=== PATIENT | female | born 1970 | race African-American/Black ===

== ENCOUNTER 2017-06-28 09:15 | Inpatient (IN) | payer OTHER ==
[2017-06-28 09:54] VITALS: BMI 28.3
--- NOTE | 2017-06-28 12:52 | HP ---
Admission ROS [facility] Chief Complaint: I was at [facility] for detox and completed. I am here for rehab. Allergies/Adverse Reactions: Allergies Allergy/AdvReac Type Severity Reaction Status Date / Time haloperidol [From Haldol] Allergy Severe Rash Verified 06/28/17 11:59 haloperidol lactate Allergy Severe Rash Verified 06/28/17 11:59 [From Haldol] metoclopramide Allergy Severe swelling, Verified 06/28/17 11:59 itching metoclopramide HCl Allergy Severe Swelling Verified 06/28/17 11:59 [From Reglan] prochlorperazine Allergy Severe Swelling Verified 06/28/17 11:59 [From Compazine] prochlorperazine edisylate Allergy Severe Swelling Verified 06/28/17 11:59 [From Compazine] prochlorperazine maleate Allergy Severe Swelling Verified 06/28/17 11:59 [From Compazine] Sulfa (Sulfonamide Allergy Severe Itching, Verified 06/28/17 11:59 Antibiotics) swelling History of Present Illness: Pt is a 46yr old female with a history of heroin dependence seeking rehab for treatment. Pt completed detox at [facility] and is here now for further tx. Exam Limitations: No Limitations - Ebola screening Have you traveled outside of the country in the last 21 days: No Have you had contact with anyone from an Ebola affected area: No Have you been sick,other than usual withdrawal symptoms: No Do you have a fever: No - Review of Systems Constitutional: No Symptoms Reported EENT: reports: No Symptoms Reported Respiratory: reports: No Symptoms reported Cardiac: reports: No Symptoms Reported GI: reports: Diarrhea, Poor Fluid Intake, Abdominal cramping : reports: No Symptoms Reported Musculoskeletal: reports: Back Pain, Joint Pain Integumentary: reports: No Symptoms Reported Neuro: reports: Seizure (last seizure 2yrs ago.) Endocrine: reports: No Symptoms Reported Hematology: reports: No Symptoms Reported, Anemia Psychiatric: reports: Judgement Intact, Mood/Affect Appropiate, Orientated x3, Agitated, Anxious Other Systems: Reviewed and Negative Patient History - Patient Medical History Hx Anemia: Yes (on iron supplement) Hx Asthma: Yes Hx Chronic Obstructive Pulmonary Disease (COPD): Yes Hx Cancer: Yes Hx Cardiac Disorders: No Hx Congestive Heart Failure: No Hx Hypertension: Yes Hx Seizures: Yes (r/t head trauma-last episode was in 2016) Hx Diabetes: No Hx Gastrointestinal Disorders: Yes (acid reflux) Hx Liver Disease: No Hx Genitourinary Disorders: No Hx Sexually Transmitted Disorders: Yes Hx Renal Disease (ESRD): No Hx Thyroid Disease: No Hx Human Immunodeficiency Virus (HIV): Yes (hiv since 2001 with [place]) Hx Hepatitis C: No Hx Depression: Yes Hx Suicide Attempt: Yes (cut left wrist in 2001/denies any S/H ideation today) Hx Bipolar Disorder: Yes Hx Schizophrenia: No - Patient Surgical History Past Surgical History: Yes Hx Neurologic Surgery: No Hx Cataract Extraction: No Hx Cardiac Surgery: No Hx Lung Surgery: No Hx Breast Surgery: No Hx Breast Biopsy: No Hx Abdominal Surgery: No Hx Appendectomy: No Hx Cholecystectomy: No Hx Genitourinary Surgery: No Hx Section: Yes (x1) Other Surgical History: tonsilectomy/bunion removal, both feet in 2016 Anesthesia Reaction: No - PPD History Previous Implant?: Yes Documented Results: Negative w/o proof Implanted On Prior [facility] Admission?: No - Reproductive History Patient is a Female of Child Bearing Age (11 -55 yrs old): Yes Last Menstrual Period: 05/21/17 Patient : No - Smoking Cessation Smoking history: Current every day smoker Have you smoked in the past 12 months: Yes Aproximately how many cigarettes per day: 5 Hx Chewing Tobacco Use: No Initiated information on smoking cessation: Yes 'Breaking Loose' booklet given: 06/28/17 - Substance & Tx. History Hx Alcohol Use: No Hx Substance Use: Yes Substance Use Type: Cocaine, Heroin Hx Substance Use Treatment: Yes ([facility] detox 06/2017) - Substances Abused Heroin Route: Inhalation Frequency: Daily Amount used: 20 bags Age of first use: 33 Date of Last Use: 06/22/17 Crack Route: Smoking Frequency: 1-3 times last 30 days Amount used: $100 Age of first use: 33 Date of Last Use: 06/22/17 Family Disease History - Family Disease History Family Disease History: Diabetes: Mother (), CA: Mother, Other: Father ( ) Admission Physical Exam [facility] - Vital Signs Vital Signs: Vital Signs - 24 hr 06/28/17 09:46 Temperature 97.9 F Pulse Rate 120 H Respiratory 180 H Rate Blood Pressure 109/80 - Physical General Appearance: Yes: Appropriately Dressed, Tremorous, Irritable, Sweating, Anxious HEENTM: Yes: Hearing grossly Normal, Normal Voice, Nasal Congestion, Rhinorrhea Respiratory: Yes: Lungs Clear, Normal Breath Sounds, No Respiratory Distress Neck: Yes: No masses,lesions,Nodules Breast: Yes: Within Normal Limits Cardiology: Yes: Regular Rhythm, Regular Rate, S1, S2 Abdominal: Yes: Normal Bowel Sounds, Non Tender, Soft Genitourinary: Yes: Within Normal Limits Back: Yes: Normal Inspection Musculoskeletal: Yes: Back pain Extremities: Yes: Normal Capillary Refill, Normal Inspection, Non-Tender, Tremors Neurological: Yes: Fully Oriented, Alert, Normal Response Integumentary: Yes: Normal Color, Diaphoresis Lymphatic: Yes: Within Normal Limits - Diagnostic (1) Heroin use disorder, moderate, in controlled environment, dependence Current Visit: Yes Status: Chronic (2) HIV disease Current Visit: Yes Status: Chronic (3) Hyperlipidemia Current Visit: Yes Status: Chronic Qualifiers: Hyperlipidemia type: pure hypercholesterolemia Qualified Code(s): E78.00 - Pure hypercholesterolemia, unspecified; E78.0 - Pure hypercholesterolemia (4) GERD (gastroesophageal reflux disease) Current Visit: Yes Status: Chronic Qualifiers: Esophagitis presence: without esophagitis Qualified Code(s): K21.9 - Gastro -esophageal reflux disease without esophagitis (5) Nicotine dependence Current Visit: Yes Status: Chronic Qualifiers: Nicotine product type: cigarettes Substance use status: uncomplicated Qualified Code(s): F17.210 - Nicotine dependence, cigarettes, uncomplicated Cleared for Admission [facility] - Detox or Rehab [facility] Level of Care: Medically Managed Claeared for Rehab Admission: Yes [facility] Breath Alcohol Content Breath Alcohol Content: 0 Urine Pregancy Test - Result Urine Test Results: Negative- NO Line Present Urine Drug Screen - Results Drug Screen Negative: No Urine Drug Screen Results: BZO-Benzodiazepines, MTD-Methadone, TCA-Tricyclic Antidepress Inpatient Rehab Admission - Initial Determination Are CD services needed?: Yes Free of communicable disease: Yes Not in need of hospitalization: Yes - Rehab Admission Criteria Patient is meeting Inpatient Rehab admission criteria:: Yes
[2017-06-28] MEDS ORDERED: MENTHOL/PHENOL 1 EACH UD MM PRN (13:08)
[2017-06-28] MEDS ORDERED: NICOTINE POLACRILEX 2 MG GUM BC PRN (13:08)
[2017-06-28] MEDS ORDERED: IBUPROFEN 400 MG TABLET (FP) PO PRN (13:08)
[2017-06-28] MEDS ORDERED: P-EPHED 60MG/TRIPROLIDI 2.5MG TABLET PO PRN (13:08)
[2017-06-28] MEDS ORDERED: LOPERAMIDE HCL 2 MG CAPSULE PO PRN (13:08)
[2017-06-28] MEDS ORDERED: guaiFENesin/D-METHORPHAN HB 10 ML UNIT-DOSE CUPS PO PRN (13:08)
[2017-06-28] MEDS ORDERED: MAG HYDROX/AL HYDROX/SIMETH 30 ML UNIT-DOSE CUP PO PRN (13:08)
[2017-06-28] MEDS ORDERED: MAGNESIUM CITRATE 300 ML BOTTLE PO PRN (13:08)
[2017-06-28] MEDS ORDERED: MAGNESIUM HYDROX 2400MG/30ML ORAL SUSPENSION 30 ML CUP PO PRN (13:08)
[2017-06-28] MEDS ORDERED: ACETAMINOPHEN 325 MG TABLET (FP) PO PRN (13:08)
[2017-06-28] MEDS ORDERED: DOCUSATE SODIUM 100 MG CAPSULE (FP) PO PRN (13:09)
[2017-06-28] MEDS ORDERED: diphenhydrAMINE HCL 25 MG CAPSULE (FP) PO PRN (13:09)
[2017-06-28] MEDS ORDERED: ALBUTEROL SO4 18 GM HFA INHALER IH SCH (13:15)
[2017-06-28] MEDS ORDERED: COLLOIDAL OATMEAL 1 BAR EACH TP PRN (14:57)
[2017-06-28] MEDS ORDERED: ALBUTEROL SO4 18 GM HFA INHALER IH PRN (15:31)
[2017-06-28] MEDS: RANITIDINE HCL 150 MG TABLET (FP) PO SCH ×2 (15:53→21:44)
[2017-06-28] MEDS: hydrOXYzine PAMOATE 50 MG CAPSULE (FP) PO PRN (15:55)
[2017-06-28 17:07] LABS: MCH 20.9 pg (25.7-33.7); MEAN CELL VOLUME 69.6 fl (80-96); MEAN PLT VOLUME 9.1 fl (7.5-11.1); PLATELET COUNT 207 K/MM3 (134-434); RDW 20.7 % (11.6-15.6)
[2017-06-28 17:34] LABS: URINE APPEARANCE SLCLOUDY; URINE BILIRUBIN NEGATIVE (NEGATIVE); URINE BLOOD NEGATIVE (NEGATIVE); URINE COLOR YELLOW; URINE GLUCOSE (UA) NEGATIVE (NEGATIVE); URINE KETONE NEGATIVE (NEGATIVE); URINE NITRITE NEGATIVE (NEGATIVE); URINE PROTEIN NEGATIVE (NEGATIVE); URINE UROBILINOGEN NEGATIVE mg/dL (0.2-1.0)
[2017-06-28 18:12] LABS: ALK PHOS 102 U/L (45-117); ANION GAP 8 (8-16); BILIRUBIN,TOTAL 0.8 mg/dL (0.2-1.0); CALCIUM 8.5 mg/dL (8.5-10.1); CO2 26 mmol/L (21-32); CREATININE 1.1 mg/dL (0.55-1.02); GLUCOSE,RANDOM 87 mg/dL (74-106); SGOT/AST 22 U/L (15-37); SGPT/ALT 13 U/L (12-78)
[2017-06-28 20:15] LABS: URINE LEUK ESTERASE Negative (NEGATIVE)
[2017-06-28 21:10] LABS: ANISOCYTOSIS 2+; HYPOCHROMIA 2+; MACROCYTOSIS 1+; MICROCYTOSIS 1+; POIKILOCYTOSIS 1+; POLYCHROMASIA 1+
[2017-06-28] MEDS: ATOVAQUONE 750 MG/5 ML (UNIT-DOSE PACKAGING) PO SCH (21:43)
[2017-06-28] MEDS: QUEtiapine FUMARATE 400 MG TABLET PO SCH (21:44)
[2017-06-28] MEDS: traZODone HCL 100 MG TABLET (FP) PO SCH (21:44)
[2017-06-28] MEDS: THIAMINE HCL 100 MG TABLET (FP) PO SCH (21:44)
[2017-06-28] MEDS: ATORVASTATIN CA 20 MG TABLET (FP) PO SCH (21:44)
[2017-06-29] MEDS: hydrOXYzine PAMOATE 50 MG CAPSULE (FP) PO PRN ×3 (06:09→15:46)
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
[2017-06-29] MEDS: DOLUTEGRAVIR SODIUM 50 MG TABLET PO SCH (07:42)
[2017-06-29] MEDS: ATAZANAVIR SO4 300 MG CAPSULE PO SCH (07:42)
[2017-06-29] MEDS: RITONAVIR 100 MG TABLET PO SCH (07:42)
[2017-06-29] MEDS: TENOFOVIR DISOPROXIL FUMARATE 300 MG TABLET PO SCH (07:43)
[2017-06-29] MEDS ORDERED: PATIENT'S OWN MEDICATION (NON-FORMULARY) (Omeprazole 20 MG) PO SCH (10:00)
[2017-06-29] MEDS: NICOTINE 14 MG/24 HOURS TOPICAL PATCH TD SCH (10:38)
[2017-06-29] MEDS: ATOVAQUONE 750 MG/5 ML (UNIT-DOSE PACKAGING) PO SCH ×2 (10:38→21:24)
[2017-06-29] MEDS: RANITIDINE HCL 150 MG TABLET (FP) PO SCH ×2 (10:39→21:21)
[2017-06-29] MEDS: CHOLECALCIFEROL (VITAMIN D3) 1,000 UNIT TABLET (FP) PO SCH (10:39)
[2017-06-29] MEDS: PRENATAL VITAMINS W/ FOLIC ACID TABLET (FP) PO SCH (10:39)
[2017-06-29] MEDS: QUEtiapine FUMARATE 400 MG TABLET PO SCH ×2 (10:39→21:21)
--- NOTE | 2017-06-29 13:28 | PN ---
[facility] Progress Note Note: c/o vaginal discharge monistat started
[2017-06-29] MEDS: traZODone HCL 100 MG TABLET (FP) PO SCH (21:21)
[2017-06-29] MEDS: THIAMINE HCL 100 MG TABLET (FP) PO SCH (21:21)
[2017-06-29] MEDS: ATORVASTATIN CA 20 MG TABLET (FP) PO SCH (21:21)
[2017-06-29] MEDS: MICONAZOLE NITRATE 100 MG SUPP SUPP.VAG PV SCH (21:25)
[2017-06-29] MEDS ORDERED: SUVOREXANT 10 MG TABLET PO PRN (22:00)
[2017-06-30] MEDS: hydrOXYzine PAMOATE 50 MG CAPSULE (FP) PO PRN ×3 (06:02→14:44)
[2017-06-30 07:08] VITALS: BP 131/80; PULSE 103; TEMP 99.8
[2017-06-30] MEDS: ATAZANAVIR SO4 300 MG CAPSULE PO SCH (07:14)
[2017-06-30] MEDS: RITONAVIR 100 MG TABLET PO SCH (07:14)
[2017-06-30] MEDS: DOLUTEGRAVIR SODIUM 50 MG TABLET PO SCH (07:14)
[2017-06-30] MEDS: TENOFOVIR DISOPROXIL FUMARATE 300 MG TABLET PO SCH (07:14)
[2017-06-30] MEDS: CHOLECALCIFEROL (VITAMIN D3) 1,000 UNIT TABLET (FP) PO SCH (09:52)
[2017-06-30] MEDS: PRENATAL VITAMINS W/ FOLIC ACID TABLET (FP) PO SCH (09:52)
[2017-06-30] MEDS: RANITIDINE HCL 150 MG TABLET (FP) PO SCH ×2 (09:52→22:05)
[2017-06-30] MEDS: NICOTINE 14 MG/24 HOURS TOPICAL PATCH TD SCH (09:52)
[2017-06-30] MEDS: ATOVAQUONE 750 MG/5 ML (UNIT-DOSE PACKAGING) PO SCH ×2 (09:52→22:04)
[2017-06-30] MEDS: QUEtiapine FUMARATE 400 MG TABLET PO SCH ×2 (09:53→22:05)
--- NOTE | 2017-06-30 12:14 | EKG ---
Test Reason : Blood Pressure : / mmHG Vent. Rate : 081 BPM Atrial Rate : 081 BPM P-R Int : 138 ms QRS Dur : 092 ms QT Int : 396 ms P-R-T Axes : 073 050 043 degrees QTc Int : 460 ms NORMAL SINUS RHYTHM POSSIBLE LEFT ATRIAL ENLARGEMENT BORDERLINE ECG NO PREVIOUS ECGS AVAILABLE Confirmed by VICTORINO MARIE MD ([id number]) on 06/30/2017 12:14:04 PM Referred By: Confirmed By:VICTORINO MARIE MD
[2017-06-30] MEDS ORDERED: BUPRENORPHINE/NALOXONE 2 MG/0.5 MG FILM PACKET SL SCH (12:45)
--- NOTE | 2017-06-30 12:45 | PN ---
[facility] Progress Note (SOAP) Subjective: c/o opioid withdrawal sx still present after detox from [facility] last dose of methadone 5mg 2 days ago, now with anxiety, depression fatigue, insomnia , sweats and chills, has abdo pain h/o PID responds to methroidazole in past. monistat no helpful started yesterday for vaginal discharge. has new onset r ffacial drstar, thinks she has had it in past but now new, interfering with speech , does not want to go to hospital. Objective: 06/30/17 12:42 Laboratory Tests 06/28/17 06/28/17 06/28/17 13:00 13:00 13:00 WBC 4.0 RBC 4.44 Hgb 9.3 L Hct 30.9 L MCV 69.6 L MCH 20.9 L MCHC 30.0 L RDW 20.7 H Plt Count 207 MPV 9.1 Hypochromia 2+ Polychromasia 1+ Poikilocytosis 1+ Anisocytosis 2+ Microcytosis 1+ Macrocytosis 1+ Morphology Comment Sodium 136 Potassium 4.5 Chloride 102 Carbon Dioxide 26 Anion Gap 8 BUN 18 Creatinine 1.1 H Creat Clearance w eGFR 53.24 Random Glucose 87 Calcium 8.5 Total Bilirubin 0.8 AST 22 ALT 13 Alkaline Phosphatase 102 Total Protein 9.0 H Albumin 3.0 L Urine Color Urine Appearance Urine pH Ur Specific [place] Urine Protein Urine Glucose (UA) Urine Ketones Urine Blood Urine Nitrite Urine Bilirubin Urine Urobilinogen Ur Leukocyte Esterase RPR Titer Nonreactive 06/28/17 15:30 WBC RBC Hgb Hct MCV MCH MCHC RDW Plt Count MPV Hypochromia Polychromasia Poikilocytosis Anisocytosis Microcytosis Macrocytosis Morphology Comment Sodium Potassium Chloride Carbon Dioxide Anion Gap BUN Creatinine Creat Clearance w eGFR Random Glucose Calcium Total Bilirubin AST ALT Alkaline Phosphatase Total Protein Albumin Urine Color Yellow Urine Appearance Slcloudy Urine pH 7.0 Ur Specific [place] 1.016 Urine Protein Negative Urine Glucose (UA) Negative Urine Ketones Negative Urine Blood Negative Urine Nitrite Negative Urine Bilirubin Negative Urine Urobilinogen Negative Ur Leukocyte Esterase Negative RPR Titer 06/30/17 12:42 Vital Signs Period Temp Pulse Resp BP Sys/Sanz Pulse Ox Last 24 Hr 99.8 F 103 18-20 131/80 low grade fever, microcytic anemia, hypoalbuminemia 06/30/17 12:43 slight r facial droop- SVETLANA, a and o x3, no focal deficits Assessment: 06/30/17 12:44 opioid dependence with withdrawal, new right sided facial droop and interference with speech, PID in a patient with HIV on HAART 07/01/17 12:34 Plan: patient has provider to follow up with on discharge requesting suboxone in detox , start 4mg daily now, metronidazole for abdo pain possible PID, cont monistat. will refer patient to [facility] ED for evaluation on facial paralysis
--- NOTE | 2017-06-30 13:16 | PN ---
[facility] Progress Note Note: discussed case with DR. Rader, unusual presentation for Hampton's Palsy will send to ED for evaluation, nursing staff and patient informed.
[2017-06-30] MEDS: metroNIDAZOLE 250 MG TABLET PO SCH ×2 (13:33→22:04)
[2017-06-30] MEDS: FERROUS SO4 325 MG TABLET (FP) PO SCH ×2 (13:34→16:59)
[2017-06-30] MEDS ORDERED: DOCUSATE SODIUM 100 MG CAPSULE (FP) PO SCH (22:00)
[2017-06-30] MEDS: MICONAZOLE NITRATE 100 MG SUPP SUPP.VAG PV SCH (22:04)
[2017-06-30] MEDS: traZODone HCL 100 MG TABLET (FP) PO SCH (22:04)
[2017-06-30] MEDS: ATORVASTATIN CA 20 MG TABLET (FP) PO SCH (22:04)
[2017-06-30] MEDS: THIAMINE HCL 100 MG TABLET (FP) PO SCH (22:05)
== END 2017-06-30 22:43 | disposition short-term general hospital (02) | DRG 772 ==
LOC: YASAS 09:15 → Y3W 13:00
PROVIDERS: ADMIT Psychiatry & Neurology Psychiatry; ATTEND Psychiatry & Neurology Psychiatry
PROC: HZ42ZZZ Group Counseling for Substance Abuse Treatment, Cognitive-Behavioral (ICD-10-PCS; principal; 2017-06-28)
DX: F11.23 Opioid dependence with withdrawal (principal); F17.210 Nicotine dependence, cigarettes, uncomplicated; F31.81 Bipolar II disorder; F19.282 Other psychoactive substance dependence with psychoactive substance-induced sleep disorder; Z21 Asymptomatic human immunodeficiency virus [HIV] infection status; K21.9 Gastro-esophageal reflux disease without esophagitis; N73.1 Chronic parametritis and pelvic cellulitis; E78.5 Hyperlipidemia, unspecified; I10 Essential (primary) hypertension; J45.909 Unspecified asthma, uncomplicated; D50.9 Iron deficiency anemia, unspecified; E88.09 Other disorders of plasma-protein metabolism, not elsewhere classified; G40.89 Other seizures; G51.0 Bell's palsy; R50.9 Fever, unspecified; N89.8 Other specified noninflammatory disorders of vagina; Z88.8 Allergy status to other drugs, medicaments and biological substances; Z88.2 Allergy status to sulfonamides; Z91.5 Personal history of self-harm
CPT/HCPCS: 36415; 80053; 81003; 85027; 86593; 93005; 93010

== ENCOUNTER 2017-07-02 11:09 | Inpatient (IN) | payer OTHER ==
--- NOTE | 2017-07-02 13:01 | HP ---
[facility] Rehab Assess/Revision - Admission History Admitted to Rehab from: Medical/Surgical Date of Admission to Rehab: 07/02/2017 - Vital signs Vital Signs: Vital Signs Period Temp Pulse Resp BP Sys/Sanz Pulse Ox Last 24 Hr 98.2 F 116 18 125/80 - Findings Detox History & Physical reviewed: Yes Concur with findings: Yes Comments/Additional Findings: Pt d/c'ed with dx. of CVA , PID, HIV
[2017-07-02] MEDS ORDERED: MAG HYDROX/AL HYDROX/SIMETH 30 ML UNIT-DOSE CUP PO PRN (13:07)
[2017-07-02] MEDS ORDERED: MENTHOL/PHENOL 1 EACH UD MM PRN (13:07)
[2017-07-02] MEDS ORDERED: P-EPHED 60MG/TRIPROLIDI 2.5MG TABLET PO PRN (13:07)
[2017-07-02] MEDS ORDERED: LOPERAMIDE HCL 2 MG CAPSULE PO PRN (13:07)
[2017-07-02] MEDS ORDERED: guaiFENesin/D-METHORPHAN HB 10 ML UNIT-DOSE CUPS PO PRN (13:07)
[2017-07-02] MEDS ORDERED: IBUPROFEN 400 MG TABLET (FP) PO PRN (13:07)
[2017-07-02] MEDS ORDERED: ALBUTEROL SO4 18 GM HFA INHALER IH PRN (13:15)
--- NOTE | 2017-07-02 14:49 | PN ---
Psychiatric Progress Note Vital Signs: Vital Signs Period Temp Pulse Resp BP Sys/Sanz Pulse Ox Last 24 Hr 98.2 F 116 18 125/80 Date of Session: 07/02/17 Chief Complaint:: Readmission Note HPI: Patient addressing Opoid Dependence comorbid with Nicotine Dependence, Bipolar II Disorder ROS: Anemia, HTN, HLD, GERD, HIV+/AIDS, history of Hampton's palsy, Endometriosis, PID Current Medications: Active Medications Generic Name Dose Route Start Last Admin Trade Name Freq PRN Reason Stop Dose Admin Acetaminophen 650 mg 07/02/17 13:07 Tylenol - PO Q4H PRN PAIN Al Hydroxide/Mg Hydroxide 30 ml 07/02/17 13:07 Mylanta Oral Suspension - PO Q6H PRN DYSPEPSIA Albuterol Sulfate 2 puff 07/02/17 13:15 Ventolin Hfa Inhaler - IH Q4H PRN SHORT OF BREATH/WHEEZING Aspirin 81 mg 07/03/17 10:00 Ecotrin - PO DAILY [facility] Atazanavir 200 mg 07/03/17 08:00 Reyataz - PO DAILY@0800 [facility] Atorvastatin Calcium 20 mg 07/02/17 22:00 Lipitor - PO HS [facility] Atovaquone 750 mg 07/02/17 22:00 Mepron - PO BID [facility] Buprenorphine/Naloxone 1 each 07/03/17 10:00 Suboxone 8mg/2mg Sl Film - SL 07/09/17 09:59 DAILY [facility] Docusate Sodium 100 mg 07/02/17 13:30 Colace - PO TID [facility] Doxycycline Hyclate 100 mg 07/02/17 18:00 Vibratab - PO 07/07/17 23:55 BID@1000,1800 [facility] Eucalyptus/Menthol/Phenol/Sorbitol 1 each 07/02/17 13:07 Cepastat Lozenge - MM Q4H PRN SORE THROAT Guaifenesin 10 ml 07/02/17 13:07 Robitussin Dm - PO Q6H PRN COUGH Ibuprofen 400 mg 07/02/17 13:07 Motrin - PO Q6H PRN SEVERE PAIN Loperamide HCl 4 mg 07/02/17 13:07 Imodium - PO Q6H PRN DIARRHEA Magnesium Citrate 300 ml 07/02/17 13:07 Citroma - PO Q48H PRN CONSTIPATION Magnesium Hydroxide 30 ml 07/02/17 13:07 Milk Of Magnesia - PO DAILY PRN CONSTIPATION Metronidazole 500 mg 07/02/17 22:00 Flagyl - PO 07/07/17 21:59 BID [facility] Nicotine 21 mg 07/03/17 10:00 Nicoderm Patch - TD DAILY [facility] Nicotine Polacrilex 4 mg 07/02/17 13:07 Nicorette Gum - BUC Q2H PRN NICOTINE REPLACEMENT RX Pantoprazole Sodium 20 mg 07/03/17 10:00 Protonix - PO DAILY [facility] Multivit/Folic Acid/Iron 1 tab 07/03/17 10:00 Vitamins (Sjr) - PO DAILY [facility] Pseudoephedrine/Triprolidine 1 combo 07/02/17 13:07 Actifed - PO TID PRN NASAL CONGESTION Ritonavir 100 mg 07/03/17 08:00 Norvir - PO DAILY@0800 [facility] Tenofovir Disoproxil Fumarate 300 mg 07/03/17 08:00 Viread - PO DAILY@0800 [facility] Thiamine HCl 100 mg 07/02/17 22:00 Vitamin B1 - PO HS [facility] Current Side Effect: No Lab tests ordered: Yes Lab tests reviewed: Yes Provider note:: Patient is readmitted to this unit today(07/02/17) to complete inpatient rehabilitation. She was transferred to [facility] on 06/30/17 because of sudden development of left side facial droop. Medical work up consisting of CT scan of head, Echo, Carotoid Doppler, blood work was negative. 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 She was medically stabilized and transferred back Total face to face time:: 35 Mental Status Exam - Mental Status Exam Alert and Oriented to: Time, Place, Person Cognitive Function: Fair Patient Appearance: Well Groomed Mood: Hopeful, Euthymic Affect: Appropriate Patient Behavior: Cooperative Speech Pattern: Clear Voice Loudness: Normal Thought Process: Intact, Goal Oriented Hallucinations: Denies Suicidal Ideation: Denies Homicidal Ideation: Denies Insight/Judgement: Fair Sleep: Fair Appetite: Good Muscle strength/Tone: Normal Gait/Station: Normal Psychiatric Treatment Plan - Problem List (1) Opioid dependence Current Visit: No (2) Nicotine dependence Current Visit: No Qualifiers: Nicotine product type: cigarettes Substance use status: uncomplicated Qualified Code(s): F17.210 - Nicotine dependence, cigarettes, uncomplicated (3) Bipolar II disorder Current Visit: No (4) Substance-induced sleep disorder Current Visit: No (5) Anemia Current Visit: No (6) Hampton's palsy Current Visit: No (7) Chronic PID (chronic pelvic inflammatory disease) Current Visit: No (8) GERD (gastroesophageal reflux disease) Current Visit: No (9) HTN (hypertension) Current Visit: No (10) HIV disease Current Visit: No Initial treatment plan: 1) Continue Seroquel 400 mg po BID and Vistaril 50 mg po Q 4hrs prn for anxiety and insomnia. 2) Monitor progress
[2017-07-02] MEDS: DOCUSATE SODIUM 100 MG CAPSULE (FP) PO SCH ×3 (15:03→21:28)
[2017-07-02] MEDS: NICOTINE POLACRILEX 4 MG GUM BUC PRN (15:06)
[2017-07-02] MEDS: DOXYCYCLINE HYCLATE 100 MG TABLET PO SCH (17:00)
[2017-07-02] MEDS: hydrOXYzine PAMOATE 50 MG CAPSULE (FP) PO PRN ×2 (17:38→21:28)
[2017-07-02] MEDS: THIAMINE HCL 100 MG TABLET (FP) PO SCH (21:28)
[2017-07-02] MEDS: metroNIDAZOLE 250 MG TABLET PO SCH (21:29)
[2017-07-02] MEDS: QUEtiapine FUMARATE 400 MG TABLET PO SCH (21:29)
[2017-07-02] MEDS: ATORVASTATIN CA 20 MG TABLET (FP) PO SCH (21:29)
[2017-07-02] MEDS: ATOVAQUONE 750 MG/5 ML (UNIT-DOSE PACKAGING) PO SCH (21:31)
[2017-07-02] MEDS: MAG HYDROX/ALH/SMC/DPHA/LIDO 240 ML MOUTHWASH MM SCH ×2 (21:32→23:46)
[2017-07-03] MEDS: diphenhydrAMINE HCL 50 MG CAPSULE PO PRN ×2 (01:35→22:51)
[2017-07-03] MEDS: DOCUSATE SODIUM 100 MG CAPSULE (FP) PO SCH ×3 (06:13→21:06)
[2017-07-03] MEDS: MAG HYDROX/ALH/SMC/DPHA/LIDO 240 ML MOUTHWASH MM SCH ×4 (06:14→23:07)
[2017-07-03] MEDS: hydrOXYzine PAMOATE 50 MG CAPSULE (FP) PO PRN ×3 (06:27→21:08)
[2017-07-03] MEDS: TENOFOVIR DISOPROXIL FUMARATE 300 MG TABLET PO SCH (07:12)
[2017-07-03] MEDS: RITONAVIR 100 MG TABLET PO SCH (07:12)
[2017-07-03] MEDS: ATAZANAVIR SO4 200 MG CAPSULE PO SCH (07:12)
[2017-07-03] MEDS: metroNIDAZOLE 250 MG TABLET PO SCH ×2 (09:40→21:06)
[2017-07-03] MEDS: PANTOPRAZOLE 20 MG TABLET (FP) PO SCH (09:41)
[2017-07-03] MEDS: NICOTINE 21 MG/24 HOURS TOPICAL PATCH TD SCH (09:41)
[2017-07-03] MEDS: ASPIRIN COATED 81 MG TABLET.EC PO SCH (09:41)
[2017-07-03] MEDS: QUEtiapine FUMARATE 400 MG TABLET PO SCH ×2 (09:41→21:06)
[2017-07-03] MEDS: ATOVAQUONE 750 MG/5 ML (UNIT-DOSE PACKAGING) PO SCH ×2 (09:41→21:44)
[2017-07-03] MEDS: PRENATAL VITAMINS W/ FOLIC ACID TABLET (FP) PO SCH (09:41)
[2017-07-03] MEDS: DOXYCYCLINE HYCLATE 100 MG TABLET PO SCH ×2 (09:41→17:40)
[2017-07-03] MEDS: BUPRENORPHINE/NALOXONE 8 MG/2 MG FILM PACKET SL SCH (09:41)
[2017-07-03] MEDS ORDERED: PATIENT'S OWN MEDICATION (NON-FORMULARY) (Dolutegravir Sodium 50 MG) PO SCH (10:15)
[2017-07-03] MEDS: DOLUTEGRAVIR SODIUM 50 MG TABLET PO SCH (14:23)
[2017-07-03 14:48] LABS: URINE APPEARANCE SLCLOUDY; URINE BILIRUBIN NEGATIVE (NEGATIVE); URINE BLOOD NEGATIVE (NEGATIVE); URINE COLOR YELLOW; URINE GLUCOSE (UA) NEGATIVE (NEGATIVE); URINE KETONE NEGATIVE (NEGATIVE); URINE NITRITE NEGATIVE (NEGATIVE); URINE PROTEIN NEGATIVE (NEGATIVE); URINE UROBILINOGEN NEGATIVE mg/dL (0.2-1.0)
[2017-07-03 17:43] LABS: URINE LEUK ESTERASE Negative (NEGATIVE)
[2017-07-03] MEDS: traZODone HCL 100 MG TABLET (FP) PO SCH ×2 (19:57→21:06)
[2017-07-03] MEDS: THIAMINE HCL 100 MG TABLET (FP) PO SCH (21:07)
[2017-07-03] MEDS: ATORVASTATIN CA 20 MG TABLET (FP) PO SCH (21:07)
[2017-07-03] MEDS: MICONAZOLE NITRATE 100 MG SUPP SUPP.VAG PV SCH (23:06)
[2017-07-04] MEDS: DOCUSATE SODIUM 100 MG CAPSULE (FP) PO SCH ×3 (06:02→21:08)
[2017-07-04] MEDS: MAG HYDROX/ALH/SMC/DPHA/LIDO 240 ML MOUTHWASH MM SCH ×4 (06:03→23:05)
[2017-07-04] MEDS: hydrOXYzine PAMOATE 50 MG CAPSULE (FP) PO PRN ×4 (06:06→21:09)
[2017-07-04] MEDS: TENOFOVIR DISOPROXIL FUMARATE 300 MG TABLET PO SCH (07:06)
[2017-07-04] MEDS: RITONAVIR 100 MG TABLET PO SCH (07:06)
[2017-07-04] MEDS: ATAZANAVIR SO4 200 MG CAPSULE PO SCH (07:07)
[2017-07-04] MEDS: DOXYCYCLINE HYCLATE 100 MG TABLET PO SCH ×2 (09:45→17:17)
[2017-07-04] MEDS: PANTOPRAZOLE 20 MG TABLET (FP) PO SCH (09:45)
[2017-07-04] MEDS: ATOVAQUONE 750 MG/5 ML (UNIT-DOSE PACKAGING) PO SCH ×2 (09:45→21:10)
[2017-07-04] MEDS: NICOTINE 21 MG/24 HOURS TOPICAL PATCH TD SCH (09:45)
[2017-07-04] MEDS: metroNIDAZOLE 250 MG TABLET PO SCH ×2 (09:45→21:08)
[2017-07-04] MEDS: BUPRENORPHINE/NALOXONE 8 MG/2 MG FILM PACKET SL SCH (09:45)
[2017-07-04] MEDS: QUEtiapine FUMARATE 400 MG TABLET PO SCH ×2 (09:45→21:08)
[2017-07-04] MEDS: DOLUTEGRAVIR SODIUM 50 MG TABLET PO SCH (09:46)
[2017-07-04] MEDS: ASPIRIN COATED 81 MG TABLET.EC PO SCH (09:46)
[2017-07-04] MEDS: PRENATAL VITAMINS W/ FOLIC ACID TABLET (FP) PO SCH (09:46)
[2017-07-04] MEDS: ATORVASTATIN CA 20 MG TABLET (FP) PO SCH (21:08)
[2017-07-04] MEDS: THIAMINE HCL 100 MG TABLET (FP) PO SCH (21:09)
[2017-07-04] MEDS: traZODone HCL 100 MG TABLET (FP) PO SCH (21:09)
[2017-07-04] MEDS: MICONAZOLE NITRATE 100 MG SUPP SUPP.VAG PV SCH (21:11)
[2017-07-04] MEDS: diphenhydrAMINE HCL 50 MG CAPSULE PO PRN (23:05)
[2017-07-05] MEDS: DOCUSATE SODIUM 100 MG CAPSULE (FP) PO SCH ×3 (06:50→21:31)
[2017-07-05] MEDS: hydrOXYzine PAMOATE 50 MG CAPSULE (FP) PO PRN ×4 (06:52→23:36)
[2017-07-05] MEDS: MAG HYDROX/ALH/SMC/DPHA/LIDO 240 ML MOUTHWASH MM SCH ×4 (06:56→23:11)
[2017-07-05] MEDS: TENOFOVIR DISOPROXIL FUMARATE 300 MG TABLET PO SCH (07:18)
[2017-07-05] MEDS: RITONAVIR 100 MG TABLET PO SCH (07:18)
[2017-07-05] MEDS: ATAZANAVIR SO4 200 MG CAPSULE PO SCH (07:18)
--- NOTE | 2017-07-05 09:41 | EKG ---
Test Reason : Blood Pressure : / mmHG Vent. Rate : 093 BPM Atrial Rate : 093 BPM P-R Int : 146 ms QRS Dur : 092 ms QT Int : 404 ms P-R-T Axes : 071 031 028 degrees QTc Int : 502 ms NORMAL SINUS RHYTHM POSSIBLE LEFT ATRIAL ENLARGEMENT SEPTAL INFARCT , AGE UNDETERMINED T WAVE ABNORMALITY, CONSIDER ANTERIOR ISCHEMIA PROLONGED QT ABNORMAL ECG WHEN COMPARED WITH ECG OF 30-JUN-2017 18:13, SEPTAL INFARCT IS NOW PRESENT Confirmed by CYNTHIA MONROY, VICTORINO ([id number]) on 07/05/2017 9:41:13 AM Referred By: Confirmed By:VICTORINO MARIE MD
[2017-07-05] MEDS: ASPIRIN COATED 81 MG TABLET.EC PO SCH (09:46)
[2017-07-05] MEDS: QUEtiapine FUMARATE 400 MG TABLET PO SCH ×2 (09:46→21:29)
[2017-07-05] MEDS: PANTOPRAZOLE 20 MG TABLET (FP) PO SCH (09:46)
[2017-07-05] MEDS: BUPRENORPHINE/NALOXONE 8 MG/2 MG FILM PACKET SL SCH (09:46)
[2017-07-05] MEDS: DOXYCYCLINE HYCLATE 100 MG TABLET PO SCH ×2 (09:46→17:18)
[2017-07-05] MEDS: metroNIDAZOLE 250 MG TABLET PO SCH ×2 (09:46→21:29)
[2017-07-05] MEDS: PRENATAL VITAMINS W/ FOLIC ACID TABLET (FP) PO SCH (09:46)
[2017-07-05] MEDS: DOLUTEGRAVIR SODIUM 50 MG TABLET PO SCH (09:46)
[2017-07-05] MEDS: NICOTINE 21 MG/24 HOURS TOPICAL PATCH TD SCH (09:47)
[2017-07-05] MEDS: ATOVAQUONE 750 MG/5 ML (UNIT-DOSE PACKAGING) PO SCH ×2 (09:47→21:29)
[2017-07-05] MEDS: FERROUS SO4 325 MG TABLET (FP) PO SCH ×3 (10:21→17:19)
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
[2017-07-05] MEDS ORDERED: BUPRENORPHINE/NALOXONE 2 MG/0.5 MG FILM PACKET SL ONE (17:00)
[2017-07-05] MEDS: GABAPENTIN 100 MG CAPSULE (FP) PO SCH ×2 (17:19→21:29)
[2017-07-05] MEDS: CYCLOBENZAPRINE HCL 5 MG TABLET PO SCH ×2 (17:19→22:12)
[2017-07-05] MEDS: ATAZANAVIR SO4 300 MG CAPSULE PO SCH (17:26)
[2017-07-05] MEDS: THIAMINE HCL 100 MG TABLET (FP) PO SCH (21:29)
[2017-07-05] MEDS: RANITIDINE HCL 150 MG TABLET (FP) PO SCH (21:29)
[2017-07-05] MEDS: ATORVASTATIN CA 20 MG TABLET (FP) PO SCH (21:29)
[2017-07-05] MEDS: traZODone HCL 100 MG TABLET (FP) PO SCH (21:29)
[2017-07-05] MEDS: MICONAZOLE NITRATE 100 MG SUPP SUPP.VAG PV SCH (21:30)
[2017-07-05] MEDS: diphenhydrAMINE HCL 50 MG CAPSULE PO PRN (21:33)
[2017-07-06] MEDS: CYCLOBENZAPRINE HCL 5 MG TABLET PO SCH ×3 (05:53→21:10)
[2017-07-06] MEDS: DOCUSATE SODIUM 100 MG CAPSULE (FP) PO SCH ×3 (05:53→21:09)
[2017-07-06] MEDS: GABAPENTIN 100 MG CAPSULE (FP) PO SCH ×3 (05:53→21:10)
[2017-07-06] MEDS: hydrOXYzine PAMOATE 50 MG CAPSULE (FP) PO PRN ×2 (05:57→09:46)
[2017-07-06] MEDS: MAG HYDROX/ALH/SMC/DPHA/LIDO 240 ML MOUTHWASH MM SCH ×4 (06:12→23:00)
[2017-07-06] MEDS: FERROUS SO4 325 MG TABLET (FP) PO SCH ×3 (07:05→17:05)
[2017-07-06] MEDS: TENOFOVIR DISOPROXIL FUMARATE 300 MG TABLET PO SCH (07:06)
[2017-07-06] MEDS: DOLUTEGRAVIR SODIUM 50 MG TABLET PO SCH (07:06)
[2017-07-06] MEDS: RITONAVIR 100 MG TABLET PO SCH (07:07)
[2017-07-06] MEDS: ATAZANAVIR SO4 300 MG CAPSULE PO SCH (07:07)
[2017-07-06] MEDS: metroNIDAZOLE 250 MG TABLET PO SCH ×2 (09:44→21:09)
[2017-07-06] MEDS: DOXYCYCLINE HYCLATE 100 MG TABLET PO SCH ×2 (09:44→17:05)
[2017-07-06] MEDS: ASPIRIN COATED 81 MG TABLET.EC PO SCH (09:44)
[2017-07-06] MEDS: NICOTINE 21 MG/24 HOURS TOPICAL PATCH TD SCH (09:44)
[2017-07-06] MEDS: ATOVAQUONE 750 MG/5 ML (UNIT-DOSE PACKAGING) PO SCH ×2 (09:44→21:08)
[2017-07-06] MEDS: BUPRENORPHINE HCL/NALOXONE 12 MG-3 MG SL FILM PACKET SL SCH (09:44)
[2017-07-06] MEDS: QUEtiapine FUMARATE 400 MG TABLET PO SCH ×2 (09:44→21:09)
[2017-07-06] MEDS: PRENATAL VITAMINS W/ FOLIC ACID TABLET (FP) PO SCH (09:44)
[2017-07-06] MEDS: RANITIDINE HCL 150 MG TABLET (FP) PO SCH ×2 (09:59→21:10)
[2017-07-06] MEDS: THIAMINE HCL 100 MG TABLET (FP) PO SCH (21:08)
[2017-07-06] MEDS: traZODone HCL 100 MG TABLET (FP) PO SCH (21:10)
[2017-07-06] MEDS: ATORVASTATIN CA 20 MG TABLET (FP) PO SCH (21:10)
[2017-07-06] MEDS: diphenhydrAMINE HCL 50 MG CAPSULE PO PRN (21:11)
[2017-07-06] MEDS: MICONAZOLE NITRATE 100 MG SUPP SUPP.VAG PV SCH (21:18)
[2017-07-06] MEDS: AMMONIUM LACTATE 12% LOTION 225 GM BOTTLE TP PRN (21:18)
[2017-07-07] MEDS: MAG HYDROX/ALH/SMC/DPHA/LIDO 240 ML MOUTHWASH MM SCH ×4 (06:07→23:36)
[2017-07-07] MEDS: CYCLOBENZAPRINE HCL 5 MG TABLET PO SCH (06:07)
[2017-07-07] MEDS: GABAPENTIN 100 MG CAPSULE (FP) PO SCH ×3 (06:07→21:42)
[2017-07-07] MEDS: DOCUSATE SODIUM 100 MG CAPSULE (FP) PO SCH ×3 (06:08→21:42)
[2017-07-07] MEDS: RITONAVIR 100 MG TABLET PO SCH (07:20)
[2017-07-07] MEDS: ATAZANAVIR SO4 300 MG CAPSULE PO SCH (07:20)
[2017-07-07] MEDS: TENOFOVIR DISOPROXIL FUMARATE 300 MG TABLET PO SCH (07:20)
[2017-07-07] MEDS: FERROUS SO4 325 MG TABLET (FP) PO SCH ×3 (07:20→17:04)
[2017-07-07] MEDS: DOLUTEGRAVIR SODIUM 50 MG TABLET PO SCH (07:21)
[2017-07-07] MEDS: NICOTINE 21 MG/24 HOURS TOPICAL PATCH TD SCH (09:57)
[2017-07-07] MEDS: QUEtiapine FUMARATE 400 MG TABLET PO SCH ×2 (09:58→21:42)
[2017-07-07] MEDS: metroNIDAZOLE 250 MG TABLET PO SCH (09:58)
[2017-07-07] MEDS: ATOVAQUONE 750 MG/5 ML (UNIT-DOSE PACKAGING) PO SCH ×2 (09:58→21:43)
[2017-07-07] MEDS: PRENATAL VITAMINS W/ FOLIC ACID TABLET (FP) PO SCH (09:58)
[2017-07-07] MEDS: BUPRENORPHINE HCL/NALOXONE 12 MG-3 MG SL FILM PACKET SL SCH (09:58)
[2017-07-07] MEDS: ASPIRIN COATED 81 MG TABLET.EC PO SCH (09:58)
[2017-07-07] MEDS: RANITIDINE HCL 150 MG TABLET (FP) PO SCH ×2 (09:58→21:42)
[2017-07-07] MEDS: DOXYCYCLINE HYCLATE 100 MG TABLET PO SCH (09:58)
--- NOTE | 2017-07-07 10:29 | PN ---
[facility] Progress Note Note: Pateint c/o anxiety, hydroxyzine and antibiotics stopped because of prolonged qtc on ekg, still has cravings and dreams about using, insomnia Vital Signs - 8 hr 07/07/17 07/07/17 03:30 07:10 Temperature 98.2 F Pulse Rate 103 H Respiratory 18 20 Rate Blood Pressure 106/76 Laboratory Tests 07/03/17 09:43 Urine Color Yellow Urine Appearance Slcloudy Urine pH 5.0 D Ur Specific [place] 1.013 Urine Protein Negative Urine Glucose (UA) Negative Urine Ketones Negative Urine Blood Negative Urine Nitrite Negative Urine Bilirubin Negative Urine Urobilinogen Negative Ur Leukocyte Esterase Negative drug craving causing anxiety and insomnia increase suboxone to 16mg daily, 4 mg now in addition to 12mg she just had, benadryl prn at night for insomnia, antibiotics d/c
[2017-07-07] MEDS ORDERED: BUPRENORPHINE/NALOXONE 2 MG/0.5 MG FILM PACKET SL ONE (10:37)
[2017-07-07] MEDS: METHYL SALICYLATE/MENTHOL OINT 30 GM TUBE TP SCH (11:43)
[2017-07-07] MEDS: diphenhydrAMINE HCL 50 MG CAPSULE PO PRN (21:41)
[2017-07-07] MEDS: MAGNESIUM CITRATE 300 ML BOTTLE PO PRN (21:42)
[2017-07-07] MEDS: traZODone HCL 100 MG TABLET (FP) PO SCH (21:42)
[2017-07-07] MEDS: ATORVASTATIN CA 20 MG TABLET (FP) PO SCH (21:42)
[2017-07-07] MEDS: MICONAZOLE NITRATE 100 MG SUPP SUPP.VAG PV SCH (21:43)
[2017-07-07] MEDS: THIAMINE HCL 100 MG TABLET (FP) PO SCH (21:44)
[2017-07-07] MEDS: ACETAMINOPHEN 325 MG TABLET (FP) PO PRN (23:32)
[2017-07-08] MEDS: GABAPENTIN 100 MG CAPSULE (FP) PO SCH ×3 (06:20→21:30)
[2017-07-08] MEDS: DOCUSATE SODIUM 100 MG CAPSULE (FP) PO SCH ×3 (06:20→21:31)
[2017-07-08] MEDS: MAG HYDROX/ALH/SMC/DPHA/LIDO 240 ML MOUTHWASH MM SCH ×4 (06:21→23:50)
[2017-07-08] MEDS: ATAZANAVIR SO4 300 MG CAPSULE PO SCH (07:08)
[2017-07-08] MEDS: FERROUS SO4 325 MG TABLET (FP) PO SCH ×3 (07:08→17:02)
[2017-07-08] MEDS: DOLUTEGRAVIR SODIUM 50 MG TABLET PO SCH (07:09)
[2017-07-08] MEDS: RITONAVIR 100 MG TABLET PO SCH (07:09)
[2017-07-08] MEDS: TENOFOVIR DISOPROXIL FUMARATE 300 MG TABLET PO SCH (07:10)
[2017-07-08] MEDS: BUPRENORPHINE/NALOXONE 8 MG/2 MG FILM PACKET SL SCH (09:42)
[2017-07-08] MEDS: ATOVAQUONE 750 MG/5 ML (UNIT-DOSE PACKAGING) PO SCH ×2 (09:42→21:30)
[2017-07-08] MEDS: METHYL SALICYLATE/MENTHOL OINT 30 GM TUBE TP SCH (09:42)
[2017-07-08] MEDS: NICOTINE 21 MG/24 HOURS TOPICAL PATCH TD SCH (09:42)
[2017-07-08] MEDS: ASPIRIN COATED 81 MG TABLET.EC PO SCH (09:43)
[2017-07-08] MEDS: PRENATAL VITAMINS W/ FOLIC ACID TABLET (FP) PO SCH (09:43)
[2017-07-08] MEDS: RANITIDINE HCL 150 MG TABLET (FP) PO SCH ×2 (09:43→21:30)
[2017-07-08] MEDS: QUEtiapine FUMARATE 400 MG TABLET PO SCH ×2 (09:43→21:30)
[2017-07-08] MEDS: AMMONIUM LACTATE 12% LOTION 225 GM BOTTLE TP PRN (09:44)
[2017-07-08] MEDS: ATORVASTATIN CA 20 MG TABLET (FP) PO SCH (21:30)
[2017-07-08] MEDS: THIAMINE HCL 100 MG TABLET (FP) PO SCH (21:30)
[2017-07-08] MEDS: SENNOSIDES 8.6MG TABLET (FP) PO SCH (21:30)
[2017-07-08] MEDS: MICONAZOLE NITRATE 100 MG SUPP SUPP.VAG PV SCH (21:31)
[2017-07-08] MEDS: traZODone HCL 100 MG TABLET (FP) PO SCH (21:31)
[2017-07-08] MEDS: diphenhydrAMINE HCL 50 MG CAPSULE PO PRN (21:32)
[2017-07-09] MEDS: DOCUSATE SODIUM 100 MG CAPSULE (FP) PO SCH ×3 (06:07→21:53)
[2017-07-09] MEDS: MAG HYDROX/ALH/SMC/DPHA/LIDO 240 ML MOUTHWASH MM SCH ×4 (06:07→23:43)
[2017-07-09] MEDS: GABAPENTIN 100 MG CAPSULE (FP) PO SCH ×3 (06:08→21:19)
[2017-07-09] MEDS: FERROUS SO4 325 MG TABLET (FP) PO SCH ×3 (07:09→16:52)
[2017-07-09] MEDS: ATAZANAVIR SO4 300 MG CAPSULE PO SCH (07:09)
[2017-07-09] MEDS: DOLUTEGRAVIR SODIUM 50 MG TABLET PO SCH (07:10)
[2017-07-09] MEDS: RITONAVIR 100 MG TABLET PO SCH (08:00)
[2017-07-09] MEDS: TENOFOVIR DISOPROXIL FUMARATE 300 MG TABLET PO SCH (08:41)
[2017-07-09] MEDS: PRENATAL VITAMINS W/ FOLIC ACID TABLET (FP) PO SCH (09:55)
[2017-07-09] MEDS: ATOVAQUONE 750 MG/5 ML (UNIT-DOSE PACKAGING) PO SCH ×2 (09:57→21:19)
[2017-07-09] MEDS: BUPRENORPHINE/NALOXONE 8 MG/2 MG FILM PACKET SL SCH (09:57)
[2017-07-09] MEDS: ASPIRIN COATED 81 MG TABLET.EC PO SCH (09:59)
[2017-07-09] MEDS: METHYL SALICYLATE/MENTHOL OINT 30 GM TUBE TP SCH (09:59)
[2017-07-09] MEDS: NICOTINE 21 MG/24 HOURS TOPICAL PATCH TD SCH (10:00)
[2017-07-09] MEDS: QUEtiapine FUMARATE 400 MG TABLET PO SCH ×2 (10:01→21:20)
[2017-07-09] MEDS: RANITIDINE HCL 150 MG TABLET (FP) PO SCH ×2 (10:01→21:19)
[2017-07-09] MEDS: MAGNESIUM HYDROX 2400MG/30ML ORAL SUSPENSION 30 ML CUP PO PRN (13:25)
[2017-07-09] MEDS: hydrOXYzine PAMOATE 50 MG CAPSULE (FP) PO PRN ×2 (15:44→20:27)
[2017-07-09] MEDS: MAGNESIUM CITRATE 300 ML BOTTLE PO PRN (20:27)
[2017-07-09] MEDS ORDERED: PT OWN MED DRAWER 7, Y5N ONE (20:38)
[2017-07-09] MEDS: ATORVASTATIN CA 20 MG TABLET (FP) PO SCH (21:19)
[2017-07-09] MEDS: traZODone HCL 100 MG TABLET (FP) PO SCH (21:19)
[2017-07-09] MEDS: SENNOSIDES 8.6MG TABLET (FP) PO SCH (21:19)
[2017-07-09] MEDS: THIAMINE HCL 100 MG TABLET (FP) PO SCH (21:20)
[2017-07-09] MEDS: MICONAZOLE NITRATE 100 MG SUPP SUPP.VAG PV SCH (21:20)
[2017-07-09] MEDS: diphenhydrAMINE HCL 50 MG CAPSULE PO PRN (22:46)
[2017-07-10] MEDS: GABAPENTIN 100 MG CAPSULE (FP) PO SCH ×3 (06:06→21:29)
[2017-07-10] MEDS: MAG HYDROX/ALH/SMC/DPHA/LIDO 240 ML MOUTHWASH MM SCH ×4 (06:06→23:06)
[2017-07-10] MEDS: DOCUSATE SODIUM 100 MG CAPSULE (FP) PO SCH ×3 (06:06→21:32)
[2017-07-10] MEDS: hydrOXYzine PAMOATE 50 MG CAPSULE (FP) PO PRN (06:07)
[2017-07-10] MEDS: TENOFOVIR DISOPROXIL FUMARATE 300 MG TABLET PO SCH (07:17)
[2017-07-10] MEDS: DOLUTEGRAVIR SODIUM 50 MG TABLET PO SCH (07:17)
[2017-07-10] MEDS: RITONAVIR 100 MG TABLET PO SCH (07:17)
[2017-07-10] MEDS: FERROUS SO4 325 MG TABLET (FP) PO SCH ×3 (07:18→16:53)
[2017-07-10] MEDS: ATAZANAVIR SO4 300 MG CAPSULE PO SCH (07:18)
[2017-07-10] MEDS: RANITIDINE HCL 150 MG TABLET (FP) PO SCH ×2 (09:45→21:30)
[2017-07-10] MEDS: ATOVAQUONE 750 MG/5 ML (UNIT-DOSE PACKAGING) PO SCH ×2 (09:45→21:28)
[2017-07-10] MEDS: QUEtiapine FUMARATE 400 MG TABLET PO SCH ×2 (09:45→21:30)
[2017-07-10] MEDS: ASPIRIN COATED 81 MG TABLET.EC PO SCH (09:45)
[2017-07-10] MEDS: NICOTINE 21 MG/24 HOURS TOPICAL PATCH TD SCH (09:46)
[2017-07-10] MEDS: PRENATAL VITAMINS W/ FOLIC ACID TABLET (FP) PO SCH (09:46)
[2017-07-10] MEDS: BUPRENORPHINE/NALOXONE 8 MG/2 MG FILM PACKET SL SCH (09:46)
[2017-07-10] MEDS: METHYL SALICYLATE/MENTHOL OINT 30 GM TUBE TP SCH (09:47)
[2017-07-10] MEDS: MAGNESIUM HYDROX 2400MG/30ML ORAL SUSPENSION 30 ML CUP PO PRN (14:13)
[2017-07-10] MEDS ORDERED: SODIUM PHOSPHATE/NA BIPHOS 133 ML ENEMA PR ONE (16:59)
[2017-07-10] MEDS: SENNOSIDES 8.6MG TABLET (FP) PO SCH (21:29)
[2017-07-10] MEDS: THIAMINE HCL 100 MG TABLET (FP) PO SCH (21:29)
[2017-07-10] MEDS: ATORVASTATIN CA 20 MG TABLET (FP) PO SCH (21:30)
[2017-07-10] MEDS: traZODone HCL 100 MG TABLET (FP) PO SCH (21:30)
[2017-07-10] MEDS: diphenhydrAMINE HCL 50 MG CAPSULE PO PRN (21:31)
[2017-07-10] MEDS: MICONAZOLE NITRATE 100 MG SUPP SUPP.VAG PV SCH (22:08)
[2017-07-11] MEDS: GABAPENTIN 100 MG CAPSULE (FP) PO SCH ×3 (06:17→21:29)
[2017-07-11] MEDS: DOCUSATE SODIUM 100 MG CAPSULE (FP) PO SCH ×3 (06:17→21:29)
[2017-07-11] MEDS: MAG HYDROX/ALH/SMC/DPHA/LIDO 240 ML MOUTHWASH MM SCH ×4 (06:17→23:05)
[2017-07-11] MEDS: MAGNESIUM HYDROX 2400MG/30ML ORAL SUSPENSION 30 ML CUP PO PRN (06:25)
[2017-07-11] MEDS: ATAZANAVIR SO4 300 MG CAPSULE PO SCH (07:04)
[2017-07-11] MEDS: DOLUTEGRAVIR SODIUM 50 MG TABLET PO SCH (07:04)
[2017-07-11] MEDS: RITONAVIR 100 MG TABLET PO SCH (07:04)
[2017-07-11] MEDS: TENOFOVIR DISOPROXIL FUMARATE 300 MG TABLET PO SCH (07:04)
[2017-07-11] MEDS: FERROUS SO4 325 MG TABLET (FP) PO SCH ×3 (07:04→16:31)
[2017-07-11] MEDS: NICOTINE 21 MG/24 HOURS TOPICAL PATCH TD SCH (09:55)
[2017-07-11] MEDS: ASPIRIN COATED 81 MG TABLET.EC PO SCH (09:55)
[2017-07-11] MEDS: RANITIDINE HCL 150 MG TABLET (FP) PO SCH ×2 (09:55→21:28)
[2017-07-11] MEDS: ATOVAQUONE 750 MG/5 ML (UNIT-DOSE PACKAGING) PO SCH ×2 (09:55→21:28)
[2017-07-11] MEDS: QUEtiapine FUMARATE 400 MG TABLET PO SCH ×2 (09:55→21:29)
[2017-07-11] MEDS: BUPRENORPHINE/NALOXONE 8 MG/2 MG FILM PACKET SL SCH (09:55)
[2017-07-11] MEDS: PRENATAL VITAMINS W/ FOLIC ACID TABLET (FP) PO SCH (09:55)
[2017-07-11] MEDS: METHYL SALICYLATE/MENTHOL OINT 30 GM TUBE TP SCH (09:56)
[2017-07-11] MEDS ORDERED: PT OWN MED DRAWER 7, Y5N ONE (20:28)
[2017-07-11] MEDS: THIAMINE HCL 100 MG TABLET (FP) PO SCH (21:28)
[2017-07-11] MEDS: traZODone HCL 100 MG TABLET (FP) PO SCH (21:29)
[2017-07-11] MEDS: MICONAZOLE NITRATE 100 MG SUPP SUPP.VAG PV SCH (21:29)
[2017-07-11] MEDS: ATORVASTATIN CA 20 MG TABLET (FP) PO SCH (21:29)
[2017-07-11] MEDS: SENNOSIDES 8.6MG TABLET (FP) PO SCH (21:29)
[2017-07-11] MEDS: diphenhydrAMINE HCL 50 MG CAPSULE PO PRN (21:33)
[2017-07-12] MEDS: DOCUSATE SODIUM 100 MG CAPSULE (FP) PO SCH ×3 (06:20→21:23)
[2017-07-12] MEDS: GABAPENTIN 100 MG CAPSULE (FP) PO SCH ×3 (06:20→21:22)
[2017-07-12] MEDS: MAG HYDROX/ALH/SMC/DPHA/LIDO 240 ML MOUTHWASH MM SCH ×4 (06:22→23:01)
[2017-07-12] MEDS: TENOFOVIR DISOPROXIL FUMARATE 300 MG TABLET PO SCH (07:05)
[2017-07-12] MEDS: ATAZANAVIR SO4 300 MG CAPSULE PO SCH (07:05)
[2017-07-12] MEDS: RITONAVIR 100 MG TABLET PO SCH (07:05)
[2017-07-12] MEDS: FERROUS SO4 325 MG TABLET (FP) PO SCH ×3 (07:05→16:50)
[2017-07-12] MEDS: DOLUTEGRAVIR SODIUM 50 MG TABLET PO SCH (07:07)
[2017-07-12] MEDS: ATOVAQUONE 750 MG/5 ML (UNIT-DOSE PACKAGING) PO SCH ×2 (09:48→21:23)
[2017-07-12] MEDS: ASPIRIN COATED 81 MG TABLET.EC PO SCH (09:48)
[2017-07-12] MEDS: QUEtiapine FUMARATE 400 MG TABLET PO SCH ×2 (09:48→21:22)
[2017-07-12] MEDS: PRENATAL VITAMINS W/ FOLIC ACID TABLET (FP) PO SCH (09:48)
[2017-07-12] MEDS: NICOTINE 21 MG/24 HOURS TOPICAL PATCH TD SCH (09:48)
[2017-07-12] MEDS: RANITIDINE HCL 150 MG TABLET (FP) PO SCH ×2 (09:48→21:22)
[2017-07-12] MEDS: BUPRENORPHINE/NALOXONE 8 MG/2 MG FILM PACKET SL SCH (09:48)
[2017-07-12] MEDS ORDERED: BUPRENORPHINE/NALOXONE 2 MG/0.5 MG FILM PACKET SL ONE (10:31)
--- NOTE | 2017-07-12 10:34 | PN ---
S Progress Note (SOAP) Subjective: requesting additional aveeno soap, blurred vision since she lost glasses, drug dreams and cravingson current dose of 16mg daily Objective: 07/12/17 10:32 Vital Signs - 24 hr 07/12/17 07/12/17 03:30 07:02 Temperature 98.7 F Pulse Rate 98 H Respiratory 16 18 Rate Blood Pressure 108/77 Laboratory Tests 07/03/17 09:43 Urine Color Yellow Urine Appearance Slcloudy Urine pH 5.0 D Ur Specific [place] 1.013 Urine Protein Negative Urine Glucose (UA) Negative Urine Ketones Negative Urine Blood Negative Urine Nitrite Negative Urine Bilirubin Negative Urine Urobilinogen Negative Ur Leukocyte Esterase Negative labs reviewed,medicallystable, no prasanth and aox3 Assessment: 07/12/17 10:33 opioid craving - increase dose to 24mg linda, counsled on correct ingestion of mediation and allowing it to dissoe under the tongue with out swallowing saliva , aveeno soap ordred, referred to lab systems analyst for lglasses when discharge
[2017-07-12] MEDS: METHYL SALICYLATE/MENTHOL OINT 30 GM TUBE TP SCH (11:32)
[2017-07-12] MEDS: ATORVASTATIN CA 20 MG TABLET (FP) PO SCH (21:22)
[2017-07-12] MEDS: SENNOSIDES 8.6MG TABLET (FP) PO SCH (21:22)
[2017-07-12] MEDS: traZODone HCL 100 MG TABLET (FP) PO SCH (21:22)
[2017-07-12] MEDS: MICONAZOLE NITRATE 100 MG SUPP SUPP.VAG PV SCH (21:24)
[2017-07-12] MEDS: THIAMINE HCL 100 MG TABLET (FP) PO SCH (21:29)
[2017-07-12] MEDS: diphenhydrAMINE HCL 50 MG CAPSULE PO PRN (21:42)
[2017-07-13] MEDS: MAG HYDROX/ALH/SMC/DPHA/LIDO 240 ML MOUTHWASH MM SCH ×4 (06:11→23:08)
[2017-07-13] MEDS: COLLOIDAL OATMEAL 1 BAR EACH TP PRN (06:11)
[2017-07-13] MEDS: GABAPENTIN 100 MG CAPSULE (FP) PO SCH ×3 (06:12→21:13)
[2017-07-13] MEDS: DOCUSATE SODIUM 100 MG CAPSULE (FP) PO SCH ×3 (06:12→21:13)
[2017-07-13] MEDS: TENOFOVIR DISOPROXIL FUMARATE 300 MG TABLET PO SCH (07:14)
[2017-07-13] MEDS: DOLUTEGRAVIR SODIUM 50 MG TABLET PO SCH (07:14)
[2017-07-13] MEDS: FERROUS SO4 325 MG TABLET (FP) PO SCH ×3 (07:14→17:42)
[2017-07-13] MEDS: RITONAVIR 100 MG TABLET PO SCH (07:14)
[2017-07-13] MEDS: ATAZANAVIR SO4 300 MG CAPSULE PO SCH (07:14)
[2017-07-13] MEDS: METHYL SALICYLATE/MENTHOL OINT 30 GM TUBE TP SCH (10:00)
[2017-07-13] MEDS: PRENATAL VITAMINS W/ FOLIC ACID TABLET (FP) PO SCH (10:01)
[2017-07-13] MEDS: QUEtiapine FUMARATE 400 MG TABLET PO SCH ×2 (10:01→21:12)
[2017-07-13] MEDS: ASPIRIN COATED 81 MG TABLET.EC PO SCH (10:01)
[2017-07-13] MEDS: RANITIDINE HCL 150 MG TABLET (FP) PO SCH ×2 (10:01→21:13)
[2017-07-13] MEDS: BUPRENORPHINE HCL/NALOXONE 12 MG-3 MG SL FILM PACKET SL SCH (10:02)
[2017-07-13] MEDS: ATOVAQUONE 750 MG/5 ML (UNIT-DOSE PACKAGING) PO SCH ×2 (10:02→21:12)
[2017-07-13] MEDS: NICOTINE 21 MG/24 HOURS TOPICAL PATCH TD SCH (10:03)
[2017-07-13] MEDS: hydrOXYzine PAMOATE 50 MG CAPSULE (FP) PO PRN (21:12)
[2017-07-13] MEDS: traZODone HCL 100 MG TABLET (FP) PO SCH (21:13)
[2017-07-13] MEDS: ATORVASTATIN CA 20 MG TABLET (FP) PO SCH (21:13)
[2017-07-13] MEDS: SENNOSIDES 8.6MG TABLET (FP) PO SCH (21:13)
[2017-07-13] MEDS: THIAMINE HCL 100 MG TABLET (FP) PO SCH (21:13)
[2017-07-13] MEDS: MICONAZOLE NITRATE 100 MG SUPP SUPP.VAG PV SCH (21:15)
[2017-07-13] MEDS: diphenhydrAMINE HCL 50 MG CAPSULE PO PRN (23:06)
[2017-07-14] MEDS: GABAPENTIN 100 MG CAPSULE (FP) PO SCH ×3 (06:02→21:29)
[2017-07-14] MEDS: DOCUSATE SODIUM 100 MG CAPSULE (FP) PO SCH ×3 (06:02→21:30)
[2017-07-14] MEDS: MAG HYDROX/ALH/SMC/DPHA/LIDO 240 ML MOUTHWASH MM SCH ×4 (06:02→23:03)
[2017-07-14] MEDS: DOLUTEGRAVIR SODIUM 50 MG TABLET PO SCH (07:04)
[2017-07-14] MEDS: ATAZANAVIR SO4 300 MG CAPSULE PO SCH (07:04)
[2017-07-14] MEDS: TENOFOVIR DISOPROXIL FUMARATE 300 MG TABLET PO SCH (07:04)
[2017-07-14] MEDS: RITONAVIR 100 MG TABLET PO SCH (07:04)
[2017-07-14] MEDS: FERROUS SO4 325 MG TABLET (FP) PO SCH ×3 (07:05→16:59)
[2017-07-14] MEDS: PRENATAL VITAMINS W/ FOLIC ACID TABLET (FP) PO SCH (09:55)
[2017-07-14] MEDS: ATOVAQUONE 750 MG/5 ML (UNIT-DOSE PACKAGING) PO SCH ×2 (09:55→21:29)
[2017-07-14] MEDS: QUEtiapine FUMARATE 400 MG TABLET PO SCH ×2 (09:55→21:30)
[2017-07-14] MEDS: ASPIRIN COATED 81 MG TABLET.EC PO SCH (09:55)
[2017-07-14] MEDS: BUPRENORPHINE HCL/NALOXONE 12 MG-3 MG SL FILM PACKET SL SCH (09:55)
[2017-07-14] MEDS: NICOTINE 21 MG/24 HOURS TOPICAL PATCH TD SCH (09:55)
[2017-07-14] MEDS: RANITIDINE HCL 150 MG TABLET (FP) PO SCH ×2 (09:55→21:29)
[2017-07-14] MEDS: METHYL SALICYLATE/MENTHOL OINT 30 GM TUBE TP SCH (09:56)
[2017-07-14] MEDS: hydrOXYzine PAMOATE 50 MG CAPSULE (FP) PO PRN (17:01)
[2017-07-14] MEDS: traZODone HCL 100 MG TABLET (FP) PO SCH (21:30)
[2017-07-14] MEDS: SENNOSIDES 8.6MG TABLET (FP) PO SCH (21:30)
[2017-07-14] MEDS: ATORVASTATIN CA 20 MG TABLET (FP) PO SCH (21:30)
[2017-07-14] MEDS: THIAMINE HCL 100 MG TABLET (FP) PO SCH (21:33)
[2017-07-14] MEDS: diphenhydrAMINE HCL 50 MG CAPSULE PO PRN (22:00)
[2017-07-14] MEDS: MICONAZOLE NITRATE 100 MG SUPP SUPP.VAG PV SCH (22:01)
[2017-07-15] MEDS: DOCUSATE SODIUM 100 MG CAPSULE (FP) PO SCH ×3 (05:59→21:23)
[2017-07-15] MEDS: MAG HYDROX/ALH/SMC/DPHA/LIDO 240 ML MOUTHWASH MM SCH ×3 (05:59→17:34)
[2017-07-15] MEDS: GABAPENTIN 100 MG CAPSULE (FP) PO SCH ×3 (06:00→21:23)
[2017-07-15] MEDS: TENOFOVIR DISOPROXIL FUMARATE 300 MG TABLET PO SCH (07:08)
[2017-07-15] MEDS: FERROUS SO4 325 MG TABLET (FP) PO SCH ×3 (07:08→17:09)
[2017-07-15] MEDS: RITONAVIR 100 MG TABLET PO SCH (07:08)
[2017-07-15] MEDS: DOLUTEGRAVIR SODIUM 50 MG TABLET PO SCH (07:08)
[2017-07-15] MEDS: ATAZANAVIR SO4 300 MG CAPSULE PO SCH (07:09)
[2017-07-15] MEDS: QUEtiapine FUMARATE 400 MG TABLET PO SCH ×2 (09:48→21:23)
[2017-07-15] MEDS: METHYL SALICYLATE/MENTHOL OINT 30 GM TUBE TP SCH (09:48)
[2017-07-15] MEDS: BUPRENORPHINE HCL/NALOXONE 12 MG-3 MG SL FILM PACKET SL SCH (09:48)
[2017-07-15] MEDS: ATOVAQUONE 750 MG/5 ML (UNIT-DOSE PACKAGING) PO SCH ×2 (09:48→21:24)
[2017-07-15] MEDS: NICOTINE 21 MG/24 HOURS TOPICAL PATCH TD SCH (09:48)
[2017-07-15] MEDS: ASPIRIN COATED 81 MG TABLET.EC PO SCH (09:48)
[2017-07-15] MEDS: RANITIDINE HCL 150 MG TABLET (FP) PO SCH ×2 (09:48→21:23)
[2017-07-15] MEDS: PRENATAL VITAMINS W/ FOLIC ACID TABLET (FP) PO SCH (09:48)
--- NOTE | 2017-07-15 12:22 | PN ---
[facility] Progress Note (SOAP) Subjective: co bl pedal edema no new meds except increase suboxone on 07/12/17 denies sob, increased pain with ambulation o/e: Vital Signs - 24 hr 07/15/17 07/15/17 07/15/17 00:30 03:30 06:38 Temperature 98.3 F Pulse Rate 102 H Respiratory 20 18 20 Rate Blood Pressure 117/77 07/15/17 10:00 Temperature Pulse Rate 93 H Respiratory 18 Rate Blood Pressure 120/77 Laboratory Tests 07/03/17 09:43 Urine Color Yellow Urine Appearance Slcloudy Urine pH 5.0 D Ur Specific [place] 1.013 Urine Protein Negative Urine Glucose (UA) Negative Urine Ketones Negative Urine Blood Negative Urine Nitrite Negative Urine Bilirubin Negative Urine Urobilinogen Negative Ur Leukocyte Esterase Negative nad, slight sedation bl feet non pitting edema non homans sign ap: research professor edema bl ? drug interation vs decreased mobility discussed raising to decrease swellling will check labs advised to forego prn vistaril low threhhold for doppler
[2017-07-15] MEDS: ACETAMINOPHEN 325 MG TABLET (FP) PO PRN ×2 (13:56→20:18)
--- NOTE | 2017-07-15 14:17 | PN ---
Psychiatric Progress Note Vital Signs: Vital Signs Period Temp Pulse Resp BP Sys/Sanz Pulse Ox Last 24 Hr 98.3 F 93-102 18-20 117-120/77-77 Date of Session: 07/15/17 Chief Complaint:: " I am anxious" HPI: Patient addressing Opoid Dependence comorbid with Nicotine Dependence, Bipolar II Disorder. ROS: Anemia, HTN, HLD, GERD, HIV+/AIDS, history of Hampton's palsy, Endometriosis, PID Current Medications: Active Medications Generic Name Dose Route Start Last Admin Trade Name Freq PRN Reason Stop Dose Admin Acetaminophen 650 mg 07/02/17 13:07 07/15/17 13:56 Tylenol - PO 650 mg Q4H PRN Administration PAIN Al Hydroxide/Mg Hydroxide 30 ml 07/02/17 13:07 Mylanta Oral Suspension - PO Q6H PRN DYSPEPSIA Albuterol Sulfate 2 puff 07/02/17 13:15 Ventolin Hfa Inhaler - IH Q4H PRN SHORT OF BREATH/WHEEZING Aspirin 81 mg 07/03/17 10:00 07/15/17 09:48 Ecotrin - PO 81 mg DAILY ESTEVAN Administration Atazanavir 300 mg 07/05/17 17:00 07/15/17 07:09 Reyataz - PO 300 mg DAILY@0800 ESTEVAN Administration Atorvastatin Calcium 20 mg 07/02/17 22:00 07/14/17 21:30 Lipitor - PO 20 mg HS ESTEVAN Administration Atovaquone 750 mg 07/02/17 22:00 07/15/17 09:48 Mepron - PO 750 mg BID ESTEVAN Administration Buprenorphine/Naloxone 2 each 07/13/17 10:00 07/15/17 09:48 Suboxone 12 Mg-3 Mg Sl Film SL 07/19/17 09:59 2 each DAILY ESTEVAN Administration Colloidal Oatmeal 1 applic 07/12/17 10:34 07/13/17 06:11 Aveeno Soap - TP 1 applic DAILY PRN Administration HYGEINE Diphenhydramine HCl 50 mg 07/07/17 10:27 07/14/17 22:00 Benadryl - PO 50 mg HS PRN Administration INSOMNIA Docusate Sodium 100 mg 07/02/17 13:30 07/15/17 13:56 Colace - PO 100 mg TID ESTEVAN Administration Eucalyptus/Menthol/Phenol/Sorbitol 1 each 07/02/17 13:07 Cepastat Lozenge - MM Q4H PRN SORE THROAT Ferrous Sulfate 325 mg 07/05/17 09:00 07/15/17 11:59 Feosol - PO 325 mg TIDCM ESTEVAN Administration Gabapentin 100 mg 07/05/17 17:00 07/15/17 13:55 Neurontin - PO 100 mg TID ESTEVAN Administration Guaifenesin 10 ml 07/02/17 13:07 Robitussin Dm - PO Q6H PRN COUGH Hydroxyzine Pamoate 50 mg 07/13/17 20:25 07/14/17 17:01 Vistaril - PO 50 mg Q6H PRN Administration FOR ITCHING Lactic Acid 1 applic 07/06/17 09:48 07/08/17 09:44 Lac-Hydrin 12 TP 1 applic BID PRN Administration DRY SKIN Lidocaine/Aluminum/Magnesium/Simeth 5 ml 07/02/17 21:00 07/15/17 11:59 Magic Mouthwash *Sjr Formula* - MM Not Given Q6HPO ESTEVAN Loperamide HCl 4 mg 07/02/17 13:07 Imodium - PO Q6H PRN DIARRHEA Magnesium Citrate 300 ml 07/02/17 13:07 07/09/17 20:27 Citroma - PO 300 ml Q48H PRN Administration CONSTIPATION Magnesium Hydroxide 30 ml 07/02/17 13:07 07/11/17 06:25 Milk Of Magnesia - PO 30 ml DAILY PRN Administration CONSTIPATION Methyl Salicylate 1 applic 07/07/17 10:30 07/15/17 09:48 Alejandro-Martin - TP 1 applic DAILY ESTEVAN Administration Miconazole Nitrate 100 mg 07/03/17 23:00 07/14/17 22:01 Monistat-7 Vaginal Suppository - PV 1 supp HS ESTEVAN Administration Nicotine 21 mg 07/03/17 10:00 07/15/17 09:48 Nicoderm Patch - TD 21 mg DAILY ESTEVAN Administration Nicotine Polacrilex 4 mg 07/02/17 13:07 07/02/17 15:06 Nicorette Gum - BUC 4 mg Q2H PRN Administration NICOTINE REPLACEMENT RX Multivit/Folic Acid/Iron 1 tab 07/03/17 10:00 07/15/17 09:48 Vitamins (Sjr) - PO 1 tab DAILY ESTEVAN Administration Quetiapine Fumarate 400 mg 07/02/17 22:00 07/15/17 09:48 Seroquel - PO 400 mg BID ESTEVAN Administration Ranitidine HCl 150 mg 07/05/17 22:00 07/15/17 09:48 Zantac - PO 150 mg BID ESTEVAN Administration Ritonavir 100 mg 07/10/17 08:00 07/15/17 07:08 Norvir - PO 100 mg DAILY@0800 ESTEVAN Administration Senna 2 tab 07/08/17 22:00 07/14/17 21:30 Senna - PO 2 tab HS ESTEVAN Administration Tenofovir Disoproxil Fumarate 300 mg 07/03/17 08:00 07/15/17 07:08 Viread - PO 300 mg DAILY@0800 ESTEVAN Administration Thiamine HCl 100 mg 07/02/17 22:00 07/14/17 21:33 Vitamin B1 - PO 100 mg HS ESTEVAN Administration Trazodone HCl 100 mg 07/03/17 19:15 07/14/17 21:30 Desyrel - PO 100 mg HS ESTEVAN Administration Current Side Effect: No Lab tests ordered: No Lab tests reviewed: Yes Provider note:: PAtient reports feels very anxious and her Vistaril was d/c due to palpitaions, she reports was treated with different medications for anxiety ( Celexa, Ativan). Reports she is very anxious all day, restless. Reviewed medications with the patient, discussed indications and properies of Buspar with the patient medication, Buspar was recommended for anxiety, patient agreed to start. Will add Buspar 5 m gpo bid, continue to monitor progress. Total face to face time:: 15 Mental Status Exam - Mental Status Exam Alert and Oriented to: Time, Place, Person Cognitive Function: Good Patient Appearance: Well Groomed Mood: Anxious Affect: Mood Congruent Patient Behavior: Cooperative Speech Pattern: Clear, Appropriate Voice Loudness: Normal Thought Process: Intact, Goal Oriented Thought Disorder: Not Present Hallucinations: Denies Suicidal Ideation: Denies Homicidal Ideation: Denies Insight/Judgement: Fair Sleep: Fair Appetite: Fair Muscle strength/Tone: Normal Gait/Station: Normal Psychiatric Treatment Plan - Problem List (1) Bipolar II disorder Current Visit: No (2) Opioid dependence Current Visit: No (3) Nicotine dependence Current Visit: No Qualifiers: Nicotine product type: cigarettes Substance use status: uncomplicated Qualified Code(s): F17.210 - Nicotine dependence, cigarettes, uncomplicated
[2017-07-15] MEDS: busPIRone HCL 5 MG TABLET PO SCH ×2 (16:11→21:23)
[2017-07-15] MEDS: diphenhydrAMINE HCL 50 MG CAPSULE PO PRN (20:15)
[2017-07-15] MEDS: ATORVASTATIN CA 20 MG TABLET (FP) PO SCH (21:23)
[2017-07-15] MEDS: traZODone HCL 100 MG TABLET (FP) PO SCH (21:23)
[2017-07-15] MEDS: SENNOSIDES 8.6MG TABLET (FP) PO SCH (21:23)
[2017-07-15] MEDS: THIAMINE HCL 100 MG TABLET (FP) PO SCH (21:23)
[2017-07-15] MEDS: MICONAZOLE NITRATE 100 MG SUPP SUPP.VAG PV SCH (21:24)
[2017-07-16] MEDS: MAG HYDROX/ALH/SMC/DPHA/LIDO 240 ML MOUTHWASH MM SCH ×4 (06:18→17:16)
[2017-07-16] MEDS: DOCUSATE SODIUM 100 MG CAPSULE (FP) PO SCH ×3 (06:18→22:07)
[2017-07-16] MEDS: GABAPENTIN 100 MG CAPSULE (FP) PO SCH ×3 (06:19→22:07)
[2017-07-16] MEDS: ACETAMINOPHEN 325 MG TABLET (FP) PO PRN (06:20)
[2017-07-16] MEDS: TENOFOVIR DISOPROXIL FUMARATE 300 MG TABLET PO SCH (07:16)
[2017-07-16] MEDS: DOLUTEGRAVIR SODIUM 50 MG TABLET PO SCH (07:16)
[2017-07-16] MEDS: ATAZANAVIR SO4 300 MG CAPSULE PO SCH (07:16)
[2017-07-16] MEDS: RITONAVIR 100 MG TABLET PO SCH (07:16)
[2017-07-16] MEDS: FERROUS SO4 325 MG TABLET (FP) PO SCH ×3 (07:16→17:14)
--- NOTE | 2017-07-16 09:41 | PN ---
S Progress Note Note: patient running fever and c/o chest pain ekg ordered, reviewed, no sig change noted, patient informed, tylenol prn. bed rest.
[2017-07-16] MEDS: PRENATAL VITAMINS W/ FOLIC ACID TABLET (FP) PO SCH (10:17)
[2017-07-16] MEDS: QUEtiapine FUMARATE 400 MG TABLET PO SCH ×2 (10:17→22:08)
[2017-07-16] MEDS: busPIRone HCL 5 MG TABLET PO SCH ×2 (10:18→22:08)
[2017-07-16] MEDS: ATOVAQUONE 750 MG/5 ML (UNIT-DOSE PACKAGING) PO SCH ×2 (10:18→22:06)
[2017-07-16] MEDS: RANITIDINE HCL 150 MG TABLET (FP) PO SCH ×2 (10:18→22:07)
[2017-07-16] MEDS: ASPIRIN COATED 81 MG TABLET.EC PO SCH (10:18)
[2017-07-16] MEDS: METHYL SALICYLATE/MENTHOL OINT 30 GM TUBE TP SCH (10:19)
[2017-07-16] MEDS: BUPRENORPHINE HCL/NALOXONE 12 MG-3 MG SL FILM PACKET SL SCH (10:20)
[2017-07-16] MEDS: NICOTINE 21 MG/24 HOURS TOPICAL PATCH TD SCH (10:20)
[2017-07-16 13:36] LABS: BASOPHIL 0.2 % (0-2.0); EOSINOPHIL 0.6 % (0-4.5); MCH 22.3 pg (25.7-33.7); MEAN CELL VOLUME 74.4 fl (80-96); MEAN PLT VOLUME 9.3 fl (7.5-11.1); NEUTROPHILS 78.4 % (42.8-82.8); PLATELET COUNT 113 K/MM3 (134-434); RDW 27.9 % (11.6-15.6); WHITE BLOOD COUNT 9.6 K/mm3 (4.0-10.0)
[2017-07-16 13:39] LABS: ANION GAP 6 (8-16); CALCIUM 8.4 mg/dL (8.5-10.1); CO2 27 mmol/L (21-32); GLUCOSE,RANDOM 101 mg/dL (74-106)
[2017-07-16 13:41] LABS: CREATININE 0.8 mg/dL (0.55-1.02)
[2017-07-16] MEDS: LEVOFLOXACIN 500 MG TABLET (FP) PO SCH (15:43)
[2017-07-16] MEDS: NAPROXEN 375 MG TABLET (FP) PO SCH ×2 (15:44→22:10)
[2017-07-16] MEDS: diphenhydrAMINE HCL 50 MG CAPSULE PO PRN (22:06)
[2017-07-16] MEDS: traZODone HCL 100 MG TABLET (FP) PO SCH (22:07)
[2017-07-16] MEDS: SENNOSIDES 8.6MG TABLET (FP) PO SCH (22:08)
[2017-07-16] MEDS: ATORVASTATIN CA 20 MG TABLET (FP) PO SCH (22:08)
[2017-07-16] MEDS: MICONAZOLE NITRATE 100 MG SUPP SUPP.VAG PV SCH (22:09)
[2017-07-16] MEDS: THIAMINE HCL 100 MG TABLET (FP) PO SCH (22:10)
[2017-07-17] MEDS: MAG HYDROX/ALH/SMC/DPHA/LIDO 240 ML MOUTHWASH MM SCH ×4 (01:09→19:21)
[2017-07-17] MEDS: ACETAMINOPHEN 325 MG TABLET (FP) PO PRN (05:11)
[2017-07-17] MEDS: LEVOFLOXACIN 500 MG TABLET (FP) PO SCH (05:12)
[2017-07-17] MEDS: GABAPENTIN 100 MG CAPSULE (FP) PO SCH ×3 (05:13→21:25)
[2017-07-17] MEDS: DOCUSATE SODIUM 100 MG CAPSULE (FP) PO SCH ×3 (05:13→22:20)
[2017-07-17] MEDS: RITONAVIR 100 MG TABLET PO SCH (07:13)
[2017-07-17] MEDS: DOLUTEGRAVIR SODIUM 50 MG TABLET PO SCH (07:13)
[2017-07-17] MEDS: ATAZANAVIR SO4 300 MG CAPSULE PO SCH (07:13)
[2017-07-17] MEDS: FERROUS SO4 325 MG TABLET (FP) PO SCH ×3 (07:13→19:51)
[2017-07-17] MEDS: TENOFOVIR DISOPROXIL FUMARATE 300 MG TABLET PO SCH (07:14)
[2017-07-17] MEDS: NAPROXEN 375 MG TABLET (FP) PO SCH ×2 (09:39→21:26)
[2017-07-17] MEDS: RANITIDINE HCL 150 MG TABLET (FP) PO SCH ×2 (09:40→21:26)
[2017-07-17] MEDS: NICOTINE 21 MG/24 HOURS TOPICAL PATCH TD SCH (09:40)
[2017-07-17] MEDS: ASPIRIN COATED 81 MG TABLET.EC PO SCH (09:40)
[2017-07-17] MEDS: ATOVAQUONE 750 MG/5 ML (UNIT-DOSE PACKAGING) PO SCH ×2 (09:40→21:27)
[2017-07-17] MEDS: BUPRENORPHINE HCL/NALOXONE 12 MG-3 MG SL FILM PACKET SL SCH (09:40)
[2017-07-17] MEDS: PRENATAL VITAMINS W/ FOLIC ACID TABLET (FP) PO SCH (09:40)
[2017-07-17] MEDS: QUEtiapine FUMARATE 400 MG TABLET PO SCH ×2 (09:41→21:25)
[2017-07-17] MEDS: METHYL SALICYLATE/MENTHOL OINT 30 GM TUBE TP SCH (09:41)
[2017-07-17] MEDS: busPIRone HCL 5 MG TABLET PO SCH ×2 (09:41→21:26)
[2017-07-17] MEDS: COLLOIDAL OATMEAL 1 BAR EACH TP PRN (10:37)
[2017-07-17] MEDS: AMMONIUM LACTATE 12% LOTION 225 GM BOTTLE TP PRN (11:09)
[2017-07-17] MEDS: ATORVASTATIN CA 20 MG TABLET (FP) PO SCH (21:25)
[2017-07-17] MEDS: SENNOSIDES 8.6MG TABLET (FP) PO SCH (21:25)
[2017-07-17] MEDS: traZODone HCL 100 MG TABLET (FP) PO SCH (21:26)
[2017-07-17] MEDS: MICONAZOLE NITRATE 100 MG SUPP SUPP.VAG PV SCH (22:18)
[2017-07-17] MEDS: THIAMINE HCL 100 MG TABLET (FP) PO SCH (22:21)
[2017-07-18] MEDS: MAG HYDROX/ALH/SMC/DPHA/LIDO 240 ML MOUTHWASH MM SCH ×5 (01:04→23:40)
[2017-07-18] MEDS: DOCUSATE SODIUM 100 MG CAPSULE (FP) PO SCH ×3 (06:50→21:56)
[2017-07-18] MEDS: GABAPENTIN 100 MG CAPSULE (FP) PO SCH ×3 (06:50→21:56)
[2017-07-18] MEDS: LEVOFLOXACIN 500 MG TABLET (FP) PO SCH (06:50)
[2017-07-18] MEDS: ATAZANAVIR SO4 300 MG CAPSULE PO SCH (07:03)
[2017-07-18] MEDS: FERROUS SO4 325 MG TABLET (FP) PO SCH ×3 (07:03→17:03)
[2017-07-18] MEDS: TENOFOVIR DISOPROXIL FUMARATE 300 MG TABLET PO SCH (07:04)
[2017-07-18] MEDS: DOLUTEGRAVIR SODIUM 50 MG TABLET PO SCH (07:04)
[2017-07-18] MEDS: RITONAVIR 100 MG TABLET PO SCH (07:04)
--- NOTE | 2017-07-18 08:34 | EKG ---
Test Reason : Blood Pressure : / mmHG Vent. Rate : 085 BPM Atrial Rate : 085 BPM P-R Int : 144 ms QRS Dur : 094 ms QT Int : 404 ms P-R-T Axes : 066 009 026 degrees QTc Int : 480 ms NORMAL SINUS RHYTHM CANNOT RULE OUT ANTERIOR INFARCT (CITED ON OR BEFORE 02-JUL-2017) ABNORMAL ECG WHEN COMPARED WITH ECG OF 02-JUL-2017 22:09, QUESTIONABLE CHANGE IN INITIAL FORCES OF SEPTAL LEADS Confirmed by VICTORINO MARIE MD ([id number]) on 07/18/2017 8:34:03 AM Referred By: Confirmed By:VICTORINO MARIE MD
[2017-07-18] MEDS: NAPROXEN 375 MG TABLET (FP) PO SCH ×2 (10:01→21:54)
[2017-07-18] MEDS: ATOVAQUONE 750 MG/5 ML (UNIT-DOSE PACKAGING) PO SCH ×2 (10:01→21:55)
[2017-07-18] MEDS: NICOTINE 21 MG/24 HOURS TOPICAL PATCH TD SCH (10:01)
[2017-07-18] MEDS: BUPRENORPHINE HCL/NALOXONE 12 MG-3 MG SL FILM PACKET SL SCH (10:01)
[2017-07-18] MEDS: QUEtiapine FUMARATE 400 MG TABLET PO SCH ×2 (10:02→21:56)
[2017-07-18] MEDS: RANITIDINE HCL 150 MG TABLET (FP) PO SCH ×2 (10:02→21:56)
[2017-07-18] MEDS: ASPIRIN COATED 81 MG TABLET.EC PO SCH (10:02)
[2017-07-18] MEDS: busPIRone HCL 5 MG TABLET PO SCH ×2 (10:02→21:56)
[2017-07-18] MEDS: PRENATAL VITAMINS W/ FOLIC ACID TABLET (FP) PO SCH (10:02)
[2017-07-18] MEDS: METHYL SALICYLATE/MENTHOL OINT 30 GM TUBE TP SCH (10:02)
[2017-07-18] MEDS: ATORVASTATIN CA 20 MG TABLET (FP) PO SCH (21:56)
[2017-07-18] MEDS: traZODone HCL 100 MG TABLET (FP) PO SCH (21:56)
[2017-07-18] MEDS: SENNOSIDES 8.6MG TABLET (FP) PO SCH (21:56)
[2017-07-18] MEDS: THIAMINE HCL 100 MG TABLET (FP) PO SCH (21:56)
[2017-07-18] MEDS: MICONAZOLE NITRATE 100 MG SUPP SUPP.VAG PV SCH (21:57)
[2017-07-18] MEDS: diphenhydrAMINE HCL 50 MG CAPSULE PO PRN (21:58)
[2017-07-19] MEDS: LEVOFLOXACIN 500 MG TABLET (FP) PO SCH (06:27)
[2017-07-19] MEDS: MAG HYDROX/ALH/SMC/DPHA/LIDO 240 ML MOUTHWASH MM SCH ×3 (06:27→17:38)
[2017-07-19] MEDS: GABAPENTIN 100 MG CAPSULE (FP) PO SCH ×3 (06:27→21:17)
[2017-07-19] MEDS: DOCUSATE SODIUM 100 MG CAPSULE (FP) PO SCH ×3 (06:27→21:19)
[2017-07-19] MEDS: DOLUTEGRAVIR SODIUM 50 MG TABLET PO SCH (07:13)
[2017-07-19] MEDS: FERROUS SO4 325 MG TABLET (FP) PO SCH ×3 (07:13→17:37)
[2017-07-19] MEDS: RITONAVIR 100 MG TABLET PO SCH (07:13)
[2017-07-19] MEDS: TENOFOVIR DISOPROXIL FUMARATE 300 MG TABLET PO SCH (07:13)
[2017-07-19] MEDS: ATAZANAVIR SO4 300 MG CAPSULE PO SCH (07:13)
[2017-07-19] MEDS: RANITIDINE HCL 150 MG TABLET (FP) PO SCH ×2 (09:53→21:17)
[2017-07-19] MEDS: ASPIRIN COATED 81 MG TABLET.EC PO SCH (09:53)
[2017-07-19] MEDS: QUEtiapine FUMARATE 400 MG TABLET PO SCH ×2 (09:53→21:17)
[2017-07-19] MEDS: busPIRone HCL 5 MG TABLET PO SCH ×3 (09:53→21:17)
[2017-07-19] MEDS: ATOVAQUONE 750 MG/5 ML (UNIT-DOSE PACKAGING) PO SCH ×2 (09:53→21:18)
[2017-07-19] MEDS: METHYL SALICYLATE/MENTHOL OINT 30 GM TUBE TP SCH (09:53)
[2017-07-19] MEDS: PRENATAL VITAMINS W/ FOLIC ACID TABLET (FP) PO SCH (09:53)
[2017-07-19] MEDS: NAPROXEN 375 MG TABLET (FP) PO SCH ×2 (09:54→21:19)
[2017-07-19] MEDS: NICOTINE 21 MG/24 HOURS TOPICAL PATCH TD SCH (09:54)
--- NOTE | 2017-07-19 11:41 | PN ---
[facility] Progress Note (SOAP) Subjective: pelvic pain resolved on course of methronidazole followed by levoquin , dry skin on hands Objective: 07/19/17 11:40 Vital Signs - 24 hr 07/19/17 07/19/17 07/19/17 00:30 03:30 06:50 Temperature 98.6 F Pulse Rate 102 H Respiratory 18 18 20 Rate Blood Pressure 103/64 Laboratory Tests 07/03/17 07/16/17 07/16/17 09:43 10:00 10:00 WBC 9.6 D RBC 3.88 Hgb 8.6 L Hct 28.8 L MCV 74.4 L D MCH 22.3 L MCHC 30.0 L RDW 27.9 H Plt Count 113 L D MPV 9.3 Neutrophils % 78.4 Lymphocytes % 9.7 D Monocytes % 11.1 H Eosinophils % 0.6 Basophils % 0.2 Sodium 139 Potassium 3.9 Chloride 106 Carbon Dioxide 27 Anion Gap 6 L BUN 8 D Creatinine 0.8 Random Glucose 101 D Calcium 8.4 L Urine Color Yellow Urine Appearance Slcloudy Urine pH 5.0 D Ur Specific [place] 1.013 Urine Protein Negative Urine Glucose (UA) Negative Urine Ketones Negative Urine Blood Negative Urine Nitrite Negative Urine Bilirubin Negative Urine Urobilinogen Negative Ur Leukocyte Esterase Negative microcytic anemia, dry scaly skin on hands Assessment: 07/19/17 11:40 PID,pain resolved, dry skin. complete antibiotics, elevate legs on extra pillow f/u w HIV PCP and guncotton packer whe idscharged YAYA. reviewed labwork ad juan diego aware.
[2017-07-19] MEDS: BUPRENORPHINE HCL/NALOXONE 12 MG-3 MG SL FILM PACKET SL SCH (13:01)
--- NOTE | 2017-07-19 13:32 | PN ---
Psychiatric Progress Note Vital Signs: Vital Signs Period Temp Pulse Resp BP Sys/Sanz Pulse Ox Last 24 Hr 98.6 F 102 18-20 103/64 Date of Session: 07/19/17 Chief Complaint:: Anxiety HPI: Patient addressing Opoid Dependence comorbid with Nicotine Dependence, Bipolar II Disorder. ROS: Anemia, HTN, HLD, GERD, HIV+/AIDS, history of Hampton's palsy, Endometriosis, PID Current Medications: Active Medications Generic Name Dose Route Start Last Admin Trade Name Freq PRN Reason Stop Dose Admin Acetaminophen 650 mg 07/02/17 13:07 07/17/17 05:11 Tylenol - PO 650 mg Q4H PRN Administration PAIN Al Hydroxide/Mg Hydroxide 30 ml 07/02/17 13:07 Mylanta Oral Suspension - PO Q6H PRN DYSPEPSIA Albuterol Sulfate 2 puff 07/02/17 13:15 Ventolin Hfa Inhaler - IH Q4H PRN SHORT OF BREATH/WHEEZING Aspirin 81 mg 07/03/17 10:00 07/19/17 09:53 Ecotrin - PO 81 mg DAILY ESTEVAN Administration Atazanavir 300 mg 07/05/17 17:00 07/19/17 07:13 Reyataz - PO 300 mg DAILY@0800 ESTEVAN Administration Atorvastatin Calcium 20 mg 07/02/17 22:00 07/18/17 21:56 Lipitor - PO 20 mg HS ESTEVAN Administration Atovaquone 750 mg 07/02/17 22:00 07/19/17 09:53 Mepron - PO 750 mg BID ESTEVAN Administration Buprenorphine/Naloxone 2 each 07/19/17 12:30 07/19/17 13:01 Suboxone 12 Mg-3 Mg Sl Film SL 07/26/17 12:29 2 each DAILY ESTEVAN Administration Buspirone HCl 5 mg 07/19/17 13:30 Buspar - PO TID ESTEVAN Colloidal Oatmeal 1 applic 07/12/17 10:34 07/17/17 10:37 Aveeno Soap - TP 1 applic DAILY PRN Administration HYGEINE Diphenhydramine HCl 50 mg 07/07/17 10:27 07/18/17 21:58 Benadryl - PO 50 mg HS PRN Administration INSOMNIA Docusate Sodium 100 mg 07/02/17 13:30 07/19/17 06:27 Colace - PO 100 mg TID ESTEVAN Administration Eucalyptus/Menthol/Phenol/Sorbitol 1 each 07/02/17 13:07 Cepastat Lozenge - MM Q4H PRN SORE THROAT Ferrous Sulfate 325 mg 07/05/17 09:00 07/19/17 13:02 Feosol - PO 325 mg TIDCM ESTEVAN Administration Gabapentin 100 mg 07/05/17 17:00 07/19/17 06:27 Neurontin - PO 100 mg TID ESTEVAN Administration Guaifenesin 10 ml 07/02/17 13:07 Robitussin Dm - PO Q6H PRN COUGH Lactic Acid 1 applic 07/06/17 09:48 07/17/17 11:09 Lac-Hydrin 12 TP 1 applic BID PRN Administration DRY SKIN Levofloxacin 500 mg 07/16/17 15:30 07/19/17 06:27 Levaquin - PO 500 mg DAILY@0600 ESTEVAN Administration Lidocaine/Aluminum/Magnesium/Simeth 5 ml 07/02/17 21:00 07/19/17 06:27 Magic Mouthwash *Sjr Formula* - MM Not Given Q6HPO [facility] Loperamide HCl 4 mg 07/02/17 13:07 Imodium - PO Q6H PRN DIARRHEA Magnesium Citrate 300 ml 07/02/17 13:07 07/09/17 20:27 Citroma - PO 300 ml Q48H PRN Administration CONSTIPATION Magnesium Hydroxide 30 ml 07/02/17 13:07 07/11/17 06:25 Milk Of Magnesia - PO 30 ml DAILY PRN Administration CONSTIPATION Methyl Salicylate 1 applic 07/07/17 10:30 07/19/17 09:53 Alejandro-Martin - TP 1 applic DAILY ESTEVAN Administration Miconazole Nitrate 100 mg 07/03/17 23:00 07/18/17 21:57 Monistat-7 Vaginal Suppository - PV 100 supp HS ESTEVAN Administration Naproxen 375 mg 07/16/17 15:30 07/19/17 09:54 Naprosyn - PO 375 mg BID ESTEVAN Administration Nicotine 21 mg 07/03/17 10:00 07/19/17 09:54 Nicoderm Patch - TD 21 mg DAILY ESTEVAN Administration Nicotine Polacrilex 4 mg 07/02/17 13:07 07/02/17 15:06 Nicorette Gum - BUC 4 mg Q2H PRN Administration NICOTINE REPLACEMENT RX Multivit/Folic Acid/Iron 1 tab 07/03/17 10:00 07/19/17 09:53 Vitamins (Sjr) - PO 1 tab DAILY ESTEVAN Administration Quetiapine Fumarate 400 mg 07/02/17 22:00 07/19/17 09:53 Seroquel - PO 400 mg BID ESTEVAN Administration Ranitidine HCl 150 mg 07/05/17 22:00 07/19/17 09:53 Zantac - PO 150 mg BID ESTEVAN Administration Ritonavir 100 mg 07/10/17 08:00 07/19/17 07:13 Norvir - PO 100 mg DAILY@0800 ESTEVAN Administration Senna 2 tab 07/08/17 22:00 07/18/17 21:56 Senna - PO 2 tab HS ESTEVAN Administration Tenofovir Disoproxil Fumarate 300 mg 07/03/17 08:00 07/19/17 07:13 Viread - PO 300 mg DAILY@0800 ESTEVAN Administration Thiamine HCl 100 mg 07/02/17 22:00 07/18/17 21:56 Vitamin B1 - PO 100 mg HS ESTEVAN Administration Trazodone HCl 100 mg 07/03/17 19:15 07/18/17 21:56 Desyrel - PO 100 mg HS ESTEVAN Administration Vitamin A/Vitamin D 1 applic 07/19/17 11:45 Vitamin A & D Top Oint - TP Q6HPO [facility] Medication(s) Change(s): Increase Buspar to 5 mg po TID Current Side Effect: No Lab tests ordered: Yes Lab tests reviewed: Yes Provider note:: Reports experiencing anxiety. 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 Requests that dosage of medication be increased Total face to face time:: 25 Mental Status Exam - Mental Status Exam Alert and Oriented to: Time, Place, Person Cognitive Function: Fair Patient Appearance: Well Groomed Mood: Anxious Affect: Appropriate Patient Behavior: Cooperative Speech Pattern: Clear Voice Loudness: Normal Thought Process: Intact, Goal Oriented Thought Disorder: Not Present Hallucinations: Denies Suicidal Ideation: Denies Homicidal Ideation: Denies Insight/Judgement: Fair Sleep: Fair Appetite: Good Muscle strength/Tone: Normal Gait/Station: Normal Psychiatric Treatment Plan - Problem List (1) Opioid dependence Current Visit: No (2) Nicotine dependence Current Visit: No Qualifiers: Nicotine product type: cigarettes Substance use status: uncomplicated Qualified Code(s): F17.210 - Nicotine dependence, cigarettes, uncomplicated (3) Bipolar II disorder Current Visit: No (4) Substance-induced sleep disorder Current Visit: No (5) Anemia Current Visit: No (6) Hampton's palsy Current Visit: No (7) Chronic PID (chronic pelvic inflammatory disease) Current Visit: No (8) GERD (gastroesophageal reflux disease) Current Visit: No (9) HTN (hypertension) Current Visit: No (10) HIV disease Current Visit: No Initial treatment plan: 1) Discontinue Buspar 5 mg po BID. 2) Start Buspar 5 mg po TID. 3) Monitor progress
[2017-07-19] MEDS: VITAMINS A AND D TOPICAL OINTMENT 60 GM TUBE TP SCH ×3 (13:40→17:38)
[2017-07-19] MEDS: traZODone HCL 100 MG TABLET (FP) PO SCH (21:17)
[2017-07-19] MEDS: SENNOSIDES 8.6MG TABLET (FP) PO SCH (21:17)
[2017-07-19] MEDS: ATORVASTATIN CA 20 MG TABLET (FP) PO SCH (21:17)
[2017-07-19] MEDS: THIAMINE HCL 100 MG TABLET (FP) PO SCH (21:17)
[2017-07-19] MEDS: diphenhydrAMINE HCL 50 MG CAPSULE PO PRN (21:20)
[2017-07-19] MEDS: MICONAZOLE NITRATE 100 MG SUPP SUPP.VAG PV SCH (21:22)
[2017-07-20] MEDS: MAG HYDROX/ALH/SMC/DPHA/LIDO 240 ML MOUTHWASH MM SCH ×4 (00:02→17:03)
[2017-07-20] MEDS: VITAMINS A AND D TOPICAL OINTMENT 60 GM TUBE TP SCH ×4 (00:03→18:00)
[2017-07-20] MEDS: busPIRone HCL 5 MG TABLET PO SCH ×3 (06:38→21:41)
[2017-07-20] MEDS: GABAPENTIN 100 MG CAPSULE (FP) PO SCH ×3 (06:38→21:40)
[2017-07-20] MEDS: DOCUSATE SODIUM 100 MG CAPSULE (FP) PO SCH ×3 (06:38→21:39)
[2017-07-20] MEDS: LEVOFLOXACIN 500 MG TABLET (FP) PO SCH (06:39)
[2017-07-20] MEDS: ATAZANAVIR SO4 300 MG CAPSULE PO SCH (07:03)
[2017-07-20] MEDS: TENOFOVIR DISOPROXIL FUMARATE 300 MG TABLET PO SCH (07:03)
[2017-07-20] MEDS: RITONAVIR 100 MG TABLET PO SCH (07:03)
[2017-07-20] MEDS: DOLUTEGRAVIR SODIUM 50 MG TABLET PO SCH (07:03)
[2017-07-20] MEDS: FERROUS SO4 325 MG TABLET (FP) PO SCH ×3 (07:03→17:03)
[2017-07-20] MEDS: QUEtiapine FUMARATE 400 MG TABLET PO SCH ×2 (10:03→21:39)
[2017-07-20] MEDS: PRENATAL VITAMINS W/ FOLIC ACID TABLET (FP) PO SCH (10:03)
[2017-07-20] MEDS: RANITIDINE HCL 150 MG TABLET (FP) PO SCH ×2 (10:03→21:39)
[2017-07-20] MEDS: BUPRENORPHINE HCL/NALOXONE 12 MG-3 MG SL FILM PACKET SL SCH (10:04)
[2017-07-20] MEDS: NAPROXEN 375 MG TABLET (FP) PO SCH ×2 (10:04→21:40)
[2017-07-20] MEDS: ASPIRIN COATED 81 MG TABLET.EC PO SCH (10:04)
[2017-07-20] MEDS: ATOVAQUONE 750 MG/5 ML (UNIT-DOSE PACKAGING) PO SCH ×2 (10:04→21:38)
[2017-07-20] MEDS: NICOTINE 21 MG/24 HOURS TOPICAL PATCH TD SCH (10:04)
[2017-07-20] MEDS: METHYL SALICYLATE/MENTHOL OINT 30 GM TUBE TP SCH (10:05)
[2017-07-20] MEDS: diphenhydrAMINE HCL 50 MG CAPSULE PO PRN (21:39)
[2017-07-20] MEDS: SENNOSIDES 8.6MG TABLET (FP) PO SCH (21:39)
[2017-07-20] MEDS: ATORVASTATIN CA 20 MG TABLET (FP) PO SCH (21:39)
[2017-07-20] MEDS: THIAMINE HCL 100 MG TABLET (FP) PO SCH (21:39)
[2017-07-20] MEDS: MICONAZOLE NITRATE 100 MG SUPP SUPP.VAG PV SCH (21:41)
[2017-07-20] MEDS: traZODone HCL 100 MG TABLET (FP) PO SCH (21:41)
[2017-07-21] MEDS: DOCUSATE SODIUM 100 MG CAPSULE (FP) PO SCH ×3 (06:17→21:39)
[2017-07-21] MEDS: busPIRone HCL 5 MG TABLET PO SCH ×3 (06:17→21:40)
[2017-07-21] MEDS: LEVOFLOXACIN 500 MG TABLET (FP) PO SCH (06:17)
[2017-07-21] MEDS: MAG HYDROX/ALH/SMC/DPHA/LIDO 240 ML MOUTHWASH MM SCH ×5 (06:17→23:55)
[2017-07-21] MEDS: GABAPENTIN 100 MG CAPSULE (FP) PO SCH ×3 (06:17→21:39)
[2017-07-21] MEDS: VITAMINS A AND D TOPICAL OINTMENT 60 GM TUBE TP SCH ×4 (06:20→17:10)
[2017-07-21] MEDS: TENOFOVIR DISOPROXIL FUMARATE 300 MG TABLET PO SCH (07:10)
[2017-07-21] MEDS: RITONAVIR 100 MG TABLET PO SCH (07:10)
[2017-07-21] MEDS: ATAZANAVIR SO4 300 MG CAPSULE PO SCH (07:10)
[2017-07-21] MEDS: DOLUTEGRAVIR SODIUM 50 MG TABLET PO SCH (07:10)
[2017-07-21] MEDS: FERROUS SO4 325 MG TABLET (FP) PO SCH ×3 (07:10→17:09)
[2017-07-21] MEDS: QUEtiapine FUMARATE 400 MG TABLET PO SCH ×2 (10:03→21:40)
[2017-07-21] MEDS: NICOTINE 21 MG/24 HOURS TOPICAL PATCH TD SCH (10:03)
[2017-07-21] MEDS: PRENATAL VITAMINS W/ FOLIC ACID TABLET (FP) PO SCH (10:03)
[2017-07-21] MEDS: ASPIRIN COATED 81 MG TABLET.EC PO SCH (10:04)
[2017-07-21] MEDS: BUPRENORPHINE HCL/NALOXONE 12 MG-3 MG SL FILM PACKET SL SCH (10:04)
[2017-07-21] MEDS: NAPROXEN 375 MG TABLET (FP) PO SCH ×2 (10:04→21:41)
[2017-07-21] MEDS: ATOVAQUONE 750 MG/5 ML (UNIT-DOSE PACKAGING) PO SCH ×2 (10:04→21:38)
[2017-07-21] MEDS: RANITIDINE HCL 150 MG TABLET (FP) PO SCH ×2 (10:04→21:39)
[2017-07-21] MEDS: METHYL SALICYLATE/MENTHOL OINT 30 GM TUBE TP SCH (10:07)
--- NOTE | 2017-07-21 11:28 | PN ---
BHS Progress Note (SOAP) Subjective: Patient shaved callus off of foot caussing bleeding and supericial abrasion - requested toe xamine by nurse , slightoly painful Objective: 07/21/17 11:27 Vital Signs - 8 hr 07/21/17 07/21/17 03:30 06:58 Temperature 98.7 F Pulse Rate 81 Respiratory 18 18 Rate Blood Pressure 135/75 Laboratory Tests 07/03/17 07/16/17 07/16/17 09:43 10:00 10:00 WBC 9.6 D RBC 3.88 Hgb 8.6 L Hct 28.8 L MCV 74.4 L D MCH 22.3 L MCHC 30.0 L RDW 27.9 H Plt Count 113 L D MPV 9.3 Neutrophils % 78.4 Lymphocytes % 9.7 D Monocytes % 11.1 H Eosinophils % 0.6 Basophils % 0.2 Sodium 139 Potassium 3.9 Chloride 106 Carbon Dioxide 27 Anion Gap 6 L BUN 8 D Creatinine 0.8 Random Glucose 101 D Calcium 8.4 L Urine Color Yellow Urine Appearance Slcloudy Urine pH 5.0 D Ur Specific [place] 1.013 Urine Protein Negative Urine Glucose (UA) Negative Urine Ketones Negative Urine Blood Negative Urine Nitrite Negative Urine Bilirubin Negative Urine Urobilinogen Negative Ur Leukocyte Esterase Negative superficial abrasion left ankle /hel, no cellulitis or infection noted, erythema and slight bleeding noted. Assessment: 07/21/17 11:28 abrasion eft heel from shaving - wet to dry dressing, bacitracin and bandaid daily
[2017-07-21] MEDS: BACITRACIN 0.9 GM PACKET TP SCH (13:11)
[2017-07-21] MEDS: traZODone HCL 100 MG TABLET (FP) PO SCH (21:39)
[2017-07-21] MEDS: SENNOSIDES 8.6MG TABLET (FP) PO SCH (21:39)
[2017-07-21] MEDS: ATORVASTATIN CA 20 MG TABLET (FP) PO SCH (21:39)
[2017-07-21] MEDS: THIAMINE HCL 100 MG TABLET (FP) PO SCH (21:39)
[2017-07-21] MEDS: MICONAZOLE NITRATE 100 MG SUPP SUPP.VAG PV SCH (21:41)
[2017-07-22] MEDS: VITAMINS A AND D TOPICAL OINTMENT 60 GM TUBE TP SCH ×4 (00:02→17:45)
[2017-07-22] MEDS: LEVOFLOXACIN 500 MG TABLET (FP) PO SCH (06:08)
[2017-07-22] MEDS: busPIRone HCL 5 MG TABLET PO SCH ×3 (06:08→21:20)
[2017-07-22] MEDS: DOCUSATE SODIUM 100 MG CAPSULE (FP) PO SCH ×3 (06:08→21:22)
[2017-07-22] MEDS: GABAPENTIN 100 MG CAPSULE (FP) PO SCH ×3 (06:08→21:22)
[2017-07-22] MEDS: MAG HYDROX/ALH/SMC/DPHA/LIDO 240 ML MOUTHWASH MM SCH ×3 (07:09→17:43)
[2017-07-22] MEDS: FERROUS SO4 325 MG TABLET (FP) PO SCH ×3 (07:19→17:43)
[2017-07-22] MEDS: RITONAVIR 100 MG TABLET PO SCH (07:20)
[2017-07-22] MEDS: ATAZANAVIR SO4 300 MG CAPSULE PO SCH (07:20)
[2017-07-22] MEDS: DOLUTEGRAVIR SODIUM 50 MG TABLET PO SCH (07:21)
[2017-07-22] MEDS: TENOFOVIR DISOPROXIL FUMARATE 300 MG TABLET PO SCH (07:21)
[2017-07-22] MEDS: RANITIDINE HCL 150 MG TABLET (FP) PO SCH ×2 (10:01→21:20)
[2017-07-22] MEDS: ASPIRIN COATED 81 MG TABLET.EC PO SCH (10:01)
[2017-07-22] MEDS: QUEtiapine FUMARATE 400 MG TABLET PO SCH ×2 (10:01→21:20)
[2017-07-22] MEDS: PRENATAL VITAMINS W/ FOLIC ACID TABLET (FP) PO SCH (10:01)
[2017-07-22] MEDS: BUPRENORPHINE HCL/NALOXONE 12 MG-3 MG SL FILM PACKET SL SCH (10:02)
[2017-07-22] MEDS: BACITRACIN 0.9 GM PACKET TP SCH (10:02)
[2017-07-22] MEDS: NAPROXEN 375 MG TABLET (FP) PO SCH ×2 (10:02→21:21)
[2017-07-22] MEDS: ATOVAQUONE 750 MG/5 ML (UNIT-DOSE PACKAGING) PO SCH ×2 (10:02→21:20)
[2017-07-22] MEDS: NICOTINE 21 MG/24 HOURS TOPICAL PATCH TD SCH (10:03)
[2017-07-22] MEDS: METHYL SALICYLATE/MENTHOL OINT 30 GM TUBE TP SCH (10:03)
--- NOTE | 2017-07-22 11:35 | HP ---
Psychiatrist Admission - Data Identifying data: Patient addressing Opoid Dependence comorbid with Nicotine Dependence, Bipolar II Disorder and Substance-induced Anxiety Disorder and Substance-induced Sleep Disorder Medical History: GERD, HIV/AIDS, HTN and Anemia were medically managed Vital Signs: Vital Signs - 24 hr 07/22/17 07/22/17 07/22/17 00:30 03:22 06:58 Temperature 98.8 F Pulse Rate 92 H Respiratory 18 18 18 Rate Blood Pressure 121/76 Allergies/Adverse Reactions: Allergies Allergy/AdvReac Type Severity Reaction Status Date / Time haloperidol [From Haldol] Allergy Severe Rash Verified 07/02/17 12:34 haloperidol lactate Allergy Severe Rash Verified 07/02/17 12:34 [From Haldol] metoclopramide Allergy Severe swelling, Verified 07/02/17 12:34 itching metoclopramide HCl Allergy Severe Swelling Verified 07/02/17 12:34 [From Reglan] prochlorperazine Allergy Severe Swelling Verified 07/02/17 12:34 [From Compazine] prochlorperazine edisylate Allergy Severe Swelling Verified 07/02/17 12:34 [From Compazine] prochlorperazine maleate Allergy Severe Swelling Verified 07/02/17 12:34 [From Compazine] Sulfa (Sulfonamide Allergy Severe Itching, Verified 07/02/17 12:34 Antibiotics) swelling Psychiatric Findings - Problem List (Kramer 1, 2,3) (1) Opioid dependence Current Visit: No Status: Acute (2) Nicotine dependence Current Visit: No Status: Resolved Qualifiers: Nicotine product type: cigarettes Substance use status: uncomplicated Qualified Code(s): F17.210 - Nicotine dependence, cigarettes, uncomplicated (3) Bipolar II disorder Current Visit: No Status: Acute (4) Substance-induced sleep disorder Current Visit: No Status: Acute (5) Anemia Current Visit: No Status: Acute (6) Hampton's palsy Current Visit: No Status: Acute (7) Chronic PID (chronic pelvic inflammatory disease) Current Visit: No Status: Acute (8) GERD (gastroesophageal reflux disease) Current Visit: No Status: Acute (9) HTN (hypertension) Current Visit: No Status: Acute (10) HIV disease Current Visit: No Status: Chronic
--- NOTE | 2017-07-22 11:36 | PN ---
Psychiatric Progress Note Vital Signs: Vital Signs Period Temp Pulse Resp BP Sys/Sanz Pulse Ox Last 24 Hr 98.8 F 92 18-18 121/76 Date of Session: 07/22/17 Chief Complaint:: Discharge Note HPI: Patient addressing Opoid Dependence comorbid with Nicotine Dependence, Bipolar II Disorder and Substance-induced Anxiety Disorder and Substance- induced Sleep Disorder ROS: GERD, HIV/AIDS, HTN and Anemia were medically managed Current Medications: Active Medications Generic Name Dose Route Start Last Admin Trade Name Freq PRN Reason Stop Dose Admin Acetaminophen 650 mg 07/02/17 13:07 07/17/17 05:11 Tylenol - PO 650 mg Q4H PRN Administration PAIN Al Hydroxide/Mg Hydroxide 30 ml 07/02/17 13:07 Mylanta Oral Suspension - PO Q6H PRN DYSPEPSIA Albuterol Sulfate 2 puff 07/02/17 13:15 Ventolin Hfa Inhaler - IH Q4H PRN SHORT OF BREATH/WHEEZING Aspirin 81 mg 07/03/17 10:00 07/22/17 10:01 Ecotrin - PO 81 mg DAILY ESTEVAN Administration Atazanavir 300 mg 07/05/17 17:00 07/22/17 07:20 Reyataz - PO 300 mg DAILY@0800 ESTEVAN Administration Atorvastatin Calcium 20 mg 07/02/17 22:00 07/21/17 21:39 Lipitor - PO 20 mg HS ESTEVAN Administration Atovaquone 750 mg 07/02/17 22:00 07/22/17 10:02 Mepron - PO 750 mg BID ESTEVAN Administration Bacitracin 0.9 gm 07/21/17 11:30 07/22/17 10:02 Bacitracin - TP 0.9 gm DAILY ESTEVAN Administration Buprenorphine/Naloxone 2 each 07/19/17 12:30 07/22/17 10:02 Suboxone 12 Mg-3 Mg Sl Film SL 07/26/17 12:29 2 each DAILY ESTEVAN Administration Buspirone HCl 5 mg 07/19/17 14:00 07/22/17 06:08 Buspar - PO 5 mg TID ESTEVAN Administration Colloidal Oatmeal 1 applic 07/12/17 10:34 07/17/17 10:37 Aveeno Soap - TP 1 applic DAILY PRN Administration HYGEINE Diphenhydramine HCl 50 mg 07/07/17 10:27 07/20/17 21:39 Benadryl - PO 50 mg HS PRN Administration INSOMNIA Docusate Sodium 100 mg 07/02/17 13:30 07/22/17 06:08 Colace - PO 100 mg TID [facility] Administration Eucalyptus/Menthol/Phenol/Sorbitol 1 each 07/02/17 13:07 Cepastat Lozenge - MM Q4H PRN SORE THROAT Ferrous Sulfate 325 mg 07/05/17 09:00 07/22/17 07:19 Feosol - PO 325 mg TIDCM ESTEVAN Administration Gabapentin 100 mg 07/05/17 17:00 07/22/17 06:08 Neurontin - PO 100 mg TID [facility] Administration Guaifenesin 10 ml 07/02/17 13:07 Robitussin Dm - PO Q6H PRN COUGH Lactic Acid 1 applic 07/06/17 09:48 07/17/17 11:09 Lac-Hydrin 12 TP 1 applic BID PRN Administration DRY SKIN Levofloxacin 500 mg 07/16/17 15:30 07/22/17 06:08 Levaquin - PO 500 mg DAILY@0600 [facility] Administration Lidocaine/Aluminum/Magnesium/Simeth 5 ml 07/02/17 21:00 07/22/17 07:09 Magic Mouthwash *Sjr Formula* - MM Not Given Q6HPO [facility] Loperamide HCl 4 mg 07/02/17 13:07 Imodium - PO Q6H PRN DIARRHEA Magnesium Citrate 300 ml 07/02/17 13:07 07/09/17 20:27 Citroma - PO 300 ml Q48H PRN Administration CONSTIPATION Magnesium Hydroxide 30 ml 07/02/17 13:07 07/11/17 06:25 Milk Of Magnesia - PO 30 ml DAILY PRN Administration CONSTIPATION Methyl Salicylate 1 applic 07/07/17 10:30 07/22/17 10:03 Alejandro-Martin - TP Not Given DAILY [facility] Miconazole Nitrate 100 mg 07/03/17 23:00 07/21/17 21:41 Monistat-7 Vaginal Suppository - PV 1 supp HS [facility] Administration Naproxen 375 mg 07/16/17 15:30 07/22/17 10:02 Naprosyn - PO 375 mg BID ESTEVAN Administration Nicotine 21 mg 07/03/17 10:00 07/22/17 10:03 Nicoderm Patch - TD 21 mg DAILY ESTEVAN Administration Nicotine Polacrilex 4 mg 07/02/17 13:07 07/02/17 15:06 Nicorette Gum - BUC 4 mg Q2H PRN Administration NICOTINE REPLACEMENT RX Multivit/Folic Acid/Iron 1 tab 07/03/17 10:00 07/22/17 10:01 Vitamins (Sjr) - PO 1 tab DAILY ESTEVAN Administration Quetiapine Fumarate 400 mg 07/02/17 22:00 07/22/17 10:01 Seroquel - PO 400 mg BID ESTEVAN Administration Ranitidine HCl 150 mg 07/05/17 22:00 07/22/17 10:01 Zantac - PO 150 mg BID ESTEVAN Administration Ritonavir 100 mg 07/10/17 08:00 07/22/17 07:20 Norvir - PO 100 mg DAILY@0800 ESTEVAN Administration Senna 2 tab 07/08/17 22:00 07/21/17 21:39 Senna - PO 2 tab HS ESTEVAN Administration Tenofovir Disoproxil Fumarate 300 mg 07/03/17 08:00 07/22/17 07:21 Viread - PO 300 mg DAILY@0800 ESTEVAN Administration Thiamine HCl 100 mg 07/02/17 22:00 07/21/17 21:39 Vitamin B1 - PO 100 mg HS ESTEVAN Administration Trazodone HCl 100 mg 07/03/17 19:15 07/21/17 21:39 Desyrel - PO 100 mg HS ESTEVAN Administration Vitamin A/Vitamin D 1 applic 07/19/17 11:45 07/22/17 07:08 Vitamin A & D Top Oint - TP 1 applic Q6HPO ESTEVAN Administration Current Side Effect: No Lab tests ordered: Yes Lab tests reviewed: Yes Provider note:: Patient will complete this program on 07/23/17. She has met her treatment goals and will continue to address her issues in outpatient treatment at [facility] at [address] [place] [id number]. 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 She responded well to Seroquel 400 mg po BID, Buspar 5 mg po TID and Trazadone 100 mg po HS. Scripts for 30 days supply of these medications will be electronically transmitted to [facility] at [address] [place] [id number]. She is stable for discharge on 07/23/17 Total face to face time:: 35 Mental Status Exam - Mental Status Exam Alert and Oriented to: Time, Place, Person Cognitive Function: Fair Patient Appearance: Well Groomed Mood: Hopeful, Euthymic Affect: Appropriate Patient Behavior: Cooperative Speech Pattern: Clear Voice Loudness: Normal Thought Process: Intact Thought Disorder: Not Present Hallucinations: Denies Suicidal Ideation: Denies Homicidal Ideation: Denies Insight/Judgement: Fair Sleep: Fair Appetite: Good Muscle strength/Tone: Normal Gait/Station: Normal Psychiatric Treatment Plan - Problem List (1) Opioid dependence Current Visit: No (2) Nicotine dependence Current Visit: No Qualifiers: Nicotine product type: cigarettes Substance use status: uncomplicated Qualified Code(s): F17.210 - Nicotine dependence, cigarettes, uncomplicated (3) Bipolar II disorder Current Visit: No (4) Substance-induced sleep disorder Current Visit: No (5) Anemia Current Visit: No (6) Hampton's palsy Current Visit: No (7) Chronic PID (chronic pelvic inflammatory disease) Current Visit: No (8) GERD (gastroesophageal reflux disease) Current Visit: No (9) HTN (hypertension) Current Visit: No (10) HIV disease Current Visit: No Initial treatment plan: Patient will be discharged tomorrow and referred to [facility] for outpatient treatment
[2017-07-22] MEDS: NICOTINE POLACRILEX 4 MG GUM BUC PRN (17:44)
[2017-07-22] MEDS: THIAMINE HCL 100 MG TABLET (FP) PO SCH (21:20)
[2017-07-22] MEDS: traZODone HCL 100 MG TABLET (FP) PO SCH (21:20)
[2017-07-22] MEDS: ATORVASTATIN CA 20 MG TABLET (FP) PO SCH (21:20)
[2017-07-22] MEDS: SENNOSIDES 8.6MG TABLET (FP) PO SCH (21:20)
[2017-07-22] MEDS: MICONAZOLE NITRATE 100 MG SUPP SUPP.VAG PV SCH (21:22)
[2017-07-23] MEDS: LEVOFLOXACIN 500 MG TABLET (FP) PO SCH (05:43)
[2017-07-23] MEDS: GABAPENTIN 100 MG CAPSULE (FP) PO SCH (05:43)
[2017-07-23] MEDS: busPIRone HCL 5 MG TABLET PO SCH (05:43)
[2017-07-23] MEDS: DOCUSATE SODIUM 100 MG CAPSULE (FP) PO SCH (05:43)
[2017-07-23] MEDS: MAG HYDROX/ALH/SMC/DPHA/LIDO 240 ML MOUTHWASH MM SCH ×2 (05:44)
[2017-07-23] MEDS: VITAMINS A AND D TOPICAL OINTMENT 60 GM TUBE TP SCH ×2 (05:45)
[2017-07-23 07:03] VITALS: BP 152/89; PULSE 87; TEMP 98.5
[2017-07-23] MEDS: DOLUTEGRAVIR SODIUM 50 MG TABLET PO SCH (07:04)
[2017-07-23] MEDS: TENOFOVIR DISOPROXIL FUMARATE 300 MG TABLET PO SCH (07:04)
[2017-07-23] MEDS: FERROUS SO4 325 MG TABLET (FP) PO SCH (07:04)
[2017-07-23] MEDS: ATAZANAVIR SO4 300 MG CAPSULE PO SCH (07:04)
[2017-07-23] MEDS: RITONAVIR 100 MG TABLET PO SCH (07:05)
[2017-07-23] MEDS: BACITRACIN 0.9 GM PACKET TP SCH (09:22)
[2017-07-23] MEDS: BUPRENORPHINE HCL/NALOXONE 12 MG-3 MG SL FILM PACKET SL SCH (09:22)
[2017-07-23] MEDS: RANITIDINE HCL 150 MG TABLET (FP) PO SCH (09:22)
[2017-07-23] MEDS: QUEtiapine FUMARATE 400 MG TABLET PO SCH (09:22)
[2017-07-23] MEDS: ASPIRIN COATED 81 MG TABLET.EC PO SCH (09:22)
[2017-07-23] MEDS: ATOVAQUONE 750 MG/5 ML (UNIT-DOSE PACKAGING) PO SCH (09:23)
[2017-07-23] MEDS: METHYL SALICYLATE/MENTHOL OINT 30 GM TUBE TP SCH (09:23)
[2017-07-23] MEDS: PRENATAL VITAMINS W/ FOLIC ACID TABLET (FP) PO SCH (09:24)
[2017-07-23] MEDS: NAPROXEN 375 MG TABLET (FP) PO SCH (09:25)
== END 2017-07-23 09:45 | disposition home or self-care (01) | DRG 772 ==
LOC: YASAS 11:09 → Y3W 13:08
PROVIDERS: ADMIT Psychiatry & Neurology Psychiatry; ATTEND Psychiatry & Neurology Psychiatry
PROC: HZ42ZZZ Group Counseling for Substance Abuse Treatment, Cognitive-Behavioral (ICD-10-PCS; principal; 2017-07-02)
DX: F11.20 Opioid dependence, uncomplicated (principal); F17.210 Nicotine dependence, cigarettes, uncomplicated; F31.81 Bipolar II disorder; G51.0 Bell's palsy; I10 Essential (primary) hypertension; N73.1 Chronic parametritis and pelvic cellulitis; G47.00 Insomnia, unspecified; Z21 Asymptomatic human immunodeficiency virus [HIV] infection status
CPT/HCPCS: 36415; 80048; 81003; 85025; 93005; 93010

== ENCOUNTER 2020-04-13 13:39 | Inpatient (IN) | payer OTHER ==
[2020-04-13 17:30] VITALS: BMI 25.0
--- NOTE | 2020-04-13 19:25 | BHS.RME ---
Substance Use & Tx History - Substance Use History Heroin Substance amount: 30 bags Frequency of use: Daily Substance route: Inhalation (ex: sniffing or snorting) Date of Last Use: 04/13/20 Cocaine-Crack Substance amount: 100$ Frequency of use: Less than 3 times per week Substance route: Smoking Date of Last Use: 04/12/20 Xanax Substance amount: 4mgs Frequency of use: Daily Substance route: Oral Date of Last Use: 04/13/20 Buprenorphine Substance amount: 3 of 8mg/2mg Frequency of use: Daily Substance route: Oral Date of Last Use: 04/11/20 - Last Treatment Date of last treatment: 07/02/17 to 07/23/17 Where was last treatment: Rehab Physical/Psych/Mental Status - Behavior Eye Contact: Normal - Cooperativeness Cooperativeness: Cooperative - Thinking Thought Processes: Logical Thought content: Future oriented - Physical Health Problems Is patient presently having any pain?: No Does patient presently have any injuries (include location): No Does patient currently have a fever: No COWS - Scale Resting Pulse: 1= OR 81-100 Sweatin= Chills/Flushing Restless Observation: 1= Difficult to Sit Still Pupil Size: 1= Pupils >than Normal Bone or Joint Aches: 2= Severe Diffuse Aches Runny Nose/ Eye Tearin= Runny Nose/Eyes GI Upset > 30mins: 3= Vomiting/Diarrhea Tremor Observation: 2= Slight Tremor Visible Yawning Observation: 2= >3x During Session Anxiety or Irritability: 2=Irritable/Anxious Goose Flesh Skin: 0=Smooth Skin COWS Score: 17 CIWA Nausea/Vomitin Muscle Tremors: 3 Anxiety: 3 Agitation: 3 Paroxysmal Sweats: 1-Minimal Palms Moist Orientation: 0-Oriented Tacttile Disturbances: 1-Very Mild Itch/Numbness Auditory Disturbances: 0-None Visual Disturbances: 0-None Headache: 2-Mild CIWA-Ar Total Score: 16
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
[2020-04-13] MEDS ORDERED: METHADONE HCL 10 MG TABLET (FOR DETOX USE ONLY) PO ONE (20:25)
[2020-04-13] MEDS ORDERED: METHOCARBAMOL 500 MG TABLET PO PRN (20:25)
[2020-04-13] MEDS ORDERED: MAG HYDROX/AL HYDROX/SIMETH 30 ML UNIT-DOSE CUP PO PRN (20:25)
[2020-04-13] MEDS ORDERED: NICOTINE POLACRILEX 2 MG GUM BUC PRN (20:25)
[2020-04-13] MEDS ORDERED: MENTHOL/PHENOL 1 EACH UD MM PRN (20:25)
[2020-04-13] MEDS ORDERED: MAGNESIUM CITRATE 300 ML BOTTLE PO PRN (20:25)
[2020-04-13] MEDS ORDERED: BISMUTH SUBSALICYLATE 524 MG/30 ML UD PO PRN (20:25)
[2020-04-13] MEDS ORDERED: ONDANSETRON *ODT* 4 MG TABLET SL ONE (20:25)
[2020-04-13] MEDS ORDERED: cloNIDine HCL 0.1 MG TABLET PO PRN (20:25)
[2020-04-13] MEDS ORDERED: MAGNESIUM HYDROX 2400MG/30ML ORAL SUSPENSION 30 ML CUP PO PRN (20:25)
[2020-04-13] MEDS ORDERED: ACETAMINOPHEN 325 MG TABLET (FP) PO PRN ×2 (20:25)
[2020-04-13] MEDS ORDERED: IBUPROFEN 400 MG TABLET (FP) PO PRN (20:25)
[2020-04-13] MEDS ORDERED: ALBUTEROL SO4 HFA INHALER IH PRN (20:30)
[2020-04-13] MEDS ORDERED: FLUCONAZOLE 150 MG TABLET PO ONE (20:33)
[2020-04-13] MEDS ORDERED: QUEtiapine FUMARATE 200 MG TABLET PO ONE (20:33)
[2020-04-13] MEDS: diazePAM 5 MG TABLET PO SCH (21:25)
[2020-04-13] MEDS: MELATONIN 5 MG TABLETS PO SCH (21:25)
[2020-04-13] MEDS: THIAMINE HCL 100 MG TABLET (FP) PO SCH (21:25)
[2020-04-13] MEDS: hydrOXYzine PAMOATE 25 MG CAPSULE (FP) PO SCH (21:25)
[2020-04-14] MEDS: diazePAM 5 MG TABLET PO SCH ×3 (05:44→22:24)
[2020-04-14] MEDS: hydrOXYzine PAMOATE 25 MG CAPSULE (FP) PO SCH ×5 (05:44→22:24)
[2020-04-14] MEDS: FERROUS SO4 325 MG TABLET (FP) PO SCH ×3 (07:46→18:02)
[2020-04-14] MEDS: ATOVAQUONE 750 MG/5 ML (UNIT-DOSE PACKAGING) PO SCH ×2 (07:46→18:02)
[2020-04-14] MEDS ORDERED: METHADONE HCL 10 MG TABLET (FOR DETOX USE ONLY) ONE (09:44)
[2020-04-14] MEDS ORDERED: METHADONE HCL 5 MG TABLET (FOR DETOX USE ONLY) ONE (09:44)
[2020-04-14] MEDS ORDERED: METHADONE (DETOX) 20 MG, METHADONE (DETOX) 5 MG PO ONE (10:00)
[2020-04-14] MEDS ORDERED: DOLUTEGRAVIR SODIUM PO SCH (10:00)
[2020-04-14 10:10] LABS: HEMATOCRIT 37.9 % (32.4-45.2); HEMOGLOBIN 12.3 GM/dL (10.7-15.3); MCH 28.8 pg (25.7-33.7); MCHC 32.3 g/dl (32.0-36.0); MEAN CELL VOLUME 89.2 fl (80-96); MEAN PLT VOLUME 8.1 fl (7.5-11.1); PLATELET COUNT 114 K/MM3 (134-434); RBC 4.25 M/mm3 (3.60-5.2); RDW 15.4 % (11.6-15.6); WHITE BLOOD COUNT 2.2 K/mm3 (4.0-10.0)
[2020-04-14 10:18] LABS: BILIRUBIN,TOTAL 0.3 mg/dL (0.2-1); BLOOD UREA NITROGEN 8.3 mg/dL (7-18); CALCIUM 8.5 mg/dL (8.5-10.1); CREATININE 0.8 mg/dL (0.55-1.3); POTASSIUM 4.3 mmol/L (3.5-5.1); TOT PROT 7.2 g/dl (6.4-8.2)
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
[2020-04-14] MEDS: PRENATAL VITAMINS W/ FOLIC ACID TABLET (FP) PO SCH (10:43)
[2020-04-14] MEDS: NICOTINE 21 MG/24 HOURS TOPICAL PATCH TD SCH (10:44)
[2020-04-14] MEDS: diazePAM 5 MG TABLET PO PRN ×3 (10:46→19:26)
[2020-04-14] MEDS: busPIRone HCL 10 MG TABLET (FP) PO SCH ×2 (11:28→22:24)
[2020-04-14] MEDS ORDERED: PNEUMOC 13-VAL CONJ-DIP CRM/PF 0.5 ML DISP.SYRIN IM ONE (12:00)
[2020-04-14] MEDS ORDERED: ONDANSETRON *ODT* 4 MG TABLET SL PRN (12:07)
[2020-04-14] MEDS: QUEtiapine FUMARATE 200 MG TABLET PO SCH ×2 (13:04→22:24)
[2020-04-14] MEDS: ODEFSEY PO SCH (13:06)
[2020-04-14] MEDS: DOLUTEGRAVIR PO SCH (13:06)
[2020-04-14] MEDS: METHYL SALICYLATE/MENTHOL OINT 30 GM TUBE TP SCH ×2 (13:29→21:30)
--- NOTE | 2020-04-14 17:35 | PN ---
[facility] CIWA - CIWA Score Nausea/Vomitin-Mild Nausea/No Vomiting Muscle Tremors: 2 Anxiety: 3 Agitation: 2 Paroxysmal Sweats: 3 Orientation: 0-Oriented Tacttile Disturbances: 0-None Auditory Disturbances: 0-None Visual Disturbances: 0-None Headache: 0-None Present CIWA-Ar Total Score: 11 S COWS - Scale Resting Pulse: 0= [place] 80 or Below Sweatin= Chills/Flushing Restless Observation: 0= Sits Still Pupil Size: 0= Normal to Room Light Bone or Joint Aches: 2= Severe Diffuse Aches Runny Nose/ Eye Tearin= Runny Nose/Eyes GI Upset > 30mins: 2= Nausea/Diarrhea Tremor Observation of Outstretched Hands: 2= Slight Tremor Visible Yawning Observation: 0= None Anxiety or Irritability: 2=Irritable/Anxious Goose Flesh Skin: 0=Smooth Skin COWS Score: 11 S Progress Note (SOAP) Subjective: Abdominal cramps, diarrhea, tremor, nausea; patient c/o itchy vaginal discharge stating she has a yeast infection and needs diflucan and vaginal cream Objective: 04/14/20 17:32 Last Vital Signs Temp Pulse Resp BP Pulse Ox 97.1 F L 72 18 93/59 L 97 04/14/20 16:43 04/14/20 16:43 04/14/20 16:43 04/14/20 16:43 04/14/20 13:06 Laboratory Tests 04/14/20 04/14/20 04/14/20 07:34 07:34 07:34 WBC 2.2 L RBC 4.25 Hgb 12.3 Hct 37.9 D MCV 89.2 MCH 28.8 D MCHC 32.3 RDW 15.4 D Plt Count 114 L MPV 8.1 D Sodium 141 Potassium 4.3 Chloride 106 Carbon Dioxide 31 Anion Gap 3 L BUN 8.3 Creatinine 0.8 Est GFR (CKD-EPI)AfAm 99.63 Est GFR (CKD-EPI)NonAf 85.96 Random Glucose 81 Calcium 8.5 Total Bilirubin 0.3 AST 14 L ALT 12 L Alkaline Phosphatase 86 Total Protein 7.2 Albumin 3.0 L Syphilis Serology Non-reactive Labs reviewed: low wbc, low plt, low albumin Assessment: 04/14/20 17:35 Withdrawal sxs Noted with leukopenia, thrombocytopenia and hypoalbuminemia Plan: Continue detox Encourage PO water intake Vaginal candidiasis: patient already received diflucan last night, start clotrimazole vaginal cream qhs x 3 days, instructed to follow up with PCP/[facility] post discharge Leukopenia: encourage hand washing with soap and water, could be r/t AIDS Thrombocytopenia: monitor for bruising Hypoalbuminemia: encourage diet, on ensure supplement
[2020-04-14] MEDS ORDERED: SUVOREXANT 10 MG TABLET PO PRN (22:00)
[2020-04-14] MEDS ORDERED: CLOTRIMAZOLE 1% VAGINAL CREAM WITH APPLICATOR 45 GM TUBE VG SCH (22:00)
[2020-04-14] MEDS: THIAMINE HCL 100 MG TABLET (FP) PO SCH (22:24)
[2020-04-14] MEDS: MELATONIN 5 MG TABLETS PO SCH (22:27)
[2020-04-15] MEDS: diazePAM 5 MG TABLET PO PRN (01:24)
[2020-04-15] MEDS: hydrOXYzine PAMOATE 25 MG CAPSULE (FP) PO SCH ×2 (05:27→10:41)
[2020-04-15] MEDS ORDERED: diazePAM 5 MG TABLET PO SCH (06:00)
[2020-04-15 07:26] VITALS: BP 139/99; PULSE 104; TEMP 98
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
[2020-04-15] MEDS: ATOVAQUONE 750 MG/5 ML (UNIT-DOSE PACKAGING) PO SCH (08:31)
[2020-04-15] MEDS: FERROUS SO4 325 MG TABLET (FP) PO SCH (08:31)
[2020-04-15] MEDS ORDERED: METHADONE HCL 10 MG TABLET (FOR DETOX USE ONLY) PO ONE (10:00)
[2020-04-15] MEDS: NICOTINE 21 MG/24 HOURS TOPICAL PATCH TD SCH (10:40)
[2020-04-15] MEDS: ODEFSEY PO SCH (10:40)
[2020-04-15] MEDS: busPIRone HCL 10 MG TABLET (FP) PO SCH (10:40)
[2020-04-15] MEDS: METHYL SALICYLATE/MENTHOL OINT 30 GM TUBE TP SCH (10:40)
[2020-04-15] MEDS: DOLUTEGRAVIR PO SCH (10:40)
[2020-04-15] MEDS: PRENATAL VITAMINS W/ FOLIC ACID TABLET (FP) PO SCH (10:40)
[2020-04-15] MEDS: QUEtiapine FUMARATE 200 MG TABLET PO SCH (10:41)
--- NOTE | 2020-04-15 11:35 | PN ---
[facility] Progress Note Note: pt was sent to [facility] d/t seizure witnessed while on [facility] facility. according to MD note at [facility] pt will be admitted to med/surg. pt will be d/c from [facility].
--- NOTE | 2020-04-15 11:39 | DS ---
[facility] Detox Discharge Summary Admission Date: 04/13/20 Discharge Date: 04/15/20 - History Present History: Cannabis Dependence, Cocaine Dependence, Opioid Dependence, Sedative Dependence - Physical Exam Results Vital Signs: Vital Signs Temperature 98.0 F 04/15/20 07:42 Pulse Rate 104 H 04/15/20 07:42 Respiratory Rate 04/15/20 07:42 Blood Pressure 139/99 04/15/20 07:42 O2 Sat by Pulse Oximetry (%) 96 04/15/20 07:21 Pertinent Admission Physical Exam Findings: Vital Signs Temperature 98.0 F 04/15/20 07:42 Pulse Rate 104 H 04/15/20 07:42 Respiratory Rate 04/15/20 07:42 Blood Pressure 139/99 04/15/20 07:42 O2 Sat by Pulse Oximetry (%) 96 04/15/20 07:21 Laboratory Tests 04/13/20 04/13/20 04/14/20 17:30 20:00 07:34 WBC RBC Hgb Hct MCV MCH MCHC RDW Plt Count MPV Sodium Potassium Chloride Carbon Dioxide Anion Gap BUN Creatinine Est GFR (CKD-EPI)AfAm Est GFR (CKD-EPI)NonAf Random Glucose Calcium Total Bilirubin AST ALT Alkaline Phosphatase Total Protein Albumin POC Urine HCG, Qual Negative Syphilis Serology Non-reactive COVID-19 (PREMA) Not detected 04/14/20 04/14/20 07:34 07:34 WBC 2.2 L RBC 4.25 Hgb 12.3 Hct 37.9 D MCV 89.2 MCH 28.8 D MCHC 32.3 RDW 15.4 D Plt Count 114 L MPV 8.1 D Sodium 141 Potassium 4.3 Chloride 106 Carbon Dioxide 31 Anion Gap 3 L BUN 8.3 Creatinine 0.8 Est GFR (CKD-EPI)AfAm 99.63 Est GFR (CKD-EPI)NonAf 85.96 Random Glucose 81 Calcium 8.5 Total Bilirubin 0.3 AST 14 L ALT 12 L Alkaline Phosphatase 86 Total Protein 7.2 Albumin 3.0 L POC Urine HCG, Qual Syphilis Serology COVID-19 (PREMA) pt sent to ED for seizure d/o - Medication Discharge Medications: Ambulatory Orders Atorvastatin Ca [Lipitor] 20 mg PO HS 04/15/20 Atovaquone [Mepron -] 750 mg PO BID 04/15/20 Buprenorphine/Naloxone [Suboxone 8Mg/2Mg Sl Film -] 1 each SL DAILY 04/15/20 Buspirone HCl [Buspar -] 10 mg PO DAILY 04/15/20 Cholecalciferol (Vitamin D3) [Vitamin D3] 1,000 unit PO DAILY 04/15/20 Clonidine HCl [Clonidine HCl ER] 0.1 mg PO DAILY 04/15/20 Dolutegravir Sodium [Tivicay] 50 mg PO DAILY 04/15/20 Emtricitab/Rilpiviri/Tenof Ala [Odefsey Tablet] 1 each PO DAILY 04/15/20 Famotidine [Pepcid -] 40 mg PO DAILY 04/15/20 Ferrous Sulfate 325 mg PO DAILY 04/15/20 Fluconazole 150 mg PO DAILY 04/15/20 Fluticasone Propion/Salmeterol [Wixela 100-50 Inhub] 1 each IH DAILY 04/15/20 Montelukast Na [Singulair -] 10 mg PO HS 04/15/20 Quetiapine Fumarate [Quetiapine Fumarate ER] 200 mg PO DAILY 04/15/20 Sod.chlorid/Potassium Chloride [Thermotabs Tablet] 1 each PO DAILY 04/15/20 levETIRAcetam [Levetiracetam ER] 500 mg PO DAILY 04/15/20 - Diagnosis (1) Bipolar II disorder Current Visit: Yes Status: Acute (2) Closed head injury Current Visit: No Status: Acute (3) Cocaine dependence Current Visit: Yes Status: Chronic Qualifiers: Substance use status: uncomplicated Qualified Code(s): F14.20 - Cocaine dependence, uncomplicated (4) Opioid dependence with withdrawal Current Visit: Yes Status: Chronic (5) Polysubstance (including opioids) dependence, daily use Current Visit: Yes Status: Chronic (6) Seizure Current Visit: Yes Status: Acute (7) Substance-induced sleep disorder Current Visit: Yes Status: Acute (8) UTI (urinary tract infection) Current Visit: No Status: Acute (9) Uncomplicated sedative, hypnotic or anxiolytic withdrawal Current Visit: Yes Status: Chronic (10) Weight loss Current Visit: Yes Status: Acute (11) Anemia Current Visit: No Status: Acute (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 Current Visit: No Status: Acute (13) Chronic PID (chronic pelvic inflammatory disease) Current Visit: No Status: Acute (14) Cocaine abuse Current Visit: No Status: Acute (15) GERD (gastroesophageal reflux disease) Current Visit: No Status: Acute (16) HTN (hypertension) Current Visit: No Status: Acute (17) Insomnia Current Visit: No Status: Acute (18) Opioid dependence Current Visit: No Status: Acute (19) GERD (gastroesophageal reflux disease) Current Visit: No Status: Chronic Qualifiers: Esophagitis presence: without esophagitis Qualified Code(s): K21.9 - Gastro-esophageal reflux disease without esophagitis (20) HIV disease Current Visit: No Status: Chronic (21) Heroin use disorder, moderate, in controlled environment, dependence Current Visit: No Status: Chronic (22) Hyperlipidemia Current Visit: No Status: Chronic Qualifiers: Hyperlipidemia type: pure hypercholesterolemia Qualified Code(s): E78.00 - Pure hypercholesterolemia, unspecified; E78.0 - Pure hypercholesterolemia - AMA Did Patient Leave Against Medical Advice: No (pt sent to [facility] for seizure d/o )
[2020-04-16] MEDS ORDERED: diazePAM 5 MG TABLET PO ONE (06:00)
--- NOTE | 2020-04-16 08:52 | CONSULT ---
Consult Detox [facility] Reason for Current Admission/Consult: Ms. Tenorio is a 49 yo woman who was admitted to [facility] on 04/15 after 2 witnessed seizures, the first was at [facility] after an arguement with her roommate and the second while in transit to the ED. She was at [facility] undergoing detox from opiate and benzodiazepine use disorder. - History History of Present Illness: Patient is a 49 y/o F with a significant past medical history of HIV/AIDS (unknown CD4 count and viral load), hypertension, hyperlipdemia, depression, Bipolar d/o, asthma, COPD, GERD, anemia, and seizure disorder who [facility] due to a witnessed Seizure at [facility]. Pt reportedly had a seizure while arguing with her room mate; patient subsequently fell and hit the right side of her head. Patient was subsequently transferred to our ED for imaging. En route and upon arrival patient was observed to have another tonic- clonic seizure and was subsequently administered 5 mg of Versed. Patient endorses she is on Keppra 1000 mg BID however is sometimes noncompliant. Last seizure prior to this most recent episode was ~ 1 year ago. PMH: as above PSH: tonsillectomy at age 26, arthroscopic surgery right knee 2009 Laboratory Last Values WBC 2.2 K/mm3 (4.0-10.0) L 04/14/20 07:34 RBC 4.25 M/mm3 (3.60-5.2) 04/14/20 07:34 Hgb 12.3 GM/dL (10.7-15.3) 04/14/20 07:34 Hct 37.9 % (32.4-45.2) D 04/14/20 07:34 MCV 89.2 fl (80-96) 04/14/20 07:34 MCH 28.8 pg (25.7-33.7) D 04/14/20 07:34 MCHC 32.3 g/dl (32.0-36.0) 04/14/20 07:34 RDW 15.4 % (11.6-15.6) D 04/14/20 07:34 Plt Count 114 K/MM3 (134-434) L 04/14/20 07:34 MPV 8.1 fl (7.5-11.1) D 04/14/20 07:34 Sodium 141 mmol/L (136-145) 04/14/20 07:34 Potassium 4.3 mmol/L (3.5-5.1) 04/14/20 07:34 Chloride 106 mmol/L (98-107) 04/14/20 07:34 Carbon Dioxide 31 mmol/L (21-32) 04/14/20 07:34 Anion Gap 3 MMOL/L (8-16) L 04/14/20 07:34 BUN 8.3 mg/dL (7-18) 04/14/20 07:34 Creatinine 0.8 mg/dL (0.55-1.3) 04/14/20 07:34 Est GFR (CKD-EPI)AfAm 99.63 04/14/20 07:34 Est GFR (CKD-EPI)NonAf 85.96 04/14/20 07:34 Random Glucose 81 mg/dL (74-106) 04/14/20 07:34 Calcium 8.5 mg/dL (8.5-10.1) 04/14/20 07:34 Total Bilirubin 0.3 mg/dL (0.2-1) 04/14/20 07:34 AST 14 U/L (15-37) L 04/14/20 07:34 ALT 12 U/L (13-61) L 04/14/20 07:34 Alkaline Phosphatase 86 U/L (45-117) 04/14/20 07:34 Total Protein 7.2 g/dl (6.4-8.2) 04/14/20 07:34 Albumin 3.0 g/dl (3.4-5.0) L 04/14/20 07:34 POC Urine HCG, Qual Negative 04/13/20 17:30 Syphilis Serology Non-reactive (NONREACTIVE) 04/14/20 07:34 COVID-19 (PREMA) Not detected (Not Detected) 04/13/20 20:00 Home Medication List Medication Instructions Recorded Confirmed Type Atorvastatin Ca [Lipitor] 20 mg PO HS 04/15/20 04/15/20 History Atovaquone [Mepron -] 750 mg PO BID 04/15/20 04/15/20 History Buprenorphine/Naloxone [Suboxone 1 each SL DAILY 04/15/20 04/15/20 History 8Mg/2Mg Sl Film -] Buspirone HCl [Buspar -] 10 mg PO DAILY 04/15/20 04/15/20 History Cholecalciferol (Vitamin D3) 1,000 unit PO DAILY 04/15/20 04/15/20 History [Vitamin D3] Clonidine HCl [Clonidine HCl ER] 0.1 mg PO DAILY 04/15/20 04/15/20 History Dolutegravir Sodium [Tivicay] 50 mg PO DAILY 04/15/20 04/15/20 History Emtricitab/Rilpiviri/Tenof Ala 1 each PO DAILY 04/15/20 04/15/20 History [Odefsey Tablet] Famotidine [Pepcid -] 40 mg PO DAILY 04/15/20 04/15/20 History Ferrous Sulfate 325 mg PO DAILY 04/15/20 04/15/20 History Fluconazole 150 mg PO DAILY 04/15/20 04/15/20 History Fluticasone Propion/Salmeterol 1 each IH DAILY 04/15/20 04/15/20 History [Wixela 100-50 Inhub] Montelukast Na [Singulair -] 10 mg PO HS 04/15/20 04/15/20 History Quetiapine Fumarate [Quetiapine 200 mg PO DAILY 04/15/20 04/15/20 History Fumarate ER] Sod.chlorid/Potassium Chloride 1 each PO DAILY 04/15/20 04/15/20 History [Thermotabs Tablet] levETIRAcetam [Levetiracetam ER] 500 mg PO DAILY 04/15/20 04/15/20 History - History Source History Provided By: Medical Record - Alcohol/Substance Use Hx Alcohol Use: No Hx Substance Use: Yes Hx Substance Use Treatment: Yes - Past Medical History [employer]: Yes: Seizure Cardio/Vascular: Yes: HTN, Hyperlipdemia Pulmonary: Yes: Asthma, COPD Gastrointestinal: Yes: GERD ...LMP: 05/21/17 ...: No Infectious Disease: Yes: AIDS Psych: Yes: Bipolar CIWA Score - CIWA Score Nausea/Vomitin-Mild Nausea/No Vomiting Muscle Tremors: 2 Anxiety: 3 Agitation: 2 Paroxysmal Sweats: 3 Orientation: 0-Oriented Tacttile Disturbances: 0-None Auditory Disturbances: 0-None Visual Disturbances: 0-None Headache: 0-None Present CIWA-Ar Total Score: 11 COWS - Scale Resting Pulse: 1= [place] 81-100 Sweatin= Chills/Flushing Restless Observation: 1= Difficult to Sit Still Pupil Size: 1= Pupils >than Normal Bone or Joint Aches: 2= Severe Diffuse Aches Runny Nose/ Eye Tearin= Runny Nose/Eyes GI Upset > 30mins: 3= Vomiting/Diarrhea Tremor Observation: 2= Slight Tremor Visible Yawning Observation: 2= >3x During Session Anxiety or Irritability: 2=Irritable/Anxious Goose Flesh Skin: 0=Smooth Skin COWS Score: 17
[2020-04-16] MEDS ORDERED: METHADONE (DETOX) 10 MG, METHADONE (DETOX) 5 MG PO ONE (10:00)
[2020-04-17] MEDS ORDERED: METHADONE HCL 10 MG TABLET (FOR DETOX USE ONLY) PO ONE (10:00)
[2020-04-18] MEDS ORDERED: METHADONE HCL 5 MG TABLET (FOR DETOX USE ONLY) PO ONE (06:00)
== END 2020-04-15 11:34 | disposition short-term general hospital (02) | DRG 773 ==
LOC: YASAS 13:39 → Y6N 19:43
PROVIDERS: ADMIT Allergy & Immunology; ATTEND Allergy & Immunology
PROC: HZ2ZZZZ Detoxification Services for Substance Abuse Treatment (ICD-10-PCS; principal; 2020-04-13)
DX: F11.23 Opioid dependence with withdrawal (principal); F13.230 Sedative, hypnotic or anxiolytic dependence with withdrawal, uncomplicated; F14.20 Cocaine dependence, uncomplicated; F12.20 Cannabis dependence, uncomplicated; F17.210 Nicotine dependence, cigarettes, uncomplicated; F31.81 Bipolar II disorder; F19.282 Other psychoactive substance dependence with psychoactive substance-induced sleep disorder; B20 Human immunodeficiency virus [HIV] disease; C46.9 Kaposi's sarcoma, unspecified; G40.919 Epilepsy, unspecified, intractable, without status epilepticus; E88.09 Other disorders of plasma-protein metabolism, not elsewhere classified; D69.6 Thrombocytopenia, unspecified; D64.9 Anemia, unspecified; D72.819 Decreased white blood cell count, unspecified; N39.0 Urinary tract infection, site not specified; B37.3 Candidiasis of vulva and vagina; I10 Essential (primary) hypertension; K21.9 Gastro-esophageal reflux disease without esophagitis; E78.5 Hyperlipidemia, unspecified; J44.9 Chronic obstructive pulmonary disease, unspecified; M17.0 Bilateral primary osteoarthritis of knee; R63.4 Abnormal weight loss; Z68.25 Body mass index [BMI] 25.0-25.9, adult; Z91.410 Personal history of adult physical and sexual abuse; Z91.5 Personal history of self-harm; Z88.2 Allergy status to sulfonamides; Z88.8 Allergy status to other drugs, medicaments and biological substances; S09.8XXA Other specified injuries of head, initial encounter; W18.30XA Fall on same level, unspecified, initial encounter; Y92.230 Patient room in hospital as the place of occurrence of the external cause; Y93.89 Activity, other specified; Y99.8 Other external cause status
CPT/HCPCS: 36415; 80053; 81025; 85027; 86780; 90670; Q0162; U0003

== ENCOUNTER 2020-04-15 08:30 | Inpatient (IN) | payer OTHER ==
[2020-04-15 08:41] VITALS: BMI 25.5
--- NOTE | 2020-04-15 09:26 | PDOC ---
History of Present Illness - General Chief Complaint: Seizure Stated Complaint: Seizure Time Seen by Provider: 04/15/20 08:41 - History of Present Illness Initial Comments: 04/15/20 09:25 49F with PMH polysubstance abuse transferred from [facility] after she had a seizure, fell, and hit her head. She was given 5mg Versed by EMS. Patient states she has a history of seizures and is supposed to take 500mg keppra BID. Her pharmacy was called ([facility] in [place]), and they stated that she was given a month of Keppra in September and February. Upon clarification with the patient, she was discharged from [facility] on Keppra but was unable to follow up with neurology. PMH/PSH: as above Home Medications Medication Instructions Recorded Atorvastatin Ca [Lipitor] 20 mg PO HS 04/15/20 Atovaquone [Mepron -] 750 mg PO BID 04/15/20 Buprenorphine/Naloxone [Suboxone 1 each SL DAILY 04/15/20 8Mg/2Mg Sl Film -] Buspirone HCl [Buspar -] 10 mg PO DAILY 04/15/20 Cholecalciferol (Vitamin D3) 1,000 unit PO DAILY 04/15/20 [Vitamin D3] Clonidine HCl [Clonidine HCl ER] 0.1 mg PO DAILY 04/15/20 Dolutegravir Sodium [Tivicay] 50 mg PO DAILY 04/15/20 Emtricitab/Rilpiviri/Tenof Ala 1 each PO DAILY 04/15/20 [Odefsey Tablet] Famotidine [Pepcid -] 40 mg PO DAILY 04/15/20 Ferrous Sulfate 325 mg PO DAILY 04/15/20 Fluconazole 150 mg PO DAILY 04/15/20 Fluticasone Propion/Salmeterol 1 each IH DAILY 04/15/20 [Wixela 100-50 Inhub] Montelukast Na [Singulair -] 10 mg PO HS 04/15/20 Quetiapine Fumarate [Quetiapine 200 mg PO DAILY 04/15/20 Fumarate ER] Sod.chlorid/Potassium Chloride 1 each PO DAILY 04/15/20 [Thermotabs Tablet] levETIRAcetam [Levetiracetam ER] 500 mg PO DAILY 04/15/20 Allergies Allergy/AdvReac Type Severity Reaction Status Date / Time haloperidol [From Haldol] Allergy Severe Rash Verified 04/13/20 19:49 haloperidol lactate Allergy Severe Rash Verified 04/13/20 19:49 [From Haldol] metoclopramide Allergy Severe swelling, Verified 04/13/20 19:49 itching metoclopramide HCl Allergy Severe Swelling Verified 04/13/20 19:49 [From Reglan] prochlorperazine Allergy Severe Swelling Verified 04/13/20 19:49 [From Compazine] prochlorperazine edisylate Allergy Severe Swelling Verified 04/13/20 19:49 [From Compazine] prochlorperazine maleate Allergy Severe Swelling Verified 04/13/20 19:49 [From Compazine] Sulfa (Sulfonamide Allergy Severe Itching, Verified 04/13/20 19:49 Antibiotics) swelling PCP: Andrez FRANCISCO GENERAL/CONSTITUTIONAL: No fever or chills. HEAD, EYES, EARS, NOSE AND THROAT: No change in vision. No ear pain or discharge. No sore throat. CARDIOVASCULAR: No chest pain or shortness of breath RESPIRATORY: No cough, wheezing, or hemoptysis. GASTROINTESTINAL: No nausea, vomiting, diarrhea or constipation. GENITOURINARY: dysuria, frequency MUSCULOSKELETAL: No joint or muscle swelling or pain. No neck or back pain. SKIN: No rash NEUROLOGIC: seizures. no headache ENDOCRINE: No increased thirst. No abnormal weight change HEMATOLOGIC/LYMPHATIC: No anemia, easy bleeding, or history of blood clots. ALLERGIC/IMMUNOLOGIC: No hives or skin allergy. PE GENERAL: Awake, alert, and fully oriented, in no acute distress. Was observed having full body convulsions that resolved with saline push. No post-ictal state observed. HEAD: No signs of trauma, normocephalic, atraumatic EYES: PERRLA, EOMI, sclera anicteric, conjunctiva clear ENT: Auricles normal inspection, hearing grossly normal, nares patent, oropharynx clear without exudates. Moist mucosa NECK: Normal ROM, supple, no lymphadenopathy, JVD, or masses LUNGS: No distress, speaks full sentences, clear to auscultation bilaterally HEART: Regular rate and rhythm, normal S1 and S2, no murmurs, rubs or gallops, peripheral pulses normal and equal bilaterally. ABDOMEN: Soft, nontender, normoactive bowel sounds. No guarding, no rebound. No masses EXTREMITIES : Normal inspection, Normal range of motion, no edema. No clubbing or cyanosis. NEUROLOGICAL: Cranial nerves II through XII grossly intact. Normal speech, no focal sensorimotor deficits SKIN: Warm, Dry, normal turgor, no rashes or lesions noted MDM: 1F with PMH polysubstance abuse transferred from [facility] after she had a seizure, fell, and hit her head. In the ER she was observed having full body convulsions that resolved with saline push. No post-ictal state observed. Also reports urinary frequency and burning. Differential includes seizure, ICH, pseudoseizure, UTI. -CBC, CMP, lactate, CK, prolactin, drug screen -UA/UC Vital Signs Temp Pulse Resp BP Pulse Ox 98.1 F 93 H 20 123/82 99 04/15/20 08:37 04/15/20 08:37 04/15/20 08:37 04/15/20 08:37 04/15/20 08:37 04/15/20 11:16 Labs notable for lactate 3.0 and UA with positive nitrites, 3+ leukocyte esterase, 662 WBC, >[address] De La Cruz, neurology, called and advised loading with keppra 1000mg IV. Can f/ u as outpatient from a neuro perspective. Given keppra 1000mg, ceftriaxone 1g, and 1000ml fluids. Will admit to med/surg obs for seizures/UTI before sending to [facility]. 04/15/20 12:24 Signed out to admitting team Past History - Medical History Allergies/Adverse Reactions: Allergies Allergy/AdvReac Type Severity Reaction Status Date / Time haloperidol [From Haldol] Allergy Severe Rash Verified 04/13/20 19:49 haloperidol lactate Allergy Severe Rash Verified 04/13/20 19:49 [From Haldol] metoclopramide Allergy Severe swelling, Verified 04/13/20 19:49 itching metoclopramide HCl Allergy Severe Swelling Verified 04/13/20 19:49 [From Reglan] prochlorperazine Allergy Severe Swelling Verified 04/13/20 19:49 [From Compazine] prochlorperazine edisylate Allergy Severe Swelling Verified 04/13/20 19:49 [From Compazine] prochlorperazine maleate Allergy Severe Swelling Verified 04/13/20 19:49 [From Compazine] Sulfa (Sulfonamide Allergy Severe Itching, Verified 04/13/20 19:49 Antibiotics) swelling Home Medications: Ambulatory Orders Atorvastatin Ca [Lipitor] 20 mg PO HS 04/15/20 Atovaquone [Mepron -] 750 mg PO BID 04/15/20 Buprenorphine/Naloxone [Suboxone 8Mg/2Mg Sl Film -] 1 each SL DAILY 04/15/20 Buspirone HCl [Buspar -] 10 mg PO DAILY 04/15/20 Cholecalciferol (Vitamin D3) [Vitamin D3] 1,000 unit PO DAILY 04/15/20 Clonidine HCl [Clonidine HCl ER] 0.1 mg PO DAILY 04/15/20 Dolutegravir Sodium [Tivicay] 50 mg PO DAILY 04/15/20 Emtricitab/Rilpiviri/Tenof Ala [Odefsey Tablet] 1 each PO DAILY 04/15/20 Famotidine [Pepcid -] 40 mg PO DAILY 04/15/20 Ferrous Sulfate 325 mg PO DAILY 04/15/20 Fluconazole 150 mg PO DAILY 04/15/20 Fluticasone Propion/Salmeterol [Wixela 100-50 Inhub] 1 each IH DAILY 04/15/20 Montelukast Na [Singulair -] 10 mg PO HS 04/15/20 Quetiapine Fumarate [Quetiapine Fumarate ER] 200 mg PO DAILY 04/15/20 Sod.chlorid/Potassium Chloride [Thermotabs Tablet] 1 each PO DAILY 04/15/20 levETIRAcetam [Levetiracetam ER] 500 mg PO DAILY 04/15/20 Anemia: Yes (on iron supplement) Asthma: Yes Cancer: Yes (kaposi saecoma) Cardiac Disorders: No COPD: Yes CHF: No Diabetes: No GI Disorders: Yes (acid reflux) Disorders: No HTN: Yes Hypercholesterolemia: Yes Kidney Stones: No Liver Disease: No Seizures: Yes (r/t head trauma-last episode was a year ago) Thyroid Disease: No - Surgical History Abdominal Surgery: No Appendectomy: No Cardiac Surgery: No Cholecystectomy: No Lung Surgery: No Neurologic Surgery: No Orthopedic Surgery: No - Reproductive History Is Patient Now?: No PID: No - Psycho-Social/Smoking History Smoking History: Current every day smoker Have you smoked in the past 12 months: Yes Number of Cigarettes Smoked Daily: 4 Information on smoking cessation initiated: No 'Breaking Loose' booklet given: 04/13/20 - Substance Abuse Hx (Audit-C & DAST Scrn) How often the patient has a drink containing alcohol: Monthly or less Number of drinks the patient has on a typical day: 1 or 2 How often the patient has six or more drinks on one occasion: Less than monthly Score: In Men: 4 or > Positive; In Women: 3 or > Positive: 2 Screen Result (Pos requires Nsg. Audit-10AR): Negative In the last yr the pt used illegal drug/Rx for NonMed reason: Yes Score: Yes response is considered Positive: 1 Screen Result (Positive result requires Nsg. DAST-10): Positive *Physical Exam - Vital Signs Last Vital Signs Temp Pulse Resp BP Pulse Ox 98.1 F 93 H 20 123/82 99 04/15/20 08:37 04/15/20 08:37 04/15/20 08:37 04/15/20 08:37 04/15/20 08:37 ED Treatment Course - LABORATORY CBC & Chemistry Diagram: 04/15/20 08:45 04/15/20 08:45 - RADIOLOGY Radiology Studies Ordered: Category Date Time Status CERVICAL SPINE CT W/O CONTR [CT] Stat CT Scan 04/15/20 09:[address] WITHOUT CONTRAST [CT] Stat CT Scan 04/15/20 09:03 Ordered Discharge - Discharge Information Problems reviewed: Yes Clinical Impression/Diagnosis: Polysubstance (including opioids) dependence, daily use, Closed head injury, Seizure, UTI (urinary tract infection) Condition: Fair - Admission Yes - Follow up/Referral - Patient Discharge Instructions - Post Discharge Activity
[2020-04-15 09:35] LABS: EOS % 3.5 % (0-4.5); HEMATOCRIT 37.4 % (32.4-45.2); HEMOGLOBIN 12.4 GM/dL (10.7-15.3); LYMPH % 20.7 % (8-40); MCHC 33.2 g/dl (32.0-36.0); MEAN CELL VOLUME 90.3 fl (80-96); MEAN PLT VOLUME 8.4 fl (7.5-11.1); NEUT % 62.8 % (42.8-82.8); PLATELET COUNT 102 K/MM3 (134-434); RBC 4.15 M/mm3 (3.60-5.2); RDW 15.2 % (11.6-15.6); WHITE BLOOD COUNT 2.7 K/mm3 (4.0-10.0)
--- NOTE | 2020-04-15 09:51 | PDOC ---
Attending Attestation - Resident Resident Name: HectoryadiraGiselaBg - ED Attending Attestation I have performed the following: I have examined & evaluated the patient, The case was reviewed & discussed with the resident, I agree w/resident's findings & plan - HPI HPI: 04/15/20 09:46 49-year-old female transferred from [facility] where she is undergoing polysubstance abuse detox, history of seizures reported, per patient is typically managed on Keppra. Per transfer report, patient was involved in a verbal altercation with her roommate then had a seizure and fell to the ground, was witnessed by security to strike her head on the right side, no trauma was noted, sent here for imaging. During transfer and upon arrival, patient witnessed to have generalized tonic- clonic seizure, was given Versed 5 mg IM en route. Of note, no postictal period associated with any of the seizures. - Physicial Exam PE: 04/15/20 09:48 Vital signs stable, afebrile Alert after seizure, verbal with perrl neck supple, no midline spine ttp heart regular, lungs clear abd benign neuro nonfocal trauma exam normal - Medical Decision Making 04/15/20 09:50 49-year-old female with history of seizures and polysubstance abuse presents status post seizure with head injury. Fall protocol #1, rule out TBI Seizure versus pseudoseizure, will confirm history of Keppra and give loading dose once confirmed Check labs, urinalysis CT head, CT C-spine Reassess and disposition accordingly 04/15/20 10:47 Positive UTI, will treat with antibiotics CT head and CT C-spine without acute traumatic injury Per records, patient has been evaluated for seizures in the past and started on Keppra but never followed up with neurology. Elevated lactate here. Given new diagnosis of UTI and unclear management of seizures at baseline, will admit for antibiotics, neurology evaluation, seizure management. Heart Score/ECG Review #1 ECG reviewed & interpreted by me at: 12:33 General ECG Interpretation: Sinus Rhythm, Normal Rate (81), Normal Intervals (qtc 478), No acute ischemic changes Discharge - Discharge Information Problems reviewed: Yes Clinical Impression/Diagnosis: Polysubstance (including opioids) dependence, daily use, Closed head injury, Seizure, UTI (urinary tract infection) Condition: Fair - Follow up/Referral Referrals: ON STAFF,NOT [Primary Care Provider] - - Patient Discharge Instructions - Post Discharge Activity
[2020-04-15 10:02] LABS: EPI CELLS 7 /uL (0-25.1); HYALINE CASTS 3 /uL (0-3.1); URINE APPEARANCE CLOUDY; URINE BACTERIA >9,000 /uL (0-1359); URINE BILIRUBIN NEGATIVE (NEGATIVE); URINE COLOR YELLOW; URINE GLUCOSE (UA) NEGATIVE (NEGATIVE); URINE KETONE NEGATIVE (NEGATIVE); URINE LEUK ESTERASE 3+ (NEGATIVE); URINE NITRITE POSITIVE (NEGATIVE); URINE PROTEIN NEGATIVE (NEGATIVE); URINE UROBILINOGEN 0.2 mg/dL (0.2-1.0); URINE WBC 662 /uL (0-25.8)
[2020-04-15 10:06] LABS: ALBUMIN 3.1 g/dl (3.4-5.0); ALK PHOS 113 U/L (45-117); ANION GAP 6 MMOL/L (8-16); BILIRUBIN,TOTAL 0.2 mg/dL (0.2-1); BLOOD UREA NITROGEN 13.8 mg/dL (7-18); CALCIUM 8.7 mg/dL (8.5-10.1); CHLORIDE 105 mmol/L (98-107); CO2 30 mmol/L (21-32); GLUCOSE,RANDOM 87 mg/dL (74-106); POTASSIUM 4.4 mmol/L (3.5-5.1); SGOT/AST 19 U/L (15-37); SGPT/ALT 12 U/L (13-61); SODIUM 140 mmol/L (136-145); TOT PROT 7.6 g/dl (6.4-8.2)
[2020-04-15] MEDS ORDERED: CEFTRIAXONE 1 GM in DEXTROSE 5%-WATER - 100 ML IVPB ONE (10:12)
[2020-04-15] MEDS ORDERED: SODIUM CHLORIDE 1,000 ML IV STA (10:13)
[2020-04-15 10:43] LABS: PHENCYCLIDINE,URINE NEGATIVE ng/ml (CUTOFF=25)
[2020-04-15] MEDS ORDERED: ACETAMINOPHEN 1000 MG/100 ML VIAL (NON FORMULARY) IVPB ONE (10:43)
[2020-04-15 10:45] LABS: URINE AMPHETAMINES NEGATIVE ng/ml (CUTOFF=500); URINE BARBITURATES NEGATIVE ng/ml (CUTOFF=200)
[2020-04-15] MEDS ORDERED: ACETAMINOPHEN INJECTION 100 ML IVPB ONE (10:52)
[2020-04-15] MEDS ORDERED: CEFTRIAXONE 1 GM/50 ML BAG ONE (10:52)
[2020-04-15 10:59] LABS: COCAINE, UR POSITIVE ng/ml (CUTOFF=300); METHADONE, UR POSITIVE ng/ml (CUTOFF=300); OPIATES, URI POSITIVE ng/ml (CUTOFF=300); URINE BENZODIAZEPINES POSITIVE ng/ml (CUTOFF=200)
[2020-04-15] MEDS ORDERED: levETIRAcetam 500 MG/5 ML INJECTION VIAL IVPB ONE ×2 (10:59→11:29)
[2020-04-15] MEDS ORDERED: diazePAM 5 MG TABLET PO ONE (11:19)
[2020-04-15] MEDS ORDERED: METHADONE HCL 10 MG TABLET (FOR DETOX USE ONLY) PO ONE (11:19)
[2020-04-15] MEDS ORDERED: METHADONE HCL 10 MG TABLET ONE (11:28)
[2020-04-15] MEDS ORDERED: diazePAM 5 MG TABLET ONE (11:28)
--- NOTE | 2020-04-15 11:52 | PN ---
Teaching Attending Note Name of Resident: Valente Varela ATTENDING PHYSICIAN STATEMENT I saw and evaluated the patient. I reviewed the resident's note and discussed the case with the resident. I agree with the resident's findings and plan as documented. SUBJECTIVE: Witnessed seizure OBJECTIVE: Vital Signs Temperature 98.1 F 04/15/20 08:37 Pulse Rate 93 H 04/15/20 08:37 Respiratory Rate 20 04/15/20 08:37 Blood Pressure 123/82 04/15/20 08:37 O2 Sat by Pulse Oximetry (%) 99 04/15/20 08:37 General: Middle-aged woman, comfortable, not in distress HEENT: No hematoma or any external signs of trauma, mucous membranes moist, no anemia, no jaundice, PERRLA, no nystagmus Neck: No JVD, supple, no bruit, thyroid palpably normal, normal carotid pulsations. Chest: Nontender, clear to auscultation bilaterally CVS: S1-S2 regular no murmur/gallop/rub Abdomen: Nondistended, mild suprapubic pain, soft, bowel sounds present. Extremities: No edema., No Calf tenderness, pulses present POLICY VALUE CALCULATOR: AO X3 , no gross motor sensory deficit CBC,CMP WBC 2.7 K/mm3 (4.0-10.0) L 04/15/20 08:45 RBC 4.15 M/mm3 (3.60-5.2) 04/15/20 08:45 Hgb 12.4 GM/dL (10.7-15.3) 04/15/20 08:45 Hct 37.4 % (32.4-45.2) 04/15/20 08:45 MCV 90.3 fl (80-96) 04/15/20 08:45 MCH 30.0 pg (25.7-33.7) 04/15/20 08:45 MCHC 33.2 g/dl (32.0-36.0) 04/15/20 08:45 RDW 15.2 % (11.6-15.6) 04/15/20 08:45 Plt Count 102 K/MM3 (134-434) L 04/15/20 08:45 MPV 8.4 fl (7.5-11.1) 04/15/20 08:45 Absolute Neuts (auto) 1.7 K/mm3 (1.5-8.0) 04/15/20 08:45 Neutrophils % 62.8 % (42.8-82.8) 04/15/20 08:45 Lymphocytes % 20.7 % (8-40) D 04/15/20 08:45 Monocytes % 12.0 % (3.8-10.2) H 04/15/20 08:45 Eosinophils % 3.5 % (0-4.5) D 04/15/20 08:45 Basophils % 1.0 % (0-2.0) D 04/15/20 08:45 Nucleated RBC % 0 % (0-0) 04/15/20 08:45 Sodium 140 mmol/L (136-145) 04/15/20 08:45 Potassium 4.4 mmol/L (3.5-5.1) 04/15/20 08:45 Chloride 105 mmol/L (98-107) 04/15/20 08:45 Carbon Dioxide 30 mmol/L (21-32) 04/15/20 08:45 Anion Gap 6 MMOL/L (8-16) L 04/15/20 08:45 BUN 13.8 mg/dL (7-18) 04/15/20 08:45 Creatinine 1.0 mg/dL (0.55-1.3) 04/15/20 08:45 Est GFR (CKD-EPI)AfAm 76.07 04/15/20 08:45 Est GFR (CKD-EPI)NonAf 65.64 04/15/20 08:45 Random Glucose 87 mg/dL (74-106) 04/15/20 08:45 Lactic Acid 3.0 mmol/L (0.4-2.0) H* 04/15/20 08:45 Calcium 8.7 mg/dL (8.5-10.1) 04/15/20 08:45 Total Bilirubin 0.2 mg/dL (0.2-1) 04/15/20 08:45 AST 19 U/L (15-37) 04/15/20 08:45 ALT 12 U/L (13-61) L 04/15/20 08:45 Alkaline Phosphatase 113 U/L (45-117) 04/15/20 08:45 Total Protein 7.6 g/dl (6.4-8.2) 04/15/20 08:45 Albumin 3.1 g/dl (3.4-5.0) L 04/15/20 08:45 ASSESSMENT AND PLAN: 49-year-old female history of HIV,AIDS , unknown CD4 count and viral load, history of PCP pneumonia, kyphosis, seizure disorders, polysubstance abuse active EtOH, cocaine, heroin, Xanax, bipolar disorders COPD [facility] she was admitted on April 13, 2020 for detox, urine tox was positive for heroine, cocaine, benzos, today patient had verbal argument with a patient, hit her head to the wall developed tonic- clonic seizure witnessed by the staff, transported to [facility] ED for evaluation admitted for further management. Active issues: 1. Breakthrough seizures: Patient has history of seizures last visit with 1 year ago noncompliant last dose of methadone was 3 to 4 days ago, today presents with witnessed breakthrough seizures, most likely subtherapeutic Keppra/non- compliant/benzo withdrawal/cocaine induced, at present alert oriented able to recall the event prior to seizure, denies any focal weakness headache fever neck stiffness, loaded with Keppra after consulting neurologist, CT head negative, will resume home dose of Keppra 1 g twice daily, observe closely for recurrent seizures, lorazepam 2 mg IV as needed, neurochecks, add on CK 2. Polysubstance abuse/withdrawal: Continue Librium protocol, thiamine, folic acid we will follow-up addiction medicine recommendations 3. HIV/AIDS: Resume all home medication was able to tolerate p.o., will call pharmacy/patient family to contact more information, patient is on PCP prophylaxis, 4. Lactic acidosis: Can be due to UTI/seizure activity, IV hydration follow-up. 5. UTI: Elevated urine WBC nitrate positive: Start on ceftriaxone, IV hydration, follow-up urine and blood culture results. Patient is not sexually active will refer GC 6. Bipolar disorder: And has history of bipolar disorder at present denies any suicidal homicidal ideation, but clearly said and remarks about the morning resume all home medications 7. Blunt trauma head: No external hematoma, CT head negative we will follow-up clinically. 8. Kaposi's sarcoma: Of that time follow-up as an outpatient SCDs for DVT prophylaxis Case discussed with the resident and agree with the plan of care and management Problem List - Problems (1) Breakthrough seizure Code(s): G40.919 - EPILEPSY, UNSP, INTRACTABLE, WITHOUT STATUS EPILEPTICUS (2) History of HIV or AIDS Code(s): [id number] - (3) UTI (urinary tract infection) Code(s): N39.0 - URINARY TRACT INFECTION, SITE NOT SPECIFIED (4) Elevated lactic acid level Code(s): R79.89 - OTHER SPECIFIED ABNORMAL FINDINGS OF BLOOD CHEMISTRY (5) Bipolar II disorder Code(s): F31.81 - BIPOLAR II DISORDER (6) Polysubstance abuse Code(s): F19.10 - OTHER PSYCHOACTIVE SUBSTANCE ABUSE, UNCOMPLICATED (7) GERD (gastroesophageal reflux disease) Code(s): K21.9 - GASTRO-ESOPHAGEAL REFLUX DISEASE WITHOUT ESOPHAGITIS Qualifiers: Esophagitis presence: without esophagitis Qualified Code(s): K21.9 - Gastro-esophageal reflux disease without esophagitis (8) Blunt head trauma Code(s): S09.8XXA - OTHER SPECIFIED INJURIES OF HEAD, INITIAL ENCOUNTER
--- NOTE | 2020-04-15 13:05 | HP ---
CHIEF COMPLAINT: Seizure HISTORY OF PRESENT ILLNESS: Patient is a 49 y/o F with a significant past medical history of HIV/AIDS (unknown CD4 count and viral load), hypertension, hyperlipdemia, depression, Bipolar d/o, asthma, COPD, GERD, anemia, and seizure disorder who presented to [facility] due to a witnessed seizure at [facility]. Pt reportedly had a seizure while arguing with her roommate; patient subsequently fell and hit the right side of her head. Patient was subsequently transferred to our ED for imaging. En route and upon arrival, patient was observed to have another tonic- clonic seizure and was subsequently administered 5 mg of Versed. Patient endorses she is on Keppra 1000 mg BID however is sometimes noncompliant. Last seizure prior to this most recent episode was ~ 1 year ago. ER course was notable for: (1) 5 mg Versed (2) (3) PAST MEDICAL HISTORY: Per HPI PAST SURGICAL HISTORY: tonsillectomy at age 26, arthroscopic surgery right knee 2009, and bunionectomy both feet. Social History: Smoking history: Current every day smoker. Have you smoked in the past 12 months: Yes. Approximately how many cigarettes per day: 5. Substance & Tx. History. Hx Alcohol Use: No. Hx Substance Use: Yes. Substance Use Type: Cocaine, Heroin, Prescribed. Hx Substance Use Treatment: Yes ([facility] 07/02/17 to 07/23/17). - Substances abused. Heroin. Substance route: Inhalation. Frequency: Daily. Amount used: 30 bags. Age of first use: 32. Date of last use: 04/13/20. Crack. Substance route: Smoking. Frequency: Daily. Amount used: 100$. Age of first use: 32. Date of last use: 04/12/20. Alprazolam (Xanax). Substance route: Oral. Frequency: Daily. Amount used: 4 mgs. Age of first use: 32. Date of last use: 04/13/20. Buprenorphine. Frequency: Daily. Amount used: 3 of 8mgs/2mgs. Age of first use: 46. Date of last use: 04/11/20. Allergies haloperidol [From Haldol] Allergy (Severe, Verified 04/13/20 19:49) Rash haloperidol lactate [From Haldol] Allergy (Severe, Verified 04/13/20 19:49) Rash metoclopramide Allergy (Severe, Verified 04/13/20 19:49) swelling, itching metoclopramide HCl [From Reglan] Allergy (Severe, Verified 04/13/20 19:49) Swelling prochlorperazine [From Compazine] Allergy (Severe, Verified 04/13/20 19:49) Swelling prochlorperazine edisylate [From Compazine] Allergy (Severe, Verified 04/13/20 19:49) Swelling prochlorperazine maleate [From Compazine] Allergy (Severe, Verified 04/13/20 19:49) Swelling Sulfa (Sulfonamide Antibiotics) Allergy (Severe, Verified 04/13/20 19:49) Itching, swelling HOME MEDICATIONS: Home Medications Medication Instructions Recorded Atorvastatin Ca [Lipitor] 20 mg PO HS 04/15/20 Atovaquone [Mepron -] 750 mg PO BID 04/15/20 Buprenorphine/Naloxone [Suboxone 1 each SL DAILY 04/15/20 8Mg/2Mg Sl Film -] Buspirone HCl [Buspar -] 10 mg PO DAILY 04/15/20 Cholecalciferol (Vitamin D3) 1,000 unit PO DAILY 04/15/20 [Vitamin D3] Clonidine HCl [Clonidine HCl ER] 0.1 mg PO DAILY 04/15/20 Dolutegravir Sodium [Tivicay] 50 mg PO DAILY 04/15/20 Emtricitab/Rilpiviri/Tenof Ala 1 each PO DAILY 04/15/20 [Odefsey Tablet] Famotidine [Pepcid -] 40 mg PO DAILY 04/15/20 Ferrous Sulfate 325 mg PO DAILY 04/15/20 Fluconazole 150 mg PO DAILY 04/15/20 Fluticasone Propion/Salmeterol 1 each IH DAILY 04/15/20 [Wixela 100-50 Inhub] Montelukast Na [Singulair -] 10 mg PO HS 04/15/20 Quetiapine Fumarate [Quetiapine 200 mg PO DAILY 04/15/20 Fumarate ER] Sod.chlorid/Potassium Chloride 1 each PO DAILY 04/15/20 [Thermotabs Tablet] levETIRAcetam [Levetiracetam ER] 500 mg PO DAILY 04/15/20 REVIEW OF SYSTEMS CONSTITUTIONAL: Absent: fever, chills, diaphoresis, generalized weakness, malaise, loss of appetite, weight change HEENT: Absent: rhinorrhea, nasal congestion, throat pain, throat swelling, difficulty swallowing, mouth swelling, ear pain, eye pain, visual changes CARDIOVASCULAR: Absent: chest pain, syncope, palpitations, irregular heart rate, lightheadedness, peripheral edema RESPIRATORY: Absent: cough, shortness of breath, dyspnea with exertion, orthopnea, wheezing, stridor, hemoptysis GASTROINTESTINAL: Absent: abdominal pain, abdominal distension, nausea, vomiting, diarrhea, constipation, melena, hematochezia GENITOURINARY: PRESENT: dysuria, flank pain MUSCULOSKELETAL: Absent: myalgia, arthralgia, joint swelling, back pain, neck pain SKIN: Absent: rash, itching, pallor HEMATOLOGIC/IMMUNOLOGIC: Absent: easy bleeding, easy bruising, lymphadenopathy, frequent infections ENDOCRINE: Absent: unexplained weight gain, unexplained weight loss, heat intolerance, cold intolerance NEUROLOGIC: PRESENT seizure PSYCHIATRIC: Absent: anxiety, depression, suicidal or homicidal ideation, hallucinations. PHYSICAL EXAMINATION Vital Signs - 24 hr 04/15/20 08:37 Temperature 98.1 F Pulse Rate 93 H Respiratory 20 Rate Blood Pressure 123/82 O2 Sat by Pulse 99 Oximetry (%) GENERAL: NAD AAOx3 HEAD: Normal with no signs of trauma. EYES: EOMI Sclera Clear. EARS, NOSE, THROAT: Multiple Lesions on tongue consistent with Kaposi Sarcoma NECK: Supple. LUNGS: Clear b/l. No wheezing rhonchi or rales HEART: RRR S1S2 ABDOMEN: Distended, suprapubic tenderness, Hypoactive BS LOWER EXTREMITIES: No CCE NEUROLOGICAL: No focal neurological deficits Laboratory Results - last 24 hr 04/15/20 04/15/20 04/15/20 08:45 08:45 08:45 WBC 2.7 L RBC 4.15 Hgb 12.4 Hct 37.4 MCV 90.3 MCH 30.0 MCHC 33.2 RDW 15.2 Plt Count 102 L MPV 8.4 Absolute Neuts (auto) 1.7 Neutrophils % 62.8 Lymphocytes % 20.7 D Monocytes % 12.0 H Eosinophils % 3.5 D Basophils % 1.0 D Nucleated RBC % 0 Sodium 140 Potassium 4.4 Chloride 105 Carbon Dioxide 30 Anion Gap 6 L BUN 13.8 Creatinine 1.0 Est GFR (CKD-EPI)AfAm 76.07 Est GFR (CKD-EPI)NonAf 65.64 Random Glucose 87 Lactic Acid Calcium 8.7 Total Bilirubin 0.2 AST 19 ALT 12 L Alkaline Phosphatase 113 Total Protein 7.6 Albumin 3.1 L Urine Color Yellow Urine Appearance Cloudy Urine pH 7.0 D Ur Specific [place] 1.013 Urine Protein Negative Urine Glucose (UA) Negative Urine Ketones Negative Urine Blood Negative Urine Nitrite Positive H Urine Bilirubin Negative Urine Urobilinogen 0.2 Ur Leukocyte Esterase 3+ H Urine WBC (Auto) 662 Urine Casts (Auto) 3 U Epithel Cells (Auto) 7 Urine Bacteria (Auto) >9,000 Opiates Screen Methadone Screen Barbiturate Screen Phencyclidine Screen Ur Amphetamines Screen MDMA (Ecstasy) Screen Benzodiazepines Screen Cocaine Screen U Marijuana (THC) Screen Alcohol, Quantitative < 3 04/15/20 04/15/20 08:45 08:45 WBC RBC Hgb Hct MCV MCH MCHC RDW Plt Count MPV Absolute Neuts (auto) Neutrophils % Lymphocytes % Monocytes % Eosinophils % Basophils % Nucleated RBC % Sodium Potassium Chloride Carbon Dioxide Anion Gap BUN Creatinine Est GFR (CKD-EPI)AfAm Est GFR (CKD-EPI)NonAf Random Glucose Lactic Acid 3.0 H* Calcium Total Bilirubin AST ALT Alkaline Phosphatase Total Protein Albumin Urine Color Urine Appearance Urine pH Ur Specific [place] Urine Protein Urine Glucose (UA) Urine Ketones Urine Blood Urine Nitrite Urine Bilirubin Urine Urobilinogen Ur Leukocyte Esterase Urine WBC (Auto) Urine Casts (Auto) U Epithel Cells (Auto) Urine Bacteria (Auto) Opiates Screen Positive A* Methadone Screen Positive A* Barbiturate Screen Negative Phencyclidine Screen Negative Ur Amphetamines Screen Negative MDMA (Ecstasy) Screen Negative Benzodiazepines Screen Positive A* Cocaine Screen Positive A* U Marijuana (THC) Screen Negative Alcohol, Quantitative ASSESSMENT/PLAN: Patient is a 49 y/o F with a significant past medical history of HIV/AIDS (unknown CD4 count and viral load), hypertension, hyperlipdemia, depression, Bipolar d/o, asthma, COPD, GERD, anemia, and seizure disorder who presented to [facility] due to a witnessed Seizure at [facility]. # Breakthrough seizures -Last seizure episode ~ 1 year ago. - Loaded with 1 G Keppra. Will resume on 1000 mg BID. Neuro Consulted and appreciate recs. -CT Head/Spine negative for acute pathology -Neuro Checks Q4H, Seizure precautions -Keppra level #Polysubstance abuse/withdrawal: - Continue thiamine, folic acid -Received Methadone 20 one time dose. Will follow-up addiction medicine recommendations. Recs appreciated #HIV/AIDS: -Resume home medications. Last CD4 count/Viral load unknown. # Lactic acidosis: Likely 2/2 UTI/seizure activity, IV hydration follow-up. # UTI: Elevated urine WBC nitrate positive: Start on ceftriaxone, IV hydration, follow-up urine and blood culture results. Patient endorses she is not sexually active. # Bipolar disorder: resume home meds # Blunt trauma head: No external hematoma, CT head negative we will follow-up clinically. # Kaposi's sarcoma: ID Consulted SCDs for DVT prophylaxis FEN -NS@100 -Monitor Electrolytes -Sodium Controlled #DVT ppx: -HEPSQTID #Dispo: -Med Surg Family Medical History Family History: As Documented Visit type - Emergency Visit Emergency Visit: Yes ED Registration Date: 04/15/20 Care time: The patient presented to the Emergency Department on the above date and was hospitalized for further evaluation of their emergent condition. - New Patient This patient is new to me today: Yes Date on this admission: 04/15/20 - Critical Care Critical Care patient: No ATTENDING PHYSICIAN STATEMENT I saw and evaluated the patient. I reviewed the resident's note and discussed the case with the resident. I agree with the resident's findings and plan as documented. SUBJECTIVE: OBJECTIVE: ASSESSMENT AND PLAN:
[2020-04-15] MEDS ORDERED: CEFTRIAXONE 1,000 MG in DEXTROSE 5%-WATER - 50 ML IVPB SCH (13:15)
[2020-04-15] MEDS ORDERED: ACETAMINOPHEN 325 MG TABLET (FP) ONE (13:28)
[2020-04-15 13:38] LABS: URINE RBC 645.7 /uL (0-23.9)
[2020-04-15] MEDS: SODIUM CHLORIDE 1,000 ML IV SCH ×2 (14:29→19:48)
[2020-04-15] MEDS ORDERED: ACETAMINOPHEN 500 MG TABLET (FP) PO PRN (16:00)
[2020-04-15] MEDS ORDERED: MORPHINE SULFATE 2 MG/ML VIAL ONE (16:42)
--- NOTE | 2020-04-15 17:48 | EKG ---
Test Reason : Blood Pressure : / mmHG Vent. Rate : 081 BPM Atrial Rate : 081 BPM P-R Int : 142 ms QRS Dur : 088 ms QT Int : 412 ms P-R-T Axes : 061 005 022 degrees QTc Int : 478 ms NORMAL SINUS RHYTHM POSSIBLE LEFT ATRIAL ENLARGEMENT BORDERLINE ECG WHEN COMPARED WITH ECG OF 16-JUL-2017 09:31, NO SIGNIFICANT CHANGE WAS FOUND Confirmed by GROVER MIRZA MD ([id number]) on 04/15/2020 5:48:06 PM Referred By: Confirmed By:GROVER MIRZA MD
[2020-04-15] MEDS ORDERED: HEPARIN NA (PORCINE) 5,000 UNITS/ML 1ML VIAL SQ SCH (18:00)
[2020-04-15] MEDS: HEPARIN NA (PORCINE) 5,000 UNITS/ML 1ML VIAL SQ SCH (21:09)
[2020-04-15] MEDS ORDERED: MELATONIN 5 MG TABLETS PO ONE (21:27)
[2020-04-15] MEDS ORDERED: MONTELUKAST NA 10 MG TABLET PO SCH (22:00)
[2020-04-15] MEDS ORDERED: levETIRAcetam 500 MG/5 ML INJECTION VIAL IVPB SCH (22:00)
[2020-04-15] MEDS ORDERED: ATORVASTATIN CA 20 MG TABLET (FP) PO SCH (22:00)
[2020-04-15] MEDS: ATOVAQUONE 750 MG/5 ML (UNIT-DOSE PACKAGING) PO SCH (22:51)
[2020-04-15] MEDS: MORPHINE SULFATE 2 MG/ML VIAL IVPUSH PRN (22:53)
[2020-04-16] MEDS ORDERED: MORPHINE SULFATE 2 MG/ML VIAL IVPUSH ONE (03:57)
[2020-04-16] MEDS: HEPARIN NA (PORCINE) 5,000 UNITS/ML 1ML VIAL SQ SCH ×3 (05:27→22:31)
[2020-04-16] MEDS: MORPHINE SULFATE 2 MG/ML VIAL IVPUSH PRN ×3 (05:32→22:28)
[2020-04-16] MEDS ORDERED: diazePAM 5 MG TABLET PO SCH (06:00)
[2020-04-16 08:20] LABS: EOS % 4.3 % (0-4.5); HEMATOCRIT 35.7 % (32.4-45.2); HEMOGLOBIN 11.6 GM/dL (10.7-15.3); LYMPH % 21.4 % (8-40); MCHC 32.6 g/dl (32.0-36.0); MEAN CELL VOLUME 89.1 fl (80-96); MEAN PLT VOLUME 8.4 fl (7.5-11.1); MONO % 10.9 % (3.8-10.2); NEUT % 62.4 % (42.8-82.8); PLATELET COUNT 95 K/MM3 (134-434); RDW 15.3 % (11.6-15.6); WHITE BLOOD COUNT 2.4 K/mm3 (4.0-10.0)
[2020-04-16 08:35] LABS: ALBUMIN 2.7 g/dl (3.4-5.0); BILIRUBIN,TOTAL 0.2 mg/dL (0.2-1); BLOOD UREA NITROGEN 14.1 mg/dL (7-18); CALCIUM 8.4 mg/dL (8.5-10.1); CREATININE 0.8 mg/dL (0.55-1.3); MAGNESIUM 2.1 mg/dL (1.8-2.4); PHOSPHOROUS 3.2 mg/dL (2.5-4.9); POTASSIUM 4.3 mmol/L (3.5-5.1); TOT PROT 6.6 g/dl (6.4-8.2)
--- NOTE | 2020-04-16 08:35 | RAPID ---
<Edgardo Walker - Last Filed: 04/16/20 14:56> Physical Examination Vital Signs: Vital Signs Temperature 98.3 F 04/16/20 04:00 Pulse Rate 75 04/16/20 04:00 Respiratory Rate 18 04/16/20 04:00 Blood Pressure 115/74 04/16/20 04:00 O2 Sat by Pulse Oximetry (%) 97 04/16/20 04:00 Labs: CBC, BMP 04/15/20 08:45 Rapid Response - Rapid Response Assessment: Rapid response called at 8:29 AM. call center operator team responded immediately. On arrival, patient in active tonic clonic seizure that resolved spontaneously. Vitals: BP- 139/87 pulse- 76 o2- 100% MAP- 108 Plan #Seizure -known seizure disorder -seizure self-resolved -1 g Keppra loading dose administered -continued 15 mg IV BID Keppra -2 mg Q2 Ativan ordered in case the patient seizes again -Methadone and Valium protocol started as seizures are secondary to withdrawals -detox specialists aware -Signed out to team covering the patient <Ravinder Quigley - Last Filed: 04/17/20 07:56> Physical Examination Vital Signs: Vital Signs Temperature 97.6 F 04/17/20 06:06 Pulse Rate 80 04/17/20 06:06 Respiratory Rate 18 04/17/20 06:06 Blood Pressure 105/68 04/17/20 02:06 O2 Sat by Pulse Oximetry (%) 98 04/17/20 02:00 Labs: CBC, BMP 04/16/20 06:50 Rapid Response - Rapid Response Assessment: 1500mg of IV Keppra Plan to transfer to monitored bed patient needs EEG monitoring Neuro Consultation Discussed plan with primary team
[2020-04-16] MEDS ORDERED: diazePAM 5 MG TABLET PO PRN (08:42)
[2020-04-16] MEDS ORDERED: cloNIDine HCL 0.1 MG TABLET PO PRN ×2 (08:42→15:50)
[2020-04-16 08:43] LABS: INR 0.94 (0.83-1.09); PROTHROMBIN TIME (PATIENT) 11.1 SEC (9.7-13.0)
[2020-04-16 08:44] LABS: ACTIVATED PTT 33.5 SECONDS (25.2-36.5)
[2020-04-16] MEDS ORDERED: LORazepam 2 MG/ML SDV VIAL ONE ×3 (08:45→12:54)
[2020-04-16] MEDS ORDERED: LORazepam 1 MG TABLET PO PRN (08:56)
[2020-04-16] MEDS ORDERED: METHADONE HCL 10 MG TABLET PO ONE (09:00)
[2020-04-16] MEDS ORDERED: LORazepam 2 MG/ML SDV VIAL IVPUSH ONE ×2 (09:00→09:15)
[2020-04-16] MEDS ORDERED: levETIRAcetam 500 MG/5 ML INJECTION VIAL IVPB ONE ×2 (09:03→13:00)
--- NOTE | 2020-04-16 09:08 | CONSULT ---
Consult Detox [facility] Reason for Current Admission/Consult: Ms. Tenorio is a 49 yo woman who was admitted to [facility] on 04/15 after 2 witnessed seizures, the first was at [facility] after an arguement with her roommate and the second while in transit to the ED. She was at [facility] undergoing detox from opiate and benzodiazepine use disorder. Referred by:: Dr. Valente Varela - History History of Present Illness: Ms. Tenorio is a 49 yo woman who was admitted to [facility] on 04/15 after 2 witnessed seizures, the first was at [facility] after an arguement with her roommate and a second and third while in transit and in the ED. She was at [facility] undergoing detox from opiate and benzodiazepine use disorder. In the ED she was subsequently administered 5 mg of Versed. Patient endorses she is on Keppra 1000 mg BID however is sometimes noncompliant. Last seizure prior to this most recent episode was ~ 1 year ago. This am, at approximately 8:30 am, pt had another seizure. Case discussed with Dr. Ann-Marie Wells. PAST SURGICAL HISTORY: tonsillectomy at age 26, arthroscopic surgery right knee 2009 Laboratory Results - last 24 hr 04/15/20 04/15/20 04/15/20 08:45 08:45 08:45 WBC 2.7 L RBC 4.15 Hgb 12.4 Hct 37.4 MCV 90.3 MCH 30.0 MCHC 33.2 RDW 15.2 Plt Count 102 L MPV 8.4 Absolute Neuts (auto) 1.7 Neutrophils % 62.8 Lymphocytes % 20.7 D Monocytes % 12.0 H Eosinophils % 3.5 D Basophils % 1.0 D Nucleated RBC % 0 PT with INR INR PTT (Actin FS) Sodium Potassium Chloride Carbon Dioxide Anion Gap BUN Creatinine Est GFR (CKD-EPI)AfAm Est GFR (CKD-EPI)NonAf Random Glucose Lactic Acid Calcium Phosphorus Magnesium Total Bilirubin AST ALT Alkaline Phosphatase Total Protein Albumin Prolactin 20.1 Urine Color Yellow Urine Appearance Cloudy Urine pH 7.0 D Ur Specific [place] 1.013 Urine Protein Negative Urine Glucose (UA) Negative Urine Ketones Negative Urine Blood Negative Urine Nitrite Positive H Urine Bilirubin Negative Urine Urobilinogen 0.2 Ur Leukocyte Esterase 3+ H Urine WBC (Auto) 662 Urine RBC (Auto) 645.7 Urine Casts (Auto) 3 U Epithel Cells (Auto) 7 Urine Bacteria (Auto) >9,000 Opiates Screen Methadone Screen Barbiturate Screen Phencyclidine Screen Ur Amphetamines Screen MDMA (Ecstasy) Screen Benzodiazepines Screen Cocaine Screen U Marijuana (THC) Screen Alcohol, Quantitative 04/15/20 04/15/20 04/15/20 08:45 08:45 08:45 WBC RBC Hgb Hct MCV MCH MCHC RDW Plt Count MPV Absolute Neuts (auto) Neutrophils % Lymphocytes % Monocytes % Eosinophils % Basophils % Nucleated RBC % PT with INR INR PTT (Actin FS) Sodium 140 Potassium 4.4 Chloride 105 Carbon Dioxide 30 Anion Gap 6 L BUN 13.8 Creatinine 1.0 Est GFR (CKD-EPI)AfAm 76.07 Est GFR (CKD-EPI)NonAf 65.64 Random Glucose 87 Lactic Acid 3.0 H* Calcium 8.7 Phosphorus Magnesium Total Bilirubin 0.2 AST 19 ALT 12 L Alkaline Phosphatase 113 Total Protein 7.6 Albumin 3.1 L Prolactin Urine Color Urine Appearance Urine pH Ur Specific [place] Urine Protein Urine Glucose (UA) Urine Ketones Urine Blood Urine Nitrite Urine Bilirubin Urine Urobilinogen Ur Leukocyte Esterase Urine WBC (Auto) Urine RBC (Auto) Urine Casts (Auto) U Epithel Cells (Auto) Urine Bacteria (Auto) Opiates Screen Positive A* Methadone Screen Positive A* Barbiturate Screen Negative Phencyclidine Screen Negative Ur Amphetamines Screen Negative MDMA (Ecstasy) Screen Negative Benzodiazepines Screen Positive A* Cocaine Screen Positive A* U Marijuana (THC) Screen Negative Alcohol, Quantitative < 3 04/15/20 04/16/20 04/16/20 11:40 06:50 06:50 WBC RBC Hgb Hct MCV MCH MCHC RDW Plt Count MPV Absolute Neuts (auto) Neutrophils % Lymphocytes % Monocytes % Eosinophils % Basophils % Nucleated RBC % PT with INR 11.10 INR 0.94 PTT (Actin FS) 33.5 Sodium 141 Potassium 4.3 Chloride 108 H Carbon Dioxide 32 Anion Gap 1 L BUN 14.1 Creatinine 0.8 Est GFR (CKD-EPI)AfAm 99.63 Est GFR (CKD-EPI)NonAf 85.96 Random Glucose 90 Lactic Acid 1.1 Calcium 8.4 L Phosphorus 3.2 Magnesium 2.1 Total Bilirubin 0.2 AST 13 L ALT 10 L Alkaline Phosphatase 81 Total Protein 6.6 Albumin 2.7 L Prolactin Urine Color Urine Appearance Urine pH Ur Specific [place] Urine Protein Urine Glucose (UA) Urine Ketones Urine Blood Urine Nitrite Urine Bilirubin Urine Urobilinogen Ur Leukocyte Esterase Urine WBC (Auto) Urine RBC (Auto) Urine Casts (Auto) U Epithel Cells (Auto) Urine Bacteria (Auto) Opiates Screen Methadone Screen Barbiturate Screen Phencyclidine Screen Ur Amphetamines Screen MDMA (Ecstasy) Screen Benzodiazepines Screen Cocaine Screen U Marijuana (THC) Screen Alcohol, Quantitative 04/16/20 08:00 WBC 2.4 L RBC 4.00 Hgb 11.6 Hct 35.7 MCV 89.1 MCH 29.0 MCHC 32.6 RDW 15.3 Plt Count 95 L MPV 8.4 Absolute Neuts (auto) 1.5 Neutrophils % 62.4 Lymphocytes % 21.4 Monocytes % 10.9 H Eosinophils % 4.3 Basophils % 1.0 Nucleated RBC % 0 PT with INR INR PTT (Actin FS) Sodium Potassium Chloride Carbon Dioxide Anion Gap BUN Creatinine Est GFR (CKD-EPI)AfAm Est GFR (CKD-EPI)NonAf Random Glucose Lactic Acid Calcium Phosphorus Magnesium Total Bilirubin AST ALT Alkaline Phosphatase Total Protein Albumin Prolactin Urine Color Urine Appearance Urine pH Ur Specific [place] Urine Protein Urine Glucose (UA) Urine Ketones Urine Blood Urine Nitrite Urine Bilirubin Urine Urobilinogen Ur Leukocyte Esterase Urine WBC (Auto) Urine RBC (Auto) Urine Casts (Auto) U Epithel Cells (Auto) Urine Bacteria (Auto) Opiates Screen Methadone Screen Barbiturate Screen Phencyclidine Screen Ur Amphetamines Screen MDMA (Ecstasy) Screen Benzodiazepines Screen Cocaine Screen U Marijuana (THC) Screen Alcohol, Quantitative Home Medication List Medication Instructions Recorded Confirmed Type Atorvastatin Ca [Lipitor] 20 mg PO HS 04/15/20 04/15/20 History Atovaquone [Mepron -] 750 mg PO BID 04/15/20 04/15/20 History Buprenorphine/Naloxone [Suboxone 1 each SL DAILY 04/15/20 04/15/20 History 8Mg/2Mg Sl Film -] Buspirone HCl [Buspar -] 10 mg PO DAILY 04/15/20 04/15/20 History Cholecalciferol (Vitamin D3) 1,000 unit PO DAILY 04/15/20 04/15/20 History [Vitamin D3] Clonidine HCl [Clonidine HCl ER] 0.1 mg PO DAILY 04/15/20 04/15/20 History Dolutegravir Sodium [Tivicay] 50 mg PO DAILY 04/15/20 04/15/20 History Emtricitab/Rilpiviri/Tenof Ala 1 each PO DAILY 04/15/20 04/15/20 History [Odefsey Tablet] Famotidine [Pepcid -] 40 mg PO DAILY 04/15/20 04/15/20 History Ferrous Sulfate 325 mg PO DAILY 04/15/20 04/15/20 History Fluconazole 150 mg PO DAILY 04/15/20 04/15/20 History Fluticasone Propion/Salmeterol 1 each IH DAILY 04/15/20 04/15/20 History [Wixela 100-50 Inhub] Montelukast Na [Singulair -] 10 mg PO HS 04/15/20 04/15/20 History Quetiapine Fumarate [Quetiapine 200 mg PO DAILY 04/15/20 04/15/20 History Fumarate ER] Sod.chlorid/Potassium Chloride 1 each PO DAILY 04/15/20 04/15/20 History [Thermotabs Tablet] levETIRAcetam [Levetiracetam ER] 500 mg PO DAILY 04/15/20 04/15/20 History Active Medications Generic Name Dose Route Start Last Admin Trade Name Freq PRN Reason Stop Dose Admin Acetaminophen 1,000 mg 04/15/20 16:00 Tylenol - PO Q6H PRN PAIN LEVEL 1-5 Atorvastatin Calcium 20 mg 04/15/20 22:00 04/15/20 21:09 Lipitor - PO 20 mg HS ESTEVAN Administration Atovaquone 750 mg 04/15/20 22:00 04/15/20 22:51 Mepron - PO 750 mg BID ESTEVAN Administration Buspirone HCl 10 mg 04/16/20 10:00 Buspar - PO DAILY ESTEVAN Clonidine 0.1 mg 04/16/20 08:42 Catapres - PO 04/18/20 23:59 Q4H PRN Withdrawal Symptoms Famotidine 40 mg 04/16/20 10:00 Pepcid - PO DAILY ESTEVAN Heparin Sodium (Porcine) 5,000 unit 04/15/20 22:00 04/16/20 05:27 Heparin - SQ 5,000 unit TID ESTEVAN Administration Ceftriaxone Sodium 1 gm/ 50 mls @ 100 mls/hr 04/16/20 10:00 Dextrose IVPB DAILY ESTEVAN Sodium Chloride 1,000 mls @ 100 mls/hr 04/15/20 13:15 04/15/20 19:48 Normal Saline - IV 100 mls/hr ASDIR ESTEVAN Administration Levetiracetam 1,500 mg 04/16/20 10:00 Keppra Injection - IVPB BID ESTEVAN Levetiracetam 1,000 mg 04/16/20 09:03 Keppra Injection - IVPB 04/16/20 09:04 ONCE ONE Lorazepam 1 mg 04/18/20 05:00 Ativan - PO 04/18/20 23:01 0500,1100,1700,2300 ESTEVAN Lorazepam 1 mg 04/16/20 08:56 Ativan - PO 04/18/20 23:59 Q4H PRN Symptoms of Withdrawal Lorazepam 2 mg 04/16/20 11:00 Ativan - PO 04/17/20 23:01 0500,1100,1700,2300 ESTEVAN Lorazepam 0.5 mg 04/19/20 05:00 Ativan - PO 04/19/20 23:01 Q6H ESTEVAN Lorazepam 0.5 mg 04/19/20 00:00 Ativan - PO 04/20/20 00:00 Q4H PRN Symptoms of Withdrawal Lorazepam 0.5 mg 04/20/20 05:00 Ativan - PO 04/20/20 05:01 ONCE ONE Lorazepam 2 mg 04/16/20 09:03 Ativan Injection - IVPUSH 04/16/20 09:04 ONCE ONE Methadone HCl 10 mg/ Methadone 15 mg 04/19/20 10:00 HCl 5 mg PO 04/19/20 10:01 ONCE ONE Methadone HCl 10 mg/ Methadone 15 mg 04/16/20 09:01 HCl 5 mg PO 04/16/20 09:02 ONCE ONE Montelukast Sodium 10 mg 04/15/20 22:00 04/15/20 21:09 Singulair - PO 10 mg HS ESTEVAN Administration Morphine Sulfate 1 mg 04/15/20 14:50 04/16/20 05:32 Morphine Sulfate IVPUSH 1 mg Q6H PRN Administration PAIN LEVEL 7 - 10 Quetiapine Fumarate 200 mg 04/16/20 10:00 Seroquel Xr - PO DAILY [facility] Vital Signs Temperature 98.3 F 04/16/20 04:00 Pulse Rate 75 04/16/20 04:00 Respiratory Rate 18 04/16/20 04:00 Blood Pressure 115/74 04/16/20 04:00 O2 Sat by Pulse Oximetry (%) 97 04/16/20 04:00 - History Source History Provided By: Medical Record - Alcohol/Substance Use Hx Alcohol Use: No - Past Medical History 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 Opioid use disorder 2. Benzodiazepine use disorder 3. Seizure disorder 4. HIV positive Plan 1. Pt was placed on a methadone detox upon admission to [facility] on 04/13, to complete the protocol, she should be given methadone 15 mg today, 10 mg tomorrow and then 5 mg on 04/18. 2. To complete the already started benzodiazepine taper, today pt should receive Valium 5mg total. 3. continue Keppra 1500 bid 4. Keppra level
[2020-04-16] MEDS ORDERED: METHADONE HCL 5 MG TABLET ONE (09:45)
[2020-04-16] MEDS ORDERED: PT OWN MED DRAWER 7, Y5N ONE ×2 (09:46→18:21)
[2020-04-16] MEDS ORDERED: cefTRIAXone SODIUM 1 GM VIAL ONE (09:46)
[2020-04-16] MEDS ORDERED: METHADONE HCL 10 MG TABLET ONE (09:46)
[2020-04-16] MEDS ORDERED: DEXTROSE 5%-WATER - 50 ML IVPB ONE (09:46)
[2020-04-16] MEDS: SODIUM CHLORIDE 1,000 ML IV SCH ×3 (09:54→18:50)
[2020-04-16] MEDS: ATOVAQUONE 750 MG/5 ML (UNIT-DOSE PACKAGING) PO SCH (09:59)
[2020-04-16] MEDS ORDERED: busPIRone HCL 10 MG TABLET (FP) PO SCH (10:00)
[2020-04-16] MEDS ORDERED: EMTRICITAB/RILPIVIRI/TENOF ALA (ODEFSEY) TABLET PO SCH (10:00)
[2020-04-16] MEDS ORDERED: CEFTRIAXONE 1 GM in DEXTROSE 5%-WATER - 50 ML IVPB SCH (10:00)
[2020-04-16] MEDS ORDERED: levETIRAcetam 500 MG/5 ML INJECTION VIAL IVPB SCH (10:00)
[2020-04-16] MEDS ORDERED: METHADONE 10 MG, METHADONE 5 MG PO ONE (10:00)
[2020-04-16] MEDS ORDERED: FAMOTIDINE 20 MG TABLET PO SCH (10:00)
[2020-04-16] MEDS ORDERED: LORazepam 1 MG TABLET PO SCH (11:00)
[2020-04-16] MEDS ORDERED: PIPERACILLIN/TAZOB 3.375 GM 3.375 GM in DEXTROSE 5%-WATER - 50 ML IVPB SCH ×2 (11:30→18:00)
--- NOTE | 2020-04-16 11:41 | PN ---
Progress Note (short form) - Note Progress Note: ID CONSULT DICTATED S/P SEIZURE (APPARENTLY KNOWN HX SEIZURES) HIV/ AIDS BY HX UTI LEUKOPENIA/ THROMBOCYTOPENIA LIKELY CHRONIC PT GIVES UNRELIABLE HX NITROFURANTOIN PENDING URINE C/S PT STATES HER MEDS ARE ODEFSY/TIVICAY/ MEPRON PLEASE CONFIRM WITH HER OUTPATIENT PHARMACY
[2020-04-16] MEDS ORDERED: NITROFURANTOIN MACROCRYSTAL 50 MG CAPSULE (FP) PO SCH (12:00)
--- NOTE | 2020-04-16 12:20 | CONS ---
INFECTIOUS DISEASE CONSULTATION DATE OF CONSULTATION: DATE OF DICTATION: 04/16/2020 HISTORY: The patient is a 49-year-old female evaluated for HIV infection. History was obtained from the patient and the chart. She does not give a reliable history. She has a history of polysubstance abuse and was admitted to detoxification at [facility]. She had apparently had a verbal altercation with her roommate and was noted to have a generalized seizure. She sustained head trauma. CAT scan of the head was negative for acute pathology. Her course was complicated by dysuria. Urinalysis showed many white cells, urine culture growing a lactose route aide. Patient reports having HIV since 2000. She is on antiretroviral therapy. She states that her viral load is undetectable, and her T cells are low. She also reports that she has had multiple episodes of pneumonia and was diagnosed with Kaposi sarcoma. PAST MEDICAL HISTORY: As above. Also includes hypertension, hyperlipidemia, bipolar disorder, COPD, gastroesophageal reflux, polysubstance abuse. ALLERGIES: HALDOL, REGIMEN, COMPAZINE, SULFA. MEDICATIONS: Include Zosyn, Mepron. SOCIAL HISTORY: Positive for polysubstance abuse including heroin, cocaine, benzodiazepines. LABORATORY DATA: White count 2.4, absolute neutrophil count 1.5, hematocrit 35.7, platelets 95, creatinine 0.8. Urinalysis; 662 white cells, lactic acid 3.0. Liver enzymes normal. PHYSICAL EXAMINATION: General: She is awake and alert. Not acutely toxic appearing. Vital Signs: Temperature 98.3, blood pressure 115/74, pulse 75 regular, respirations 18 per minute. HEENT: Sclerae anicteric. Heart: Sounds S1, S2. Lungs: Clear. Abdomen: Soft. Positive suprapubic tenderness to palpation. Extremities: Negative for edema. IMPRESSION: 1. Status post seizure. 2. Acquired immunodeficiency syndrome by history. 3. Urinary tract infection. 4. Leukopenia/thrombocytopenia. PLAN: Patient does not give a reliable history. She apparently has a known seizure disorder. She states that her antiretroviral regimen includes Odefsey and Tivicay as well as Mepron for PCP prophylaxis. Please confirm these medications with her outpatient pharmacy. Empiric nitrofurantoin pending urine culture. Thank you for the kind referral. LUZ MARINA HUTCHINS M.D. [id number]
[2020-04-16] MEDS: LORazepam 2 MG/ML SDV VIAL IVPUSH PRN ×2 (12:45→22:54)
--- NOTE | 2020-04-16 13:04 | RAPID ---
Physical Examination Vital Signs: Vital Signs Temperature 98.3 F 04/16/20 09:00 Pulse Rate 78 04/16/20 09:00 Respiratory Rate 18 04/16/20 09:00 Blood Pressure 120/80 04/16/20 09:00 O2 Sat by Pulse Oximetry (%) 100 04/16/20 09:00 Labs: CBC, BMP 04/16/20 06:50 Rapid Response - Rapid Response Assessment: Rapid response called 13:00. On-call team responded immediately. Pt found on floor after seizure as per nurse. Upon my evaluation, pt had 1 tonic-clonic seizure that resolved spontaneously. Neurology notified. 2mg IV Ativan administered. CT head w and w/o contrast and CT c-spine ordered. Vitals BP 160/98 HR 77 RR 16 SpO2 100% on RA Temp: 97.4 Plan Seizure -known seizure disorder -seizure self-resolved -2mg IV Ativan administered -c/w Ativan 2 mg Q2H PRN -Neurology notified. Recommended start 1g fosphenytoin IV. - Continue at home antiseizure medications.
[2020-04-16] MEDS ORDERED: CEFTRIAXONE 1,000 MG in DEXTROSE 5%-WATER - 50 ML IVPB SCH (13:15)
[2020-04-16] MEDS ORDERED: FOSPHENYTOIN SODIUM 1,000 MG in SODIUM CHLORIDE 100 ML IVPB ONE (13:30)
[2020-04-16] MEDS ORDERED: ACETAMINOPHEN 500 MG TABLET (FP) PO PRN (15:50)
--- NOTE | 2020-04-16 16:21 | CON.NEURO ---
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 History of Recent Travel: No Home Medications - Allergies Allergies/Adverse Reactions: Allergies Allergy/AdvReac Type Severity Reaction Status Date / Time haloperidol [From Haldol] Allergy Severe Rash Verified 04/13/20 19:49 haloperidol lactate Allergy Severe Rash Verified 04/13/20 19:49 [From Haldol] metoclopramide Allergy Severe swelling, Verified 04/13/20 19:49 itching metoclopramide HCl Allergy Severe Swelling Verified 04/13/20 19:49 [From Reglan] prochlorperazine Allergy Severe Swelling Verified 04/13/20 19:49 [From Compazine] prochlorperazine edisylate Allergy Severe Swelling Verified 04/13/20 19:49 [From Compazine] prochlorperazine maleate Allergy Severe Swelling Verified 04/13/20 19:49 [From Compazine] Sulfa (Sulfonamide Allergy Severe Itching, Verified 04/13/20 19:49 Antibiotics) swelling - Home Medications Home Medications: Ambulatory Orders Atorvastatin Ca [Lipitor] 20 mg PO HS 04/15/20 Atovaquone [Mepron -] 750 mg PO BID 04/15/20 Buprenorphine/Naloxone [Suboxone 8Mg/2Mg Sl Film -] 3 each SL DAILY 04/15/20 Buspirone HCl [Buspar -] 10 mg PO DAILY 04/15/20 Cholecalciferol (Vitamin D3) [Vitamin D3] 1,000 unit PO DAILY 04/15/20 Clonidine HCl [Clonidine HCl ER] 0.1 mg PO DAILY 04/15/20 Dolutegravir Sodium [Tivicay] 50 mg PO DAILY 04/15/20 Emtricitab/Rilpiviri/Tenof Ala [Odefsey Tablet] 1 each PO DAILY 04/15/20 Famotidine [Pepcid -] 40 mg PO DAILY 04/15/20 Ferrous Sulfate 325 mg PO DAILY 04/15/20 Fluconazole 150 mg PO DAILY 04/15/20 Fluticasone Propion/Salmeterol [Wixela 100-50 Inhub] 1 each IH DAILY 04/15/20 Montelukast Na [Singulair -] 10 mg PO HS 04/15/20 Quetiapine Fumarate [Quetiapine Fumarate ER] 200 mg PO DAILY 04/15/20 Sod.chlorid/Potassium Chloride [Thermotabs Tablet] 1 each PO DAILY 04/15/20 levETIRAcetam [Levetiracetam ER] 500 mg PO DAILY 04/15/20 Acetaminophen 325 mg PO PRN 04/16/20 Guaifenesin [Robafen] 100 mg PO PRN 04/16/20 Ibuprofen 400 mg PO PRN 04/16/20 Lactulose 10 gm PO TID 04/16/20 Nicotine Patch [Nicoderm Patch -] 21 mg TD DAILY 04/16/20 Nicotine Polacrilex [Nicotine Gum] 2 mg PO PRN 04/16/20 Physical Exam-Neuro Vital Signs: Vital Signs Temperature 98.3 F 04/16/20 09:00 Pulse Rate 78 04/16/20 09:00 Respiratory Rate 18 04/16/20 09:00 Blood Pressure 120/80 04/16/20 09:00 O2 Sat by Pulse Oximetry (%) 100 04/16/20 09:00 Labs: CBC, BMP 04/16/20 06:50 INR, PTT INR 0.94 (0.83-1.09) 04/16/20 06:50 Assessment/Plan cc Breakthrough seizure HPI 49 year old female histoyr of HIV/AIDS( do not know cd4 and viral lod), HTN,HLD,Depression, Bipolar, asthma, copd, anemia. Lyndon has histoyr of polysubstance abuse and she had seizure while arguing with room mate. It is not clear if she has been non compliant with medicaiton. Patient says she was taking keppa1 gm po bid. She has three seizure today. She has been afebrile and normal ct head. PAST MEDICAL HISTORY: PAST SURGICAL HISTORY: tonsillectomy at age 26, arthroscopic surgery right knee 2009 Social History: Smoking: Alcohol: Drugs: Allergies haloperidol [From Haldol] Allergy (Severe, Verified 04/13/20 19:49) Rash haloperidol lactate [From Haldol] Allergy (Severe, Verified 04/13/20 19:49) Rash metoclopramide Allergy (Severe, Verified 04/13/20 19:49) swelling, itching metoclopramide HCl [From Reglan] Allergy (Severe, Verified 04/13/20 19:49) Swelling prochlorperazine [From Compazine] Allergy (Severe, Verified 04/13/20 19:49) Swelling prochlorperazine edisylate [From Compazine] Allergy (Severe, Verified 04/13/20 19:49) Swelling prochlorperazine maleate [From Compazine] Allergy (Severe, Verified 04/13/20 19:49) Swelling Sulfa (Sulfonamide Antibiotics) Allergy (Severe, Verified 04/13/20 19:49) Itching, swelling HOME MEDICATIONS: Home Medications Medication Instructions Recorded Atorvastatin Ca [Lipitor] 20 mg PO HS 04/15/20 Atovaquone [Mepron -] 750 mg PO BID 04/15/20 Buprenorphine/Naloxone [Suboxone 1 each SL DAILY 04/15/20 8Mg/2Mg Sl Film -] Buspirone HCl [Buspar -] 10 mg PO DAILY 04/15/20 Cholecalciferol (Vitamin D3) 1,000 unit PO DAILY 04/15/20 [Vitamin D3] Clonidine HCl [Clonidine HCl ER] 0.1 mg PO DAILY 04/15/20 Dolutegravir Sodium [Tivicay] 50 mg PO DAILY 04/15/20 Emtricitab/Rilpiviri/Tenof Ala 1 each PO DAILY 04/15/20 [Odefsey Tablet] Famotidine [Pepcid -] 40 mg PO DAILY 04/15/20 Ferrous Sulfate 325 mg PO DAILY 04/15/20 Fluconazole 150 mg PO DAILY 04/15/20 Fluticasone Propion/Salmeterol 1 each IH DAILY 04/15/20 [Wixela 100-50 Inhub] Montelukast Na [Singulair -] 10 mg PO HS 04/15/20 Quetiapine Fumarate [Quetiapine 200 mg PO DAILY 04/15/20 Fumarate ER] Sod.chlorid/Potassium Chloride 1 each PO DAILY 04/15/20 [Thermotabs Tablet] levETIRAcetam [Levetiracetam ER] 500 mg PO DAILY 04/15/20 ROS,FH,SH reviewed in chart NEUROLOGICAL EXAMINATION Alert oriented x 3, seems to be drowsy, afebrile eomi,pupils reactive no face asymmetry neck i ssupple moving all ext sensation is normal reflex are diminished ct head is unremarkable Assessment/Plan 1 49 year old female histoyr of HIV/AIDS( do not know cd4 and viral lod), HTN,HLD,Depression, Bipolar, asthma, copd, anemia. She has hitory of seizure on keppra 1 gm po bid, ct head wnl, neuro exam nonfocal , unlikley to be meningitis . Plan -- increase keppra 1.5 gm po bid - if any more seizure, add iv phosphenytoin - mri of brain with without contrast and eeg - obtain cd4 and viral load - contnue supportive care - consider psych consult , given she has history of polysubstnace abuse and cocaine positive Thanking you so much Lonny De La Cruz MD
--- NOTE | 2020-04-16 17:10 | PN ---
Physical Exam: SUBJECTIVE: Patient seen and examined. Multiple seizures throughout day rapid responses called. Pt in distress. OBJECTIVE: Vital Signs Period Temp Pulse Resp BP Sys/Sanz Pulse Ox Last 24 Hr 97.9 F-99.1 F 75-93 16-18 107-120/73-80 96-100 GENERAL: Seizures throughout day. HEAD: Normal with no signs of trauma. EYES: PERRL, extraocular movements intact, sclera anicteric, conjunctiva clear. No ptosis. ENT: Ears normal, nares patent, oropharynx clear without exudates, dry mouth. NECK: Trachea midline, full range of motion, supple. LUNGS: Breath sounds equal, clear to auscultation bilaterally, no wheezes, no crackles, no accessory muscle use. HEART: Regular rate and rhythm, S1, S2 without murmur, rub or gallop. ABDOMEN: Soft, nontender, nondistended, normoactive bowel sounds, no guarding, no rebound, no hepatosplenomegaly, no masses. EXTREMITIES: 2+ pulses, warm, well-perfused, no edema. NEUROLOGICAL: Cranial nerves II through XII grossly intact. Normal speech, gait not observed. PSYCH: Normal mood, normal affect. SKIN: Warm, dry, normal turgor, no rashes or lesions noted Laboratory Results - last 24 hr 04/15/20 04/15/20 04/16/20 08:45 11:15 06:50 WBC RBC Hgb Hct MCV MCH MCHC RDW Plt Count MPV Absolute Neuts (auto) Neutrophils % Lymphocytes % Monocytes % Eosinophils % Basophils % Nucleated RBC % PT with INR 11.10 INR 0.94 PTT (Actin FS) 33.5 Sodium Potassium Chloride Carbon Dioxide Anion Gap BUN Creatinine Est GFR (CKD-EPI)AfAm Est GFR (CKD-EPI)NonAf Random Glucose Calcium Phosphorus Magnesium Total Bilirubin AST ALT Alkaline Phosphatase Total Protein Albumin Prolactin 20.1 COVID-19 (PREMA) Not detected 04/16/20 04/16/20 06:50 08:00 WBC 2.4 L RBC 4.00 Hgb 11.6 Hct 35.7 MCV 89.1 MCH 29.0 MCHC 32.6 RDW 15.3 Plt Count 95 L MPV 8.4 Absolute Neuts (auto) 1.5 Neutrophils % 62.4 Lymphocytes % 21.4 Monocytes % 10.9 H Eosinophils % 4.3 Basophils % 1.0 Nucleated RBC % 0 PT with INR INR PTT (Actin FS) Sodium 141 Potassium 4.3 Chloride 108 H Carbon Dioxide 32 Anion Gap 1 L BUN 14.1 Creatinine 0.8 Est GFR (CKD-EPI)AfAm 99.63 Est GFR (CKD-EPI)NonAf 85.96 Random Glucose 90 Calcium 8.4 L Phosphorus 3.2 Magnesium 2.1 Total Bilirubin 0.2 AST 13 L ALT 10 L Alkaline Phosphatase 81 Total Protein 6.6 Albumin 2.7 L Prolactin COVID-19 (PREMA) Active Medications Generic Name Dose Route Start Last Admin Trade Name Freq PRN Reason Stop Dose Admin Acetaminophen 1,000 mg 04/16/20 15:50 Tylenol - PO Q6H PRN PAIN LEVEL 1-5 Atorvastatin Calcium 20 mg 04/16/20 22:00 Lipitor - PO HS ESTEVAN Atovaquone 750 mg 04/16/20 22:00 Mepron - PO BID ESTEVAN Buspirone HCl 10 mg 04/17/20 10:00 Buspar - PO DAILY ESTEVAN Clonidine 0.1 mg 04/16/20 15:50 Catapres - PO 04/18/20 23:59 Q4H PRN Withdrawal Symptoms Famotidine 40 mg 04/17/20 10:00 Pepcid - PO DAILY ESTEVAN Heparin Sodium (Porcine) 5,000 unit 04/16/20 22:00 Heparin - SQ TID ESTEVAN Sodium Chloride 1,000 mls @ 100 mls/hr 04/16/20 15:50 Normal Saline - IV ASDIR ESTEVAN Levetiracetam 1,500 mg 04/16/20 22:00 Keppra Injection - IVPB BID ESTEVAN Lorazepam 2 mg 04/16/20 12:53 04/16/20 12:45 Ativan Injection - IVPUSH 2 mg Q2H PRN Administration ANXIETY Lorazepam 0.5 mg 04/20/20 05:00 Ativan - PO 04/20/20 05:01 ONCE ONE Lorazepam 1 mg 04/16/20 15:50 Ativan - PO 04/18/20 23:59 Q4H PRN Symptoms of Withdrawal Lorazepam 0.5 mg 04/19/20 00:00 Ativan - PO 04/20/20 00:00 Q4H PRN Symptoms of Withdrawal Methadone HCl 15 mg 04/17/20 10:00 Dolophine - PO 04/17/20 10:01 ONCE ONE Methadone HCl 5 mg 04/18/20 10:00 Dolophine - PO 04/18/20 10:01 ONCE ONE Montelukast Sodium 10 mg 04/16/20 22:00 Singulair - PO HS ESTEVAN Morphine Sulfate 1 mg 04/16/20 15:50 Morphine Sulfate IVPUSH Q6H PRN PAIN LEVEL 7 - 10 Nitrofurantoin Macrocrystals 50 mg 04/16/20 18:00 Macrodantin - PO Q6HPO ESTEVAN Quetiapine Fumarate 200 mg 04/17/20 10:00 Seroquel Xr - PO DAILY ESTEVAN ASSESSMENT/PLAN: Pt is a 49yo F with PMHx of HIV/AIDS (unknown CD4 and viral count) pressenting with seizure, with multiple rapid responses called for seizures. Received Keppra, fosphenytoin, Ativan. On methadone taper and ativan withdrawal protocol. #Seizures -Previous hx 1 year ago -Rec'd ativan, fosphenytoin -On 1.5g keppra BID -Check rapid notes; multiple seizures throughout day -1g Keppra on admission, -If another seizure overnight, 4mg Ativan ; consider ICU -EEG and video MRI -NPO except foods for aspiration risk, continuously asking for food #Polysubstance abuse/withdrawal -Started on ativan and methadone withdrawal -Methadone taper -Ativan withdrawal protocol #UTI - Being tx with Nitrofurantoin per ID #Hx of HIV/AIDS -Unknown CD4/viral load -Ordered CD4 count for AM -CT scan to rule out brain lesions susceptible in HIV/AIDS -Continue tx with Odefesy, Atovaquone #Lactic acidosis -2/2 to seizure activity PPx: SCD FEN: NPO due to seizures risk for Monitor electrolytes NS 100cc Visit type - Emergency Visit Emergency Visit: Yes ED Registration Date: 04/15/20 Care time: The patient presented to the Emergency Department on the above date and was hospitalized for further evaluation of their emergent condition. - New Patient This patient is new to me today: No - Critical Care Critical Care patient: No ATTENDING PHYSICIAN STATEMENT I saw and evaluated the patient. I reviewed the resident's note and discussed the case with the resident. I agree with the resident's findings and plan as documented. SUBJECTIVE: OBJECTIVE: ASSESSMENT AND PLAN:
--- NOTE | 2020-04-16 17:17 | PN ---
Teaching Attending Note Name of Resident: Gelacio Hardin ATTENDING PHYSICIAN STATEMENT I saw and evaluated the patient. I reviewed the resident's note and discussed the case with the resident. I agree with the resident's findings and plan as documented. SUBJECTIVE: pt seen and examined, multiple [employer] for breakthrough seizure since AM OBJECTIVE: Last Vital Signs Temp Pulse Resp BP Pulse Ox 98.3 F 78 18 120/80 100 04/16/20 09:00 04/16/20 09:00 04/16/20 09:00 04/16/20 09:04/16/20 16:39 GENERAL: Awake, alert, and fully oriented, in no acute distress. HEAD: Normal with no signs of trauma. EYES: Pupils equal, round and reactive to light, sclera anicteric, conjunctiva clear. LUNGS: Breath sounds equal, clear to auscultation bilaterally. No wheezes, and no crackles. No accessory muscle use. HEART: Regular rate and rhythm, normal S1 and S2 ABDOMEN: Soft, nontender, not distended MUSCULOSKELETAL: Normal range of motion at all joints. No bony deformities or tenderness. No CVA tenderness. UPPER EXTREMITIES: 2+ pulses, warm, well-perfused. No cyanosis. No clubbing. No peripheral edema. LOWER EXTREMITIES: 2+ pulses, warm, well-perfused. No calf tenderness. No peripheral edema. NEUROLOGICAL: Cranial nerves II-XII intact. Normal speech. CBCD WBC 2.4 K/mm3 (4.0-10.0) L 04/16/20 08:00 RBC 4.00 M/mm3 (3.60-5.2) 04/16/20 08:00 Hgb 11.6 GM/dL (10.7-15.3) 04/16/20 08:00 Hct 35.7 % (32.4-45.2) 04/16/20 08:00 MCV 89.1 fl (80-96) 04/16/20 08:00 MCHC 32.6 g/dl (32.0-36.0) 04/16/20 08:00 RDW 15.3 % (11.6-15.6) 04/16/20 08:00 Plt Count 95 K/MM3 (134-434) L 04/16/20 08:00 MPV 8.4 fl (7.5-11.1) 04/16/20 08:00 CMP Sodium 141 mmol/L (136-145) 04/16/20 06:50 Potassium 4.3 mmol/L (3.5-5.1) 04/16/20 06:50 Chloride 108 mmol/L (98-107) H 04/16/20 06:50 Carbon Dioxide 32 mmol/L (21-32) 04/16/20 06:50 Anion Gap 1 MMOL/L (8-16) L 04/16/20 06:50 BUN 14.1 mg/dL (7-18) 04/16/20 06:50 Creatinine 0.8 mg/dL (0.55-1.3) 04/16/20 06:50 Calcium 8.4 mg/dL (8.5-10.1) L 04/16/20 06:50 Total Bilirubin 0.2 mg/dL (0.2-1) 04/16/20 06:50 AST 13 U/L (15-37) L 04/16/20 06:50 ALT 10 U/L (13-61) L 04/16/20 06:50 Alkaline Phosphatase 81 U/L (45-117) 04/16/20 06:50 Total Protein 6.6 g/dl (6.4-8.2) 04/16/20 06:50 Albumin 2.7 g/dl (3.4-5.0) L 04/16/20 06:50 Active Medications Acetaminophen (Tylenol -) 1,000 mg PO Q6H PRN PRN Reason: PAIN LEVEL 1-5 Atorvastatin Calcium (Lipitor -) 20 mg PO HS ESTEVAN Atovaquone (Mepron -) 750 mg PO BID ESTEVAN Buspirone HCl (Buspar -) 10 mg PO DAILY ESTEVAN Clonidine (Catapres -) 0.1 mg PO Q4H PRN PRN Reason: Withdrawal Symptoms Stop: 04/18/20 23:59 Famotidine (Pepcid -) 40 mg PO DAILY ESTEVAN Heparin Sodium (Porcine) (Heparin -) 5,000 unit SQ TID ESTEVAN Sodium Chloride (Normal Saline -) 1,000 mls @ 100 mls/hr IV ASDIR ESTEVAN Levetiracetam (Keppra Injection -) 1,500 mg IVPB BID ESTEVAN Lorazepam (Ativan Injection -) 2 mg IVPUSH Q2H PRN PRN Reason: ANXIETY Last Admin: 04/16/20 12:45 Dose: 2 mg Documented by: Lorazepam (Ativan -) 0.5 mg PO ONCE ONE Stop: 04/20/20 05:01 Lorazepam (Ativan -) 1 mg PO Q4H PRN PRN Reason: Symptoms of Withdrawal Stop: 04/18/20 23:59 Lorazepam (Ativan -) 0.5 mg PO Q4H PRN PRN Reason: Symptoms of Withdrawal Stop: 04/20/20 00:00 Methadone HCl (Dolophine -) 15 mg PO ONCE ONE Stop: 04/17/20 10:01 Methadone HCl (Dolophine -) 5 mg PO ONCE ONE Stop: 04/18/20 10:01 Montelukast Sodium (Singulair -) 10 mg PO HS ESTEVAN Morphine Sulfate (Morphine Sulfate) 1 mg IVPUSH Q6H PRN PRN Reason: PAIN LEVEL 7 - 10 Nitrofurantoin Macrocrystals (Macrodantin -) 50 mg PO Q6HPO ESTEVAN Quetiapine Fumarate (Seroquel Xr -) 200 mg PO DAILY [facility] ASSESSMENT AND PLAN: Pt is a 49yo F with PMHx of HIV/AIDS (unknown CD4 and viral count) pressenting with seizure, with multiple rapid responses called for seizures. Received Keppra, fosphenytoin, Ativan. On methadone taper and ativan withdrawal protocol. # Breakthrough Seizures causes: infection vs EtOH/substance abuse NPO except meds aspiration precautions, fall precautions, seizures precautions Rec'd ativan, fosphenytoin increase kepra to 1.5 bid need to verify medications video EEG, MRI neurology following constantly asking for food, risks of aspiration explained. Check rapid notes; multiple seizures throughout day If another seizure overnight, 4mg Ativan, and consider ICU #Polysubstance abuse/withdrawal Started on ativan and methadone withdrawal Methadone taper Ativan withdrawal protocol UTI HIV/AIDS (Unknown CD4/viral load) DVT prophylaxis
[2020-04-16] MEDS ORDERED: ZOLPIDEM TARTRATE 5 MG TABLET PO ONE (20:43)
[2020-04-16] MEDS: levETIRAcetam 500 MG/5 ML INJECTION VIAL IVPB SCH (22:31)
[2020-04-16] MEDS: ATORVASTATIN CA 20 MG TABLET (FP) PO SCH (22:31)
[2020-04-16] MEDS: MONTELUKAST NA 10 MG TABLET PO SCH (22:32)
[2020-04-17] MEDS: NITROFURANTOIN MACROCRYSTAL 50 MG CAPSULE (FP) PO SCH ×3 (01:08→11:03)
[2020-04-17] MEDS: ATOVAQUONE 750 MG/5 ML (UNIT-DOSE PACKAGING) PO SCH ×3 (01:09→21:04)
[2020-04-17] MEDS ORDERED: PT OWN MED DRAWER 7, Y5N ONE ×2 (02:52→06:18)
[2020-04-17] MEDS ORDERED: diazePAM 5 MG TABLET PO SCH (06:00)
[2020-04-17] MEDS: MORPHINE SULFATE 2 MG/ML VIAL IVPUSH PRN ×3 (06:05→21:01)
[2020-04-17] MEDS: HEPARIN NA (PORCINE) 5,000 UNITS/ML 1ML VIAL SQ SCH ×3 (06:20→21:05)
[2020-04-17 08:29] LABS: BASO % 0.9 % (0-2.0); EOS % 4.1 % (0-4.5); HEMATOCRIT 42.5 % (32.4-45.2); HEMOGLOBIN 13.8 GM/dL (10.7-15.3); LYMPH % 18.4 % (8-40); MCH 29.2 pg (25.7-33.7); MCHC 32.5 g/dl (32.0-36.0); MEAN CELL VOLUME 89.8 fl (80-96); MEAN PLT VOLUME 8.3 fl (7.5-11.1); MONO % 7.3 % (3.8-10.2); NEUT % 69.3 % (42.8-82.8); PLATELET COUNT 88 K/MM3 (134-434); RBC 4.74 M/mm3 (3.60-5.2); RDW 14.8 % (11.6-15.6); WHITE BLOOD COUNT 3.5 K/mm3 (4.0-10.0)
[2020-04-17] MEDS: LORazepam 1 MG TABLET PO PRN (09:06)
[2020-04-17 09:18] LABS: ALBUMIN 3.2 g/dl (3.4-5.0); BILIRUBIN,TOTAL 0.4 mg/dL (0.2-1); BLOOD UREA NITROGEN 9.6 mg/dL (7-18); CALCIUM 8.4 mg/dL (8.5-10.1); CREATININE 0.8 mg/dL (0.55-1.3); PHOSPHOROUS 3.9 mg/dL (2.5-4.9); POTASSIUM 4.4 mmol/L (3.5-5.1); TOT PROT 7.8 g/dl (6.4-8.2)
[2020-04-17] MEDS ORDERED: METHADONE HCL 5 MG TABLET PO ONE (10:00)
[2020-04-17] MEDS ORDERED: METHADONE 20 MG, METHADONE 5 MG PO ONE (10:00)
[2020-04-17] MEDS: busPIRone HCL 10 MG TABLET (FP) PO SCH (11:04)
[2020-04-17] MEDS: EMTRICITAB/RILPIVIRI/TENOF ALA (ODEFSEY) TABLET PO SCH (11:06)
[2020-04-17] MEDS: FAMOTIDINE 20 MG TABLET PO SCH (11:06)
[2020-04-17] MEDS: levETIRAcetam 500 MG/5 ML INJECTION VIAL IVPB SCH ×2 (11:07→21:07)
--- NOTE | 2020-04-17 13:12 | PN ---
Teaching Attending Note Name of Resident: Gelacio Hardin ATTENDING PHYSICIAN STATEMENT I saw and evaluated the patient. I reviewed the resident's note and discussed the case with the resident. I agree with the resident's findings and plan as documented. SUBJECTIVE: pt seen and examined OBJECTIVE: Last Vital Signs Temp Pulse Resp BP Pulse Ox 97.6 F 80 18 105/68 98 04/17/20 06:06 04/17/20 06:06 04/17/20 06:06 04/17/20 02:06 04/17/20 02:00 GENERAL: Awake, alert, and fully oriented, in no acute distress. HEAD: Normal with no signs of trauma. EYES: Pupils equal, round and reactive to light, sclera anicteric, conjunctiva clear. LUNGS: Breath sounds equal, clear to auscultation bilaterally. No wheezes, and no crackles. No accessory muscle use. HEART: Regular rate and rhythm, normal S1 and S2 ABDOMEN: Soft, nontender, not distended MUSCULOSKELETAL: Normal range of motion at all joints. No bony deformities or tenderness. No CVA tenderness. UPPER EXTREMITIES: 2+ pulses, warm, well-perfused. No cyanosis. No clubbing. No peripheral edema. LOWER EXTREMITIES: 2+ pulses, warm, well-perfused. No calf tenderness. No peripheral edema. NEUROLOGICAL: Cranial nerves II-XII intact. Normal speech. CBCD WBC 3.5 K/mm3 (4.0-10.0) L 04/17/20 08:00 RBC 4.74 M/mm3 (3.60-5.2) 04/17/20 08:00 Hgb 13.8 GM/dL (10.7-15.3) 04/17/20 08:00 Hct 42.5 % (32.4-45.2) D 04/17/20 08:00 MCV 89.8 fl (80-96) 04/17/20 08:00 MCHC 32.5 g/dl (32.0-36.0) 04/17/20 08:00 RDW 14.8 % (11.6-15.6) 04/17/20 08:00 Plt Count 88 K/MM3 (134-434) L 04/17/20 08:00 MPV 8.3 fl (7.5-11.1) 04/17/20 08:00 CMP Sodium 141 mmol/L (136-145) 04/17/20 08:00 Potassium 4.4 mmol/L (3.5-5.1) 04/17/20 08:00 Chloride 108 mmol/L (98-107) H 04/17/20 08:00 Carbon Dioxide 25 mmol/L (21-32) 04/17/20 08:00 Anion Gap 9 MMOL/L (8-16) 04/17/20 08:00 BUN 9.6 mg/dL (7-18) 04/17/20 08:00 Creatinine 0.8 mg/dL (0.55-1.3) 04/17/20 08:00 Calcium 8.4 mg/dL (8.5-10.1) L 04/17/20 08:00 Total Bilirubin 0.4 mg/dL (0.2-1) 04/17/20 08:00 AST 25 U/L (15-37) 04/17/20 08:00 ALT 14 U/L (13-61) 04/17/20 08:00 Alkaline Phosphatase 89 U/L (45-117) 04/17/20 08:00 Total Protein 7.8 g/dl (6.4-8.2) 04/17/20 08:00 Albumin 3.2 g/dl (3.4-5.0) L 04/17/20 08:00 Active Medications Acetaminophen (Tylenol -) 1,000 mg PO Q6H PRN PRN Reason: PAIN LEVEL 1-5 Atorvastatin Calcium (Lipitor -) 20 mg PO HS [facility] Last Admin: 04/16/20 22:31 Dose: 20 mg Documented by: Atovaquone (Mepron -) 750 mg PO BID [facility] Last Admin: 04/17/20 11:06 Dose: 750 mg Documented by: Buspirone HCl (Buspar -) 10 mg PO DAILY [facility] Last Admin: 04/17/20 11:04 Dose: 10 mg Documented by: Clonidine (Catapres -) 0.1 mg PO Q4H PRN PRN Reason: Withdrawal Symptoms Stop: 04/18/20 23:59 Famotidine (Pepcid -) 40 mg PO DAILY [facility] Last Admin: 04/17/20 11:06 Dose: 40 mg Documented by: Heparin Sodium (Porcine) (Heparin -) 5,000 unit SQ TID [facility] Last Admin: 04/17/20 06:20 Dose: 5,000 unit Documented by: Sodium Chloride (Normal Saline -) 1,000 mls @ 100 mls/hr IV ASDIR [facility] Last Admin: 04/16/20 18:50 Dose: 100 mls/hr Documented by: Levetiracetam (Keppra Injection -) 1,500 mg IVPB BID [facility] Last Admin: 04/17/20 11:07 Dose: 1,500 mg Documented by: Lorazepam (Ativan Injection -) 2 mg IVPUSH Q2H PRN PRN Reason: ANXIETY Last Admin: 04/16/20 22:54 Dose: 2 mg Documented by: Lorazepam (Ativan -) 0.5 mg PO ONCE ONE Stop: 04/20/20 05:01 Lorazepam (Ativan -) 1 mg PO Q4H PRN PRN Reason: Symptoms of Withdrawal Stop: 04/18/20 23:59 Last Admin: 04/17/20 09:06 Dose: 1 mg Documented by: Lorazepam (Ativan -) 0.5 mg PO Q4H PRN PRN Reason: Symptoms of Withdrawal Stop: 04/20/20 00:00 Methadone HCl (Dolophine -) 5 mg PO ONCE ONE Stop: 04/18/20 10:01 Montelukast Sodium (Singulair -) 10 mg PO [facility] Last Admin: 04/16/20 22:32 Dose: 10 mg Documented by: Morphine Sulfate (Morphine Sulfate) 1 mg IVPUSH Q6H PRN PRN Reason: PAIN LEVEL 7 - 10 Last Admin: 04/17/20 12:13 Dose: 1 mg Documented by: Nitrofurantoin Macrocrystals (Macrodantin -) 50 mg PO Q6HPO [facility] Last Admin: 04/17/20 11:03 Dose: 50 mg Documented by: Quetiapine Fumarate (Seroquel Xr -) 200 mg PO DAILY [facility] Last Admin: 04/17/20 11:06 Dose: 200 mg Documented by: ASSESSMENT AND PLAN: Pt is a 49yo F with PMHx of HIV/AIDS (unknown CD4 and viral count) pressenting with seizure, with multiple rapid responses called for seizures. Received Keppra, fosphenytoin, Ativan. On methadone taper and ativan withdrawal protocol. # Breakthrough Seizures causes: infection vs EtOH/substance abuse no seizure last 24H diet restarted aspiration precautions, fall precautions, seizures precautions on kepra to 1.5 bid video EEG, MRI (refused by pt) neurology following constantly asking for food, risks of aspiration explained. Check rapid notes; multiple seizures throughout day If another seizure overnight, 4mg Ativan, and consider ICU Polysubstance abuse/withdrawal methadone maintenance UTI HIV/AIDS (CD4 88/on ART, Toxo/pneumocystic j prophylaxis) DVT prophylaxis
[2020-04-17] MEDS: LORazepam 2 MG/ML SDV VIAL IVPUSH PRN ×3 (13:40→22:43)
--- NOTE | 2020-04-17 14:29 | DS ---
Physical Exam: SUBJECTIVE: Patient seen and examined OBJECTIVE: Vital Signs Period Temp Pulse Resp BP Sys/Sanz Pulse Ox Last 24 Hr 97.3 F-98.1 F 79-93 18-18 101-117/68-77 95-100 PHYSICAL EXAM GENERAL: The patient is awake, alert, and fully oriented, in no acute distress. HEAD: Normal with no signs of trauma. EYES: PERRL, extraocular movements intact, sclera anicteric, conjunctiva clear. ENT: Ears normal, nares patent, oropharynx clear without exudates, moist mucous membranes. NECK: Trachea midline, full range of motion, supple. LUNGS: Breath sounds equal, clear to auscultation bilaterally, no wheezes, no crackles, no accessory muscle use. HEART: Regular rate and rhythm, S1, S2 without murmur, rub or gallop. ABDOMEN: Soft, nontender, nondistended, normoactive bowel sounds, no guarding, no rebound, no hepatosplenomegaly, no masses. EXTREMITIES: 2+ pulses, warm, well-perfused, no edema. NEUROLOGICAL: Cranial nerves II through XII grossly intact. Normal speech, gait not observed. PSYCH: Normal mood, normal affect. SKIN: Warm, dry, normal turgor, no rashes or lesions noted. LABS Laboratory Results - last 24 hr 04/16/20 04/17/20 04/17/20 10:16 08:00 08:00 WBC 2.2 L 3.5 L RBC 4.74 Hgb 13.8 Hct 42.5 D MCV 89.8 MCH 29.2 MCHC 32.5 RDW 14.8 Plt Count 88 L MPV 8.3 Absolute Neuts (auto) 2.4 Absolute Lymphs (auto) 0.5 L Neutrophils % 69.3 Lymphocytes % 18.4 Monocytes % 7.3 Eosinophils % 4.1 Basophils % 0.9 Nucleated RBC % 0 Lymphocytes 23 Nucleated RBCs TNP Sodium 141 Potassium 4.4 Chloride 108 H Carbon Dioxide 25 Anion Gap 9 BUN 9.6 Creatinine 0.8 Est GFR (CKD-EPI)AfAm 99.63 Est GFR (CKD-EPI)NonAf 85.96 Random Glucose 86 Calcium 8.4 L Phosphorus 3.9 Magnesium 2.0 Total Bilirubin 0.4 AST 25 ALT 14 Alkaline Phosphatase 89 Total Protein 7.8 Albumin 3.2 L Absolute CD3 Count 377 L % CD3+ Lymphocytes 75.4 Absolute CD4 [place] 88 L % CD4+ Lymphocyte 17.6 L CD4/CD8 Ratio 0.31 L % CD8+ Lymphocyte 57.1 H Absolute CD8 Count 286 HOSPITAL COURSE: Date of Admission:04/15/20 Pt presented from [facility] (methadone taper and Ativan withdrawal protocol) presenting with a seizure. Pt has history of seizures but has not been on Keppra for more than a year. Pt was given 1g Keppra. Pt had seizures on first day after admission, given 1.5g Keppra, fosphophenytoin. Pt was started on 1.5g Keppra BID per neuro. Pt has hx of AIDS, CD4 count 88. CT performed to rule out brain lesions susceptible in HIV/AIDS. Pt to receive further workup of seizure including EEG outpt. Pt was found to have UTI, was being treated with Macrobid. Switched to Ceftin 500mg BID. Pt was transferred back to [facility] for completion of methadone taper. Pt to follow up with neurology, ID and her PCP. Date of Discharge: 04/17/20 Minutes to complete discharge: 36 Discharge Summary Problems reviewed: Yes Reason For Visit: UTI POLYSUBSTANCE DEPENDENCE SEIZURE Current Active Problems Blunt head trauma (Acute) Breakthrough seizure (Acute) Closed head injury (Acute) Elevated lactic acid level (Acute) History of HIV or AIDS (Acute) Polysubstance abuse (Acute) UTI (urinary tract infection) (Acute) Condition: Improved - Instructions Diet, Activity, Other Instructions: You came to the hospital for a seizure. You had several seizures while in the hospital. You were treated with medications to help stop your seizures, and prevent future seizures from occurring. You had a CAT scan of your head and neck which did not show anything abnormal. You were also found to have an infection in your urine. You were treated with a medication. You were also being treated for your drug withdrawal. You will return to [facility] to complete your detoxification. Your CD4 count (helps determine the progression of your AIDS) is 88. 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 you will need to continue to follow up with your neurologist and primary physician Please START taking your Keppra 1.5g twice a day to help prevent seizures, which was increased from 500mg. Please START taking your Pyrimethamine 75mg and Leucovorin 25mg together once a week. This is to prevent infections related to AIDS. Please continue to take your Ceftin 500mg BID for 6 more days for your urine infection. Please continue your other home medications as prescribed. Please follow up with your neurologist, Dr. De La Cruz, in 1 week for follow up on your seizure management. You will need further testing for your seizure evaluation. you will need outpatient MRI Please follow up with your infectious disease doctor, Dr. Cam, in 1 week. Please follow up with your primary care physician in 1 week for your medical management. If you have any new, worsening or concerning symptoms please return to the ED or call 911. Referrals: Lonny De La Cruz MD [Staff Physician] - Qasim Cam MD [Staff Physician] - ON STAFF,NOT [Primary Care Provider] - Disposition: I.P. ALCOHOL/SUBS ABUSE REHAB - Home Medications Comprehensive Discharge Medication List: Ambulatory Orders Atorvastatin Ca [Lipitor] 20 mg PO HS 04/15/20 Atovaquone [Mepron Oral Solution -] 750 mg PO BID 04/15/20 Buprenorphine/Naloxone [Suboxone 8Mg/2Mg Sl Film -] 3 each SL DAILY 04/15/20 Buspirone HCl [Buspar -] 10 mg PO DAILY 04/15/20 Cholecalciferol (Vitamin D3) [Vitamin D3] 1,000 unit PO DAILY 04/15/20 Clonidine HCl [Clonidine HCl ER] 0.1 mg PO DAILY 04/15/20 Dolutegravir Sodium [Tivicay] 50 mg PO DAILY 04/15/20 Emtricitab/Rilpiviri/Tenof Ala [Odefsey Tablet] 1 each PO DAILY 04/15/20 Famotidine [Pepcid -] 40 mg PO DAILY 04/15/20 Ferrous Sulfate 325 mg PO DAILY 04/15/20 Fluconazole 150 mg PO DAILY 04/15/20 Fluticasone Propion/Salmeterol [Wixela 100-50 Inhub] 1 each IH DAILY 04/15/20 Montelukast Na [Singulair -] 10 mg PO HS 04/15/20 Quetiapine Fumarate [Quetiapine Fumarate ER] 200 mg PO DAILY 04/15/20 Sod.chlorid/Potassium Chloride [Thermotabs Tablet] 1 each PO DAILY 04/15/20 Acetaminophen 325 mg PO PRN 04/16/20 Guaifenesin [Robafen] 100 mg PO PRN 04/16/20 Ibuprofen 400 mg PO PRN 04/16/20 Lactulose 10 gm PO TID 04/16/20 Nicotine Patch [Nicoderm Patch -] 21 mg TD DAILY 04/16/20 Nicotine Polacrilex [Nicotine Gum] 2 mg PO PRN 04/16/20 Cefuroxime Axetil [Ceftin -] 500 mg PO BID tablet 04/17/20 levETIRAcetam [Levetiracetam ER] 1,500 mg PO BID #60 tab 04/17/20 This patient is new to me today: No Emergency Visit: Yes ED Registration Date: 04/15/20 Care time: The patient presented to the Emergency Department on the above date and was hospitalized for further evaluation of their emergent condition. Critical Care patient: No - Discharge Referral Referred to [facility] No ATTENDING PHYSICIAN STATEMENT I saw and evaluated the patient. I reviewed the resident's note and discussed the case with the resident. I agree with the resident's findings and plan as documented. SUBJECTIVE: OBJECTIVE: ASSESSMENT AND PLAN:
[2020-04-17] MEDS: SODIUM CHLORIDE 1,000 ML IV SCH (17:37)
--- NOTE | 2020-04-17 19:11 | PN ---
Progress Note (short form) - Note Progress Note: 49 year old female histoyr of HIV/AIDS( do not know cd4 and viral lod), HTN,HLD,Depression, Bipolar, asthma, copd, anemia. Lyndon has histoyr of polysubstance abuse and she had seizure while arguing with room mate. It is not clear if she has been non compliant with medicaiton. Patient says she was taking keppa1 gm po bid. She has three seizure today. She has been afebrile and normal ct head. -- no new seizure, mri of brain pending. no side effect of keppra. NEUROLOGICAL EXAMINATION Alert oriented x 3, seems to be drowsy, afebrile eomi,pupils reactive no face asymmetry neck i ssupple moving all ext sensation is normal reflex are diminished ct head is unremarkable mri ofbrain is pending eeg is unremarkable. Assessment/Plan 1 49 year old female histoyr of HIV/AIDS( do not know cd4 and viral lod), HTN,HLD,Depression, Bipolar, asthma, copd, anemia. She has hitory of seizure on keppra 1 gm po bid, ct head wnl, neuro exam nonfocal , unlikley to be meningitis . Plan -- continue keppra 1.5 gm po bid - if any more seizure, add iv phosphenytoin - mri of brain with without contrast pending, eeg is normal - cd4 and viral load pending Thanking you so much Lonny De La Cruz MD
[2020-04-17] MEDS: ATORVASTATIN CA 20 MG TABLET (FP) PO SCH (21:02)
[2020-04-17] MEDS: MONTELUKAST NA 10 MG TABLET PO SCH (21:03)
[2020-04-17] MEDS: CEFUROXIME AXETIL 500 MG TABLET PO SCH (21:07)
[2020-04-18] MEDS: LORazepam 2 MG/ML SDV VIAL IVPUSH PRN ×3 (00:46→10:30)
[2020-04-18] MEDS: MORPHINE SULFATE 2 MG/ML VIAL IVPUSH PRN ×2 (03:23→08:31)
[2020-04-18] MEDS: LORazepam 1 MG TABLET PO PRN (03:31)
[2020-04-18] MEDS ORDERED: LORazepam 1 MG TABLET PO SCH (05:00)
[2020-04-18] MEDS: SODIUM CHLORIDE 1,000 ML IV SCH (05:42)
[2020-04-18] MEDS ORDERED: diazePAM 5 MG TABLET PO ONE (06:00)
[2020-04-18] MEDS: HEPARIN NA (PORCINE) 5,000 UNITS/ML 1ML VIAL SQ SCH (06:31)
[2020-04-18] MEDS ORDERED: PT OWN MED DRAWER 7, Y5N ONE ×3 (06:33→12:10)
--- NOTE | 2020-04-18 07:53 | PN ---
Progress Note (short form) - Note Progress Note: communicated with neurology seizures likely 2/2 non-compliance and substance abuse in combination with seizure hx. continue regimen as discussed EEG completed CD4 88 MRI reviewed , no lesions or mass noted. reviewed with radiology. aneurysm is small and can be followed outpt. discussed with neurology Pt is medcally optimized for continued detox/ rehab at [facility]
[2020-04-18] MEDS: METHADONE HCL 5 MG TABLET PO ONE ×2 (08:32→10:27)
[2020-04-18] MEDS ORDERED: METHADONE HCL 10 MG TABLET PO ONE (10:00)
[2020-04-18] MEDS: FAMOTIDINE 20 MG TABLET PO SCH (10:27)
[2020-04-18] MEDS: levETIRAcetam 500 MG/5 ML INJECTION VIAL IVPB SCH (10:27)
[2020-04-18] MEDS: busPIRone HCL 10 MG TABLET (FP) PO SCH (10:28)
[2020-04-18] MEDS: ATOVAQUONE 750 MG/5 ML (UNIT-DOSE PACKAGING) PO SCH (10:29)
[2020-04-18] MEDS: CEFUROXIME AXETIL 500 MG TABLET PO SCH (10:29)
[2020-04-18] MEDS: EMTRICITAB/RILPIVIRI/TENOF ALA (ODEFSEY) TABLET PO SCH (10:29)
[2020-04-18 10:51] VITALS: BP 124/89; PULSE 90; TEMP 97.7
--- NOTE | 2020-04-18 11:07 | PN ---
Progress Note (short form) - Note Progress Note: 49 year old female histoyr of HIV/AIDS( do not know cd4 and viral lod), HTN,HLD,Depression, Bipolar, asthma, copd, anemia. Lyndon has histoyr of polysubstance abuse and she had seizure while arguing with room mate. It is not clear if she has been non compliant with medicaiton. Patient says she was taking keppa1 gm po bid. She has three seizure today. She has been afebrile and normal ct head. -- mri of brain showed ? aneurysm in left cavernous area, size was not mentioned. Patient had episode of generalized shaking with pelvic thrusting, does appear to be nonepileptic, and she was asking more dose of methadone and xanax. NEUROLOGICAL EXAMINATION Alert oriented x 3, seems to be drowsy, afebrile eomi,pupils reactive no face asymmetry neck i ssupple moving all ext sensation is normal reflex are diminished ct head is unremarkable mri ofbrain showed left ica cavernous portion ? ANEURYSM, size unknown eeg is unremarkable. Assessment/Plan 1 49 year old female histoyr of HIV/AIDS( do not know cd4 and viral lod), HTN,HLD,Depression, Bipolar, asthma, copd, anemia. She has hitory of seizure on keppra 1 gm po bid, ct head wnl, neuro exam nonfocal , unlikley to be meningitis . Plan -- continue keppra 1.5 gm po bid same dose - no need for give iv dilantin - mri of brain with without contrast pending, eeg is normal - cd4 wasi n 70s, aneurysm findings seems to be incidental, if small, can still be discharged and follow up with neurointerventionist at [facility]. Thanking you so much Lonny De La Cruz MD
--- NOTE | 2020-04-18 11:57 | PN ---
Teaching Attending Note Name of Resident: Gelacio Hardin ATTENDING PHYSICIAN STATEMENT I saw and evaluated the patient. I reviewed the resident's note and discussed the case with the resident. I agree with the resident's findings and plan as documented. SUBJECTIVE: pt seen and examined OBJECTIVE: Last Vital Signs Temp Pulse Resp BP Pulse Ox 97.7 F 90 20 124/89 98 04/18/20 09:00 04/18/20 09:00 04/18/20 09:00 04/18/20 09:00 04/18/20 09:00 GENERAL: Awake, alert, and fully oriented, in no acute distress. LUNGS: Breath sounds equal, clear to auscultation bilaterally. No wheezes, and no crackles. No accessory muscle use. HEART: Regular rate and rhythm, normal S1 and S2 ABDOMEN: Soft, nontender, not distended MUSCULOSKELETAL: Normal range of motion at all joints. No bony deformities or tenderness. No CVA tenderness. NEUROLOGICAL: Cranial nerves II-XII intact. Normal speech. CBCD WBC 3.5 K/mm3 (4.0-10.0) L 04/17/20 08:00 RBC 4.74 M/mm3 (3.60-5.2) 04/17/20 08:00 Hgb 13.8 GM/dL (10.7-15.3) 04/17/20 08:00 Hct 42.5 % (32.4-45.2) D 04/17/20 08:00 MCV 89.8 fl (80-96) 04/17/20 08:00 MCHC 32.5 g/dl (32.0-36.0) 04/17/20 08:00 RDW 14.8 % (11.6-15.6) 04/17/20 08:00 Plt Count 88 K/MM3 (134-434) L 04/17/20 08:00 MPV 8.3 fl (7.5-11.1) 04/17/20 08:00 CMP Sodium 141 mmol/L (136-145) 04/17/20 08:00 Potassium 4.4 mmol/L (3.5-5.1) 04/17/20 08:00 Chloride 108 mmol/L (98-107) H 04/17/20 08:00 Carbon Dioxide 25 mmol/L (21-32) 04/17/20 08:00 Anion Gap 9 MMOL/L (8-16) 04/17/20 08:00 BUN 9.6 mg/dL (7-18) 04/17/20 08:00 Creatinine 0.8 mg/dL (0.55-1.3) 04/17/20 08:00 Calcium 8.4 mg/dL (8.5-10.1) L 04/17/20 08:00 Total Bilirubin 0.4 mg/dL (0.2-1) 04/17/20 08:00 AST 25 U/L (15-37) 04/17/20 08:00 ALT 14 U/L (13-61) 04/17/20 08:00 Alkaline Phosphatase 89 U/L (45-117) 04/17/20 08:00 Total Protein 7.8 g/dl (6.4-8.2) 04/17/20 08:00 Albumin 3.2 g/dl (3.4-5.0) L 04/17/20 08:00 Active Medications Acetaminophen (Tylenol -) 1,000 mg PO Q6H PRN PRN Reason: PAIN LEVEL 1-5 Atorvastatin Calcium (Lipitor -) 20 mg PO HS ON LICENSE OF [facility] Last Admin: 04/17/20 21:02 Dose: 20 mg Documented by: Atovaquone (Mepron -) 750 mg PO BID ON LICENSE OF [facility] Last Admin: 04/18/20 10:29 Dose: 750 mg Documented by: Buspirone HCl (Buspar -) 10 mg PO DAILY ON LICENSE OF [facility] Last Admin: 04/18/20 10:28 Dose: 10 mg Documented by: Cefuroxime Axetil (Ceftin -) 500 mg PO BID ON LICENSE OF [facility] Last Admin: 04/18/20 10:29 Dose: 500 mg Documented by: Clonidine (Catapres -) 0.1 mg PO Q4H PRN PRN Reason: Withdrawal Symptoms Stop: 04/18/20 23:59 Famotidine (Pepcid -) 40 mg PO DAILY ON LICENSE OF [facility] Last Admin: 04/18/20 10:27 Dose: 40 mg Documented by: Heparin Sodium (Porcine) (Heparin -) 5,000 unit SQ TID ON LICENSE OF [facility] Last Admin: 04/18/20 06:31 Dose: Not Given Documented by: Sodium Chloride (Normal Saline -) 1,000 mls @ 100 mls/hr IV ASDIR ON LICENSE OF [facility] Last Admin: 04/18/20 05:42 Dose: 100 mls/hr Documented by: Levetiracetam (Keppra Injection -) 1,500 mg IVPB BID ON LICENSE OF [facility] Last Admin: 04/18/20 10:27 Dose: 1,500 mg Documented by: Lorazepam (Ativan Injection -) 2 mg IVPUSH Q2H PRN PRN Reason: ANXIETY Last Admin: 04/18/20 10:30 Dose: 2 mg Documented by: Lorazepam (Ativan -) 0.5 mg PO ONCE ONE Stop: 04/20/20 05:01 Lorazepam (Ativan -) 1 mg PO Q4H PRN PRN Reason: Symptoms of Withdrawal Stop: 04/18/20 23:59 Last Admin: 04/18/20 03:31 Dose: 1 mg Documented by: Lorazepam (Ativan -) 0.5 mg PO Q4H PRN PRN Reason: Symptoms of Withdrawal Stop: 04/20/20 00:00 Montelukast Sodium (Singulair -) 10 mg PO HS ON LICENSE OF [facility] Last Admin: 04/17/20 21:03 Dose: 10 mg Documented by: Morphine Sulfate (Morphine Sulfate) 1 mg IVPUSH Q6H PRN PRN Reason: PAIN LEVEL 7 - 10 Last Admin: 04/18/20 08:31 Dose: 1 mg Documented by: Quetiapine Fumarate (Seroquel Xr -) 200 mg PO DAILY ON LICENSE OF [facility] Last Admin: 04/18/20 10:29 Dose: 200 mg Documented by: ASSESSMENT AND PLAN: Pt is a 49yo F with PMHx of HIV/AIDS (unknown CD4 and viral count) pressenting with seizure, with multiple rapid responses called for seizures. Received Keppra, fosphenytoin, Ativan. On methadone taper and ativan withdrawal protocol. # Breakthrough Seizures causes: infection vs EtOH/substance abuse no seizure last 24H diet restarted aspiration precautions, fall precautions, seizures precautions on kepra to 1.5 bid EEG normal MRI done, cavernous aneurysm? will need outpatient MRA neurology notes appreciated Polysubstance abuse/withdrawal methadone maintenance UTI HIV/AIDS (CD4 88/on ART, Toxo/pneumocystic j prophylaxis) DVT prophylaxis
[2020-04-19] MEDS ORDERED: LORazepam 0.5 MG TABLET PO PRN ×2
[2020-04-19] MEDS ORDERED: LORazepam 0.5 MG TABLET PO SCH (05:00)
[2020-04-19] MEDS ORDERED: METHADONE 10 MG, METHADONE 5 MG PO ONE (10:00)
[2020-04-20] MEDS ORDERED: LORazepam 0.5 MG TABLET PO ONE ×2 (05:00)
[2020-04-20] MEDS ORDERED: METHADONE HCL 10 MG TABLET PO ONE (10:00)
[2020-04-21] MEDS ORDERED: METHADONE HCL 5 MG TABLET PO ONE (06:00)
== END 2020-04-18 13:20 | disposition other institution (70) | DRG 893 ==
LOC: JER 08:30 → SUPCPDRO 08:30 → JERBED 12:48 → OBSVTOIN 12:58 → J5S 18:27 → J4W 04-16 15:30
PROVIDERS: ADMIT Internal Medicine; ATTEND Student in an Organized Health Care Education/Training Program
DX: G40.909 Epilepsy, unspecified, not intractable, without status epilepticus (principal); F11.20 Opioid dependence, uncomplicated; S09.90XA Unspecified injury of head, initial encounter; B20 Human immunodeficiency virus [HIV] disease; C46.9 Kaposi's sarcoma, unspecified; D69.6 Thrombocytopenia, unspecified; E87.2 Acidosis; N39.0 Urinary tract infection, site not specified; F14.10 Cocaine abuse, uncomplicated; F31.9 Bipolar disorder, unspecified; I10 Essential (primary) hypertension; F11.23 Opioid dependence with withdrawal; M40.209 Unspecified kyphosis, site unspecified; W19.XXXA Unspecified fall, initial encounter; Y93.89 Activity, other specified; Y92.89 Other specified places as the place of occurrence of the external cause; Y99.8 Other external cause status; F17.210 Nicotine dependence, cigarettes, uncomplicated; D64.9 Anemia, unspecified
CPT/HCPCS: 36415; 70450-TC; 70470-TC; 70553-TC; 71045-TC-FY; 72125-TC; 74177-TC; 80053; 80177; 80307; 81003; 82550; 83605; 83735; 84100; 84146; 85025; 85610; 85730; 86359; 86360; 87086; 87186; 93005; 93010; 95816; 99285-25; A9579; G0378; J0131; J1644; Q9967; U0003

== ENCOUNTER 2020-04-18 14:28 | Inpatient (IN) | payer OTHER ==
--- NOTE | 2020-04-18 14:47 | BHS.RME ---
Substance Use & Tx History - Substance Use History Alcohol Substance amount: 2 pints navdeep Frequency of use: Daily Substance route: Oral Date of Last Use: 04/12/20 Cocaine- Powder Substance amount: $100 Frequency of use: Daily Substance route: Inhalation (ex: sniffing or snorting) ($) Xanax Substance amount: 2mg - 3-4 tabs Frequency of use: Daily Substance route: Oral Date of Last Use: 04/18/20 Nicotine Substance amount: 4 ciggs Frequency of use: Daily Substance route: Smoking Date of Last Use: 04/12/20 Physical/Psych/Mental Status - Behavior General Behavior: Increased activity (restlessness, agitation) Eye Contact: Normal - Cooperativeness Cooperativeness: Cooperative - Thinking Thought Processes: Tight, Logical, Goal Directed - Physical Health Problems Is patient presently having any pain?: No Does patient presently have any injuries (include location): No Does patient currently have a fever: No Is patient : No
--- NOTE | 2020-04-18 16:56 | HP ---
COWS - Scale Resting Pulse: 4= OK > 121 Sweatin= Chills/Flushing Restless Observation: 1= Difficult to Sit Still Pupil Size: 0= Normal to Room Light Bone or Joint Aches: 2= Severe Diffuse Aches Runny Nose/ Eye Tearin= Nasal Congestion GI Upset > 30mins: 2= Nausea/Diarrhea Tremor Observation: 2= Slight Tremor Visible Yawning Observation: 0= None Anxiety or Irritability: 2=Irritable/Anxious Goose Flesh Skin: 3=Piloerection COWS Score: 18 CIWA Score Nausea/Vomitin Muscle Tremors: 4-Moderate,w/Arms Extend Anxiety: 2 Agitation: 1-Slight > Activity Paroxysmal Sweats: 1-Minimal Palms Moist Orientation: 2-Disoriented Date<2 days Tacttile Disturbances: 0-None Auditory Disturbances: 1-Very Mild Visual Disturbances: 0-None Headache: 2-Mild CIWA-Ar Total Score: 16 - Admission Criteria OASAS Guidelines: Admission for Medically Managed Detox: Requires at least one of the followin. CIWA greater than 12 2. Seizures within the past 24 hours 3. Delirium tremens within the past 24 hours 4. Hallucinations within the past 24 hours 5. Acute intervention needed for co occurring medical disorder 6. Acute intervention needed for co occurring psychiatric disorder 7. Severe withdrawal that cannot be handled at a lower level of care (continued vomiting, continued diarrhea, abnormal vital signs) requiring intravenous medication and/or fluids 8. Admitting History and Physical - Admission History of Present Illness: Patient is a 49 y.o. F PMHx HIV(+), COPD, Kaposi sarcoma, seizures presenting to [facility] for detox. Patient was examined in the room in mild distress. Patient drug use consists of heroin 40 bags intranasal, 2 overdoses. 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 Xanax 3-4 tabs a day, nicotine 4 cigarettes a day. Patient had been sent to [facility] on 04/15/20 due to a seizure while in detox at [facility]. Detox was then continued at [facility]. Pt. returned to [facility] on 04/18/20 and was still complaining of symptoms of withdrawal. A decision was made to admit the patient for continued detox follow by admission to rehab. Per d/c papers patient has been started on keppra 1.5g BID, Ceftin 500mg BID for 6 days, could not find clinical indication to continue pyrimethamine and leucovorin. Recommend outpatient MRA due to findings of cavernous aneurysm on MRI. Per Pharmacy Methadone regimen was: 04/05 20 mg 04/16 15 mg 04/17 15 mg 04/18 0mg - Substance Use History Alcohol Substance amount: 2 pints navdeep Frequency of use: Daily Substance route: Oral Date of Last Use: 04/12/20 Cocaine- Powder Substance amount: $100 Frequency of use: Daily Substance route: Inhalation (ex: sniffing or snorting) ($) Xanax Substance amount: 2mg - 3-4 tabs Frequency of use: Daily Substance route: Oral Date of Last Use: 04/18/20 Nicotine Substance amount: 4 ciggs Frequency of use: Daily Substance route: Smoking Date of Last Use: 04/12/20 History Source: Patient Limitations to Obtaining History: No Limitations - Past Medical History 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 Cardiovascular: Yes: HTN, Hyperlipdemia Pulmonary: Yes: Asthma, COPD Gastrointestinal: Yes: GERD ...LMP: 08/16/16 Heme/Onc: Yes: Anemia Infectious Disease: Yes: AIDS Psych: Yes: Bipolar - Past Surgical History Additional Past Surgical History: Arthroscopic R knee - Smoking History Smoking history: Current every day smoker Have you smoked in the past 12 months: Yes Aproximately how many cigarettes per day: 4 - Alcohol/Substance Use Hx Alcohol Use: No History of Substance Use: reports: Cocaine, Heroin, Tranquilizers Date of Last Use: 04/13/20 - Social History Usual Living Arrangement: Yes: With Parent ADL: Independent 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 History of Recent Travel: No Admission [facility] Allergies/Adverse Reactions: Allergies Allergy/AdvReac Type Severity Reaction Status Date / Time haloperidol [From Haldol] Allergy Severe Rash Verified 04/19/20 12:04 haloperidol lactate Allergy Severe Rash Verified 04/19/20 12:04 [From Haldol] metoclopramide Allergy Severe swelling, Verified 04/19/20 12:04 itching metoclopramide HCl Allergy Severe Swelling Verified 04/19/20 12:04 [From Reglan] prochlorperazine Allergy Severe Swelling Verified 04/19/20 12:04 [From Compazine] prochlorperazine edisylate Allergy Severe Swelling Verified 04/19/20 12:04 [From Compazine] prochlorperazine maleate Allergy Severe Swelling Verified 04/19/20 12:04 [From Compazine] Sulfa (Sulfonamide Allergy Severe Itching, Verified 04/19/20 12:04 Antibiotics) swelling - Ebola screening Have you traveled outside of the country in the last 21 days: No Have you had contact with anyone from an Ebola affected area: No Have you been sick,other than usual withdrawal symptoms: No Do you have a fever: No - Review of Systems Constitutional: Chills EENT: reports: Blurred Vision. denies: Double Vision Respiratory: reports: Shortness of Breath. denies: Cough Cardiac: denies: Chest Pain, Lightheadedness GI: reports: Diarrhea, Nausea, Vomiting. denies: Constipated : reports: Burning, Dysuria Musculoskeletal: reports: Muscle Pain, Muscle Weakness Neuro: reports: Headache, Dizziness Psychiatric: reports: Mood/Affect Appropiate, Orientated x3, Anxious, Depressed Patient History - Patient Medical History Hx Anemia: Yes (on iron supplement) Hx Asthma: Yes Hx Chronic Obstructive Pulmonary Disease (COPD): Yes Hx Cancer: Yes (kaposi saecoma) Hx Cardiac Disorders: No Hx Congestive Heart Failure: No Hx Hypertension: Yes Hx Hypercholesterolemia: Yes Hx Seizures: Yes (r/t head trauma-last episode was a year ago) Hx Diabetes: No Hx Gastrointestinal Disorders: Yes (acid reflux) Hx Liver Disease: No Hx Genitourinary Disorders: No Hx Sexually Transmitted Disorders: No Hx Renal Disease (ESRD): No Hx Thyroid Disease: No Hx Human Immunodeficiency Virus (HIV): Yes (hiv since 2001 with [place]) Hx Hepatitis C: No Hx Depression: Yes Hx Suicide Attempt: Yes (cut left wrist 10 yrs. ago) Hx Bipolar Disorder: Yes Hx Schizophrenia: No - Patient Surgical History Past Surgical History: Yes Hx Neurologic Surgery: No Hx Cataract Extraction: No Hx Cardiac Surgery: No Hx Lung Surgery: No Hx Breast Surgery: No Hx Breast Biopsy: No Hx Abdominal Surgery: No Hx Appendectomy: No Hx Cholecystectomy: No Hx Genitourinary Surgery: No Hx Section: No Hx Orthopedic Surgery: No Other Surgical History: removal of bunions, both feet/tonsilectomy,arthoscopic sugery of eight knee Anesthesia Reaction: No - PPD History Date: 04/15/20 - Reproductive History Last Menstrual Period: 08/16/16 - Smoking Cessation Smoking history: Current every day smoker Have you smoked in the past 12 months: Yes Aproximately how many cigarettes per day: 4 Hx Chewing Tobacco Use: No Initiated information on smoking cessation: Yes 'Breaking Loose' booklet given: 04/18/20 Admission Physical Exam [facility] - Physical General Appearance: Yes: Within Normal Limits, No Apparent Distress, Nourished, Appropriately Dressed Respiratory: Yes: Within Normal Limits, Lungs Clear, Normal Breath Sounds, No Respiratory Distress, No Accessory Muscle Use. No: Chest Non-Tender Cardiology: Yes: Within Normal Limits, Regular Rhythm, Tachycardia Abdominal: Yes: Normal Bowel Sounds, Flat, Soft, Tenderness (LLQ & RUQ) Back: Yes: Within Normal Limits, Normal Inspection Musculoskeletal: Yes: Muscle Pain, Muscle weakness Extremities: Yes: Normal Inspection, Non-Tender, Tremors Neurological: Yes: Within Normal Limits, Fully Oriented, Alert, Normal Mood/Affect, Normal Response Integumentary: Yes: Within Normal Limits, Dry, Warm - Diagnostic (1) Bipolar II disorder Current Visit: No Status: Chronic (2) Breakthrough seizure Current Visit: No Status: Acute (3) Cocaine abuse Current Visit: No Status: Acute (4) History of HIV or AIDS Current Visit: No Status: Chronic (5) Opioid dependence Current Visit: No Status: Acute (6) Opioid dependence with withdrawal Current Visit: No Status: Acute (7) Polysubstance abuse Current Visit: No Status: Acute (8) Seizure Current Visit: No Status: Acute (9) UTI (urinary tract infection) Current Visit: No Status: Acute (10) Uncomplicated sedative, hypnotic or anxiolytic withdrawal Current Visit: No Status: Acute (11) Cocaine dependence Current Visit: No Status: Acute Qualifiers: Substance use status: uncomplicated Qualified Code(s): F14.20 - Cocaine dependence, uncomplicated (12) HIV disease Current Visit: No Status: Chronic (13) Heroin use disorder, moderate, in controlled environment, dependence Current Visit: No Status: Chronic (14) Polysubstance (including opioids) dependence, daily use Current Visit: No Status: Chronic Cleared for Admission [facility] - Detox or Rehab [facility] Level of Care: Medically Managed Detox Regimen/Protocol: Methadone/Librium Claeared for Rehab Admission: Yes Breathalyzer - Breathalyzer Breathalyzer: 0.080 Vital Signs - Vital Signs Vital signs refused: No Temperature: 97.8 F Pulse Rate: 132 Respiratory Rate: 14 Blood Pressure: 114/81 - Height Height: 1.7 m - Weight Weight: 75.75 kg - BMI Body Mass Index (BMI): 26.2 Urine Drug Screen - Test Device Lot number: [id number] Expiration date: 11/21/21 - Control Is test valid?: Yes - Results Drug screen NEGATIVE: No Urine drug screen results: THC-Marijuana, FEN-Fentanyl, MOP-Opiates, OXY- Oxycodone, BZO-Benzodiazepines, BUP-Suboxone Inpatient Rehab Admission - Rehab Decision to Admit Inpatient rehab admission?: Yes - Initial Determination Are CD services needed?: No Free of communicable disease: No Not in need of hospitalization: Yes - Rehab Admission Criteria Previous failed treatment: Yes Poor recovery environment: Yes Comorbidities: Yes Lacks judgement: No Patient is meeting Inpatient Rehab admission criteria:: Yes
[2020-04-18 17:11] VITALS: BMI 26.2
[2020-04-18] MEDS ORDERED: MAG HYDROX/AL HYDROX/SIMETH 30 ML UNIT-DOSE CUP PO PRN ×2 (17:11→17:29)
[2020-04-18] MEDS ORDERED: IBUPROFEN 400 MG TABLET (FP) PO PRN ×2 (17:11→17:29)
[2020-04-18] MEDS ORDERED: LOPERAMIDE HCL 2 MG CAPSULE PO PRN (17:11)
[2020-04-18] MEDS ORDERED: P-EPHED 60MG/TRIPROLIDI 2.5MG TABLET PO PRN (17:11)
[2020-04-18] MEDS ORDERED: guaiFENesin 200 MG/10 ML 10 ML UNIT-DOSE CUPS PO PRN ×2 (17:11→19:54)
[2020-04-18] MEDS ORDERED: MAGNESIUM HYDROX 2400MG/30ML ORAL SUSPENSION 30 ML CUP PO PRN ×2 (17:11→17:29)
[2020-04-18] MEDS ORDERED: MAGNESIUM CITRATE 300 ML BOTTLE PO PRN ×2 (17:11→17:29)
[2020-04-18] MEDS ORDERED: NICOTINE POLACRILEX 2 MG GUM BC PRN (17:11)
[2020-04-18] MEDS ORDERED: ACETAMINOPHEN 325 MG TABLET (FP) PO PRN ×3 (17:11→17:29)
[2020-04-18] MEDS ORDERED: chlordiazePOXIDE HCL 25 MG CAPSULE PO PRN (17:29)
[2020-04-18] MEDS ORDERED: METHOCARBAMOL 500 MG TABLET PO PRN (17:29)
[2020-04-18] MEDS ORDERED: BISMUTH SUBSALICYLATE 524 MG/30 ML UD PO PRN (17:29)
[2020-04-18] MEDS ORDERED: MENTHOL/PHENOL 1 EACH UD MM PRN (17:29)
[2020-04-18] MEDS ORDERED: cloNIDine HCL 0.1 MG TABLET PO PRN (17:29)
[2020-04-18] MEDS ORDERED: NICOTINE POLACRILEX 2 MG GUM BUC PRN (17:29)
--- NOTE | 2020-04-18 17:59 | PN ---
Teaching Attending Note Name of Resident: Oscar Villegas ATTENDING PHYSICIAN STATEMENT I saw and evaluated the patient. I reviewed the resident's note and discussed the case with the resident. I agree with the resident's findings and plan as documented. SUBJECTIVE: 49 yo with HIV, h/o polysubstance use, was transferred from here [facility] for eval of seizures on 04/15. Pt returns today. Pt states she feels like she is in withdrawal- CIWA OBJECTIVE: Vital Signs - 24 hr 04/18/20 17:56 Temperature 97.8 F Pulse Rate 132 H Respiratory 14 Rate Blood Pressure 114/81 ASSESSMENT AND PLAN: reviewed detox medications with pharmacy- pt only received 3 days of methadone-20mg- 15-15mg and none today- and high COWS score and only rec'd a couple of days of librium. pt states she is in withdrawal- OK 132 Will restart moderate alcohol and opioid detox protocols. Will restart HIV meds and mepron and increased dose of anti-seizure meds
[2020-04-18] MEDS ORDERED: METHADONE HCL 10 MG TABLET (FOR DETOX USE ONLY) PO ONE ×2 (18:00→18:45)
[2020-04-18] MEDS ORDERED: ONDANSETRON *ODT* 4 MG TABLET SL ONE (18:00)
[2020-04-18] MEDS ORDERED: hydrOXYzine PAMOATE 25 MG CAPSULE (FP) PO SCH (18:00)
[2020-04-18] MEDS ORDERED: chlordiazePOXIDE HCL 10 MG CAPSULE PO PRN (18:23)
[2020-04-18] MEDS ORDERED: guaiFENesin 200 MG/10 ML 10 ML UNIT-DOSE CUPS PO SCH (18:45)
[2020-04-18] MEDS: hydrOXYzine PAMOATE 25 MG CAPSULE (FP) PO SCH ×2 (19:00→22:01)
[2020-04-18] MEDS: chlordiazePOXIDE HCL 25 MG CAPSULE PO SCH (21:54)
[2020-04-18] MEDS: levETIRAcetam 500 MG TABLET (FP) PO SCH (21:55)
[2020-04-18] MEDS ORDERED: ATORVASTATIN CA 20 MG TABLET (FP) PO SCH (22:00)
[2020-04-18] MEDS ORDERED: MONTELUKAST NA 10 MG TABLET PO SCH (22:00)
[2020-04-18] MEDS ORDERED: THIAMINE HCL 100 MG TABLET (FP) PO SCH ×2 (22:00)
[2020-04-18] MEDS ORDERED: MELATONIN 5 MG TABLETS PO SCH ×2 (22:00)
[2020-04-18] MEDS: CEFUROXIME AXETIL 500 MG TABLET PO SCH (22:53)
[2020-04-18] MEDS: ATOVAQUONE 750 MG/5 ML (UNIT-DOSE PACKAGING) PO SCH (22:54)
[2020-04-18] MEDS ORDERED: chlordiazePOXIDE HCL 25 MG CAPSULE PO SCH (23:00)
[2020-04-19] MEDS: hydrOXYzine PAMOATE 25 MG CAPSULE (FP) PO SCH (05:29)
[2020-04-19] MEDS: chlordiazePOXIDE HCL 25 MG CAPSULE PO SCH (05:29)
[2020-04-19] MEDS ORDERED: hydrOXYzine PAMOATE 25 MG CAPSULE (FP) PO PRN (08:55)
--- NOTE | 2020-04-19 09:12 | PN ---
[facility] Progress Note Note: pt was admitted to the detox unit in error. pt was already detox and completed during her stay at [facility] from 04/15-04/17/2020. pt will continue her aftercare treatment in rehab today. pt states she is also on a suboxone treatment program. her last suboxone was prescribed Patient Name: Ran TenorioBirth Date: 1970 Address: [address] [address]Aqh: Female Rx Written Rx Dispensed Drug Quantity Days Supply Prescriber Name Payment Method Dispenser 02/22/2020 02/23/2020 buprenorphine-naloxone 8-2 mg sl film 90 30 Andrez Chacon MD Insurance [facility] 01/25/2020 01/26/2020 buprenorphine-naloxone 8-2 mg sl film 90 30 Andrez Chacon MD Insurance [facility] 12/25/2019 12/28/2019 buprenorphine-naloxone 8-2 mg sl film 90 30 Andrez Chacon MD Insurance [facility] 11/20/2019 11/23/2019 buprenorphine-naloxone 8-2 mg sl film 90 30 Andrez Chacon MD Insurance [facility] 09/11/2019 09/13/2019 suboxone 8 mg-2 mg sl film 45 15 Andrez Chacon MD [facility] 08/30/2019 09/05/2019 buprenorphine-naloxone 8-2 mg sl film 6 3 Andrez Chacon MD Insurance [facility] 08/18/2019 08/23/2019 buprenorphine-naloxone 8-2 mg sl film 10 5 Andrez Chacon MD Insurance [facility] 07/18/2019 07/18/2019 buprenorphine-naloxone 8-2 mg sl film 56 28 Andrez Chacon MD Insurance [facility] 07/10/2019 07/11/2019 buprenorphine-naloxone 8-2 mg sl film 16 8 Andrez Chacon MD Insurance [facility] 06/22/2019 06/22/2019 zolpidem tartrate 10 mg tablet 30 30 MarcelodaShelbie D (DO) Insurance [facility] 04/25/2019 05/23/2019 zolpidem tartrate 10 mg tablet 30 30 Shelbie Estrada D (DO) Insurance [facility] 05/02/2019 05/18/2019 buprenorphine-naloxone 8-2 mg sl film 14 7 Elaine Saavedra Insurance [facility] 04/25/2019 04/26/2019 buprenorphine-naloxone 8-2 mg sl film 4 2 Andrez Chacon MD Insurance [facility] * - Drugs marked with an asterisk are compound drugs. If the compound drug is made up of more than one controlled substance, then each controlled this is as per [facility] TAX SERVICES PROFESSIONAL. pt will be evaluated in rehab for the continuation of her suboxone.
--- NOTE | 2020-04-19 09:13 | DS ---
[facility] Detox Discharge Summary Admission Date: 04/18/20 Discharge Date: 04/19/20 - History Present History: Alcohol Dependence, Cannabis Dependence, Cocaine Dependence, Opioid Dependence, Sedative Dependence - Physical Exam Results Vital Signs: Vital Signs Temperature 96.8 F L 04/19/20 05:18 Pulse Rate 84 04/19/20 05:18 Respiratory Rate 16 04/19/20 05:18 Blood Pressure 103/73 04/19/20 05:18 O2 Sat by Pulse Oximetry (%) 97 04/19/20 05:18 Pertinent Admission Physical Exam Findings: Vital Signs Temperature 98.1 F 04/19/20 08:44 Pulse Rate 90 04/19/20 08:44 Respiratory Rate 16 04/19/20 08:44 Blood Pressure 152/82 04/19/20 08:44 O2 Sat by Pulse Oximetry (%) 97 04/19/20 05:18 pt will be d/c today from detox unit to go to rehab for the correct treatment pt is to continue. - Treatment Hospital Course: Detox Protocol Followed, Detoxed Safely, Responded well, Discharged Condition Good, Rehab Referral Accepted - Medication Discharge Medications: Ambulatory Orders Atorvastatin Ca [Lipitor] 20 mg PO HS 04/15/20 Atovaquone [Mepron Oral Solution -] 750 mg PO BID 04/15/20 Buprenorphine/Naloxone [Suboxone 8Mg/2Mg Sl Film -] 3 each SL DAILY 04/15/20 Buspirone HCl [Buspar -] 10 mg PO DAILY 04/15/20 Cholecalciferol (Vitamin D3) [Vitamin D3] 1,000 unit PO DAILY 04/15/20 Clonidine HCl [Clonidine HCl ER] 0.1 mg PO DAILY 04/15/20 Dolutegravir Sodium [Tivicay] 50 mg PO DAILY 04/15/20 Emtricitab/Rilpiviri/Tenof Ala [Odefsey Tablet] 1 each PO DAILY 04/15/20 Famotidine [Pepcid -] 40 mg PO DAILY 04/15/20 Ferrous Sulfate 325 mg PO DAILY 04/15/20 Fluconazole 150 mg PO DAILY 04/15/20 Fluticasone Propion/Salmeterol [Wixela 100-50 Inhub] 1 each IH DAILY 04/15/20 Montelukast Na [Singulair -] 10 mg PO HS 04/15/20 Quetiapine Fumarate [Quetiapine Fumarate ER] 200 mg PO DAILY 04/15/20 Acetaminophen 325 mg PO PRN 04/16/20 Guaifenesin [Robafen] 100 mg PO PRN 04/16/20 Ibuprofen 400 mg PO PRN 04/16/20 Lactulose 10 gm PO TID 04/16/20 Nicotine Patch [Nicoderm Patch -] 21 mg TD DAILY 04/16/20 Nicotine Polacrilex [Nicotine Gum] 2 mg PO PRN 04/16/20 Cefuroxime Axetil [Ceftin -] 500 mg PO BID tablet 04/17/20 Pyrimethamine [Pyrimethamine and Leucovorin 75 MG/25 MG] 1 cap PO WEEKLY #8 cap 04/17/20 levETIRAcetam [Levetiracetam ER] 1,500 mg PO BID #60 tab 04/17/20 - Diagnosis (1) Alcohol dependence, uncomplicated Current Visit: Yes Status: Acute (2) Substance induced mood disorder Current Visit: Yes Status: Acute (3) Nicotine dependence Current Visit: Yes Status: Chronic (4) Seizure disorder Current Visit: Yes Status: Chronic (5) PTSD (post-traumatic stress disorder) Current Visit: Yes Status: Ruled-out (6) Hampton's palsy Current Visit: No Status: Acute (7) Blunt head trauma Current Visit: No Status: Acute (8) Breakthrough seizure Current Visit: No Status: Acute (9) Closed head injury Current Visit: No Status: Acute (10) Cocaine abuse Current Visit: No Status: Acute (11) Cocaine dependence Current Visit: No Status: Acute Qualifiers: Substance use status: uncomplicated Qualified Code(s): F14.20 - Cocaine dependence, uncomplicated (12) Elevated lactic acid level Current Visit: No Status: Acute (13) Insomnia Current Visit: No Status: Acute (14) Opioid dependence Current Visit: No Status: Acute (15) Opioid dependence with withdrawal Current Visit: No Status: Acute (16) Polysubstance abuse Current Visit: No Status: Acute (17) Seizure Current Visit: No Status: Acute (18) Substance-induced sleep disorder Current Visit: No Status: Acute (19) UTI (urinary tract infection) Current Visit: No Status: Acute (20) Uncomplicated sedative, hypnotic or anxiolytic withdrawal Current Visit: No Status: Acute (21) Weight loss Current Visit: No Status: Acute (22) Bipolar II disorder Current Visit: No Status: Chronic (23) Chronic PID (chronic pelvic inflammatory disease) Current Visit: No Status: Chronic (24) GERD (gastroesophageal reflux disease) Current Visit: No Status: Chronic Qualifiers: Esophagitis presence: without esophagitis Qualified Code(s): K21.9 - Gastro-esophageal reflux disease without esophagitis (25) GERD (gastroesophageal reflux disease) Current Visit: No Status: Chronic (26) HIV disease Current Visit: No Status: Chronic (27) HTN (hypertension) Current Visit: No Status: Chronic (28) Heroin use disorder, moderate, in controlled environment, dependence Current Visit: No Status: Chronic (29) History of HIV or AIDS Current Visit: No Status: Chronic (30) Hyperlipidemia Current Visit: No Status: Chronic Qualifiers: Hyperlipidemia type: pure hypercholesterolemia Qualified Code(s): E78.00 - Pure hypercholesterolemia, unspecified; E78.0 - Pure hypercholesterolemia (31) Polysubstance (including opioids) dependence, daily use Current Visit: No Status: Chronic (32) Anemia Current Visit: No Status: Resolved - AMA Did Patient Leave Against Medical Advice: No
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
[2020-04-19] MEDS ORDERED: FLUTICASONE/SALMETEROL 100 MCG/50 MCG DISKUS IH SCH (10:00)
[2020-04-19] MEDS ORDERED: FAMOTIDINE 20 MG TABLET PO SCH (10:00)
[2020-04-19] MEDS ORDERED: CHOLECALCIFEROL (VIT D3) 1,000 UNIT (25 MCG) TABLET PO SCH (10:00)
[2020-04-19] MEDS ORDERED: EMTRICITAB/RILPIVIRI/TENOF ALA (ODEFSEY) TABLET PO SCH (10:00)
[2020-04-19] MEDS ORDERED: DOLUTEGRAVIR SODIUM 50 MG TABLET (NON-FORMULARY) PO SCH (10:00)
[2020-04-19] MEDS ORDERED: METHADONE (DETOX) 20 MG, METHADONE (DETOX) 5 MG PO ONE (10:00)
[2020-04-19] MEDS ORDERED: NICOTINE 7 MG/24 HOURS TOPICAL PATCH TD SCH ×2 (10:00)
[2020-04-19] MEDS ORDERED: METHADONE HCL 5 MG TABLET (FOR DETOX USE ONLY) PO ONE (10:00)
[2020-04-19] MEDS ORDERED: FERROUS SO4 325 MG TABLET (FP) PO SCH (10:00)
[2020-04-19] MEDS ORDERED: PRENATAL VITAMINS W/ FOLIC ACID TABLET (FP) PO SCH ×2 (10:00)
[2020-04-19] MEDS ORDERED: busPIRone HCL 10 MG TABLET (FP) PO SCH (10:00)
[2020-04-19] MEDS: levETIRAcetam 500 MG TABLET (FP) PO SCH (11:14)
[2020-04-19 12:31] LABS: HEMATOCRIT 39.1 % (32.4-45.2); HEMOGLOBIN 12.8 GM/dL (10.7-15.3); MCH 29.9 pg (25.7-33.7); MCHC 32.8 g/dl (32.0-36.0); MEAN CELL VOLUME 91.3 fl (80-96); MEAN PLT VOLUME 9.5 fl (7.5-11.1); PLATELET COUNT 78 K/MM3 (134-434); RBC 4.28 M/mm3 (3.60-5.2); RDW 14.5 % (11.6-15.6); WHITE BLOOD COUNT 3.8 K/mm3 (4.0-10.0)
[2020-04-19 12:40] LABS: ALBUMIN 3.3 g/dl (3.4-5.0); BILIRUBIN,TOTAL 0.4 mg/dL (0.2-1); BLOOD UREA NITROGEN 18.1 mg/dL (7-18); CALCIUM 8.7 mg/dL (8.5-10.1); POTASSIUM 4.4 mmol/L (3.5-5.1); TOT PROT 7.8 g/dl (6.4-8.2)
[2020-04-19] MEDS: CEFUROXIME AXETIL 500 MG TABLET PO SCH (13:02)
[2020-04-19] MEDS: ATOVAQUONE 750 MG/5 ML (UNIT-DOSE PACKAGING) PO SCH (13:02)
[2020-04-19 13:09] VITALS: BP 114/81; PULSE 132; TEMP 97.8
[2020-04-19] MEDS ORDERED: SUVOREXANT 10 MG TABLET PO PRN (22:00)
[2020-04-20] MEDS ORDERED: chlordiazePOXIDE HCL 25 MG CAPSULE PO SCH (05:00)
[2020-04-20] MEDS ORDERED: chlordiazePOXIDE 5 MG CAPSULE PO SCH (05:00)
[2020-04-20] MEDS ORDERED: METHADONE HCL 10 MG TABLET (FOR DETOX USE ONLY) PO ONE ×2 (10:00)
[2020-04-21] MEDS ORDERED: chlordiazePOXIDE HCL 10 MG CAPSULE PO PRN ×2
[2020-04-21] MEDS ORDERED: chlordiazePOXIDE HCL 10 MG CAPSULE PO SCH ×2 (05:00)
[2020-04-21] MEDS ORDERED: METHADONE HCL 5 MG TABLET (FOR DETOX USE ONLY) PO ONE (06:00)
[2020-04-21] MEDS ORDERED: METHADONE (DETOX) 10 MG, METHADONE (DETOX) 5 MG PO ONE (10:00)
[2020-04-22] MEDS ORDERED: chlordiazePOXIDE HCL 10 MG CAPSULE PO SCH (05:00)
[2020-04-22] MEDS ORDERED: chlordiazePOXIDE HCL 10 MG CAPSULE PO ONE (05:00)
[2020-04-22] MEDS ORDERED: METHADONE HCL 10 MG TABLET (FOR DETOX USE ONLY) PO ONE (10:00)
[2020-04-23] MEDS ORDERED: chlordiazePOXIDE HCL 10 MG CAPSULE PO ONE (05:00)
[2020-04-23] MEDS ORDERED: METHADONE HCL 5 MG TABLET (FOR DETOX USE ONLY) PO ONE (06:00)
== END 2020-04-19 12:05 | disposition other institution (70) | DRG 773 ==
LOC: YASAS 14:28 → Y6N 17:34
PROVIDERS: ADMIT Allergy & Immunology; ATTEND Allergy & Immunology
PROC: HZ2ZZZZ Detoxification Services for Substance Abuse Treatment (ICD-10-PCS; principal; 2020-04-18)
DX: F10.230 Alcohol dependence with withdrawal, uncomplicated (principal); F11.23 Opioid dependence with withdrawal; F13.230 Sedative, hypnotic or anxiolytic dependence with withdrawal, uncomplicated; F14.20 Cocaine dependence, uncomplicated; F17.210 Nicotine dependence, cigarettes, uncomplicated; F19.282 Other psychoactive substance dependence with psychoactive substance-induced sleep disorder; F19.24 Other psychoactive substance dependence with psychoactive substance-induced mood disorder; F31.81 Bipolar II disorder; B20 Human immunodeficiency virus [HIV] disease; E78.5 Hyperlipidemia, unspecified; I10 Essential (primary) hypertension; J44.9 Chronic obstructive pulmonary disease, unspecified; J45.998 Other asthma; K21.9 Gastro-esophageal reflux disease without esophagitis; R56.1 Post traumatic seizures; N73.1 Chronic parametritis and pelvic cellulitis; Z86.2 Personal history of diseases of the blood and blood-forming organs and certain disorders involving the immune mechanism; Z62.810 Personal history of physical and sexual abuse in childhood; Z91.410 Personal history of adult physical and sexual abuse; Z91.5 Personal history of self-harm; Z88.8 Allergy status to other drugs, medicaments and biological substances
CPT/HCPCS: 36415; 80053; 85027; 86780; Q0162

== ENCOUNTER 2020-04-19 12:33 | Inpatient (IN) | payer OTHER ==
--- NOTE | 2020-04-19 14:11 | HP ---
[facility] Rehab Assess/Revision - Admission History Admitted to Rehab from: [facility] [address] Date of Admission to Rehab: 04/19/20 - Vital signs Vital Signs: Vital Signs Period Temp Pulse Resp BP Sys/Sanz Pulse Ox Last 24 Hr 97.1 F 101 18 124/84 99 - Findings Detox History & Physical reviewed: Yes Concur with findings: Yes Inpatient Rehab Admission - Rehab Decision to Admit Inpatient rehab admission?: Yes - Initial Determination Are CD services needed?: Yes Free of communicable disease: Yes Not in need of hospitalization: Yes - Rehab Admission Criteria Previous failed treatment: Yes Poor recovery environment: Yes Comorbidities: Yes Lacks judgement: Yes Patient is meeting Inpatient Rehab admission criteria:: Yes
--- NOTE | 2020-04-19 14:13 | HP ---
[facility] Rehab Assess/Revision - Admission History Admitted to Rehab from: Y [address] [place] [address] - Vital signs Vital Signs: Vital Signs Period Temp Pulse Resp BP Sys/Sanz Pulse Ox Last 24 Hr 97.1 F 101 18 124/84 99 Patient admitted to rehab from [address] [place] [address]. Last Methadone dose 04/18/2020. Patient treated in community with suboxone MAT. Patient informed she will have to 48-72 hours until Methadone clears to restart treatment. Patient agrees with plan of care. Will reassess for suboxone treatment 04/22/2020. - Findings Detox History & Physical reviewed: Yes Concur with findings: Yes Inpatient Rehab Admission - Rehab Decision to Admit Inpatient rehab admission?: Yes - Initial Determination Are CD services needed?: Yes Free of communicable disease: Yes Not in need of hospitalization: Yes - Rehab Admission Criteria Previous failed treatment: Yes Poor recovery environment: Yes Comorbidities: Yes Lacks judgement: No Patient is meeting Inpatient Rehab admission criteria:: Yes
[2020-04-19] MEDS ORDERED: NICOTINE POLACRILEX 2 MG GUM BUC PRN (14:27)
[2020-04-19] MEDS ORDERED: ACETAMINOPHEN 325 MG TABLET (FP) PO PRN (14:27)
[2020-04-19] MEDS ORDERED: P-EPHED 60MG/TRIPROLIDI 2.5MG TABLET PO PRN (14:27)
[2020-04-19] MEDS ORDERED: MAGNESIUM CITRATE 300 ML BOTTLE PO PRN (14:27)
[2020-04-19] MEDS ORDERED: LOPERAMIDE HCL 2 MG CAPSULE PO PRN (14:27)
[2020-04-19] MEDS ORDERED: MAGNESIUM HYDROX 2400MG/30ML ORAL SUSPENSION 30 ML CUP PO PRN (14:27)
[2020-04-19] MEDS ORDERED: guaiFENesin 200 MG/10 ML 10 ML UNIT-DOSE CUPS PO PRN (14:27)
[2020-04-19] MEDS ORDERED: MENTHOL/PHENOL 1 EACH UD MM PRN (14:27)
[2020-04-19] MEDS ORDERED: MAG HYDROX/AL HYDROX/SIMETH 30 ML UNIT-DOSE CUP PO PRN (14:27)
--- NOTE | 2020-04-19 14:39 | PN ---
S Progress Note Note: Additional information from H/P: Past Medical History [employer]: Yes: Seizure Cardiovascular: Yes: HTN, Hyperlipdemia Pulmonary: Yes: Asthma, COPD Gastrointestinal: Yes: GERD ...LMP: 08/16/16 Heme/Onc: Yes: Anemia Infectious Disease: Yes: AIDS Psych: Yes: Bipolar - Past Surgical History Additional Past Surgical History: Arthroscopic R knee - Smoking History Smoking history: Current every day smoker Have you smoked in the past 12 months: Yes Aproximately how many cigarettes per day: 4 Results Drug screen NEGATIVE: No Urine drug screen results: THC-Marijuana, FEN-Fentanyl, MOP-Opiates, OXY- Oxycodone, BZO-Benzodiazepines, BUP-Suboxone
[2020-04-19] MEDS ORDERED: PT OWN MED DRAWER 7, Y5N ONE ×2 (17:06→19:40)
[2020-04-19] MEDS: hydrOXYzine PAMOATE 25 MG CAPSULE (FP) PO PRN ×2 (17:28→21:34)
[2020-04-19] MEDS ORDERED: VITAMINS A AND D TOPICAL OINTMENT 60 GM TUBE TP PRN (18:50)
[2020-04-19] MEDS: IBUPROFEN 400 MG TABLET (FP) PO PRN (19:26)
[2020-04-19] MEDS: levETIRAcetam 500 MG TABLET (FP) PO SCH (21:33)
[2020-04-19] MEDS: busPIRone HCL 10 MG TABLET (FP) PO SCH (21:35)
[2020-04-19] MEDS: MINERAL OIL/PETROLAT/WATER TOPICAL CREAM 113 GM JAR TP SCH (21:37)
[2020-04-19] MEDS: ATOVAQUONE 750 MG/5 ML (UNIT-DOSE PACKAGING) PO SCH (21:40)
[2020-04-19] MEDS ORDERED: ATORVASTATIN CA 20 MG TABLET (FP) PO SCH (22:00)
[2020-04-19] MEDS ORDERED: MELATONIN 5 MG TABLETS PO SCH (22:00)
[2020-04-19] MEDS ORDERED: SUVOREXANT 10 MG TABLET PO PRN (22:00)
[2020-04-19] MEDS ORDERED: MONTELUKAST NA 10 MG TABLET PO SCH (22:00)
[2020-04-19] MEDS ORDERED: THIAMINE HCL 100 MG TABLET (FP) PO SCH (22:00)
[2020-04-19] MEDS: CEFUROXIME AXETIL 500 MG TABLET PO SCH (22:35)
[2020-04-20] MEDS: hydrOXYzine PAMOATE 25 MG CAPSULE (FP) PO PRN ×2 (01:56→06:52)
[2020-04-20] MEDS: IBUPROFEN 400 MG TABLET (FP) PO PRN (06:52)
[2020-04-20] MEDS ORDERED: PT OWN MED DRAWER 7, Y5N ONE ×2 (08:23→08:57)
--- NOTE | 2020-04-20 08:45 | PN ---
Teaching Attending Note Name of Resident: Oscar Villegas ATTENDING PHYSICIAN STATEMENT I saw and evaluated the patient. I reviewed the resident's note and discussed the case with the resident. I agree with the resident's findings and plan as documented. SUBJECTIVE: OBJECTIVE: ASSESSMENT AND PLAN: Agreed with revision and plan for rehab after first being admitted to detox under Dr. Mosquera
[2020-04-20] MEDS ORDERED: LORazepam 2 MG/ML SDV VIAL ONE (09:04)
--- NOTE | 2020-04-20 09:32 | PN ---
[facility] Progress Note Note: Responded to rapid response for this patient who was actively seizing. Patient has chronic seizure disorder and is currently in rehab for benzo, cocaine abuse, marijuana, heroin, fentanyl, xanax, and Suboxone dependence. Patient was transferred to the ED on 04/15 for seizure activity, returned on 04/18 to resume rehab Reportedly, patient had a 30 seconds activity around 9am, recovered for about 1 minute and then seized again with generalized tonic clonic seizure activity which lasted for 1 minute. 2 mg of Aivan IM given, patient regained consciousness shortly after being medicated. ROS: She reports mild headache, mild shortness of breath, dizziness, denies chest pain, palpitation, fever or chills PMHx HIV/AIDS, HTN, HLD, depression, Bipolar disorder, asthma, COPD, anemia, seizure disorder and poly-substance abuse. She is currently being treated with ceftin for UTI PE Vital Signs Temperature 99.3 F 04/20/20 09:09 Pulse Rate 113 H 04/20/20 09:09 Respiratory Rate 23 H 04/20/20 09:09 Blood Pressure 184/100 H 04/20/20 09:09 O2 Sat by Pulse Oximetry (%) 98 04/20/20 09:09 General Appearance: Mild distress HEENT: Unremarkable Chest: Lungs clear in all [place] CVS: Tachycardia, regular Abdomen: BS X 4, non-tender, firm Neuro: Alert, oriented x 3, DUMONT x , no focal deficits Extremities: No cyanosis, left nedial malleolus erythema, skin intact, no swelling or edema A/P Patient is a 49 year old woman with poly-substance abuse who was evaluated in the ER on 04/15, returned to [facility] on 04/18 and this morning, she seizes again. Transfer to the ED for further evaluation
[2020-04-20 09:36] VITALS: BP 184/100; PULSE 113; TEMP 99.3
[2020-04-20] MEDS ORDERED: EMTRICITAB/RILPIVIRI/TENOF ALA (ODEFSEY) TABLET PO SCH (10:00)
[2020-04-20] MEDS ORDERED: PRENATAL VITAMINS W/ FOLIC ACID TABLET (FP) PO SCH (10:00)
[2020-04-20] MEDS ORDERED: NICOTINE 7 MG/24 HOURS TOPICAL PATCH TD SCH (10:00)
[2020-04-20] MEDS: CEFUROXIME AXETIL 500 MG TABLET PO SCH (10:27)
[2020-04-20] MEDS: MINERAL OIL/PETROLAT/WATER TOPICAL CREAM 113 GM JAR TP SCH (10:27)
[2020-04-20] MEDS: busPIRone HCL 10 MG TABLET (FP) PO SCH (10:27)
[2020-04-20] MEDS: ATOVAQUONE 750 MG/5 ML (UNIT-DOSE PACKAGING) PO SCH (10:28)
[2020-04-20] MEDS: levETIRAcetam 500 MG TABLET (FP) PO SCH (10:28)
== END 2020-04-20 22:39 | disposition short-term general hospital (02) | DRG 772 ==
LOC: YASAS 12:33 → Y3E 12:34
PROVIDERS: ADMIT Allergy & Immunology; ATTEND Allergy & Immunology
PROC: HZ42ZZZ Group Counseling for Substance Abuse Treatment, Cognitive-Behavioral (ICD-10-PCS; principal; 2020-04-19)
DX: F11.20 Opioid dependence, uncomplicated (principal); F10.20 Alcohol dependence, uncomplicated; F13.20 Sedative, hypnotic or anxiolytic dependence, uncomplicated; F14.20 Cocaine dependence, uncomplicated; F12.20 Cannabis dependence, uncomplicated; F17.210 Nicotine dependence, cigarettes, uncomplicated; F31.81 Bipolar II disorder; B20 Human immunodeficiency virus [HIV] disease; G40.909 Epilepsy, unspecified, not intractable, without status epilepticus; I10 Essential (primary) hypertension; E78.5 Hyperlipidemia, unspecified; J44.9 Chronic obstructive pulmonary disease, unspecified; K21.9 Gastro-esophageal reflux disease without esophagitis; N39.0 Urinary tract infection, site not specified; Z88.8 Allergy status to other drugs, medicaments and biological substances
CPT/HCPCS: 70450-TC; 82962

== ENCOUNTER 2020-04-20 09:54 | Inpatient (IN) | payer OTHER ==
[2020-04-20] MEDS ORDERED: ONDANSETRON 4 MG/2 ML VIAL IVPUSH ONE (10:49)
--- NOTE | 2020-04-20 11:09 | PDOC ---
History of Present Illness - General Chief Complaint: Seizure Stated Complaint: SEIZURES Time Seen by Provider: 04/20/20 10:17 - History of Present Illness Initial Comments: 04/20/20 11:16 HPI 49 y/o F hx of HIV/AIDS, HTN, HLD, depression, Bipolar disorder, asthma, COPD, anemia, seizure disorder and poly-substance abuse, endometriosis. She is currently being treated with ceftin for UTI for which she was discharged on 04/15 pt sent from [facility] after seizures this a.m which resolved after ativan was given. pt sent for evaluation because brain mri showed aneurysmal dilation, so sent in for further evaluation. pt on suboxone treatment in the past. per [facility](chart review) is supposed to be reassessed for suboxone treatment on 04/22/2020 with her seroquel, buspar to be continued and to receive belsomra 10mg po hs patient alert and oriented at this time. however is not the best historian PMHx: as noted above ROS: as noted Allergies: multiple drug allergies ROS: GENERAL/CONSTITUTIONAL: No fever or chills. No weakness. HEAD, EYES, EARS, NOSE AND THROAT: No change in vision. No ear pain or discharge. No sore throat. CARDIOVASCULAR: No chest pain or shortness of breath RESPIRATORY: No cough, wheezing, or hemoptysis. GASTROINTESTINAL: +nausea, vomiting at [facility]. GENITOURINARY: No dysuria, frequency, or change in urination. MUSCULOSKELETAL: No joint or muscle swelling or pain. No neck or back pain. SKIN: No rash NEUROLOGIC: No headache, vertigo, loss of consciousness, or change in strength/sensation. ENDOCRINE: No increased thirst. No abnormal weight change HEMATOLOGIC/LYMPHATIC: No anemia, easy bleeding, or history of blood clots. ALLERGIC/IMMUNOLOGIC: No hives or skin allergy. PE: GENERAL: Awake, alert, and fully oriented, in no acute distress HEAD: No signs of trauma, normocephalic, atraumatic EYES: PERRLA, EOMI, sclera anicteric, conjunctiva clear ENT: Auricles normal inspection, hearing grossly normal, nares patent, oropharynx clear without exudates. Moist mucosa NECK: Normal ROM, supple, no lymphadenopathy, JVD, or masses LUNGS: No distress, speaks full sentences, clear to auscultation bilaterally HEART: Regular rate and rhythm, normal S1 and S2, no murmurs, rubs or gallops, peripheral pulses normal and equal bilaterally. ABDOMEN: Soft, ttp (suprapubic), cva tenderness. PELVIC: cervical os closed,physiologic discharge +adnexal tenderness, +cmt. EXTREMITIES : Normal inspection, Normal range of motion, no edema. No clubbing or cyanosis NEUROLOGICAL: Cranial nerves II through XII grossly intact. Normal speech, normal gait, no focal sensorimotor deficits SKIN: Warm, Dry, normal turgor, no rashes or lesions noted MDM DDx including but not limited to: uti (currently on ceftin), ovarian torsion. cyst, withdrawal, drug intoxication. Workup:labs, head ct, tvus, TX: - EKG: sinus tachycardia, prolonged qtc 490, t wave inversions, v3 and v4. ED course pt given tylenol IV for pain. repeatedly requesting her seroquel, buspar and vi staril and threatening to leave/not go to cat scan. pt offered her a.m meds as listed below. buspar 30mg po seroquel 200mg po vistaril 25mg po CT scan of the head without intravenous contrast Compared to prior MRI of the brain dated 04/18/[address] scan of the head dated 04/16/2020 The ventricles and basal cisterns appear unremarkable. No mass lesion, CT alexandrea dence of an acute infarct or intracranial hemorrhage are identified. There is no shift of the midline structures. The calvarium is intact. Visualized paranasal sinuses and mastoid air cells are well aerated. Mild deviation of the nasal septum towards the left. Impression: Unremarkable examination. No CT evidence of acute intracranial pathology is identified. Mild deviation of the nasal septum towards the left. Transvaginal ultrasound Impression: Fibroid uterus, as described above. Borderline thickening of the endometrial wall for a postmenopausal female measuring 6 mm including a trace of fluid within the endometrial cavity. Correlate clinically to determine further evaluation. A follow-up is also needed. 2.4 x 2.2 cm left ovarian cyst with a slightly irregular contour for which a follow-up is needed. Right ovary was not seen -Pt given copy of her transvaginal ultrasound report. admitiing for further management 04/20/20 17:22 Past History - Medical History Allergies/Adverse Reactions: Allergies Allergy/AdvReac Type Severity Reaction Status Date / Time haloperidol [From Haldol] Allergy Severe Rash Verified 04/19/20 12:04 haloperidol lactate Allergy Severe Rash Verified 04/19/20 12:04 [From Haldol] metoclopramide Allergy Severe swelling, Verified 04/19/20 12:04 itching metoclopramide HCl Allergy Severe Swelling Verified 04/19/20 12:04 [From Reglan] prochlorperazine Allergy Severe Swelling Verified 04/19/20 12:04 [From Compazine] prochlorperazine edisylate Allergy Severe Swelling Verified 04/19/20 12:04 [From Compazine] prochlorperazine maleate Allergy Severe Swelling Verified 04/19/20 12:04 [From Compazine] Sulfa (Sulfonamide Allergy Severe Itching, Verified 04/19/20 12:04 Antibiotics) swelling Home Medications: Ambulatory Orders Atorvastatin Ca [Lipitor] 20 mg PO HS 04/15/20 Atovaquone [Mepron Oral Solution -] 750 mg PO BID 04/15/20 Buprenorphine/Naloxone [Suboxone 8Mg/2Mg Sl Film -] 3 each SL DAILY 04/15/20 Buspirone HCl [Buspar -] 10 mg PO DAILY 04/15/20 Cholecalciferol (Vitamin D3) [Vitamin D3] 1,000 unit PO DAILY 04/15/20 Clonidine HCl [Clonidine HCl ER] 0.1 mg PO DAILY 04/15/20 Dolutegravir Sodium [Tivicay] 50 mg PO DAILY 04/15/20 Emtricitab/Rilpiviri/Tenof Ala [Odefsey Tablet] 1 each PO DAILY 04/15/20 Ferrous Sulfate 325 mg PO DAILY 04/15/20 Fluticasone Propion/Salmeterol [Wixela 100-50 Inhub] 1 each IH DAILY 04/15/20 Montelukast Na [Singulair -] 10 mg PO HS 04/15/20 Quetiapine Fumarate [Quetiapine Fumarate ER] 200 mg PO BID 04/15/20 Acetaminophen 325 mg PO PRN 04/16/20 Guaifenesin [Robafen] 100 mg PO PRN 04/16/20 Ibuprofen 400 mg PO PRN 04/16/20 Lactulose 10 gm PO TID 04/16/20 Nicotine Patch [Nicoderm Patch -] 21 mg TD DAILY 04/16/20 Nicotine Polacrilex [Nicotine Gum] 2 mg PO PRN 04/16/20 Cefuroxime Axetil [Ceftin -] 500 mg PO BID tablet 04/17/20 Pyrimethamine [Pyrimethamine and Leucovorin 75 MG/25 MG] 1 cap PO WEEKLY #8 cap 04/17/20 levETIRAcetam [Levetiracetam ER] 1,500 mg PO BID #60 tab 04/17/20 Anemia: Yes (on iron supplement) Asthma: No Cancer: Yes ([facility]) Cardiac Disorders: No COPD: Yes CHF: No Diabetes: No GI Disorders: Yes Disorders: No HTN: Yes Hypercholesterolemia: Yes Kidney Stones: No Liver Disease: No Seizures: No (Last 04/15/2020) Thyroid Disease: No - Surgical History Abdominal Surgery: No Appendectomy: No Cardiac Surgery: No Cholecystectomy: No Lung Surgery: No Neurologic Surgery: No Orthopedic Surgery: No - Reproductive History Is Patient Now?: No PID: No - Psycho-Social/Smoking History Smoking History: Current some day smoker Have you smoked in the past 12 months: Yes Number of Cigarettes Smoked Daily: 4 Information on smoking cessation initiated: No 'Breaking Loose' booklet given: 04/13/20 - Substance Abuse Hx (Audit-C & DAST Scrn) How often the patient has a drink containing alcohol: Never Score: In Men: 4 or > Positive; In Women: 3 or > Positive: 0 Screen Result (Pos requires Nsg. Audit-10AR): Negative In the last yr the pt used illegal drug/Rx for NonMed reason: Yes Score: Yes response is considered Positive: 1 Screen Result (Positive result requires Nsg. DAST-10): Positive *Physical Exam - Vital Signs Last Vital Signs Temp Pulse Resp BP Pulse Ox 97.9 F 89 18 146/98 100 04/20/20 10:01 04/20/20 11:06 04/20/20 11:06 04/20/20 11:06 04/20/20 11:06 ED Treatment Course - LABORATORY CBC & Chemistry Diagram: 04/20/20 10:38 04/20/20 10:38 - RADIOLOGY Radiology Studies Ordered: Category Date Time Status HEAD CT WITHOUT CONTRAST [CT] Stat CT Scan 04/20/20 10:54 Ordered - Medications Given in the ED: ED Medications Discontinued Medications Generic Name Dose Route Start Last Admin Trade Name Giorgi PRN Reason Stop Dose Admin Ondansetron HCl 4 mg 04/20/20 10:49 04/20/20 11:03 Zofran Injection IVPUSH 04/20/20 10:50 4 mg NOW ONE Administration Discharge - Discharge Information Problems reviewed: Yes Clinical Impression/Diagnosis: Seizure, Substance abuse, UTI (urinary tract infection) - Follow up/Referral - Patient Discharge Instructions - Post Discharge Activity
[2020-04-20 11:23] LABS: BASO % 0.9 % (0-2.0); EOS % 2.4 % (0-4.5); HEMATOCRIT 40.9 % (32.4-45.2); HEMOGLOBIN 13.3 GM/dL (10.7-15.3); LYMPH % 14.9 % (8-40); MCH 29.7 pg (25.7-33.7); MCHC 32.6 g/dl (32.0-36.0); MEAN CELL VOLUME 91.2 fl (80-96); MEAN PLT VOLUME 8.9 fl (7.5-11.1); MONO % 9.8 % (3.8-10.2); PLATELET COUNT 71 K/MM3 (134-434); RBC 4.48 M/mm3 (3.60-5.2); WHITE BLOOD COUNT 4.1 K/mm3 (4.0-10.0)
[2020-04-20 11:25] LABS: EPI CELLS 10 /uL (0-25.1); HYALINE CASTS 0 /uL (0-3.1); URINE APPEARANCE CLEAR; URINE BACTERIA 11 /uL (0-1359); URINE BILIRUBIN NEGATIVE (NEGATIVE); URINE COLOR YELLOW; URINE GLUCOSE (UA) NEGATIVE (NEGATIVE); URINE KETONE NEGATIVE (NEGATIVE); URINE LEUK ESTERASE TRACE (NEGATIVE); URINE NITRITE NEGATIVE (NEGATIVE); URINE PROTEIN NEGATIVE (NEGATIVE); URINE RBC 10 /uL (0-23.9); URINE UROBILINOGEN 0.2 mg/dL (0.2-1.0); URINE WBC 3 /uL (0-25.8)
[2020-04-20 11:32] LABS: INR 0.93 (0.83-1.09)
[2020-04-20 11:35] LABS: ACTIVATED PTT 29.3 SECONDS (25.2-36.5)
--- NOTE | 2020-04-20 11:44 | PDOC ---
Documentation entered by Tom Perez SCRIBE, acting as scribe for Nat Vicente MD. Nat Vicente MD: This documentation has been prepared by the Chris pagan Xhesika, SCRIBE, under my direction and personally reviewed by me in its entirety. I confirm that the documentation accurately reflects all work, treatment, procedures, and medical decision making performed by me. Attending Attestation - Resident Resident Name: MingMadimannie - ED Attending Attestation I have performed the following: I have examined & evaluated the patient, The case was reviewed & discussed with the resident, I agree w/resident's findings & plan, Exceptions are as noted - HPI HPI: 04/20/20 10:29 The patient is a 49 y/o F with a pmh of benzo and cocaine abuse, HIV/AIDS, HTN,HLD, depression, Bipolar disorder, asthma, COPD, anemia, and seizure disorder (on Keppra 2x daily) who presents to the ED BIBA from [facility] for seizure. Per [facility] notes the patient had multiple tonic-clonic seizure at around 9am. she was given ativan 2 mg. she was at [facility] detoxing from opiates and xanax. Per EMS, enroute to the ED, pt was witnessed having a tonic-clonic seizure and was given versed and Ativan. Pt was seen here in the ED on 04/15 for seizure activity, and returned to [facility] on 04/18. Pt is reporting nausea and vomiting. pt also c/o lower abd pain, states on abx for uti. also c/o flank pain. no f/c nausea, no vomiting. Per [facility] notes, pt is currently being treated with ceftin for UTI. Allergies: per nursing records 04/20/20 11:39 - Physicial Exam PE: 04/20/20 11:41 awake alert lungs clear bilat heart rrr no mrg abd soft mild llq suprapubic ttp. no rebound no gaurding. no cva tenderness. skin warm and dry. nuero alert oriented x 3. - Medical Decision Making 04/20/20 11:42 49 yo F mult med problems bipoloar,substanc abuse, seizure disorder at [facility] detox from benzo and opiates, here with seizure like activty per [facility]. while in Ed pt with recurrent episodes of atypical seizure like shaking. however no post ictal period. no incontinence. review pt chart old ct concern for possible anuerysm. differential pseudoseizure, benzo withdrawal ( only mild tachycardia , no hypertension to support), seizures breakthrough ( pt on keppra), ich, plan ct head labs . due to concerns for h/o benzo abuse, and already on keppra, unclear cause of seizures. will likley require admission for further eval by nuerology. pt was admitted to [facility] for detox already. labs . Discharge - Discharge Information Problems reviewed: Yes Clinical Impression/Diagnosis: Seizure, Substance abuse, UTI (urinary tract infection) - Follow up/Referral - Patient Discharge Instructions - Post Discharge Activity
[2020-04-20 11:48] LABS: COCAINE, UR NEGATIVE ng/ml (CUTOFF=300); METHADONE, UR NEGATIVE ng/ml (CUTOFF=300); OPIATES, URI NEGATIVE ng/ml (CUTOFF=300); PHENCYCLIDINE,URINE NEGATIVE ng/ml (CUTOFF=25); URINE BARBITURATES NEGATIVE ng/ml (CUTOFF=200)
[2020-04-20 11:49] LABS: URINE AMPHETAMINES NEGATIVE ng/ml (CUTOFF=500)
[2020-04-20 12:07] LABS: URINE BENZODIAZEPINES POSITIVE ng/ml (CUTOFF=200)
[2020-04-20] MEDS ORDERED: ACETAMINOPHEN 1000 MG/100 ML VIAL (NON FORMULARY) IVPB ONE (12:07)
[2020-04-20] MEDS ORDERED: ACETAMINOPHEN INJECTION 100 ML IVPB ONE (12:13)
[2020-04-20 12:24] LABS: ALBUMIN 3.5 g/dl (3.4-5.0); BILIRUBIN,TOTAL 0.5 mg/dL (0.2-1); CREATININE 0.9 mg/dL (0.55-1.3); POTASSIUM 4.6 mmol/L (3.5-5.1); TOT PROT 8.5 g/dl (6.4-8.2)
[2020-04-20] MEDS ORDERED: hydrOXYzine PAMOATE 25 MG CAPSULE (FP) PO ONE ×2 (12:46→13:04)
[2020-04-20] MEDS ORDERED: busPIRone HCL 5 MG TABLET PO ONE (12:46)
[2020-04-20] MEDS ORDERED: busPIRone HCL 5 MG TABLET ONE (13:04)
[2020-04-20] MEDS ORDERED: QUEtiapine FUMARATE 100 MG TABLET (FP) ONE ×2 (13:04→21:09)
[2020-04-20] MEDS ORDERED: KETOROLAC TROMETHAMINE 15 MG/ML VIAL IVPUSH ONE (14:33)
--- NOTE | 2020-04-20 14:56 | EKG ---
Test Reason : Blood Pressure : / mmHG Vent. Rate : 101 BPM Atrial Rate : 101 BPM P-R Int : 136 ms QRS Dur : 084 ms QT Int : 382 ms P-R-T Axes : 067 071 051 degrees QTc Int : 495 ms SINUS TACHYCARDIA NONSPECIFIC T WAVE ABNORMALITY ABNORMAL ECG WHEN COMPARED WITH ECG OF 15-APR-2020 12:33, QUESTIONABLE CHANGE IN QRS AXIS Confirmed by Huseyin Boyd ([id number]) on 04/20/2020 2:56:30 PM Referred By: Confirmed By:Huseyin Boyd
[2020-04-20] MEDS ORDERED: KETOROLAC TROMETHAMINE 15 MG/ML VIAL ONE (15:02)
--- NOTE | 2020-04-20 15:03 | HP ---
CHIEF COMPLAINT: Seizures PCP: Andrez Chacon HISTORY OF PRESENT ILLNESS: 49 year old female with known history of HIV/AIDS, hypertension, hyperlipidemia, bipolar DO, anemia, seizure disorder, polysubstance abuse, endometriosis, UTI (on antibiotics) who presents to ED from [facility] after she was noted to have seizure episode necessitating ativan administration. Other symptoms included loose stools, abdominal pains, frequent and painful urination. At the ED, Head Ct did not reveal any acute intracranial pathology Recent Travel: none PAST MEDICAL HISTORY: as above PAST SURGICAL HISTORY: as above Family history: father at 30 years of age (). Mother of breast cancer at 62 years of age. Social History: Smokin cigarettes per day Alcohol: 2- 3 pints per day Drugs: Recovering recreational drug user (none recent) Allergies haloperidol [From Haldol] Allergy (Severe, Verified 04/19/20 12:04) Rash haloperidol lactate [From Haldol] Allergy (Severe, Verified 04/19/20 12:04) Rash metoclopramide Allergy (Severe, Verified 04/19/20 12:04) swelling, itching metoclopramide HCl [From Reglan] Allergy (Severe, Verified 04/19/20 12:04) Swelling prochlorperazine [From Compazine] Allergy (Severe, Verified 04/19/20 12:04) Swelling prochlorperazine edisylate [From Compazine] Allergy (Severe, Verified 04/19/20 12:04) Swelling prochlorperazine maleate [From Compazine] Allergy (Severe, Verified 04/19/20 12:04) Swelling Sulfa (Sulfonamide Antibiotics) Allergy (Severe, Verified 04/19/20 12:04) Itching, swelling HOME MEDICATIONS: Home Medications Medication Instructions Recorded Atorvastatin Ca [Lipitor] 20 mg PO HS 04/15/20 Atovaquone [Mepron Oral Solution -] 750 mg PO BID 04/15/20 Buprenorphine/Naloxone [Suboxone 3 each SL DAILY 04/15/20 8Mg/2Mg Sl Film -] Buspirone HCl [Buspar -] 10 mg PO DAILY 04/15/20 Cholecalciferol (Vitamin D3) 1,000 unit PO DAILY 04/15/20 [Vitamin D3] Clonidine HCl [Clonidine HCl ER] 0.1 mg PO DAILY 04/15/20 Dolutegravir Sodium [Tivicay] 50 mg PO DAILY 04/15/20 Emtricitab/Rilpiviri/Tenof Ala 1 each PO DAILY 04/15/20 [Odefsey Tablet] Famotidine [Pepcid -] 40 mg PO DAILY 04/15/20 Ferrous Sulfate 325 mg PO DAILY 04/15/20 Fluconazole 150 mg PO DAILY 04/15/20 Fluticasone Propion/Salmeterol 1 each IH DAILY 04/15/20 [Wixela 100-50 Inhub] Montelukast Na [Singulair -] 10 mg PO HS 04/15/20 Quetiapine Fumarate [Quetiapine 200 mg PO BID 04/15/20 Fumarate ER] Acetaminophen 325 mg PO PRN 04/16/20 Guaifenesin [Robafen] 100 mg PO PRN 04/16/20 Ibuprofen 400 mg PO PRN 04/16/20 Lactulose 10 gm PO TID 04/16/20 Nicotine Patch [Nicoderm Patch -] 21 mg TD DAILY 04/16/20 Nicotine Polacrilex [Nicotine Gum] 2 mg PO PRN 04/16/20 Cefuroxime Axetil [Ceftin -] 500 mg PO BID tablet 04/17/20 Pyrimethamine [Pyrimethamine and 1 cap PO WEEKLY #8 cap 04/17/20 Leucovorin 75 MG/25 MG] levETIRAcetam [Levetiracetam ER] 1,500 mg PO BID #60 tab 04/17/20 REVIEW OF SYSTEMS CONSTITUTIONAL: Absent: fever, chills, diaphoresis, generalized weakness, malaise, loss of appetite, weight change HEENT: Absent: rhinorrhea, nasal congestion, throat pain, throat swelling, difficulty swallowing, mouth swelling, ear pain, eye pain, visual changes CARDIOVASCULAR: Absent: chest pain, syncope, palpitations, irregular heart rate, lightheadedness, peripheral edema RESPIRATORY: Absent: cough, shortness of breath, dyspnea with exertion, orthopnea, wheezing, stridor, hemoptysis GASTROINTESTINAL: Present: abdominal pain, nausea, diarrhea Absent: constipation, melena, hematochezia GENITOURINARY: Absent: dysuria, hesitancy, hematuria, flank pain, genital pain MUSCULOSKELETAL: Absent: myalgia, arthralgia, joint swelling, back pain, neck pain SKIN: Absent: rash, itching, pallor HEMATOLOGIC/IMMUNOLOGIC: Absent: easy bleeding, easy bruising, lymphadenopathy, frequent infections ENDOCRINE: Absent: unexplained weight gain, unexplained weight loss, heat intolerance, cold intolerance NEUROLOGIC: Absent: headache, focal weakness or paresthesias, dizziness, unsteady gait, seizure, mental status changes, bladder or bowel incontinence PSYCHIATRIC: Absent: anxiety, depression, suicidal or homicidal ideation, hallucinations. PHYSICAL EXAMINATION Vital Signs - 24 hr 04/20/20 04/20/20 04/20/20 10:01 10:30 11:06 Temperature 97.9 F Pulse Rate 103 H Pulse Rate [ 89 Left Radial] Respiratory 20 18 Rate Blood Pressure 130/99 Blood Pressure 146/98 [Left Arm] O2 Sat by Pulse 100 100 100 Oximetry (%) GENERAL: Awake, alert, and fully oriented, in no acute distress. HEAD: Normal with no signs of trauma. EYES: Pupils equal, round and reactive to light, extraocular movements intact, sclera anicteric, conjunctiva clear. No lid lag. EARS, NOSE, THROAT: Ears normal, nares patent, oropharynx clear without exudates. Moist mucous membranes. Edentulous NECK: Normal range of motion, supple without lymphadenopathy, JVD, or masses. LUNGS: Breath sounds equal, clear to auscultation bilaterally. No wheezes, and no crackles. No accessory muscle use. HEART: Regular rate and rhythm, normal S1 and S2 without murmur, rub or gallop. ABDOMEN: Soft, nontender, not distended, normoactive bowel sounds, no guarding, no rebound, no masses. No hepatomegaly or splenomegaly. MUSCULOSKELETAL: Normal range of motion at all joints. No bony deformities or tenderness. No CVA tenderness. UPPER EXTREMITIES: 2+ pulses, warm, well-perfused. No cyanosis. No clubbing. No peripheral edema. LOWER EXTREMITIES: 2+ pulses, warm, well-perfused. No calf tenderness. No peripheral edema. NEUROLOGICAL: Cranial nerves II-XII intact. Normal speech. Normal gait. Mild restring tremor of the hands. PSYCHIATRIC: Cooperative. Good eye contact. Appropriate mood and affect. SKIN: Warm, dry, normal turgor, no rashes or lesions noted, normal capillary r efill. Laboratory Results - last 24 hr 04/20/20 04/20/20 04/20/20 10:38 10:38 10:38 WBC 4.1 RBC 4.48 Hgb 13.3 Hct 40.9 MCV 91.2 MCH 29.7 MCHC 32.6 RDW 15.0 Plt Count 71 L MPV 8.9 Absolute Neuts (auto) 2.9 Neutrophils % 72.0 Lymphocytes % 14.9 Monocytes % 9.8 Eosinophils % 2.4 Basophils % 0.9 Nucleated RBC % 0 PT with INR 11.00 INR 0.93 PTT (Actin FS) 29.3 Sodium Potassium Chloride Carbon Dioxide Anion Gap BUN Creatinine Est GFR (CKD-EPI)AfAm Est GFR (CKD-EPI)NonAf Random Glucose Calcium Total Bilirubin AST ALT Alkaline Phosphatase Total Protein Albumin Urine Color Yellow Urine Appearance Clear Urine pH 8.0 Ur Specific [place] 1.010 Urine Protein Negative Urine Glucose (UA) Negative Urine Ketones Negative Urine Blood Negative Urine Nitrite Negative Urine Bilirubin Negative Urine Urobilinogen 0.2 Ur Leukocyte Esterase Trace Urine WBC (Auto) 3 Urine RBC (Auto) 10 Urine Casts (Auto) 0 U Epithel Cells (Auto) 10 Urine Bacteria (Auto) 11 Salicylates Opiates Screen Methadone Screen Acetaminophen Barbiturate Screen Phencyclidine Screen Ur Amphetamines Screen MDMA (Ecstasy) Screen Benzodiazepines Screen Cocaine Screen U Marijuana (THC) Screen 04/20/20 04/20/20 04/20/20 10:38 10:38 11:55 WBC RBC Hgb Hct MCV MCH MCHC RDW Plt Count MPV Absolute Neuts (auto) Neutrophils % Lymphocytes % Monocytes % Eosinophils % Basophils % Nucleated RBC % PT with INR INR PTT (Actin FS) Sodium 138 Potassium 4.6 Chloride 104 Carbon Dioxide 31 Anion Gap 4 L BUN 18.0 Creatinine 0.9 Est GFR (CKD-EPI)AfAm 86.41 Est GFR (CKD-EPI)NonAf 74.55 Random Glucose 89 Calcium 9.0 Total Bilirubin 0.5 AST 21 ALT 19 Alkaline Phosphatase 95 Total Protein 8.5 H Albumin 3.5 Urine Color Urine Appearance Urine pH Ur Specific [place] Urine Protein Urine Glucose (UA) Urine Ketones Urine Blood Urine Nitrite Urine Bilirubin Urine Urobilinogen Ur Leukocyte Esterase Urine WBC (Auto) Urine RBC (Auto) Urine Casts (Auto) U Epithel Cells (Auto) Urine Bacteria (Auto) Salicylates Opiates Screen Negative Methadone Screen Negative Acetaminophen < 2.0 Barbiturate Screen Negative Phencyclidine Screen Negative Ur Amphetamines Screen Negative MDMA (Ecstasy) Screen Negative Benzodiazepines Screen Positive A* Cocaine Screen Negative U Marijuana (THC) Screen Negative 04/20/20 11:55 WBC RBC Hgb Hct MCV MCH MCHC RDW Plt Count MPV Absolute Neuts (auto) Neutrophils % Lymphocytes % Monocytes % Eosinophils % Basophils % Nucleated RBC % PT with INR INR PTT (Actin FS) Sodium Potassium Chloride Carbon Dioxide Anion Gap BUN Creatinine Est GFR (CKD-EPI)AfAm Est GFR (CKD-EPI)NonAf Random Glucose Calcium Total Bilirubin AST ALT Alkaline Phosphatase Total Protein Albumin Urine Color Urine Appearance Urine pH Ur Specific [place] Urine Protein Urine Glucose (UA) Urine Ketones Urine Blood Urine Nitrite Urine Bilirubin Urine Urobilinogen Ur Leukocyte Esterase Urine WBC (Auto) Urine RBC (Auto) Urine Casts (Auto) U Epithel Cells (Auto) Urine Bacteria (Auto) Salicylates 2.3 L Opiates Screen Methadone Screen Acetaminophen Barbiturate Screen Phencyclidine Screen Ur Amphetamines Screen MDMA (Ecstasy) Screen Benzodiazepines Screen Cocaine Screen U Marijuana (THC) Screen Transvaginal ultrasound showed fibroid ueterus. Borderline thickening of the endometrial wall for a postmenopausal female measuring 6 mm. Follow up imaging recommended. Left ovarian cyst also noted with slightly irregular contour. FU imaging and visit with [facility] CLINICIAN also recommended. ASSESSMENT/PLAN: 1. Seizure disorder - received ativan in [facility] - cont close monitoring for any recurrence of seizure episode - Dr Temple (neuro) will be consulted - cont levetiracetam home med of 1500 mg bid - ativan prn for recurrence of seizure 2. history of addiction currently sober - cont with current meds from [facility] - she is supposed to be evaluated on appropriateness of resuming suboxone on wednesday 3. known history of uterine fibroids - will need eval in the OP setting 4. recently treated for UTI 5. Heparin Sq for DVT prophylaxis
[2020-04-20] MEDS ORDERED: SUVOREXANT 10 MG TABLET PO PRN (15:34)
--- NOTE | 2020-04-20 17:03 | HP ---
CHIEF COMPLAINT: seizure in AM at [facility] HISTORY OF PRESENT ILLNESS: 49 y/o F with a significant past medical history of HIV/AIDS (unknown CD4 count and viral load), hypertension, hyperlipdemia, depression, Bipolar d/o, asthma, COPD, GERD, anemia, and seizure disorder who presented to [facility] due to a seizure at [facility] rehab this morning. Pt reportedly had a seizure this morning and subsequently fell and hit her head on the nightstand. In the ED, patient was observed to have another seizure and was subsequently administered 2 mg Ativan. ER course was notable for: (1) witnessed seizure by ED attending (2) 2 mg Ativan given (3) Head CT-unremarkable for acute intracranial pathology (4)Transvaginal US-fibroid ueterus. Borderline thickening of the endometrial wall for a postmenopausal female measuring 6 mm. Follow up imaging recommended. Left ovarian cyst also noted with slightly irregular contour. Recent Travel: denies PAST MEDICAL HISTORY: Per HPI PAST SURGICAL HISTORY: tonsillectomy at age 26, arthroscopic surgery right knee 2009, and bunionectomy both feet. Social History: -Alcohol: 2 pints daily -Cocaine- Powder: $100 worth of cocaine daily (inhaled) since age 32 --> currently not using -Xanax: 2mg - 3-4 tabs/day since age 32 -Nicotine 5 cigarettes daily -Heroin: 30 bags/day since age 32 currently on Methadone 20 --> currently not using Allergies haloperidol [From Haldol] Allergy (Severe, Verified 04/19/20 12:04) Rash haloperidol lactate [From Haldol] Allergy (Severe, Verified 04/19/20 12:04) Rash metoclopramide Allergy (Severe, Verified 04/19/20 12:04) swelling, itching metoclopramide HCl [From Reglan] Allergy (Severe, Verified 04/19/20 12:04) Swelling prochlorperazine [From Compazine] Allergy (Severe, Verified 04/19/20 12:04) Swelling prochlorperazine edisylate [From Compazine] Allergy (Severe, Verified 04/19/20 12:04) Swelling prochlorperazine maleate [From Compazine] Allergy (Severe, Verified 04/19/20 12:04) Swelling Sulfa (Sulfonamide Antibiotics) Allergy (Severe, Verified 04/19/20 12:04) Itching, swelling HOME MEDICATIONS: Home Medications Medication Instructions Recorded Atorvastatin Ca [Lipitor] 20 mg PO HS 04/15/20 Atovaquone [Mepron Oral Solution -] 750 mg PO BID 04/15/20 Buprenorphine/Naloxone [Suboxone 3 each SL DAILY 04/15/20 8Mg/2Mg Sl Film -] Buspirone HCl [Buspar -] 30 mg PO DAILY 04/15/20 Cholecalciferol (Vitamin D3) 1,000 unit PO DAILY 04/15/20 [Vitamin D3] Clonidine HCl [Clonidine HCl ER] 0.1 mg PO DAILY 04/15/20 Dolutegravir Sodium [Tivicay] 50 mg PO DAILY 04/15/20 Emtricitab/Rilpiviri/Tenof Ala 1 each PO DAILY 04/15/20 [Odefsey Tablet] Famotidine [Pepcid -] 40 mg PO DAILY 04/15/20 Ferrous Sulfate 325 mg PO DAILY 04/15/20 Fluticasone Propion/Salmeterol 1 each IH DAILY 04/15/20 [Wixela 100-50 Inhub] Montelukast Na [Singulair -] 10 mg PO HS 04/15/20 Quetiapine Fumarate [Quetiapine 200 mg PO BID 04/15/20 Fumarate ER] Acetaminophen 325 mg PO PRN 04/16/20 Guaifenesin [Robafen] 100 mg PO PRN 04/16/20 Ibuprofen 400 mg PO PRN 04/16/20 Lactulose 10 gm PO TID 04/16/20 Nicotine Patch [Nicoderm Patch -] 21 mg TD DAILY 04/16/20 Nicotine Polacrilex [Nicotine Gum] 2 mg PO PRN 04/16/20 Cefuroxime Axetil [Ceftin -] 500 mg PO BID tablet 04/17/20 Pyrimethamine [Pyrimethamine and 1 cap PO WEEKLY #8 cap 04/17/20 Leucovorin 75 MG/25 MG] levETIRAcetam [Levetiracetam ER] 1,500 mg PO BID #60 tab 04/17/20 REVIEW OF SYSTEMS CONSTITUTIONAL: PRESENT: headache Absent: fever, chills, diaphoresis, generalized weakness, malaise, loss of appetite, weight change HEENT: Absent: rhinorrhea, nasal congestion, throat pain, throat swelling, difficulty swallowing, mouth swelling, ear pain, eye pain, visual changes CARDIOVASCULAR: Absent: chest pain, syncope, palpitations, irregular heart rate, lightheadedness , peripheral edema RESPIRATORY: Absent: cough, shortness of breath, dyspnea with exertion, orthopnea, wheezing, stridor, hemoptysis GASTROINTESTINAL: PRESENT: + loose stools Absent: abdominal pain, abdominal distension, nausea, vomiting constipation, melena, hematochezia GENITOURINARY: PRESENT: dysuria, flank pain MUSCULOSKELETAL: Absent: myalgia, arthralgia, joint swelling, back pain, neck pain SKIN: Absent: rash, itching, pallor HEMATOLOGIC/IMMUNOLOGIC: Absent: easy bleeding, easy bruising, lymphadenopathy, frequent infections ENDOCRINE: Absent: unexplained weight gain, unexplained weight loss, heat intolerance, cold intolerance NEUROLOGIC: PRESENT seizure PSYCHIATRIC: Absent: anxiety, depression, suicidal or homicidal ideation, hallucinations. PHYSICAL EXAMINATION Vital Signs - 24 hr 04/20/20 04/20/20 04/20/20 10:01 10:30 11:06 Temperature 97.9 F Pulse Rate 103 H Pulse Rate [ 89 Left Radial] Respiratory 20 18 Rate Blood Pressure 130/99 Blood Pressure 146/98 [Left Arm] O2 Sat by Pulse 100 100 100 Oximetry (%) 04/20/20 15:00 Temperature Pulse Rate Pulse Rate [ 90 Left Radial] Respiratory 20 Rate Blood Pressure Blood Pressure 142/98 [Left Arm] O2 Sat by Pulse 100 Oximetry (%) GENERAL: AAOx3, in no acute distress HEENT: NCAT, PERRLA, EOMI, sclera anicteric, conjunctiva clear, oropharynx clear w/o exudates. MMM. NECK: Normal ROM, supple, no lymphadenopathy, JVD, or masses LUNGS: CTABL no wheezes/ rhonchi/ rales. No distress, speaks in full sentences. No increased work of breathing. HEART: RRR, normal S1 S2, no M/R/G, peripheral pulses 2+ and equal b/l ABDOMEN: Soft, +suprapubic tenderness, + BS. No guarding or rebound. No hepa tomegaly or splenomegaly. + b/l flank pain +Isidro's test MSK: ROM WNL EXTREMITIES: Normal inspection. No peripheral edema. No clubbing or cyanosis. NEUROLOGICAL: CN II-XII intact. Normal speech, normal gait, no focal sensorimotor deficits. SKIN: Warm, Dry, normal turgor, no rashes or lesions noted Laboratory Results - last 24 hr CBC, BMP 04/20/20 10:38 04/20/20 10:38 04/20/20 04/20/20 04/20/20 10:38 10:38 10:38 WBC 4.1 RBC 4.48 Hgb 13.3 Hct 40.9 MCV 91.2 MCH 29.7 MCHC 32.6 RDW 15.0 Plt Count 71 L MPV 8.9 Absolute Neuts (auto) 2.9 Neutrophils % 72.0 Lymphocytes % 14.9 Monocytes % 9.8 Eosinophils % 2.4 Basophils % 0.9 Nucleated RBC % 0 PT with INR 11.00 INR 0.93 PTT (Actin FS) 29.3 Sodium Potassium Chloride Carbon Dioxide Anion Gap BUN Creatinine Est GFR (CKD-EPI)AfAm Est GFR (CKD-EPI)NonAf Random Glucose Calcium Total Bilirubin AST ALT Alkaline Phosphatase Total Protein Albumin Urine Color Yellow Urine Appearance Clear Urine pH 8.0 Ur Specific [place] 1.010 Urine Protein Negative Urine Glucose (UA) Negative Urine Ketones Negative Urine Blood Negative Urine Nitrite Negative Urine Bilirubin Negative Urine Urobilinogen 0.2 Ur Leukocyte Esterase Trace Urine WBC (Auto) 3 Urine RBC (Auto) 10 Urine Casts (Auto) 0 U Epithel Cells (Auto) 10 Urine Bacteria (Auto) 11 Salicylates Opiates Screen Methadone Screen Acetaminophen Barbiturate Screen Phencyclidine Screen Ur Amphetamines Screen MDMA (Ecstasy) Screen Benzodiazepines Screen Cocaine Screen U Marijuana (THC) Screen 04/20/20 04/20/20 04/20/20 10:38 10:38 11:55 WBC RBC Hgb Hct MCV MCH MCHC RDW Plt Count MPV Absolute Neuts (auto) Neutrophils % Lymphocytes % Monocytes % Eosinophils % Basophils % Nucleated RBC % PT with INR INR PTT (Actin FS) Sodium 138 Potassium 4.6 Chloride 104 Carbon Dioxide 31 Anion Gap 4 L BUN 18.0 Creatinine 0.9 Est GFR (CKD-EPI)AfAm 86.41 Est GFR (CKD-EPI)NonAf 74.55 Random Glucose 89 Calcium 9.0 Total Bilirubin 0.5 AST 21 ALT 19 Alkaline Phosphatase 95 Total Protein 8.5 H Albumin 3.5 Urine Color Urine Appearance Urine pH Ur Specific [place] Urine Protein Urine Glucose (UA) Urine Ketones Urine Blood Urine Nitrite Urine Bilirubin Urine Urobilinogen Ur Leukocyte Esterase Urine WBC (Auto) Urine RBC (Auto) Urine Casts (Auto) U Epithel Cells (Auto) Urine Bacteria (Auto) Salicylates Opiates Screen Negative Methadone Screen Negative Acetaminophen < 2.0 Barbiturate Screen Negative Phencyclidine Screen Negative Ur Amphetamines Screen Negative MDMA (Ecstasy) Screen Negative Benzodiazepines Screen Positive A* Cocaine Screen Negative U Marijuana (THC) Screen Negative 04/20/20 11:55 WBC RBC Hgb Hct MCV MCH MCHC RDW Plt Count MPV Absolute Neuts (auto) Neutrophils % Lymphocytes % Monocytes % Eosinophils % Basophils % Nucleated RBC % PT with INR INR PTT (Actin FS) Sodium Potassium Chloride Carbon Dioxide Anion Gap BUN Creatinine Est GFR (CKD-EPI)AfAm Est GFR (CKD-EPI)NonAf Random Glucose Calcium Total Bilirubin AST ALT Alkaline Phosphatase Total Protein Albumin Urine Color Urine Appearance Urine pH Ur Specific [place] Urine Protein Urine Glucose (UA) Urine Ketones Urine Blood Urine Nitrite Urine Bilirubin Urine Urobilinogen Ur Leukocyte Esterase Urine WBC (Auto) Urine RBC (Auto) Urine Casts (Auto) U Epithel Cells (Auto) Urine Bacteria (Auto) Salicylates 2.3 L Opiates Screen Methadone Screen Acetaminophen Barbiturate Screen Phencyclidine Screen Ur Amphetamines Screen MDMA (Ecstasy) Screen Benzodiazepines Screen Cocaine Screen U Marijuana (THC) Screen ASSESSMENT/PLAN: Patient is a 49 y/o F with a significant past medical history of HIV/AIDS (unknown CD4 count and viral load), hypertension, hyperlipdemia, depression, Bipolar d/o, asthma, COPD, GERD, anemia, and seizure disorder who presented to [facility] due to a Seizure at [facility]. Admitted for seizures. #Seizures - continue 1.5 g Keppra BID - Neuro Consulted- called Dr. De La Cruz's service twice -f/u neuro reccs -CT Head/Spine: no acute intracranial pathology noted -Neuro Checks Q2H, Seizure precautions -NPO and aspiration precautions in place -fall precautions in place -Ativan 2 mg PRN for recurrence of seizure #Polysubstance abuse/withdrawal: - c/w meds from [facility] -Patient is supposed to be evaluated on appropriateness of resuming suboxone on Wednesday @ [facility] #HIV/AIDS: -Resume home HIV/AIDS medications - Last CD4 count was 88 #Bipolar disorder -resume home meds #history of uterine fibroids - will need outpt f/u #Suicide Risk -Pt. told Dr. Johnson that she had suicidal ideations after her most recent seizure -endorses prior suicide attempt with medication overdose -1 to 1 watch placed -continue to monitor 1 to 1 #FEN -NS@100 mls/hr -Monitor Electrolytes -NPO for seizure aspiration risk #DVT ppx: -Heparin SQ TID #Dispo: observation in telemetry Family Medical History Family History: As Documented Visit type - Emergency Visit Emergency Visit: Yes ED Registration Date: 04/20/20 Care time: The patient presented to the Emergency Department on the above date and was hospitalized for further evaluation of their emergent condition. - New Patient This patient is new to me today: Yes Date on this admission: 04/21/20 - Critical Care Critical Care patient: No ATTENDING PHYSICIAN STATEMENT I saw and evaluated the patient. I reviewed the resident's note and discussed the case with the resident. I agree with the resident's findings and plan as documented. SUBJECTIVE: OBJECTIVE: ASSESSMENT AND PLAN:
[2020-04-20] MEDS ORDERED: IBUPROFEN 400 MG TABLET (FP) PO SCH (17:30)
[2020-04-20] MEDS: IBUPROFEN 400 MG TABLET (FP) PO PRN (17:47)
[2020-04-20] MEDS ORDERED: LACTULOSE 20 GM/30 ML UDC (FOR ORAL USE ONLY) PO PRN (17:57)
[2020-04-20] MEDS ORDERED: guaiFENesin 200 MG/10 ML 10 ML UNIT-DOSE CUPS PO PRN (18:00)
[2020-04-20] MEDS ORDERED: LORazepam 2 MG/ML SDV VIAL ONE (18:02)
--- NOTE | 2020-04-20 19:38 | PN ---
Progress Note (short form) - Note Progress Note: Informed by Ed patient had tonic clonic seizure and fell off bed and hit her head and face on the floor. Pt was sent for stat CT head. Patient endorsing pain to L parietal head. No obvious laceration is noted. While talking to patient she mentioned "I thought again about killing myself before I had the seizure". Upon further questioning endorses history of prior failed suicide attempt (OD on pills a few years ago). She is continuing to feel suicidal thoughts and has been thinking of ways to harm herself. She denies homicidal ideation. Plan: -Follow up CT head -placed on 1:1 observation -Psych consult Dr. Myers placed
[2020-04-20] MEDS ORDERED: ATORVASTATIN CA 20 MG TABLET (FP) ONE (21:09)
[2020-04-20] MEDS ORDERED: levETIRAcetam 500 MG TABLET (FP) PO ONE (21:09)
[2020-04-20] MEDS ORDERED: HEPARIN NA (PORCINE) 5,000 UNITS/ML 1ML VIAL ONE (21:10)
[2020-04-20] MEDS ORDERED: MONTELUKAST NA 10 MG TABLET ONE (21:10)
[2020-04-20] MEDS: HEPARIN NA (PORCINE) 5,000 UNITS/ML 1ML VIAL SQ SCH (21:42)
[2020-04-20] MEDS: levETIRAcetam 500 MG TABLET (FP) PO SCH (21:42)
[2020-04-20] MEDS: MONTELUKAST NA 10 MG TABLET PO SCH (21:42)
[2020-04-20] MEDS: busPIRone HCL 10 MG TABLET (FP) PO SCH (21:42)
[2020-04-20] MEDS: QUEtiapine FUMARATE 200 MG TABLET PO SCH (21:42)
[2020-04-20] MEDS: ATORVASTATIN CA 20 MG TABLET (FP) PO SCH (21:42)
[2020-04-20] MEDS ORDERED: ZOLPIDEM TARTRATE 5 MG TABLET ONE (21:57)
[2020-04-20] MEDS: ZOLPIDEM TARTRATE 5 MG TABLET PO PRN (22:11)
[2020-04-20 23:46] LABS: EPI CELLS >36 /uL (0-25.1); HYALINE CASTS 3 /uL (0-3.1); PH,URINE 7.5 (5.0-8.0); URINE APPEARANCE CLEAR; URINE BACTERIA 914 /uL (0-1359); URINE BILIRUBIN NEGATIVE (NEGATIVE); URINE COLOR YELLOW; URINE GLUCOSE (UA) NEGATIVE (NEGATIVE); URINE KETONE TRACE (NEGATIVE); URINE LEUK ESTERASE 1+ (NEGATIVE); URINE NITRITE NEGATIVE (NEGATIVE); URINE PROTEIN TRACE (NEGATIVE); URINE RBC 21 /uL (0-23.9); URINE WBC 43 /uL (0-25.8)
[2020-04-21] MEDS ORDERED: MELATONIN 5 MG TABLETS PO ONE ×2 (01:41→20:18)
[2020-04-21] MEDS ORDERED: IBUPROFEN 400 MG TABLET (FP) PO ONE (04:52)
[2020-04-21] MEDS: IBUPROFEN 400 MG TABLET (FP) PO PRN (05:05)
[2020-04-21 07:10] LABS: BASO % 0.8 % (0-2.0); EOS % 2.2 % (0-4.5); HEMATOCRIT 39.8 % (32.4-45.2); HEMOGLOBIN 13.1 GM/dL (10.7-15.3); LYMPH % 11.8 % (8-40); MCH 29.7 pg (25.7-33.7); MEAN PLT VOLUME 9.5 fl (7.5-11.1); MONO % 9.7 % (3.8-10.2); NEUT % 75.5 % (42.8-82.8); PLATELET COUNT 68 K/MM3 (134-434); RBC 4.42 M/mm3 (3.60-5.2); RDW 14.3 % (11.6-15.6); WHITE BLOOD COUNT 3.9 K/mm3 (4.0-10.0)
[2020-04-21 07:17] LABS: INR 0.97 (0.83-1.09); PROTHROMBIN TIME (PATIENT) 11.5 SEC (9.7-13.0)
[2020-04-21 07:40] LABS: ALBUMIN 3.4 g/dl (3.4-5.0); BILIRUBIN,TOTAL 0.4 mg/dL (0.2-1); CALCIUM 8.8 mg/dL (8.5-10.1); CREATININE 0.8 mg/dL (0.55-1.3); MAGNESIUM 2.1 mg/dL (1.8-2.4); PHOSPHOROUS 3.9 mg/dL (2.5-4.9); POTASSIUM 4.4 mmol/L (3.5-5.1); TOT PROT 8.1 g/dl (6.4-8.2)
[2020-04-21] MEDS ORDERED: cloNIDine HCL 0.1 MG TABLET ONE (09:21)
[2020-04-21] MEDS ORDERED: levETIRAcetam 500 MG TABLET (FP) PO ONE (09:21)
[2020-04-21] MEDS ORDERED: FERROUS SO4 325 MG TABLET (FP) ONE (09:22)
[2020-04-21] MEDS ORDERED: HEPARIN NA (PORCINE) 5,000 UNITS/ML 1ML VIAL ONE (09:22)
[2020-04-21] MEDS ORDERED: QUEtiapine FUMARATE 100 MG TABLET (FP) ONE (09:22)
[2020-04-21] MEDS: cloNIDine HCL 0.1 MG TABLET PO SCH (09:48)
[2020-04-21] MEDS: FERROUS SO4 325 MG TABLET (FP) PO SCH (09:48)
[2020-04-21] MEDS: HEPARIN NA (PORCINE) 5,000 UNITS/ML 1ML VIAL SQ SCH ×2 (09:49→21:21)
[2020-04-21] MEDS: QUEtiapine FUMARATE 200 MG TABLET PO SCH ×2 (09:49→21:21)
[2020-04-21] MEDS: levETIRAcetam 500 MG TABLET (FP) PO SCH ×2 (09:49→21:21)
[2020-04-21] MEDS: FLUTICASONE/SALMETEROL 100 MCG/50 MCG DISKUS IH SCH (10:04)
[2020-04-21] MEDS: NICOTINE 21 MG/24 HOURS TOPICAL PATCH TD SCH (10:04)
[2020-04-21] MEDS: busPIRone HCL 10 MG TABLET (FP) PO SCH ×2 (10:04→21:22)
[2020-04-21] MEDS: DOLUTEGRAVIR SODIUM 50 MG TABLET (NON-FORMULARY) PO SCH (10:05)
[2020-04-21] MEDS: EMTRICITAB/RILPIVIRI/TENOF ALA (ODEFSEY) TABLET PO SCH (10:05)
[2020-04-21] MEDS: CHOLECALCIFEROL (VIT D3) 1,000 UNIT (25 MCG) TABLET PO SCH (10:05)
--- NOTE | 2020-04-21 12:40 | EKG ---
Test Reason : Blood Pressure : / mmHG Vent. Rate : 080 BPM Atrial Rate : 080 BPM P-R Int : 140 ms QRS Dur : 088 ms QT Int : 406 ms P-R-T Axes : 071 047 050 degrees QTc Int : 468 ms NORMAL SINUS RHYTHM NONSPECIFIC T WAVE ABNORMALITY PROLONGED QT ABNORMAL ECG WHEN COMPARED WITH ECG OF 20-APR-2020 10:58, NO SIGNIFICANT CHANGE WAS FOUND Confirmed by Huseyin Boyd ([id number]) on 04/21/2020 12:40:27 PM Referred By: Confirmed By:Huseyin Boyd
--- NOTE | 2020-04-21 13:00 | CON.NEURO ---
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 History of Recent Travel: No Home Medications - Allergies Allergies/Adverse Reactions: Allergies Allergy/AdvReac Type Severity Reaction Status Date / Time haloperidol [From Haldol] Allergy Severe Rash Verified 04/19/20 12:04 haloperidol lactate Allergy Severe Rash Verified 04/19/20 12:04 [From Haldol] metoclopramide Allergy Severe swelling, Verified 04/19/20 12:04 itching metoclopramide HCl Allergy Severe Swelling Verified 04/19/20 12:04 [From Reglan] prochlorperazine Allergy Severe Swelling Verified 04/19/20 12:04 [From Compazine] prochlorperazine edisylate Allergy Severe Swelling Verified 04/19/20 12:04 [From Compazine] prochlorperazine maleate Allergy Severe Swelling Verified 04/19/20 12:04 [From Compazine] Sulfa (Sulfonamide Allergy Severe Itching, Verified 04/19/20 12:04 Antibiotics) swelling - Home Medications Home Medications: Ambulatory Orders Atorvastatin Ca [Lipitor] 20 mg PO HS 04/15/20 Atovaquone [Mepron Oral Solution -] 750 mg PO BID 04/15/20 Buprenorphine/Naloxone [Suboxone 8Mg/2Mg Sl Film -] 3 each SL DAILY 04/15/20 Buspirone HCl [Buspar -] 10 mg PO DAILY 04/15/20 Cholecalciferol (Vitamin D3) [Vitamin D3] 1,000 unit PO DAILY 04/15/20 Clonidine HCl [Clonidine HCl ER] 0.1 mg PO DAILY 04/15/20 Dolutegravir Sodium [Tivicay] 50 mg PO DAILY 04/15/20 Emtricitab/Rilpiviri/Tenof Ala [Odefsey Tablet] 1 each PO DAILY 04/15/20 Ferrous Sulfate 325 mg PO DAILY 04/15/20 Fluticasone Propion/Salmeterol [Wixela 100-50 Inhub] 1 each IH DAILY 04/15/20 Montelukast Na [Singulair -] 10 mg PO HS 04/15/20 Quetiapine Fumarate [Quetiapine Fumarate ER] 200 mg PO BID 04/15/20 Acetaminophen 325 mg PO PRN 04/16/20 Guaifenesin [Robafen] 100 mg PO PRN 04/16/20 Ibuprofen 400 mg PO PRN 04/16/20 Lactulose 10 gm PO TID 04/16/20 Nicotine Patch [Nicoderm Patch -] 21 mg TD DAILY 04/16/20 Nicotine Polacrilex [Nicotine Gum] 2 mg PO PRN 04/16/20 Cefuroxime Axetil [Ceftin -] 500 mg PO BID tablet 04/17/20 Pyrimethamine [Pyrimethamine and Leucovorin 75 MG/25 MG] 1 cap PO WEEKLY #8 cap 04/17/20 levETIRAcetam [Levetiracetam ER] 1,500 mg PO BID #60 tab 04/17/20 Physical Exam-Neuro Vital Signs: Vital Signs Temperature 97.6 F 04/21/20 03:57 Pulse Rate 109 H 04/21/20 11:00 Respiratory Rate 20 04/21/20 11:00 Blood Pressure 131/88 04/21/20 11:00 O2 Sat by Pulse Oximetry (%) 98 04/21/20 11:00 Labs: CBC, BMP 04/21/20 05:30 04/21/20 05:30 INR, PTT INR 0.97 (0.83-1.09) 04/21/20 05:30 Assessment/Plan CC Breakthrough seizure HPI 49 year old female histoyr of HIV/AIDS( do not know cd4 and viral lod), HTN,HLD,Depression, Bipolar, asthma, copd, anemia. Lyndon has history of polysubstance abuse recently was admitted to [facility], where she had mri o fbrain and eeg, all test were unremarkable. Pateint says, she was not given her methadone and other medication. She is feeling very abxious and she is demanding pain medicaitn. Patient has generalized tonic clonic seizure. Patient denies any focal neurological symptoms. She has a tongue bite episode during episode as well. She is currently on keppra 1500 mg po bid she is taking keppra 1500 mg po bid PMH as above. PAST SURGICAL HISTORY: tonsillectomy at age 26, arthroscopic surgery right knee 2010 S Allergies haloperidol [From Haldol] Allergy (Severe, Verified 04/13/20 19:49) Rash haloperidol lactate [From Haldol] Allergy (Severe, Verified 04/13/20 19:49) Rash metoclopramide Allergy (Severe, Verified 04/13/20 19:49) swelling, itching metoclopramide HCl [From Reglan] Allergy (Severe, Verified 04/13/20 19:49) Swelling prochlorperazine [From Compazine] Allergy (Severe, Verified 04/13/20 19:49) Swelling prochlorperazine edisylate [From Compazine] Allergy (Severe, Verified 04/13/20 19:49) Swelling prochlorperazine maleate [From Compazine] Allergy (Severe, Verified 04/13/20 19:49) Swelling Sulfa (Sulfonamide Antibiotics) Allergy (Severe, Verified 04/13/20 19:49) Itching, swelling HOME MEDICATIONS: Home Medications Medication Instructions Recorded Atorvastatin Ca [Lipitor] 20 mg PO HS 04/15/20 Atovaquone [Mepron -] 750 mg PO BID 04/15/20 Buprenorphine/Naloxone [Suboxone 1 each SL DAILY 04/15/20 8Mg/2Mg Sl Film -] Buspirone HCl [Buspar -] 10 mg PO DAILY 04/15/20 Cholecalciferol (Vitamin D3) 1,000 unit PO DAILY 04/15/20 [Vitamin D3] Clonidine HCl [Clonidine HCl ER] 0.1 mg PO DAILY 04/15/20 Dolutegravir Sodium [Tivicay] 50 mg PO DAILY 04/15/20 Emtricitab/Rilpiviri/Tenof Ala 1 each PO DAILY 04/15/20 [Odefsey Tablet] Famotidine [Pepcid -] 40 mg PO DAILY 04/15/20 Ferrous Sulfate 325 mg PO DAILY 04/15/20 Fluconazole 150 mg PO DAILY 04/15/20 Fluticasone Propion/Salmeterol 1 each IH DAILY 04/15/20 [Wixela 100-50 Inhub] Montelukast Na [Singulair -] 10 mg PO HS 04/15/20 Quetiapine Fumarate [Quetiapine 200 mg PO DAILY 04/15/20 Fumarate ER] Sod.chlorid/Potassium Chloride 1 each PO DAILY 04/15/20 [Thermotabs Tablet] levETIRAcetam [Levetiracetam ER] 1500 mg PO DAILY 04/15/20 ROS,FH,SH reviewed in chart NEUROLOGICAL EXAMINATION Alert oriented x 3, neck is supple eomi,pupils reactive no face asymmetry neck i ssupple moving all ext sensation is normal reflex are diminished ct head is unremarkable Assessment/Plan 49 year old female histoyr of HIV/AIDS( do not know cd4 and viral lod), HTN,HLD,Depression, Bipolar, asthma, copd, anemia. She has hitory of seizure on keppra 1.5gm po bid, ct head wnl, neuro exam nonfocal . There i sbreakthrough seizure, ? pseudo seizure . Pych input awaited. Plan --continue keppra 1.5 gm po bid - iv cerebryx 1 gm once and than 100 m giv bid - psych consult and consider tapering of methadone slowly thanking you so much Lonny De La Cruz MD
[2020-04-21 14:36] VITALS: BMI 24.9
[2020-04-21] MEDS: FOSPHENYTOIN SODIUM 1,000 MG in SODIUM CHLORIDE 100 ML IVPB ONE ×2 (14:46→15:49)
--- NOTE | 2020-04-21 14:46 | PN ---
Physical Exam: SUBJECTIVE: Patient seen and examined at bedside, reports abdominal pain, cramps, diarrhea. Denies any headache, nausea, vomiting, focal neurological symptoms, active SI/HI, hallucinations OBJECTIVE: Vital Signs Period Temp Pulse Resp BP Sys/Sanz Pulse Ox Last 24 Hr 97.6 F-98.2 F 72-109 18-20 130-149/84-106 97-100 GENERAL: AAOx3, in no acute distress HEENT: NCAT, PERRLA, EOMI, sclera anicteric, conjunctiva clear, oropharynx clear w/o exudates. MMM. NECK: Normal ROM, supple, no lymphadenopathy, JVD, or masses LUNGS: CTABL no wheezes/ rhonchi/ rales. No distress, speaks in full sentences. No increased work of breathing. HEART: RRR, normal S1 S2, no M/R/G, peripheral pulses 2+ and equal b/l ABDOMEN: Soft, Suprapubic TTP, + BS. No guarding or rebound. No hepatomegaly or splenomegaly. MSK: ROM WNL, NO CVA tenderness EXTREMITIES: Normal inspection. No peripheral edema. No clubbing or cyanosis. NEUROLOGICAL: CN II-XII intact. Normal speech, gait not observed, no focal sensorimotor deficits. PSYCH: Normal mood, normal affect. SKIN: Warm, Dry, normal turgor, no rashes or lesions noted Laboratory Results - last 24 hr 04/20/20 04/20/20 04/21/20 16:49 23:00 05:30 WBC 3.9 L RBC 4.42 Hgb 13.1 Hct 39.8 MCV 90.0 MCH 29.7 MCHC 33.0 RDW 14.3 Plt Count 68 L MPV 9.5 Absolute Neuts (auto) 3.0 Neutrophils % 75.5 Lymphocytes % 11.8 D Monocytes % 9.7 Eosinophils % 2.2 Basophils % 0.8 Nucleated RBC % 0 PT with INR INR Sodium Potassium Chloride Carbon Dioxide Anion Gap BUN Creatinine Est GFR (CKD-EPI)AfAm Est GFR (CKD-EPI)NonAf Random Glucose Calcium Phosphorus Magnesium Total Bilirubin AST ALT Alkaline Phosphatase Total Protein Albumin TSH Urine Color Yellow Urine Appearance Clear Urine pH 7.5 Ur Specific Tatum 1.028 Urine Protein Trace Urine Glucose (UA) Negative Urine Ketones Trace H Urine Blood Negative Urine Nitrite Negative Urine Bilirubin Negative Urine Urobilinogen 1.0 Ur Leukocyte Esterase 1+ H Urine WBC (Auto) 43 Urine RBC (Auto) 21 Urine Casts (Auto) 3 U Epithel Cells (Auto) >36 U Sm Round Cell (Auto) 10-15 Urine Bacteria (Auto) 914 COVID-19 (PREMA) Not detected 04/21/20 04/21/20 05:30 05:30 WBC RBC Hgb Hct MCV MCH MCHC RDW Plt Count MPV Absolute Neuts (auto) Neutrophils % Lymphocytes % Monocytes % Eosinophils % Basophils % Nucleated RBC % PT with INR 11.50 INR 0.97 Sodium 139 Potassium 4.4 Chloride 104 Carbon Dioxide 28 Anion Gap 7 L BUN 18.0 Creatinine 0.8 Est GFR (CKD-EPI)AfAm 99.63 Est GFR (CKD-EPI)NonAf 85.96 Random Glucose 84 Calcium 8.8 Phosphorus 3.9 Magnesium 2.1 Total Bilirubin 0.4 AST 20 ALT 17 Alkaline Phosphatase 93 Total Protein 8.1 Albumin 3.4 TSH 3.18 Urine Color Urine Appearance Urine pH Ur Specific Tatum Urine Protein Urine Glucose (UA) Urine Ketones Urine Blood Urine Nitrite Urine Bilirubin Urine Urobilinogen Ur Leukocyte Esterase Urine WBC (Auto) Urine RBC (Auto) Urine Casts (Auto) U Epithel Cells (Auto) U Sm Round Cell (Auto) Urine Bacteria (Auto) COVID-19 (PREMA) Active Medications Generic Name Dose Route Start Last Admin Trade Name Freq PRN Reason Stop Dose Admin Acetaminophen 650 mg 04/21/20 10:36 Tylenol - PO Q6H PRN Fever Or Pain Atorvastatin Calcium 20 mg 04/20/20 22:00 04/20/20 21:42 Lipitor - PO 20 mg HS ESTEVAN Administration Atovaquone 750 mg 04/21/20 22:00 Mepron - PO BID ESTEVAN Buspirone HCl 30 mg 04/20/20 22:00 04/21/20 10:04 Buspar - PO 30 mg BID ESTEVAN Administration Cholecalciferol 1,000 unit 04/21/20 10:00 04/21/20 10:05 Vitamin D3 - PO 1,000 unit DAILY ESTEVAN Administration Clonidine 0.1 mg 04/21/20 10:00 04/21/20 09:48 Catapres - PO 0.1 mg DAILY ESTEVAN Administration Ferrous Sulfate 325 mg 04/21/20 08:00 04/21/20 09:48 Feosol - PO 325 mg DAILY@0800 ESTEVAN Administration Guaifenesin 10 ml 04/20/20 18:00 Robitussin - PO Q4H PRN COUGH Heparin Sodium (Porcine) 5,000 unit 04/20/20 22:00 04/21/20 09:49 Heparin - SQ 5,000 unit BID ESTEVAN Administration Ibuprofen 400 mg 04/20/20 17:29 04/21/20 05:05 Motrin - PO 400 mg Q4H PRN Administration FEVER Lactulose 10 gm 04/20/20 17:57 Cephulac (Oral Use) PO TID PRN CONSTIPATION Levetiracetam 1,500 mg 04/20/20 22:00 04/21/20 09:49 Keppra - PO 1,500 mg BID ESTEVAN Administration Montelukast Sodium 10 mg 04/20/20 22:00 04/20/20 21:42 Singulair - PO 10 mg HS ESTEVAN Administration Nicotine 21 mg 04/21/20 10:00 04/21/20 10:04 Nicoderm Patch - TD 21 mg DAILY ESTEVAN Administration Quetiapine Fumarate 200 mg 04/20/20 22:00 04/21/20 09:49 Seroquel - PO 200 mg BID ESTEVAN Administration Fluticasone/Salmeterol 1 puff 04/21/20 10:00 04/21/20 10:04 Advair 100mcg/50mcg - IH 1 puff DAILY ESTEVAN Administration Zolpidem Tartrate 5 mg 04/20/20 18:26 04/20/20 22:11 Ambien - PO 04/23/20 18:25 5 mg HS PRN Administration INSOMNIA ASSESSMENT/PLAN: Patient is a 49 y/o F with a significant past medical history of HIV/AIDS (unknown CD4 count and viral load), hypertension, hyperlipdemia, depression, Bipolar d/o, asthma, COPD, GERD, anemia, and seizure disorder who presented to [facility] [place] due to a Seizure at [facility]. Admitted for seizures. # Seizures - Witnessed seizure at [facility] and in ED, Tonic clonic, with Head trauma - CT Head/Spine: no acute intracranial pathology noted - Neuro Dr. De La Cruz on board, appreciate recs - continue keppra 1.5 gm po bid - Iv cerebryx 1 gm once and 100gm BID daily - Neuro Checks , Seizure, fall, aspiration precautions are in place - Ativan 2 mg PRN for recurrence of seizure #Suicide Risk - Pt. told Dr. Johnson that she had suicidal ideations after her most recent seizure - endorses prior suicide attempt with medication overdose - 1 to [address], will continue to monitor - Psych, Dr. Myers is consulted, pending recs #Polysubstance abuse - Continue with meds from [facility] - will continue to monitor for withdrawals - Patient is supposed to be evaluated on appropriateness of resuming suboxone on Wednesday @ [facility] #HIV/AIDS: - will Resume home HIV/AIDS medications - Last CD4 count was 88 #Bipolar disorder - continue home meds #FEN - NS@100 mls/hr - Continue to monitor Electrolytes - Chol/Fat/Sodium restricted diet #DVT ppx: -Heparin SQ TID #Dispo: Will continue to monitor in telemetry Visit type - Emergency Visit Emergency Visit: Yes ED Registration Date: 04/21/20 Care time: The patient presented to the Emergency Department on the above date and was hospitalized for further evaluation of their emergent condition. - New Patient This patient is new to me today: No - Critical Care Critical Care patient: No - Discharge Referral Referred to [facility] Med P.C.: No ATTENDING PHYSICIAN STATEMENT I saw and evaluated the patient. I reviewed the resident's note and discussed the case with the resident. I agree with the resident's findings and plan as documented. SUBJECTIVE: OBJECTIVE: ASSESSMENT AND PLAN:
--- NOTE | 2020-04-21 15:17 | PN ---
Teaching Attending Note Name of Resident: Arya Moreno ATTENDING PHYSICIAN STATEMENT I saw and evaluated the patient. I reviewed the resident's note and discussed the case with the resident. I agree with the resident's findings and plan as documented. SUBJECTIVE: pt seen and examined in ED OBJECTIVE: Last Vital Signs Temp Pulse Resp BP Pulse Ox 97.8 F 106 H 18 149/88 97 04/21/20 14:27 04/21/20 14:27 04/21/20 14:27 04/21/20 14:27 04/21/20 14:27 GENERAL: Awake, alert, and fully oriented, in no acute distress. HEAD: Normal with no signs of trauma. EYES: Pupils equal, round and reactive to light, sclera anicteric, conjunctiva clear. LUNGS: Breath sounds equal, clear to auscultation bilaterally. No wheezes, and no crackles. No accessory muscle use. HEART: Regular rate and rhythm, normal S1 and S2 ABDOMEN: Soft, nontender, not distended MUSCULOSKELETAL: Normal range of motion at all joints. No bony deformities or tenderness. No CVA tenderness. UPPER EXTREMITIES: 2+ pulses, warm, well-perfused. No cyanosis. No clubbing. No peripheral edema. LOWER EXTREMITIES: 2+ pulses, warm, well-perfused. No calf tenderness. No peripheral edema. NEUROLOGICAL: Cranial nerves II-XII intact. Normal speech. CBCD WBC 3.9 K/mm3 (4.0-10.0) L 04/21/20 05:30 RBC 4.42 M/mm3 (3.60-5.2) 04/21/20 05:30 Hgb 13.1 GM/dL (10.7-15.3) 04/21/20 05:30 Hct 39.8 % (32.4-45.2) 04/21/20 05:30 MCV 90.0 fl (80-96) 04/21/20 05:30 MCHC 33.0 g/dl (32.0-36.0) 04/21/20 05:30 RDW 14.3 % (11.6-15.6) 04/21/20 05:30 Plt Count 68 K/MM3 (134-434) L 04/21/20 05:30 MPV 9.5 fl (7.5-11.1) 04/21/20 05:30 CMP Sodium 139 mmol/L (136-145) 04/21/20 05:30 Potassium 4.4 mmol/L (3.5-5.1) 04/21/20 05:30 Chloride 104 mmol/L (98-107) 04/21/20 05:30 Carbon Dioxide 28 mmol/L (21-32) 04/21/20 05:30 Anion Gap 7 MMOL/L (8-16) L 04/21/20 05:30 BUN 18.0 mg/dL (7-18) 04/21/20 05:30 Creatinine 0.8 mg/dL (0.55-1.3) 04/21/20 05:30 Calcium 8.8 mg/dL (8.5-10.1) 04/21/20 05:30 Total Bilirubin 0.4 mg/dL (0.2-1) 04/21/20 05:30 AST 20 U/L (15-37) 04/21/20 05:30 ALT 17 U/L (13-61) 04/21/20 05:30 Alkaline Phosphatase 93 U/L (45-117) 04/21/20 05:30 Total Protein 8.1 g/dl (6.4-8.2) 04/21/20 05:30 Albumin 3.4 g/dl (3.4-5.0) 04/21/20 05:30 Active Medications Acetaminophen (Tylenol -) 650 mg PO Q6H PRN PRN Reason: Fever Or Pain Atorvastatin Calcium (Lipitor -) 20 mg PO HS [facility] Last Admin: 04/20/20 21:42 Dose: 20 mg Documented by: Atovaquone (Mepron -) 750 mg PO BID [facility] Buspirone HCl (Buspar -) 30 mg PO BID [facility] Last Admin: 04/21/20 10:04 Dose: 30 mg Documented by: Cholecalciferol (Vitamin D3 -) 1,000 unit PO DAILY [facility] Last Admin: 04/21/20 10:05 Dose: 1,000 unit Documented by: Clonidine (Catapres -) 0.1 mg PO DAILY [facility] Last Admin: 04/21/20 09:48 Dose: 0.1 mg Documented by: Ferrous Sulfate (Feosol -) 325 mg PO DAILY@0800 [facility] Last Admin: 04/21/20 09:48 Dose: 325 mg Documented by: Guaifenesin (Robitussin -) 10 ml PO Q4H PRN PRN Reason: COUGH Heparin Sodium (Porcine) (Heparin -) 5,000 unit SQ BID [facility] Last Admin: 04/21/20 09:49 Dose: 5,000 unit Documented by: Ibuprofen (Motrin -) 400 mg PO Q4H PRN PRN Reason: FEVER Last Admin: 04/21/20 05:05 Dose: 400 mg Documented by: Lactulose (Cephulac (Oral Use)) 10 gm PO TID PRN PRN Reason: CONSTIPATION Levetiracetam (Keppra -) 1,500 mg PO BID [facility] Last Admin: 04/21/20 09:49 Dose: 1,500 mg Documented by: Montelukast Sodium (Singulair -) 10 mg PO HS [facility] Last Admin: 04/20/20 21:42 Dose: 10 mg Documented by: Nicotine (Nicoderm Patch -) 21 mg TD DAILY [facility] Last Admin: 04/21/20 10:04 Dose: 21 mg Documented by: Quetiapine Fumarate (Seroquel -) 200 mg PO BID [facility] Last Admin: 04/21/20 09:49 Dose: 200 mg Documented by: Fluticasone/Salmeterol (Advair 100mcg/50mcg -) 1 puff IH DAILY [facility] Last Admin: 04/21/20 10:04 Dose: 1 puff Documented by: Zolpidem Tartrate (Ambien -) 5 mg PO HS PRN PRN Reason: INSOMNIA Stop: 04/23/20 18:25 Last Admin: 04/20/20 22:11 Dose: 5 mg Documented by: ASSESSMENT AND PLAN: Pt is a 49yo F with PMHx of HIV/AIDS (unknown CD4 and viral count) pressenting with seizure, with multiple rapid responses called for seizures. Received Keppra, fosphenytoin, Ativan. On methadone taper and ativan withdrawal protocol. # Breakthrough Seizures causes: likely substance abuse no seizure overnight diet restarted check EtOH level UTox only benzo+ aspiration precautions, fall precautions, seizures precautions on kepra to 1.5 bid, fosphynitoin started last EEG normal last MRI done had questionable cavernous aneurysm neurology notes appreciated Ativan PRN psych consult as pt threatened to commit suicide on admission, denies any suicidal thoughts now Polysubstance abuse/withdrawal methadone maintenance UTI HIV/AIDS (CD4 88/on ART, Toxo/pneumocystic j prophylaxis) DVT prophylaxis
[2020-04-21] MEDS ORDERED: PT OWN MED DRAWER 7, Y5N ONE (20:52)
[2020-04-21] MEDS: ATORVASTATIN CA 20 MG TABLET (FP) PO SCH (21:21)
[2020-04-21] MEDS: DIVALPROEX SODIUM 500 MG TABLET E.C. PO SCH (21:21)
[2020-04-21] MEDS: ZOLPIDEM TARTRATE 5 MG TABLET PO PRN (21:22)
[2020-04-21] MEDS: ATOVAQUONE 750 MG/5 ML (UNIT-DOSE PACKAGING) PO SCH (21:22)
[2020-04-21] MEDS: MONTELUKAST NA 10 MG TABLET PO SCH (21:22)
[2020-04-21] MEDS ORDERED: diphenhydrAMINE HCL 25 MG CAPSULE (FP) PO ONE (22:16)
[2020-04-22] MEDS ORDERED: MELATONIN 5 MG TABLETS PO ONE (01:01)
[2020-04-22] MEDS: IBUPROFEN 400 MG TABLET (FP) PO PRN ×2 (01:02→11:53)
[2020-04-22] MEDS: ACETAMINOPHEN 325 MG TABLET (FP) PO PRN ×2 (03:51→18:15)
[2020-04-22] MEDS ORDERED: LORazepam 2 MG/ML SDV VIAL IVPUSH ONE (07:24)
--- NOTE | 2020-04-22 07:27 | RAPID ---
Physical Examination Vital Signs: Vital Signs Temperature 98.2 F 04/21/20 21:00 Pulse Rate 100 H 04/21/20 21:00 Respiratory Rate 18 04/21/20 21:00 Blood Pressure 133/91 04/21/20 21:00 O2 Sat by Pulse Oximetry (%) 97 04/22/20 00:00 Labs: CBC, BMP 04/21/20 05:30 04/21/20 05:30 Rapid Response - Rapid Response Assessment: Assessment: Rapid response called. call worker team responded immediately. As per nurse, pt had seizure-like activity. Pt was lying on bed. Awake and speaking. Ativan 2mg IV push given. Vitals: 145/88 HR 95 100% on RA T 98F Plan: -known seizure disorder -seizure self-resolved -2mg IV Ativan administered once - Continue antiseizure medications. -Neurology following.
[2020-04-22] MEDS ORDERED: LORazepam 2 MG/ML SDV VIAL ONE (07:28)
[2020-04-22] MEDS ORDERED: PT OWN MED DRAWER 7, Y5N ONE ×4 (08:20→22:17)
[2020-04-22] MEDS: busPIRone HCL 10 MG TABLET (FP) PO SCH ×2 (09:13→22:05)
[2020-04-22] MEDS: levETIRAcetam 500 MG TABLET (FP) PO SCH ×2 (09:13→22:07)
[2020-04-22] MEDS: FLUTICASONE/SALMETEROL 100 MCG/50 MCG DISKUS IH SCH (09:13)
[2020-04-22] MEDS: NICOTINE 21 MG/24 HOURS TOPICAL PATCH TD SCH (09:13)
[2020-04-22] MEDS: HEPARIN NA (PORCINE) 5,000 UNITS/ML 1ML VIAL SQ SCH ×2 (09:14→22:08)
[2020-04-22] MEDS: cloNIDine HCL 0.1 MG TABLET PO SCH (09:14)
[2020-04-22] MEDS: FERROUS SO4 325 MG TABLET (FP) PO SCH (09:14)
[2020-04-22] MEDS: CHOLECALCIFEROL (VIT D3) 1,000 UNIT (25 MCG) TABLET PO SCH (09:15)
[2020-04-22] MEDS: ATOVAQUONE 750 MG/5 ML (UNIT-DOSE PACKAGING) PO SCH ×2 (09:17→22:08)
[2020-04-22] MEDS: DIVALPROEX SODIUM 500 MG TABLET E.C. PO SCH ×2 (09:17→22:17)
[2020-04-22] MEDS: DOLUTEGRAVIR SODIUM 50 MG TABLET (NON-FORMULARY) PO SCH (09:17)
[2020-04-22] MEDS: EMTRICITAB/RILPIVIRI/TENOF ALA (ODEFSEY) TABLET PO SCH (09:18)
[2020-04-22] MEDS: QUEtiapine FUMARATE 200 MG TABLET PO SCH (09:19)
[2020-04-22 12:32] LABS: BASO % 0.4 % (0-2.0); EOS % 0.8 % (0-4.5); HEMATOCRIT 41.9 % (32.4-45.2); HEMOGLOBIN 13.9 GM/dL (10.7-15.3); LYMPH % 12.9 % (8-40); MCH 30.3 pg (25.7-33.7); MCHC 33.2 g/dl (32.0-36.0); MEAN PLT VOLUME 9.6 fl (7.5-11.1); MONO % 7.5 % (3.8-10.2); NEUT % 78.4 % (42.8-82.8); PLATELET COUNT 77 K/MM3 (134-434); RBC 4.61 M/mm3 (3.60-5.2); WHITE BLOOD COUNT 5.3 K/mm3 (4.0-10.0)
[2020-04-22 12:57] LABS: ALBUMIN 3.5 g/dl (3.4-5.0); BILIRUBIN,TOTAL 0.7 mg/dL (0.2-1); BLOOD UREA NITROGEN 17.2 mg/dL (7-18); CALCIUM 9.1 mg/dL (8.5-10.1); CREATININE 0.7 mg/dL (0.55-1.3); MAGNESIUM 2.3 mg/dL (1.8-2.4); PHOSPHOROUS 3.7 mg/dL (2.5-4.9); POTASSIUM 4.3 mmol/L (3.5-5.1); TOT PROT 8.5 g/dl (6.4-8.2)
[2020-04-22] MEDS ORDERED: BUPRENORPHINE/NALOXONE 8 MG/2 MG FILM PACKET SL SCH ×2 (13:15→13:19)
--- NOTE | 2020-04-22 13:28 | PN ---
Physical Exam: SUBJECTIVE: Patient seen and examined OBJECTIVE: Vital Signs Period Temp Pulse Resp BP Sys/Sanz Pulse Ox Last 24 Hr 97.5 F-98.3 F 91-106 18-18 133-149/85-108 97-100 GENERAL: Awake, alert, and fully oriented, in no acute distress. HEAD: Normal with no signs of trauma. EYES: Pupils equal, round and reactive to light, sclera anicteric, conjunctiva clear. LUNGS: Breath sounds equal, clear to auscultation bilaterally. No wheezes, and no crackles. No accessory muscle use. HEART: Regular rate and rhythm, normal S1 and S2 ABDOMEN: Soft, nontender, not distended MUSCULOSKELETAL: Normal range of motion at all joints. No bony deformities or tenderness. No CVA tenderness. UPPER EXTREMITIES: 2+ pulses, warm, well-perfused. No cyanosis. No clubbing. No peripheral edema. LOWER EXTREMITIES: 2+ pulses, warm, well-perfused. No calf tenderness. No peripheral edema. NEUROLOGICAL: Cranial nerves II-XII intact. Normal speech. Laboratory Results - last 24 hr 04/21/20 04/22/20 04/22/20 12:41 11:42 11:42 WBC 5.3 RBC 4.61 Hgb 13.9 Hct 41.9 MCV 91.0 MCH 30.3 MCHC 33.2 RDW 14.0 Plt Count 77 L MPV 9.6 Absolute Neuts (auto) 4.2 Neutrophils % 78.4 Lymphocytes % 12.9 Monocytes % 7.5 Eosinophils % 0.8 Basophils % 0.4 Nucleated RBC % 0 Sodium 137 Potassium 4.3 Chloride 104 Carbon Dioxide 26 Anion Gap 7 L BUN 17.2 Creatinine 0.7 Est GFR (CKD-EPI)AfAm 117.09 Est GFR (CKD-EPI)NonAf 101.02 Random Glucose 98 Calcium 9.1 Phosphorus 3.7 Magnesium 2.3 Total Bilirubin 0.7 AST 15 ALT 15 Alkaline Phosphatase 95 Total Protein 8.5 H Albumin 3.5 Alcohol, Quantitative < 3 Active Medications Generic Name Dose Route Start Last Admin Trade Name Freq PRN Reason Stop Dose Admin Acetaminophen 650 mg 04/21/20 10:36 04/22/20 03:51 Tylenol - PO 650 mg Q6H PRN Administration Fever Or Pain Atorvastatin Calcium 20 mg 04/20/20 22:00 04/21/20 21:21 Lipitor - PO 20 mg HS ESTEVAN Administration Atovaquone 750 mg 04/21/20 22:00 04/22/20 09:17 Mepron - PO 750 mg BID ESTEVAN Administration Buprenorphine/Naloxone 2 each 04/22/20 13:19 Suboxone 8 Mg/2 Mg Film Packet SL DAILY ESTEVAN Buspirone HCl 30 mg 04/20/20 22:00 04/22/20 09:13 Buspar - PO 30 mg BID ESTEVAN Administration Cholecalciferol 1,000 unit 04/21/20 10:00 04/22/20 09:15 Vitamin D3 - PO 1,000 unit DAILY ESTEVAN Administration Clonidine 0.1 mg 04/21/20 10:00 04/22/20 09:14 Catapres - PO 0.1 mg DAILY ESTEVAN Administration Diphenhydramine HCl 50 mg 04/22/20 13:19 Benadryl Injection - IVPUSH DAILY PRN INSOMNIA Divalproex Sodium 1,000 mg 04/21/20 22:00 04/22/20 09:17 Depakote - PO 1,000 mg BID ESTEVAN Administration Ferrous Sulfate 325 mg 04/21/20 08:00 04/22/20 09:14 Feosol - PO 325 mg DAILY@0800 ESTEVAN Administration Guaifenesin 10 ml 04/20/20 18:00 Robitussin - PO Q4H PRN COUGH Heparin Sodium (Porcine) 5,000 unit 04/20/20 22:00 04/22/20 09:14 Heparin - SQ 5,000 unit BID ESTEVAN Administration Ibuprofen 400 mg 04/20/20 17:29 04/22/20 11:53 Motrin - PO 400 mg Q4H PRN Administration FEVER Lactulose 10 gm 04/20/20 17:57 Cephulac (Oral Use) PO TID PRN CONSTIPATION Levetiracetam 1,500 mg 04/20/20 22:00 04/22/20 09:13 Keppra - PO 1,500 mg BID ESTEVAN Administration Montelukast Sodium 10 mg 04/20/20 22:00 04/21/20 21:22 Singulair - PO 10 mg HS ESTEVAN Administration Nicotine 21 mg 04/21/20 10:00 04/22/20 09:13 Nicoderm Patch - TD 21 mg DAILY ESTEVAN Administration Quetiapine Fumarate 200 mg 04/20/20 22:00 04/22/20 09:19 Seroquel - PO 200 mg BID ESTEVAN Administration Fluticasone/Salmeterol 1 puff 04/21/20 10:00 04/22/20 09:13 Advair 100mcg/50mcg - IH 1 puff DAILY ESTEVAN Administration Zolpidem Tartrate 5 mg 04/20/20 18:26 04/21/20 21:22 Ambien - PO 04/23/20 18:25 5 mg HS PRN Administration INSOMNIA ASSESSMENT/PLAN: Pt is a 49yo F with PMHx of HIV/AIDS (unknown CD4 and viral count) pressenting with seizure, with multiple rapid responses called for seizures. Received Keppra, fosphenytoin, Ativan. On methadone taper and ativan withdrawal protocol. # Breakthrough Seizures causes: likely substance abuse no seizure since admission diet restarted UTox only benzo+ aspiration precautions, fall precautions, seizures precautions on kepra to 1.5 bid, depakote 1g bid started last EEG normal last MRI done had questionable cavernous aneurysm neurology notes appreciated Ativan PRN # Polysubstance abuse/withdrawal note in rehab/detox note that plan is to restart pt on suboxone after 3 days off methadone. pt placed back on subxone today consult (dr. Jj) requested # S.I pt threatened to commit suicide on admission, denies any suicidal thoughts now hx concerning for Bipolar disorder psych consult pending UTI HIV/AIDS (CD4 88/on ART, Toxo/pneumocystic j prophylaxis) DVT prophylaxis Plan: Psych consult for suicidal Ideation, Detox consult to adjust/maintain suboxone Visit type - Emergency Visit Emergency Visit: Yes ED Registration Date: 04/20/20 Care time: The patient presented to the Emergency Department on the above date and was hospitalized for further evaluation of their emergent condition. - New Patient This patient is new to me today: No - Critical Care Critical Care patient: No - Discharge Referral Referred to [facility] Med P.C.: No
--- NOTE | 2020-04-22 15:00 | CON.PSY ---
Psychiatry Consult Chief Complaint: 49 jewels old female with Substance abuse, BiPolar Disorder seen for Psych eval. Transfeered from [facility].. She apparantly reported feeling Suicidal.. No attempt.. She denies any suicidal ideas and plans. Symptoms: reports: Irritability, Impulsivity - Previous Psychiatric Treatment Outpatient: Less than 6 mos ago Inpatient: 2 or more prior admissions - Previous Substance Abuse Treatment Outpatient: Less than 6 mos ago Inpatient: One prior admission - Reason for Previous Treatment Reason for Previous Treatment: Biploar Illness, Heroin or Other Narcotics - Current Medications Current Medications: Active Medications Acetaminophen (Tylenol -) 650 mg PO Q6H PRN PRN Reason: Fever Or Pain Last Admin: 04/22/20 03:51 Dose: 650 mg Documented by: Atorvastatin Calcium (Lipitor -) 20 mg PO [facility] Last Admin: 04/21/20 21:21 Dose: 20 mg Documented by: Atovaquone (Mepron -) 750 mg PO BID [facility] Last Admin: 04/22/20 09:17 Dose: 750 mg Documented by: Buprenorphine/Naloxone (Suboxone 8 Mg/2 Mg Film Packet) 2 each SL DAILY [facility] Buspirone HCl (Buspar -) 30 mg PO BID [facility] Last Admin: 04/22/20 09:13 Dose: 30 mg Documented by: Cholecalciferol (Vitamin D3 -) 1,000 unit PO DAILY [facility] Last Admin: 04/22/20 09:15 Dose: 1,000 unit Documented by: Clonidine (Catapres -) 0.1 mg PO DAILY [facility] Last Admin: 04/22/20 09:14 Dose: 0.1 mg Documented by: Diphenhydramine HCl (Benadryl Injection -) 50 mg IVPUSH DAILY PRN PRN Reason: INSOMNIA Divalproex Sodium (Depakote -) 1,000 mg PO BID [facility] Last Admin: 04/22/20 09:17 Dose: 1,000 mg Documented by: Ferrous Sulfate (Feosol -) 325 mg PO DAILY@0800 [facility] Last Admin: 04/22/20 09:14 Dose: 325 mg Documented by: Guaifenesin (Robitussin -) 10 ml PO Q4H PRN PRN Reason: COUGH Heparin Sodium (Porcine) (Heparin -) 5,000 unit SQ BID [facility] Last Admin: 04/22/20 09:14 Dose: 5,000 unit Documented by: Ibuprofen (Motrin -) 400 mg PO Q4H PRN PRN Reason: FEVER Last Admin: 04/22/20 11:53 Dose: 400 mg Documented by: Lactulose (Cephulac (Oral Use)) 10 gm PO TID PRN PRN Reason: CONSTIPATION Levetiracetam (Keppra -) 1,500 mg PO BID [facility] Last Admin: 04/22/20 09:13 Dose: 1,500 mg Documented by: Montelukast Sodium (Singulair -) 10 mg PO HS [facility] Last Admin: 04/21/20 21:22 Dose: 10 mg Documented by: Nicotine (Nicoderm Patch -) 21 mg TD DAILY [facility] Last Admin: 04/22/20 09:13 Dose: 21 mg Documented by: Fluticasone/Salmeterol (Advair 100mcg/50mcg -) 1 puff IH DAILY [facility] Last Admin: 04/22/20 09:13 Dose: 1 puff Documented by: Zolpidem Tartrate (Ambien -) 5 mg PO HS PRN PRN Reason: INSOMNIA Stop: 04/23/20 18:25 Last Admin: 04/21/20 21:22 Dose: 5 mg Documented by: - Allergies Allergies: Allergies Allergy/AdvReac Type Severity Reaction Status Date / Time haloperidol [From Haldol] Allergy Severe Rash Verified 04/19/20 12:04 haloperidol lactate Allergy Severe Rash Verified 04/19/20 12:04 [From Haldol] metoclopramide Allergy Severe swelling, Verified 04/19/20 12:04 itching metoclopramide HCl Allergy Severe Swelling Verified 04/19/20 12:04 [From Reglan] prochlorperazine Allergy Severe Swelling Verified 04/19/20 12:04 [From Compazine] prochlorperazine edisylate Allergy Severe Swelling Verified 04/19/20 12:04 [From Compazine] prochlorperazine maleate Allergy Severe Swelling Verified 04/19/20 12:04 [From Compazine] Sulfa (Sulfonamide Allergy Severe Itching, Verified 04/19/20 12:04 Antibiotics) swelling - Current Living Status Usual Living Arrangement: Alone - Current Mental Status Evaluation Appearance: Well Groomed Attitude: Cooperative - Affect Affect: Full Range Appropriateness: Appropriate to Content - Mood Mood: Euthymic - Speech/Language Expressive: Coherent - Psychomotor Activity Psychomotor Activity: Normal - Thought Process Thought Process: Intact - Thought Content Hallucinations: Absent Delusions: Absent - Self Perception Self Perception: No Impairment - Cognition Attention: Alert Orientation: Time Memory, Immediate Recall: Intact Memory, Short Term: 3/3 Memory, Remote with Promptin/3 - Concentration Serial Sevens Intact: Yes Simple Calculations Intact: Yes - Abstraction Proverb Interpretation: Intact Judgement: Minimally Impaired - Insight Insight: Intact - Impulse Control Impulse Control: Good Control - Suicidal Ideation Suicidal Ideation: No - Homicidal Ideation Homicidal Ideation: No Assessment/Plan 1) d/c 1:1. 2) increase Seroquel to 300mg po hs. 3) Discharge Home when medical;ly clear. Will follow up with her [facility] Psych.
[2020-04-22] MEDS: BUPRENORPHINE/NALOXONE 8 MG/2 MG FILM PACKET SL SCH (16:02)
--- NOTE | 2020-04-22 17:20 | PN ---
Progress Note (short form) - Note Progress Note: C Breakthrough seizure HPI 49 year old female histoyr of HIV/AIDS( do not know cd4 and viral lod), HTN,HLD,Depression, Bipolar, asthma, copd, anemia. Lyndon has history of polysubstance abuse recently was admitted to [facility], where she had mri o fbrain and eeg, all test were unremarkable. Pateint says, she was not given her methadone and other medication. She is feeling very abxious and she is demanding pain medicaitn. Patient has generalized tonic clonic seizure. Patient denies any focal neurological symptoms. She has a tongue bite episode during episode as well. She is currently on keppra 1500 mg po bid she is taking keppra 1500 mg po bid -- she was given iv dilantin and developed burnign and it was stopped and now she is on depakote, no side effect, psych consult appreciated. spoke to nursing staff and chart reviewed. NEUROLOGICAL EXAMINATION Alert oriented x 3, neck is supple eomi,pupils reactive no face asymmetry neck i ssupple moving all ext sensation is normal reflex are diminished ct head is unremarkable Assessment/Plan 49 year old female histoyr of HIV/AIDS( do not know cd4 and viral lod), HTN,HLD,Depression, Bipolar, asthma, copd, anemia. She has hitory of seizure on keppra 1.5gm po bid, ct head wnl, neuro exam nonfocal . There i sbreakthrough seizure, ? pseudo seizure . Plan --continue keppra 1.5 gm po bid and depakote for now - - psych consult appreciated thanking you so much Lonny De La Cruz MD
[2020-04-22] MEDS ORDERED: QUEtiapine FUMARATE 100 MG TABLET (FP) ONE (21:57)
[2020-04-22] MEDS: MONTELUKAST NA 10 MG TABLET PO SCH (22:06)
[2020-04-22] MEDS: ZOLPIDEM TARTRATE 5 MG TABLET PO PRN (22:06)
[2020-04-22] MEDS: ATORVASTATIN CA 20 MG TABLET (FP) PO SCH (22:06)
[2020-04-22] MEDS: QUEtiapine FUMARATE 300 MG TABLET PO SCH (22:07)
[2020-04-23] MEDS ORDERED: DEXTROSE 5%-WATER - 50 ML IVPB ONE (09:35)
[2020-04-23] MEDS ORDERED: PT OWN MED DRAWER 7, Y5N ONE ×2 (09:35→21:12)
[2020-04-23] MEDS ORDERED: cefTRIAXone SODIUM 1 GM VIAL ONE (09:35)
[2020-04-23] MEDS: FERROUS SO4 325 MG TABLET (FP) PO SCH (09:53)
[2020-04-23] MEDS: cloNIDine HCL 0.1 MG TABLET PO SCH (09:54)
[2020-04-23] MEDS: IBUPROFEN 400 MG TABLET (FP) PO PRN ×2 (09:54→18:30)
[2020-04-23] MEDS: CHOLECALCIFEROL (VIT D3) 1,000 UNIT (25 MCG) TABLET PO SCH (09:55)
[2020-04-23] MEDS: levETIRAcetam 500 MG TABLET (FP) PO SCH ×2 (09:55→21:17)
[2020-04-23] MEDS: BUPRENORPHINE/NALOXONE 8 MG/2 MG FILM PACKET SL SCH (09:55)
[2020-04-23] MEDS: busPIRone HCL 10 MG TABLET (FP) PO SCH ×2 (09:55→21:17)
[2020-04-23] MEDS: NICOTINE 21 MG/24 HOURS TOPICAL PATCH TD SCH (09:55)
[2020-04-23] MEDS: FLUTICASONE/SALMETEROL 100 MCG/50 MCG DISKUS IH SCH (09:55)
[2020-04-23] MEDS: DOLUTEGRAVIR SODIUM 50 MG TABLET (NON-FORMULARY) PO SCH (09:57)
[2020-04-23] MEDS: EMTRICITAB/RILPIVIRI/TENOF ALA (ODEFSEY) TABLET PO SCH (09:57)
[2020-04-23] MEDS: DIVALPROEX SODIUM 500 MG TABLET E.C. PO SCH ×2 (09:58→21:22)
[2020-04-23] MEDS ORDERED: CEFTRIAXONE 1 GM in DEXTROSE 5%-WATER - 50 ML IVPB SCH (10:00)
[2020-04-23] MEDS: ATOVAQUONE 750 MG/5 ML (UNIT-DOSE PACKAGING) PO SCH ×2 (11:07→21:18)
--- NOTE | 2020-04-23 13:42 | CONSULT ---
Consult Detox [facility] Reason for Current Admission/Consult: We are consulted concerning start of Suboxone. Referred by:: Dr. Olsen - History History of Present Illness: 49 year old female with known history of HIV/AIDS, hypertension, hyperlipidemia, bipolar DO, anemia, seizure disorder, polysubstance abuse, endometriosis, UTI (on antibiotics) who was transferred to ED from [facility] on 04/20/2020 after she was noted to have seizure episode necessitating ativan administration. Other symptoms included loose stools, abdominal pains, frequent and painful urination. At the ED, Head CT Vital Signs Temperature 98 F 04/23/20 10:00 Pulse Rate 93 H 04/23/20 10:00 Respiratory Rate 18 04/23/20 10:00 Blood Pressure 114/70 04/23/20 10:00 O2 Sat by Pulse Oximetry (%) 100 04/23/20 10:00 did not reveal any acute intracranial pathology. She has a history of substance use disorder and completed a detox from opiates and alcohol last week. She returned to [facility] on April 18. The plan was to start Suboxone on WednesdayApril 22, however, in the interim she went back to [facility] for seizure like activity. The question of pseudoseizure has been raised by Neurology. She was briefly placed on a 1:1 for suicidal ideation. However, upon evaluation by Psychiatry, she was deemed safe and the 1:1 was discontinued. She is now on Keppra and Depakote for seizures. [facility] DIRECTOR BUSINESS DEVELOPMENT: Ran Tenorio Date: 1970 Address: [address] [place] [address] Sex: Female Rx Written Rx Dispensed Drug Quantity Days Supply Prescriber Name 02/22/2020 02/23/2020 buprenorphine-naloxone 8-2 mg sl film 90 30 OswaldoAndrez rosenthal MD 01/25/2020 01/26/2020 buprenorphine-naloxone 8-2 mg sl film 90 30 OswaldoAndrez rosenthal MD 12/25/2019 12/28/2019 buprenorphine-naloxone 8-2 mg sl film 90 30 Andrez Chacon MD 11/20/2019 11/23/2019 buprenorphine-naloxone 8-2 mg sl film 90 30 Andrez Chacon MD 09/11/2019 09/13/2019 suboxone 8 mg-2 mg sl film 45 15 Andrez Chacon MD Home Medication List Medication Instructions Recorded Confirmed Type Atorvastatin Ca [Lipitor] 20 mg PO HS 04/15/20 04/20/20 History Atovaquone [Mepron Oral Solution -] 750 mg PO BID 04/15/20 04/20/20 History Buprenorphine/Naloxone [Suboxone 3 each SL DAILY 04/15/20 04/20/20 History 8Mg/2Mg Sl Film -] Buspirone HCl [Buspar -] 10 mg PO DAILY 04/15/20 04/20/20 History Cholecalciferol (Vitamin D3) 1,000 unit PO DAILY 04/15/20 04/20/20 History [Vitamin D3] Clonidine HCl [Clonidine HCl ER] 0.1 mg PO DAILY 04/15/20 04/20/20 History Dolutegravir Sodium [Tivicay] 50 mg PO DAILY 04/15/20 04/20/20 History Emtricitab/Rilpiviri/Tenof Ala 1 each PO DAILY 04/15/20 04/20/20 History [Odefsey Tablet] Ferrous Sulfate 325 mg PO DAILY 04/15/20 04/20/20 History Fluticasone Propion/Salmeterol 1 each IH DAILY 04/15/20 04/20/20 History [Wixela 100-50 Inhub] Montelukast Na [Singulair -] 10 mg PO HS 04/15/20 04/20/20 History Quetiapine Fumarate [Quetiapine 200 mg PO BID 04/15/20 04/20/20 History Fumarate ER] Acetaminophen 325 mg PO PRN 04/16/20 04/20/20 History Guaifenesin [Robafen] 100 mg PO PRN 04/16/20 04/20/20 History Ibuprofen 400 mg PO PRN 04/16/20 04/20/20 History Lactulose 10 gm PO TID 04/16/20 04/20/20 History Nicotine Patch [Nicoderm Patch -] 21 mg TD DAILY 04/16/20 04/20/20 History Nicotine Polacrilex [Nicotine Gum] 2 mg PO PRN 04/16/20 04/20/20 History Active Medications Generic Name Dose Route Start Last Admin Trade Name Freq PRN Reason Stop Dose Admin Acetaminophen 650 mg 04/21/20 10:36 04/22/20 18:15 Tylenol - PO 650 mg Q6H PRN Administration Fever Or Pain Atorvastatin Calcium 20 mg 04/20/20 22:00 04/22/20 22:06 Lipitor - PO 20 mg HS ESTEVAN Administration Atovaquone 750 mg 04/21/20 22:00 04/23/20 11:07 Mepron - PO 750 mg BID ESTEVAN Administration Buspirone HCl 30 mg 04/20/20 22:00 04/23/20 09:55 Buspar - PO 30 mg BID ESTEVAN Administration Cholecalciferol 1,000 unit 04/21/20 10:00 04/23/20 09:55 Vitamin D3 - PO 1,000 unit DAILY ESTEVAN Administration Clonidine 0.1 mg 04/21/20 10:00 04/23/20 09:54 Catapres - PO 0.1 mg DAILY ESTEVAN Administration Diphenhydramine HCl 50 mg 04/22/20 13:19 04/23/20 09:53 Benadryl Injection - IVPUSH 50 mg DAILY PRN Administration INSOMNIA Divalproex Sodium 1,000 mg 04/21/20 22:00 04/23/20 09:58 Depakote - PO 1,000 mg BID ESTEVAN Administration Ferrous Sulfate 325 mg 04/21/20 08:00 04/23/20 09:53 Feosol - PO 325 mg DAILY@0800 ESTEVAN Administration Guaifenesin 10 ml 04/20/20 18:00 Robitussin - PO Q4H PRN COUGH Ceftriaxone Sodium 1 gm/ 50 mls @ 100 mls/hr 04/23/20 10:00 04/23/20 09:53 Dextrose IVPB 100 mls/hr DAILY ESTEVAN Administration Ibuprofen 400 mg 04/20/20 17:29 04/23/20 09:54 Motrin - PO 400 mg Q4H PRN Administration FEVER Lactulose 10 gm 04/20/20 17:57 Cephulac (Oral Use) PO TID PRN CONSTIPATION Levetiracetam 1,500 mg 04/20/20 22:00 04/23/20 09:55 Keppra - PO 1,500 mg BID ESTEVAN Administration Montelukast Sodium 10 mg 04/20/20 22:00 04/22/20 22:06 Singulair - PO 10 mg HS ESTEVAN Administration Nicotine 21 mg 04/21/20 10:00 04/23/20 09:55 Nicoderm Patch - TD 21 mg DAILY ESTEVAN Administration Quetiapine Fumarate 300 mg 04/22/20 22:00 04/22/20 22:07 Seroquel - PO 300 mg HS ESTEVAN Administration Fluticasone/Salmeterol 1 puff 04/21/20 10:00 04/23/20 09:55 Advair 100mcg/50mcg - IH 1 puff DAILY ESTEVAN Administration Zolpidem Tartrate 5 mg 04/20/20 18:26 04/22/20 22:06 Ambien - PO 04/23/20 18:25 5 mg HS PRN Administration INSOMNIA Vital Signs Period Temp Pulse Resp BP Sys/Sanz Pulse Ox Last 24 Hr 97.9 F-98.2 F 93-119 18-20 114-137/70-83 97-100 - History Source History Provided By: Medical Record - Alcohol/Substance Use Hx Alcohol Use: No - Past Medical History [employer]ER: Yes: Seizure Cardio/Vascular: Yes: HTN, Hyperlipdemia Pulmonary: Yes: Asthma, COPD Gastrointestinal: Yes: GERD ...LMP: 04/03/20 ...: No Infectious Disease: Yes: AIDS Psych: Yes: Bipolar Assessment Plan - Plan Plan: 1. Will restart Suboxone 8/2 tid
[2020-04-23] MEDS ORDERED: BUPRENORPHINE/NALOXONE 8 MG/2 MG FILM PACKET SL SCH (14:00)
--- NOTE | 2020-04-23 15:03 | PN ---
Teaching Attending Note Name of Resident: Arya Moreno ATTENDING PHYSICIAN STATEMENT I saw and evaluated the patient. I reviewed the resident's note and discussed the case with the resident. I agree with the resident's findings and plan as documented. SUBJECTIVE: Feeling well, no complaints. Worried about having another seizure. OBJECTIVE: Afebrile, Hemodynamically Stable. Last Vital Signs Temp Pulse Resp BP Pulse Ox 98 F 93 H 18 114/70 100 04/23/20 10:00 04/23/20 10:00 04/23/20 10:00 04/23/20 10:00 04/23/20 10:00 HEENT - Atraumatic, Normocephalic. Heart - S1, S2, RRR Lungs - clear to auscultation Abdomen - soft, non-tender. Bowel Sounds normal. Extremities - no edema, no calf tenderness. Current Medications Generic Name Dose Route Start Last Admin Trade Name Freq PRN Reason Stop Dose Admin Acetaminophen 650 mg 04/21/20 10:36 04/22/20 18:15 Tylenol - PO 650 mg Q6H PRN Administration Fever Or Pain Atorvastatin Calcium 20 mg 04/20/20 22:00 04/22/20 22:06 Lipitor - PO 20 mg HS ESTEVAN Administration Atovaquone 750 mg 04/21/20 22:00 04/23/20 11:07 Mepron - PO 750 mg BID ESTEVAN Administration Buprenorphine/Naloxone 3 each 04/24/20 10:00 Suboxone 8 Mg/2 Mg Film Packet SL DAILY ESTEVAN Buprenorphine/Naloxone 1 each 04/23/20 18:00 Suboxone 8 Mg/2 Mg Film Packet SL 04/23/20 18:01 ONCE ONE Buspirone HCl 30 mg 04/20/20 22:00 04/23/20 09:55 Buspar - PO 30 mg BID ESTEVAN Administration Cholecalciferol 1,000 unit 04/21/20 10:00 04/23/20 09:55 Vitamin D3 - PO 1,000 unit DAILY ESTEVAN Administration Clonidine 0.1 mg 04/21/20 10:00 04/23/20 09:54 Catapres - PO 0.1 mg DAILY ESTEVAN Administration Diphenhydramine HCl 50 mg 04/22/20 13:19 04/23/20 09:53 Benadryl Injection - IVPUSH 50 mg DAILY PRN Administration INSOMNIA Divalproex Sodium 1,000 mg 04/21/20 22:00 04/23/20 09:58 Depakote - PO 1,000 mg BID ESTEVAN Administration Ferrous Sulfate 325 mg 04/21/20 08:00 04/23/20 09:53 Feosol - PO 325 mg DAILY@0800 ESTEVAN Administration Guaifenesin 10 ml 04/20/20 18:00 Robitussin - PO Q4H PRN COUGH Ceftriaxone Sodium 1 gm/ 50 mls @ 100 mls/hr 04/23/20 10:00 04/23/20 09:53 Dextrose IVPB 100 mls/hr DAILY ESTEVAN Administration Ibuprofen 400 mg 04/20/20 17:29 04/23/20 09:54 Motrin - PO 400 mg Q4H PRN Administration FEVER Lactulose 10 gm 04/20/20 17:57 Cephulac (Oral Use) PO TID PRN CONSTIPATION Levetiracetam 1,500 mg 04/20/20 22:00 04/23/20 09:55 Keppra - PO 1,500 mg BID ESTEVAN Administration Montelukast Sodium 10 mg 04/20/20 22:00 04/22/20 22:06 Singulair - PO 10 mg HS ESTEVAN Administration Nicotine 21 mg 04/21/20 10:00 04/23/20 09:55 Nicoderm Patch - TD 21 mg DAILY ESTEVAN Administration Quetiapine Fumarate 300 mg 04/22/20 22:00 04/22/20 22:07 Seroquel - PO 300 mg HS ESTEVAN Administration Fluticasone/Salmeterol 1 puff 04/21/20 10:00 04/23/20 09:55 Advair 100mcg/50mcg - IH 1 puff DAILY ESTEVAN Administration Zolpidem Tartrate 5 mg 04/20/20 18:26 04/22/20 22:06 Ambien - PO 04/23/20 18:25 5 mg HS PRN Administration INSOMNIA Home Medications Medication Instructions Recorded Atorvastatin Ca [Lipitor] 20 mg PO HS 04/15/20 Atovaquone [Mepron Oral Solution -] 750 mg PO BID 04/15/20 Buprenorphine/Naloxone [Suboxone 3 each SL DAILY 04/15/20 8Mg/2Mg Sl Film -] Buspirone HCl [Buspar -] 10 mg PO DAILY 04/15/20 Cholecalciferol (Vitamin D3) 1,000 unit PO DAILY 04/15/20 [Vitamin D3] Clonidine HCl [Clonidine HCl ER] 0.1 mg PO DAILY 04/15/20 Dolutegravir Sodium [Tivicay] 50 mg PO DAILY 04/15/20 Emtricitab/Rilpiviri/Tenof Ala 1 each PO DAILY 04/15/20 [Odefsey Tablet] Ferrous Sulfate 325 mg PO DAILY 04/15/20 Fluticasone Propion/Salmeterol 1 each IH DAILY 04/15/20 [Wixela 100-50 Inhub] Montelukast Na [Singulair -] 10 mg PO HS 04/15/20 Quetiapine Fumarate [Quetiapine 200 mg PO BID 04/15/20 Fumarate ER] Acetaminophen 325 mg PO PRN 04/16/20 Guaifenesin [Robafen] 100 mg PO PRN 04/16/20 Ibuprofen 400 mg PO PRN 04/16/20 Lactulose 10 gm PO TID 04/16/20 Nicotine Patch [Nicoderm Patch -] 21 mg TD DAILY 04/16/20 Nicotine Polacrilex [Nicotine Gum] 2 mg PO PRN 04/16/20 Cefuroxime Axetil [Ceftin -] 500 mg PO BID tablet 04/17/20 Pyrimethamine [Pyrimethamine and 1 cap PO WEEKLY #8 cap 04/17/20 Leucovorin 75 MG/25 MG] levETIRAcetam [Levetiracetam ER] 1,500 mg PO BID #60 tab 04/17/20 ASSESSMENT AND PLAN: 49 year old female with history of HIV/AIDS, Seizure/Pseudoseizure, Polysubstance abuse, HLD, sent from [facility] with multiple episodes of seizure. 1. Recurrent Breakthrough Seizure/Pseudoseizure CT Head - no acute findings. Seen by Neurology - anti-epileptics intensified, Keppra and Depakote. Last MRI 04/04 - questionable cavernous aneurysm Will refer to Neurosurgery on discharge. 2. Polysubstance Abuse s/p Alcohol Detox for withdrawal. Evaluated by Addiction medicine - resumed on Suboxone. 3. UTI - Urine Cx positive for ESBL Empiric Ceftriaxone discontinued. ID consult for Abx therapy. Carbapenems lower seizure threshold - under consideration for Fosfomycin, discussed with pharmacy. 4. Suicidal Ideation, underlying Bipolar Disorder - resolved. Evaluated by Psychiatry and cleared, 1:1 discontinued. Recommend Quetiapine, will monitor QTc. Continue Buspar. 5. HIV/AIDS - on HAART, on Mepron Px. 6. Thrombocytopenia - sec to HIV/AIDS. Hematology eval as out-patient. DVT Px - SCDs
--- NOTE | 2020-04-23 16:10 | PN ---
Progress Note (short form) - Note Progress Note: 49 year old female histoyr of HIV/AIDS( do not know cd4 and viral lod), HTN,HLD,Depression, Bipolar, asthma, copd, anemia. Lyndon has history of polysubstance abuse recently was admitted to [facility], where she had mri o fbrain and eeg, all test were unremarkable. Pateint says, she was not given her methadone and other medication. She is feeling very abxious and she is demanding pain medicaitn. Patient has generalized tonic clonic seizure. Patient denies any focal neurological symptoms. She has a tongue bite episode during episode as well. She is currently on keppra 1500 mg po bid she is taking keppra 1500 mg po bid -- there has not been any episode in 24 hours, pateint is feeling better and found to have uti NEUROLOGICAL EXAMINATION Alert oriented x 3, neck is supple eomi,pupils reactive no face asymmetry neck i ssupple moving all ext sensation is normal reflex are diminished ct head is unremarkable Assessment/Plan 49 year old female histoyr of HIV/AIDS( do not know cd4 and viral lod), HTN,HLD,Depression, Bipolar, asthma, copd, anemia. She has hitory of seizure on keppra 1.5gm po bid, ct head wnl, neuro exam nonfocal . There i sbreakthrough seizure, ? pseudo seizure . Plan --continue keppra 1.5 gm po bid and depakote for now - - psych consult appreciated d/c neurocheck and telemonitoring can be discontinue , most neil rucker has nonepileptic ( pseudo seizure ) thanking you so much Lonny De La Cruz MD
--- NOTE | 2020-04-23 17:05 | PN ---
Physical Exam: SUBJECTIVE: Patient seen and examined at bedside, she reports she feels well and was able to sleep last night. OBJECTIVE: Vital Signs Period Temp Pulse Resp BP Sys/Sanz Pulse Ox Last 24 Hr 97.9 F-98.2 F 93-119 18-20 114-137/60-83 97-100 GENERAL: AAOx3, in no acute distress HEENT: NCAT, PERRLA, EOMI, sclera anicteric, conjunctiva clear, oropharynx clear w/o exudates. MMM. NECK: Normal ROM, supple, no lymphadenopathy, JVD, or masses LUNGS: CTABL no wheezes/ rhonchi/ rales. No distress, speaks in full sentences. No increased work of breathing. HEART: RRR, normal S1 S2, no M/R/G, peripheral pulses 2+ and equal b/l ABDOMEN: Soft, Suprapubic TTP, + BS. No guarding or rebound. No hepatomegaly or splenomegaly. MSK: ROM WNL, NO CVA tenderness EXTREMITIES: Normal inspection. No peripheral edema. No clubbing or cyanosis. NEUROLOGICAL: CN II-XII intact. Normal speech, gait not observed, no focal sensorimotor deficits. PSYCH: Normal mood, normal affect. SKIN: Warm, Dry, normal turgor, no rashes or lesions noted Active Medications Generic Name Dose Route Start Last Admin Trade Name Freq PRN Reason Stop Dose Admin Acetaminophen 650 mg 04/21/20 10:36 04/22/20 18:15 Tylenol - PO 650 mg Q6H PRN Administration Fever Or Pain Atorvastatin Calcium 20 mg 04/20/20 22:00 04/22/20 22:06 Lipitor - PO 20 mg HS ESTEVAN Administration Atovaquone 750 mg 04/21/20 22:00 04/23/20 11:07 Mepron - PO 750 mg BID ESTEVAN Administration Buprenorphine/Naloxone 3 each 04/24/20 10:00 Suboxone 8 Mg/2 Mg Film Packet SL DAILY ESTEVAN Buprenorphine/Naloxone 1 each 04/23/20 18:00 Suboxone 8 Mg/2 Mg Film Packet SL 04/23/20 18:01 ONCE ONE Buspirone HCl 30 mg 04/20/20 22:00 04/23/20 09:55 Buspar - PO 30 mg BID ESTEVAN Administration Cholecalciferol 1,000 unit 04/21/20 10:00 04/23/20 09:55 Vitamin D3 - PO 1,000 unit DAILY ESTEVAN Administration Clonidine 0.1 mg 04/21/20 10:00 04/23/20 09:54 Catapres - PO 0.1 mg DAILY ESTEVAN Administration Diphenhydramine HCl 50 mg 04/22/20 13:19 04/23/20 09:53 Benadryl Injection - IVPUSH 50 mg DAILY PRN Administration INSOMNIA Divalproex Sodium 1,000 mg 04/21/20 22:00 04/23/20 09:58 Depakote - PO 1,000 mg BID ESTEVAN Administration Ferrous Sulfate 325 mg 04/21/20 08:00 04/23/20 09:53 Feosol - PO 325 mg DAILY@0800 ESTEVAN Administration Guaifenesin 10 ml 04/20/20 18:00 Robitussin - PO Q4H PRN COUGH Ibuprofen 400 mg 04/20/20 17:29 04/23/20 09:54 Motrin - PO 400 mg Q4H PRN Administration FEVER Lactulose 10 gm 04/20/20 17:57 Cephulac (Oral Use) PO TID PRN CONSTIPATION Levetiracetam 1,500 mg 04/20/20 22:00 04/23/20 09:55 Keppra - PO 1,500 mg BID ESTEVAN Administration Montelukast Sodium 10 mg 04/20/20 22:00 04/22/20 22:06 Singulair - PO 10 mg HS ESTEVAN Administration Nicotine 21 mg 04/21/20 10:00 04/23/20 09:55 Nicoderm Patch - TD 21 mg DAILY ESTEVAN Administration Non-Formulary Medication 1 each 04/24/20 10:00 Patient's Own Med PO 04/26/20 10:01 DAILY ESTEVAN Quetiapine Fumarate 300 mg 04/22/20 22:00 04/22/20 22:07 Seroquel - PO 300 mg HS ESTEVAN Administration Fluticasone/Salmeterol 1 puff 04/21/20 10:00 04/23/20 09:55 Advair 100mcg/50mcg - IH 1 puff DAILY ESTEVAN Administration Zolpidem Tartrate 5 mg 04/20/20 18:26 04/22/20 22:06 Ambien - PO 04/23/20 18:25 5 mg HS PRN Administration INSOMNIA ASSESSMENT/PLAN: Patient is a 49 y/o F with a significant past medical history of HIV/AIDS (unknown CD4 count and viral load), hypertension, hyperlipdemia, depression, Bipolar d/o, asthma, COPD, GERD, anemia, and seizure disorder who presented to [facility] due to a Seizure at [facility]. Admitted for seizures. 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 De La Cruz on board, appreciate recs - continue keppra 1.5 gm po bid - Iv cerebryx 1 gm once and 100gm BID daily - Neuro Checks , Seizure, fall, aspiration precautions are in place - Ativan 2 mg PRN for recurrence of seizure #UTI - Ua +1 LE, Ucx: ESBL - Consulted ID, pending recs #Suicide Risk - Resolved, - evaluated by psych, d/c 1:1, Recommend Quetiapine - Psych, Dr. Myers is consulted, appreciate recs #Polysubstance abuse - Continue with meds from [facility] - will continue to monitor for withdrawals - Patient is supposed to be evaluated on appropriateness of resuming suboxone on Wednesday @ [facility] #HIV/AIDS: - will Resume home HIV/AIDS medications - Last CD4 count was 88 #Bipolar disorder - continue home meds #FEN - NS@100 mls/hr - Continue to monitor Electrolytes - Chol/Fat/Sodium restricted diet #DVT ppx: -Heparin SQ TID #Dispo: Will continue to monitor in telemetry Visit type - Emergency Visit Emergency Visit: Yes ED Registration Date: 04/21/20 Care time: The patient presented to the Emergency Department on the above date and was hospitalized for further evaluation of their emergent condition. - New Patient This patient is new to me today: No - Critical Care Critical Care patient: No - Discharge Referral Referred to [facility] Med P.C.: No ATTENDING PHYSICIAN STATEMENT I saw and evaluated the patient. I reviewed the resident's note and discussed the case with the resident. I agree with the resident's findings and plan as documented. SUBJECTIVE: OBJECTIVE: ASSESSMENT AND PLAN:
--- NOTE | 2020-04-23 17:33 | EKG ---
Test Reason : Blood Pressure : / mmHG Vent. Rate : 087 BPM Atrial Rate : 087 BPM P-R Int : 130 ms QRS Dur : 090 ms QT Int : 398 ms P-R-T Axes : 071 026 036 degrees QTc Int : 478 ms NORMAL SINUS RHYTHM POSSIBLE LEFT ATRIAL ENLARGEMENT BORDERLINE ECG Confirmed by MD ALEXANDRA, MAXIMILIANO ([id number]) on 04/23/2020 5:32:59 PM Referred By: Confirmed By:MAXIMILIANO MORRIS MD
[2020-04-23] MEDS ORDERED: BUPRENORPHINE/NALOXONE 8 MG/2 MG FILM PACKET SL ONE (18:00)
[2020-04-23] MEDS ORDERED: QUEtiapine FUMARATE 100 MG TABLET (FP) ONE (21:11)
[2020-04-23] MEDS: ATORVASTATIN CA 20 MG TABLET (FP) PO SCH (21:18)
[2020-04-23] MEDS: MONTELUKAST NA 10 MG TABLET PO SCH (21:18)
[2020-04-23] MEDS: QUEtiapine FUMARATE 300 MG TABLET PO SCH (21:20)
[2020-04-24 07:28] LABS: BASO % 1.4 % (0-2.0); EOS % 3.2 % (0-4.5); HEMATOCRIT 34.4 % (32.4-45.2); HEMOGLOBIN 11.2 GM/dL (10.7-15.3); LYMPH % 20.3 % (8-40); MCH 29.8 pg (25.7-33.7); MCHC 32.6 g/dl (32.0-36.0); MEAN CELL VOLUME 91.3 fl (80-96); MEAN PLT VOLUME 9.6 fl (7.5-11.1); MONO % 11.5 % (3.8-10.2); NEUT % 63.6 % (42.8-82.8); PLATELET COUNT 58 K/MM3 (134-434); RBC 3.77 M/mm3 (3.60-5.2); RDW 14.3 % (11.6-15.6); WHITE BLOOD COUNT 2.9 K/mm3 (4.0-10.0)
[2020-04-24 07:38] LABS: BILIRUBIN,TOTAL 0.3 mg/dL (0.2-1); CALCIUM 8.2 mg/dL (8.5-10.1); CREATININE 0.8 mg/dL (0.55-1.3); MAGNESIUM 2.2 mg/dL (1.8-2.4); PHOSPHOROUS 4.6 mg/dL (2.5-4.9); POTASSIUM 4.4 mmol/L (3.5-5.1); TOT PROT 7.3 g/dl (6.4-8.2)
[2020-04-24 09:00] VITALS: BP 102/59; PULSE 79; TEMP 98
[2020-04-24] MEDS: busPIRone HCL 10 MG TABLET (FP) PO SCH (09:19)
[2020-04-24] MEDS: levETIRAcetam 500 MG TABLET (FP) PO SCH (09:19)
[2020-04-24] MEDS: cloNIDine HCL 0.1 MG TABLET PO SCH (09:20)
[2020-04-24] MEDS: FERROUS SO4 325 MG TABLET (FP) PO SCH (09:20)
[2020-04-24] MEDS: NICOTINE 21 MG/24 HOURS TOPICAL PATCH TD SCH (09:20)
[2020-04-24] MEDS: CHOLECALCIFEROL (VIT D3) 1,000 UNIT (25 MCG) TABLET PO SCH (09:21)
[2020-04-24] MEDS: ATOVAQUONE 750 MG/5 ML (UNIT-DOSE PACKAGING) PO SCH (09:21)
[2020-04-24] MEDS: FLUTICASONE/SALMETEROL 100 MCG/50 MCG DISKUS IH SCH (09:21)
[2020-04-24] MEDS: DIVALPROEX SODIUM 500 MG TABLET E.C. PO SCH (09:22)
[2020-04-24] MEDS: EMTRICITAB/RILPIVIRI/TENOF ALA (ODEFSEY) TABLET PO SCH (09:22)
[2020-04-24] MEDS: DOLUTEGRAVIR SODIUM 50 MG TABLET (NON-FORMULARY) PO SCH (09:22)
[2020-04-24] MEDS ORDERED: BUPRENORPHINE/NALOXONE 8 MG/2 MG FILM PACKET SL SCH (10:00)
[2020-04-24] MEDS ORDERED: QUEtiapine FUMARATE 100 MG TABLET (FP) PO SCH (11:30)
--- NOTE | 2020-04-24 12:49 | PN ---
Teaching Attending Note Name of Resident: Arya Moreno ATTENDING PHYSICIAN STATEMENT I saw and evaluated the patient. I reviewed the resident's note and discussed the case with the resident. I agree with the resident's findings and plan as documented. SUBJECTIVE: Feeling well, no complaints. Mild dysuria. OBJECTIVE: Afebrile, Hemodynamically Stable. Last Vital Signs Temp Pulse Resp BP Pulse Ox 98.0 F 79 18 102/59 L 96 04/24/20 08:56 04/24/20 08:56 04/24/20 08:56 04/24/20 08:56 04/24/20 08:56 Heart - S1, S2, RRR Lungs - clear to auscultation Abdomen - soft, mild suprapubic tenderness. Bowel Sounds normal. Extremities - no edema, no calf tenderness. Laboratory Results - last 24 hr 04/20/20 04/24/20 04/24/20 15:37 05:40 05:40 WBC 2.9 L RBC 3.77 Hgb 11.2 Hct 34.4 D MCV 91.3 MCH 29.8 MCHC 32.6 RDW 14.3 Plt Count 58 L D MPV 9.6 Absolute Neuts (auto) 1.8 Neutrophils % 63.6 Lymphocytes % 20.3 D Monocytes % 11.5 H Eosinophils % 3.2 D Basophils % 1.4 D Nucleated RBC % 0 Sodium 139 Potassium 4.4 Chloride 104 Carbon Dioxide 28 Anion Gap 7 L BUN 23.0 H Creatinine 0.8 Est GFR (CKD-EPI)AfAm 99.63 Est GFR (CKD-EPI)NonAf 85.96 Random Glucose 77 Calcium 8.2 L Phosphorus 4.6 Magnesium 2.2 Total Bilirubin 0.3 AST 10 L ALT 11 L Alkaline Phosphatase 90 Total Protein 7.3 Albumin 3.0 L C. trachomatis (PREMA) Negative N. gonorrhoeae (PREMA) Negative Current Medications Generic Name Dose Route Start Last Admin Trade Name Freq PRN Reason Stop Dose Admin Acetaminophen 650 mg 04/21/20 10:36 04/22/20 18:15 Tylenol - PO 650 mg Q6H PRN Administration Fever Or Pain Atorvastatin Calcium 20 mg 04/20/20 22:00 04/23/20 21:18 Lipitor - PO 20 mg HS ESTEVAN Administration Atovaquone 750 mg 04/21/20 22:00 04/24/20 09:21 Mepron - PO 750 mg BID ESTEVAN Administration Buprenorphine/Naloxone 3 each 04/24/20 10:00 04/24/20 09:20 Suboxone 8 Mg/2 Mg Film Packet SL 3 each DAILY ESTEVAN Administration Buspirone HCl 30 mg 04/20/20 22:00 04/24/20 09:19 Buspar - PO 30 mg BID ESTEVAN Administration Cholecalciferol 1,000 unit 04/21/20 10:00 04/24/20 09:21 Vitamin D3 - PO 1,000 unit DAILY ESTEVAN Administration Clonidine 0.1 mg 04/21/20 10:00 04/24/20 09:20 Catapres - PO 0.1 mg DAILY ESTEVAN Administration Diphenhydramine HCl 50 mg 04/23/20 20:48 04/24/20 09:38 Benadryl Injection - IVPUSH 50 mg HS PRN Administration INSOMNIA Divalproex Sodium 1,000 mg 04/21/20 22:00 04/24/20 09:22 Depakote - PO 1,000 mg BID ESTEVAN Administration Ferrous Sulfate 325 mg 04/21/20 08:00 04/24/20 09:20 Feosol - PO 325 mg DAILY@0800 ESTEVAN Administration Guaifenesin 10 ml 04/20/20 18:00 Robitussin - PO Q4H PRN COUGH Ibuprofen 400 mg 04/20/20 17:29 04/23/20 18:30 Motrin - PO 400 mg Q4H PRN Administration FEVER Lactulose 10 gm 04/20/20 17:57 Cephulac (Oral Use) PO TID PRN CONSTIPATION Levetiracetam 1,500 mg 04/20/20 22:00 04/24/20 09:19 Keppra - PO 1,500 mg BID ESTEVAN Administration Montelukast Sodium 10 mg 04/20/20 22:00 04/23/20 21:18 Singulair - PO 10 mg HS ESTEVAN Administration Nicotine 21 mg 04/21/20 10:00 04/24/20 09:20 Nicoderm Patch - TD 21 mg DAILY ESTEVAN Administration Non-Formulary Medication 1 each 04/24/20 10:00 Patient's Own Med PO 04/26/20 10:01 DAILY ESTEVAN Quetiapine Fumarate 200 mg 04/24/20 11:30 Seroquel - PO BID [facility] Fluticasone/Salmeterol 1 puff 04/21/20 10:00 04/24/20 09:21 Advair 100mcg/50mcg - IH 1 puff DAILY ESTEVAN Administration Home Medications Medication Instructions Recorded Atorvastatin Ca [Lipitor] 20 mg PO HS 04/15/20 Atovaquone [Mepron Oral Solution -] 750 mg PO BID 04/15/20 Buprenorphine/Naloxone [Suboxone 3 each SL DAILY 04/15/20 8Mg/2Mg Sl Film -] Buspirone HCl [Buspar -] 10 mg PO DAILY 04/15/20 Cholecalciferol (Vitamin D3) 1,000 unit PO DAILY 04/15/20 [Vitamin D3] Clonidine HCl [Clonidine HCl ER] 0.1 mg PO DAILY 04/15/20 Dolutegravir Sodium [Tivicay] 50 mg PO DAILY 04/15/20 Emtricitab/Rilpiviri/Tenof Ala 1 each PO DAILY 04/15/20 [Odefsey Tablet] Ferrous Sulfate 325 mg PO DAILY 04/15/20 Fluticasone Propion/Salmeterol 1 each IH DAILY 04/15/20 [Wixela 100-50 Inhub] Montelukast Na [Singulair -] 10 mg PO HS 04/15/20 Quetiapine Fumarate [Quetiapine 200 mg PO BID 04/15/20 Fumarate ER] Acetaminophen 325 mg PO PRN 04/16/20 Guaifenesin [Robafen] 100 mg PO PRN 04/16/20 Ibuprofen 400 mg PO PRN 04/16/20 Lactulose 10 gm PO TID 04/16/20 Nicotine Patch [Nicoderm Patch -] 21 mg TD DAILY 04/16/20 Nicotine Polacrilex [Nicotine Gum] 2 mg PO PRN 04/16/20 Pyrimethamine [Pyrimethamine and 1 cap PO WEEKLY #8 cap 04/17/20 Leucovorin 75 MG/25 MG] Divalproex [Depakote -] 1,000 mg PO BID #0 tablet.ec 04/24/20 levETIRAcetam [Keppra -] 1,500 mg PO BID #0 tablet 04/24/20 ASSESSMENT AND PLAN: 49 year old female with history of HIV/AIDS, Seizure/Pseudoseizure, Polysubstance abuse, HLD, sent from [facility] with multiple episodes of seizure. 1. Recurrent Breakthrough Seizure/Pseudoseizure CT Head - no acute findings. Seen by Neurology - anti-epileptics intensified, Keppra and Depakote. Last MRI 04/04 - questionable cavernous aneurysm - Will refer to Neurosurgery on discharge. Neurology out-patient follow up. 2. Polysubstance Abuse s/p Alcohol Detox for withdrawal. Evaluated by Addiction medicine - resumed on Suboxone - for transfer back to [facility] for Rehab. 3. UTI - Urine Cx positive for ESBL Empiric Ceftriaxone discontinued. ID consulted for Abx therapy - for Fosfomycin today - stable for discharge to after receiving dose. Afebrile, Hemodynamically stable. 4. Suicidal Ideation, underlying Bipolar Disorder - resolved. Evaluated by Psychiatry and cleared, 1:1 discontinued. Recommend Quetiapine BID Continue Buspar. 5. HIV/AIDS - on HAART, on Mepron Px. 6. Thrombocytopenia - sec to HIV/AIDS. No bruising/bleeding. Hematology eval as out-patient. Medically stable for transfer to [facility] with above referrals for out-patient follow up.
--- NOTE | 2020-04-24 14:43 | DS ---
Physical Exam: SUBJECTIVE: Patient seen and examined OBJECTIVE: Vital Signs Period Temp Pulse Resp BP Sys/Sanz Pulse Ox Last 24 Hr 97.8 F-98.2 F 79-92 18-20 102-110/59-74 92-99 PHYSICAL EXAM GENERAL: AAOx3, in no acute distress HEENT: NCAT, PERRLA, EOMI, sclera anicteric, conjunctiva clear, oropharynx clear w/o exudates. MMM. NECK: Normal ROM, supple, no lymphadenopathy, JVD, or masses LUNGS: CTABL no wheezes/ rhonchi/ rales. No distress, speaks in full sentences. No increased work of breathing. HEART: RRR, normal S1 S2, no M/R/G, peripheral pulses 2+ and equal b/l ABDOMEN: Soft, Suprapubic TTP, + BS. No guarding or rebound. No hepatomegaly or splenomegaly. MSK: ROM WNL, NO CVA tenderness EXTREMITIES: Normal inspection. No peripheral edema. No clubbing or cyanosis. NEUROLOGICAL: CN II-XII intact. Normal speech, gait not observed, no focal sensorimotor deficits. PSYCH: Normal mood, normal affect. SKIN: Warm, Dry, normal turgor, no rashes or lesions noted LABS Laboratory Results - last 24 hr 04/20/20 04/24/20 04/24/20 15:37 05:40 05:40 WBC 2.9 L RBC 3.77 Hgb 11.2 Hct 34.4 D MCV 91.3 MCH 29.8 MCHC 32.6 RDW 14.3 Plt Count 58 L D MPV 9.6 Absolute Neuts (auto) 1.8 Neutrophils % 63.6 Lymphocytes % 20.3 D Monocytes % 11.5 H Eosinophils % 3.2 D Basophils % 1.4 D Nucleated RBC % 0 Sodium 139 Potassium 4.4 Chloride 104 Carbon Dioxide 28 Anion Gap 7 L BUN 23.0 H Creatinine 0.8 Est GFR (CKD-EPI)AfAm 99.63 Est GFR (CKD-EPI)NonAf 85.96 Random Glucose 77 Calcium 8.2 L Phosphorus 4.6 Magnesium 2.2 Total Bilirubin 0.3 AST 10 L ALT 11 L Alkaline Phosphatase 90 Total Protein 7.3 Albumin 3.0 L C. trachomatis (PREMA) Negative N. gonorrhoeae (PREMA) Negative HOSPITAL COURSE: Date of Admission:04/21/20 49 year old female with history of HIV/AIDS, Seizure/Pseudoseizure, Polysubstance abuse, HLD, sent from [facility] with multiple episodes of seizure, admitted for Recurrent Breakthrough Seizure/Pseudoseizure. CT Head revealed no acute findings. Seen and evaluated by Neurology. Her anti-epileptic treatment was intensified: Depakote was added and continued home dose of Keppra. Eyad had a previous MRI, which showed a questionable cavernous aneurysm. Patient was provided with information and a referrals to Neurosurgery and Neurology out-patient follow up. Patient was s/p Alcohol Detox for withdrawal. Evaluated by Addiction medicine, who recommended to resume her Suboxone and to transfer back to [facility] for Rehab. Labs revealed UTI and Urine Cx was positive for ESBL. She was treated with Fosfomycin. She is Afebrile, Hemodynamically stable at this time. Labs also revealed Thrombocytopenia, most likely sec to HIV/AIDS. patient is not actively bleeding and there were no evidence for bruising. Provided her with referral to Hematology eval as out-patient. Patient is medically stable for transfer to [facility] with above referrals for out-patient follow up. Date of Discharge: 04/24/20 Minutes to complete discharge: 36 Discharge Summary Problems reviewed: Yes Reason For Visit: SEIZURES Condition: Good - Instructions Diet, Activity, Other Instructions: YOUR VISIT: You were admitted to the hospital for breakthrough Seizures. You did not have any seizures after you were admitted to the hospital. You were treated with antibiotics for a UTI Imaging showed that you had fibroids and a cyst in your left ovary. You will need to follow up out patient card hanger for further evaluation as outpatient MEDICATIONS: Please START taking Depakote 1g twice a day Please continue taking Kepra 1.5g twice a day do not continue Ceftin Continue to take all other home medications as prescribed FOLLOW UPS: Please follow up with your neurologist Dr. De La Cruz within 1 week for evaluation and management of your breakthrough seizures Please follow up with the supervisor core drilling, Dr. Lowry regarding your blood counts Please follow up with neurosurgery Dr. Conner feliz regarding possible aneurysm in your brain. Please visit your primary care provider within 1 weeks to follow up with your labwork and hospital visit. ADDITIONAL INSTRUCTIONS: You are being discharged to [facility]. Please return to the Emergency department if you are experiencing worsening or concerning symptoms. Referrals: Lonny De La Cruz MD [Staff Physician] - 1 Week (Seizures ) Charlee Myers MD [Staff Physician] - 2 Weeks (Bipolar) Chente Feliz MD [Staff Physician] - 1 Week (possible cavernous aneurysm on MRI Brain) Amanda Blanchard MD [Staff Physician] - 1 Week (Thrombocytopenia, AIDS/HIV on HAART therapy) Disposition: I.P. ALCOHOL/SUBS ABUSE REHAB - Home Medications Comprehensive Discharge Medication List: Ambulatory Orders Atorvastatin Ca [Lipitor] 20 mg PO HS 04/15/20 Atovaquone [Mepron Oral Solution -] 750 mg PO BID 04/15/20 Buprenorphine/Naloxone [Suboxone 8Mg/2Mg Sl Film -] 3 each SL DAILY 04/15/20 Cholecalciferol (Vitamin D3) [Vitamin D3] 1,000 unit PO DAILY 04/15/20 Clonidine HCl [Clonidine HCl ER] 0.1 mg PO DAILY 04/15/20 Dolutegravir Sodium [Tivicay] 50 mg PO DAILY 04/15/20 Emtricitab/Rilpiviri/Tenof Ala [Odefsey Tablet] 1 each PO DAILY 04/15/20 Ferrous Sulfate 325 mg PO DAILY 04/15/20 Fluticasone Propion/Salmeterol [Wixela 100-50 Inhub] 1 each IH DAILY 04/15/20 Montelukast Na [Singulair -] 10 mg PO HS 04/15/20 Quetiapine Fumarate [Quetiapine Fumarate ER] 200 mg PO BID 04/15/20 Acetaminophen 325 mg PO PRN 04/16/20 Guaifenesin [Robafen] 100 mg PO PRN 04/16/20 Ibuprofen 400 mg PO PRN 04/16/20 Lactulose 10 gm PO TID 04/16/20 Nicotine Patch [Nicoderm Patch -] 21 mg TD DAILY 04/16/20 Nicotine Polacrilex [Nicotine Gum] 2 mg PO PRN 04/16/20 Pyrimethamine [Pyrimethamine and Leucovorin 75 MG/25 MG] 1 cap PO WEEKLY #8 cap 04/17/20 Buspirone HCl [Buspar -] 30 mg PO BID tablet 04/24/20 Divalproex [Depakote -] 1,000 mg PO BID #0 tablet.ec 09/09/20 levETIRAcetam [Keppra -] 1,500 mg PO BID #0 tablet 04/24/20 This patient is new to me today: No Emergency Visit: Yes ED Registration Date: 04/21/20 Care time: The patient presented to the Emergency Department on the above date and was hospitalized for further evaluation of their emergent condition. Critical Care patient: No - Discharge Referral Referred to [facility] Med P.C.: No ATTENDING PHYSICIAN STATEMENT I saw and evaluated the patient. I reviewed the resident's note and discussed the case with the resident. I agree with the resident's findings and plan as documented. SUBJECTIVE: OBJECTIVE: ASSESSMENT AND PLAN:
--- NOTE | 2020-04-24 17:46 | PN ---
Progress Note (short form) - Note Progress Note: ID consult dictated 49 yo female history of HIV, seizures recent UTI ecoli treated with ceftriaxone and d/pricila on ceftin readmitted for recurrent seizure now with ecoli esbl and enterococcus in urine culture still notes dysuria, no fevers or chills would like to avoid carbapenems in this patient can treat with fosfomycin if she continues to c/o dysuria would get ultrasound of bladder and gyen and urology evaluations continue HIV meds d/w hospitalist
== END 2020-04-24 13:14 | disposition other institution (70) | DRG 894 ==
LOC: JER 09:54 → JERBED 15:26 → INTOOBSV 15:26 → OBSVTOIN 04-21 02:53 → J4W 04-21 13:54
PROVIDERS: ADMIT Internal Medicine
PROC: HZ2ZZZZ Detoxification Services for Substance Abuse Treatment (ICD-10-PCS; principal; 2020-04-20)
DX: G40.909 Epilepsy, unspecified, not intractable, without status epilepticus (principal); I10 Essential (primary) hypertension; E78.5 Hyperlipidemia, unspecified; J44.9 Chronic obstructive pulmonary disease, unspecified; K21.9 Gastro-esophageal reflux disease without esophagitis; D64.9 Anemia, unspecified; D25.9 Leiomyoma of uterus, unspecified; J45.909 Unspecified asthma, uncomplicated; F31.9 Bipolar disorder, unspecified; I67.1 Cerebral aneurysm, nonruptured; F13.239 Sedative, hypnotic or anxiolytic dependence with withdrawal, unspecified; F17.210 Nicotine dependence, cigarettes, uncomplicated; F14.23 Cocaine dependence with withdrawal; N83.202 Unspecified ovarian cyst, left side; N39.0 Urinary tract infection, site not specified; D69.6 Thrombocytopenia, unspecified; B20 Human immunodeficiency virus [HIV] disease; R45.851 Suicidal ideations; B96.20 Unspecified Escherichia coli [E. coli] as the cause of diseases classified elsewhere; Z16.12 Extended spectrum beta lactamase (ESBL) resistance
CPT/HCPCS: 36415; 70450-TC; 76830-TC; 80048; 80053; 80307; 81003; 83735; 84100; 84443; 85025; 85027; 85610; 85730; 87086; 87186; 87491; 87591; 93005; 93010; 99285-25; G0378; J0131; J0735; J1644; U0003

== ENCOUNTER 2020-04-24 14:01 | Inpatient (IN) | payer OTHER ==
--- NOTE | 2020-04-24 14:23 | BHS.RME ---
Substance Use & Tx History - Substance Use History Alcohol Substance amount: one leanne Hairston Frequency of use: Daily Substance route: Oral Date of Last Use: 04/13/20 Heroin Substance amount: 4 bundles Frequency of use: Daily Substance route: Inhalation (ex: sniffing or snorting) Date of Last Use: 04/13/20 Xanax Substance amount: 3-4 tabs of 2 mg Frequency of use: Daily Substance route: Oral Date of Last Use: 04/13/20 Nicotine Substance amount: 4 cigs Frequency of use: Daily Substance route: Smoking - Last Treatment Date of last treatment: Detox to [facility], to detox, to rehab, to [facility] for seizure Treatment type: Medical Physical/Psych/Mental Status - Behavior General Behavior: Decreased activity Eye Contact: Normal - Cooperativeness Cooperativeness: Cooperative - Thinking Thought Processes: Tight Thought content: Future oriented - Physical Health Problems Is patient presently having any pain?: Yes (chronic knee pain, agatha, pending surgery) Does patient presently have any injuries (include location): No Does patient currently have a fever: No COWS - Scale Resting Pulse: 0= [place] 80 or Below Sweatin= No chills or Flushing Restless Observation: 0= Sits Still Pupil Size: 0= Normal to Room Light Bone or Joint Aches: 0= None Runny Nose/ Eye Tearin= None GI Upset > 30mins: 1= Stomach Cramp Tremor Observation: 1= Tremor [place], Not Seen Yawning Observation: 0= None Anxiety or Irritability: 1=Feels Anxious/Irritable Goose Flesh Skin: 0=Smooth Skin COWS Score: 3 CIWA Nausea/Vomitin-Mild Nausea/No Vomiting Muscle Tremors: None Anxiety: 2 Agitation: 1-Slight > Activity Paroxysmal Sweats: No Perspiration Orientation: 1-Uncertain about Date Tacttile Disturbances: 0-None Auditory Disturbances: 0-None Visual Disturbances: 1-Very Mild Sensitivity Headache: 0-None Present CIWA-Ar Total Score: 6
--- NOTE | 2020-04-24 16:58 | HP ---
COWS - Scale Resting Pulse: 0= [place] 80 or Below Sweatin= No chills or Flushing Restless Observation: 0= Sits Still Pupil Size: 0= Normal to Room Light Bone or Joint Aches: 0= None Runny Nose/ Eye Tearin= None GI Upset > 30mins: 1= Stomach Cramp Tremor Observation: 1= Tremor [place], Not Seen Yawning Observation: 0= None Anxiety or Irritability: 1=Feels Anxious/Irritable Goose Flesh Skin: 0=Smooth Skin COWS Score: 3 CIWA Score Nausea/Vomitin-Mild Nausea/No Vomiting Muscle Tremors: None Anxiety: 2 Agitation: 1-Slight > Activity Paroxysmal Sweats: No Perspiration Orientation: 1-Uncertain about Date Tacttile Disturbances: 0-None Auditory Disturbances: 0-None Visual Disturbances: 1-Very Mild Sensitivity Headache: 0-None Present CIWA-Ar Total Score: 6 - Admission Criteria OASAS Guidelines: Admission for Medically Managed Detox: Requires at least one of the followin. CIWA greater than 12 2. Seizures within the past 24 hours 3. Delirium tremens within the past 24 hours 4. Hallucinations within the past 24 hours 5. Acute intervention needed for co occurring medical disorder 6. Acute intervention needed for co occurring psychiatric disorder 7. Severe withdrawal that cannot be handled at a lower level of care (continued vomiting, continued diarrhea, abnormal vital signs) requiring intravenous medication and/or fluids 8. Admitting History and Physical - Primary Care Physician PCP: s - Admission Chief Complaint: "I'm her for rehab" History of Present Illness: Miss Tenorio is a 49 y/o female originally presented to [facility] 04/13 for alcohol, heroin,and Benzo detox.She was transferrred to [facility] on 04/20 after having a seizure on the rehab floor.History of Asthma, COPD, HIV+, Kaposi sarcoma, seizure, fibroids, right knee arthroscopy, right ankle fracture and ovarian cyst. 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 History of Recent Travel: No Admission ROS [facility] - [facility] Allergies/Adverse Reactions: Allergies Allergy/AdvReac Type Severity Reaction Status Date / Time haloperidol [From Haldol] Allergy Severe Rash Verified 04/19/20 12:04 haloperidol lactate Allergy Severe Rash Verified 04/19/20 12:04 [From Haldol] metoclopramide Allergy Severe swelling, Verified 04/19/20 12:04 itching metoclopramide HCl Allergy Severe Swelling Verified 04/19/20 12:04 [From Reglan] prochlorperazine Allergy Severe Swelling Verified 04/19/20 12:04 [From Compazine] prochlorperazine edisylate Allergy Severe Swelling Verified 04/19/20 12:04 [From Compazine] prochlorperazine maleate Allergy Severe Swelling Verified 04/19/20 12:04 [From Compazine] Sulfa (Sulfonamide Allergy Severe Itching, Verified 04/19/20 12:04 Antibiotics) swelling Exam Limitations: No Limitations - Ebola screening Have you traveled outside of the country in the last 21 days: No Have you had contact with anyone from an Ebola affected area: No Have you been sick,other than usual withdrawal symptoms: No Do you have a fever: No - Review of Systems Constitutional: No Symptoms Reported EENT: reports: No Symptoms Reported Respiratory: reports: No Symptoms reported Cardiac: reports: No Symptoms Reported GI: reports: No Symptoms Reported : reports: No Symptoms Reported Musculoskeletal: reports: Joint Pain Integumentary: reports: No Symptoms Reported Neuro: reports: Seizure Endocrine: reports: No Symptoms Reported Hematology: reports: No Symptoms Reported Psychiatric: reports: No Sypmtoms Reported, Judgement Intact, Mood/Affect Appropiate, Orientated x3 Other Systems: Reviewed and Negative Patient History - Patient Medical History Hx Anemia: Yes (on iron supplement) Hx Asthma: Yes Hx Chronic Obstructive Pulmonary Disease (COPD): Yes Hx Cancer: Yes (kaposi saecoma) Hx Cardiac Disorders: No Hx Congestive Heart Failure: No Hx Hypertension: Yes Hx Hypercholesterolemia: Yes Hx Pacemaker: No HX Cerebrovascular Accident: Yes Hx Seizures: Yes (Last 04/15/2020) Hx Dementia: No Hx Diabetes: No Hx Gastrointestinal Disorders: Yes Hx Liver Disease: No Hx Genitourinary Disorders: No Hx Sexually Transmitted Disorders: No Hx Renal Disease (ESRD): No Hx Thyroid Disease: No Hx Human Immunodeficiency Virus (HIV): Yes Hx Hepatitis C: No Hx Depression: Yes Hx Suicide Attempt: Yes (2018) Hx Bipolar Disorder: Yes Hx Schizophrenia: No - Patient Surgical History Past Surgical History: Yes Hx Neurologic Surgery: No Hx Cataract Extraction: No Hx Cardiac Surgery: No Hx Lung Surgery: No Hx Breast Surgery: No Hx Breast Biopsy: No Hx Abdominal Surgery: No Hx Appendectomy: No Hx Cholecystectomy: No Hx Genitourinary Surgery: No Hx Section: No Hx Orthopedic Surgery: No Other Surgical History: removal of bunions, both feet/tonsilectomy,arthoscopic sugery of eight knee Anesthesia Reaction: No - PPD History Date: 04/15/20 - Reproductive History Last Menstrual Period: 04/03/20 - Smoking Cessation Smoking history: Current some day smoker Have you smoked in the past 12 months: Yes Aproximately how many cigarettes per day: 4 Hx Chewing Tobacco Use: No Initiated information on smoking cessation: Yes 'Breaking Loose' booklet given: 04/24/20 Admission Physical Exam S - Physical General Appearance: Yes: Within Normal Limits, No Apparent Distress, Nourished, Appropriately Dressed HEENTM: Yes: Within Normal Limits, EOMI, Hearing grossly Normal, Pharynx Normal Respiratory: Yes: Within Normal Limits Neck: Yes: Within Normal Limits Breast: Yes: Breast Exam Deferred Cardiology: Yes: Within Normal Limits, Regular Rhythm, Regular Rate, S1, S2 Abdominal: Yes: Within Normal Limits, Normal Bowel Sounds, Soft Genitourinary: Yes: Within Normal Limits Back: Yes: Within Normal Limits, Normal Inspection Musculoskeletal: Yes: Within Normal Limits Extremities: Yes: Within Normal Limits, Normal Range of Motion Neurological: Yes: Within Normal Limits, Fully Oriented, Alert, Normal Response Integumentary: Yes: Within Normal Limits Lymphatic: Yes: Within Normal Limits - Diagnostic (1) Alcohol dependence, uncomplicated Current Visit: No Status: Acute Cleared for Admission [facility] - Detox or Rehab Claeared for Rehab Admission: Yes Screened but not Admitted - Documentation of Visit Screened but not Admitted: No Breathalyzer - Breathalyzer Breathalyzer: 0 Urine Drug Screen - Test Device Lot number: [id number] Expiration date: 11/21/21 - Control Is test valid?: Yes - Results Drug screen NEGATIVE: No Urine drug screen results: MTD-Methadone, BZO-Benzodiazepines, BUP-Suboxone Inpatient Rehab Admission - Rehab Decision to Admit Inpatient rehab admission?: Yes - Initial Determination Are CD services needed?: Yes Free of communicable disease: Yes Not in need of hospitalization: Yes - Rehab Admission Criteria Previous failed treatment: Yes Poor recovery environment: Yes Comorbidities: Yes Lacks judgement: Yes Patient is meeting Inpatient Rehab admission criteria:: Yes
[2020-04-24] MEDS ORDERED: P-EPHED 60MG/TRIPROLIDI 2.5MG TABLET PO PRN (17:14)
[2020-04-24] MEDS ORDERED: IBUPROFEN 400 MG TABLET (FP) PO PRN (17:14)
[2020-04-24] MEDS ORDERED: ACETAMINOPHEN 325 MG TABLET (FP) PO PRN (17:14)
[2020-04-24] MEDS ORDERED: guaiFENesin 200 MG/10 ML 10 ML UNIT-DOSE CUPS PO PRN (17:14)
[2020-04-24] MEDS ORDERED: LOPERAMIDE HCL 2 MG CAPSULE PO PRN (17:14)
[2020-04-24] MEDS ORDERED: MAG HYDROX/AL HYDROX/SIMETH 30 ML UNIT-DOSE CUP PO PRN (17:14)
[2020-04-24] MEDS ORDERED: MAGNESIUM HYDROX 2400MG/30ML ORAL SUSPENSION 30 ML CUP PO PRN (17:14)
[2020-04-24 18:11] VITALS: BMI 27.3
[2020-04-24] MEDS: hydrOXYzine PAMOATE 25 MG CAPSULE (FP) PO PRN (19:52)
[2020-04-24] MEDS: LACTULOSE 20 GM/30 ML UDC (FOR ORAL USE ONLY) PO SCH (21:16)
[2020-04-24] MEDS: MONTELUKAST NA 10 MG TABLET PO SCH (21:16)
[2020-04-24] MEDS: THIAMINE HCL 100 MG TABLET (FP) PO SCH (21:16)
[2020-04-24] MEDS: DIVALPROEX SODIUM 500 MG TABLET E.C. PO SCH (21:16)
[2020-04-24] MEDS: levETIRAcetam 500 MG TABLET (FP) PO SCH (21:16)
[2020-04-24] MEDS: ATORVASTATIN CA 20 MG TABLET (FP) PO SCH (21:16)
[2020-04-24] MEDS: MELATONIN 5 MG TABLETS PO SCH (21:17)
[2020-04-24] MEDS: ATOVAQUONE 750 MG/5 ML (UNIT-DOSE PACKAGING) PO SCH (21:19)
[2020-04-24] MEDS ORDERED: PT OWN MED DRAWER 7, Y5N ONE ×2 (21:19→22:17)
[2020-04-25] MEDS: LACTULOSE 20 GM/30 ML UDC (FOR ORAL USE ONLY) PO SCH ×3 (06:17→21:06)
[2020-04-25] MEDS: hydrOXYzine PAMOATE 25 MG CAPSULE (FP) PO PRN ×3 (06:18→21:06)
[2020-04-25] MEDS ORDERED: BENZOCAINE 28 GM HEMORRHOIDAL OINTMENT RC PRN (08:55)
[2020-04-25] MEDS ORDERED: PT OWN MED DRAWER 7, Y5N ONE ×3 (09:03→21:11)
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
[2020-04-25] MEDS ORDERED: TUBERCULIN PPD 5 TU/0.1ML VIAL ID ONE (09:33)
[2020-04-25] MEDS: FLUTICASONE/SALMETEROL 100 MCG/50 MCG DISKUS IH SCH (09:41)
[2020-04-25] MEDS: NICOTINE 7 MG/24 HOURS TOPICAL PATCH TD SCH (09:41)
[2020-04-25] MEDS: levETIRAcetam 500 MG TABLET (FP) PO SCH ×2 (09:42→21:06)
[2020-04-25] MEDS: DIVALPROEX SODIUM 500 MG TABLET E.C. PO SCH ×2 (09:42→21:06)
[2020-04-25] MEDS: FERROUS SO4 325 MG TABLET (FP) PO SCH (09:42)
[2020-04-25] MEDS: DOLUTEGRAVIR SODIUM 50 MG TABLET (NON-FORMULARY) PO SCH (09:43)
[2020-04-25] MEDS: EMTRICITAB/RILPIVIRI/TENOF ALA (ODEFSEY) TABLET PO SCH (09:43)
[2020-04-25] MEDS: CHOLECALCIFEROL (VIT D3) 1,000 UNIT (25 MCG) TABLET PO SCH (09:44)
[2020-04-25] MEDS: ATOVAQUONE 750 MG/5 ML (UNIT-DOSE PACKAGING) PO SCH ×2 (09:45→21:12)
[2020-04-25] MEDS: BUPRENORPHINE/NALOXONE 8 MG/2 MG FILM PACKET SL SCH (09:45)
[2020-04-25] MEDS: PRENATAL VITAMINS W/ FOLIC ACID TABLET (FP) PO SCH (09:45)
--- NOTE | 2020-04-25 10:13 | PN ---
[facility] Progress Note (SOAP) Subjective: called to see patient because of fall. According to the RN and the patient confirms, she was attempting to sit in a chair while adjusting her gown and was not centered on the seat, but the edge and slipped to the floor. The fall was witnessed by the RN who confirms the patient report. Objective: 04/25/20 10:05 Vital Signs Period Temp Pulse Resp BP Sys/Sanz Pulse Ox Last 24 Hr 97.3 F-98 F 92-96 18-20 112-120/70-87 98-100 VS immediately after the fall: 115/ 77, HR-79, RR-18, T-98.7, O2 sat-97% General: no apparent distress HEENTM: normocephalic, EOMI, PERRLA NEck: supple Lungs: respiration unlabored Cardiac: Regular rhythm and rate MSK: full weight bearing, full ROM, steady gait. MSK: no edema, +pulses NEURO: No cognitive deficits, CN 2-12 intact, Muscle strength equal Assessment: s/p witnessed fall 04/25/20 10:13 Plan: Fall Protocol #2 ordered. Depakote and Keppra levels were ordered prior to the fall, Ammonia level was ordered prior to the fall.
--- NOTE | 2020-04-25 10:17 | PN ---
[facility] Progress Note Note: Patient c/o burning and itching on urination. Also reports white cheesy discharge. She was on abx at [facility]. P/E; general: no apparent distress -deferred Vital Signs Period Temp Pulse Resp BP Sys/Sanz Pulse Ox Last 24 Hr 97.3 F-98 F 92-96 18-20 112-120/70-87 98-100 U/A shows increased leukocytes Vaginal candidiasis Will order Diflucan one dose, for yeast infection Will order urine culture, start on Bactrim
[2020-04-25] MEDS ORDERED: FLUCONAZOLE 50 MG TABLET PO ONE (11:00)
--- NOTE | 2020-04-25 13:55 | PN ---
S Progress Note Note: RN informed this provider that Ms. Tenorio stated that she uses a cane. This requirement was not shared with the nurse upon admission to rehab. No c/o dizziness, syncope, light headedness, P/E: General: no apparent distress HEENTM: PERRLA MSK: full weight bearing, full ROM, steady gait, pelvis stable Extremities: color, temperature, pulses equal bilaterally Neuro: muscle strength equal bilaterally. Vital Signs Period Temp Pulse Resp BP Sys/Sanz Pulse Ox Last 24 Hr 97.3 F-98.7 F 92-102 18-20 111-120/70-87 98-100 A/P: Pt request a cane, considering her fall earlier today, a cane will be ordered. However,
[2020-04-25] MEDS: THIAMINE HCL 100 MG TABLET (FP) PO SCH (21:05)
[2020-04-25] MEDS ORDERED: MASKS NR ONE (21:05)
[2020-04-25] MEDS: MONTELUKAST NA 10 MG TABLET PO SCH (21:06)
[2020-04-25] MEDS: ATORVASTATIN CA 20 MG TABLET (FP) PO SCH (21:06)
[2020-04-25] MEDS: SUVOREXANT 10 MG TABLET PO PRN (21:09)
[2020-04-25] MEDS: MELATONIN 5 MG TABLETS PO SCH (21:10)
[2020-04-25] MEDS: QUEtiapine FUMARATE 200 MG TABLET PO SCH (21:12)
[2020-04-25] MEDS ORDERED: metroNIDAZOLE 0.75% VAGINAL GEL 70 GM TUBE VG SCH (22:00)
[2020-04-26] MEDS: LACTULOSE 20 GM/30 ML UDC (FOR ORAL USE ONLY) PO SCH ×4 (06:24→21:57)
[2020-04-26] MEDS: hydrOXYzine PAMOATE 25 MG CAPSULE (FP) PO PRN ×3 (06:25→21:57)
[2020-04-26] MEDS: DOLUTEGRAVIR SODIUM 50 MG TABLET (NON-FORMULARY) PO SCH (09:53)
[2020-04-26] MEDS: EMTRICITAB/RILPIVIRI/TENOF ALA (ODEFSEY) TABLET PO SCH (09:53)
[2020-04-26] MEDS: FERROUS SO4 325 MG TABLET (FP) PO SCH (09:53)
[2020-04-26] MEDS: QUEtiapine FUMARATE 200 MG TABLET PO SCH ×2 (09:54→21:58)
[2020-04-26] MEDS: levETIRAcetam 500 MG TABLET (FP) PO SCH ×2 (09:54→21:58)
[2020-04-26] MEDS: DIVALPROEX SODIUM 500 MG TABLET E.C. PO SCH ×2 (09:54→21:58)
[2020-04-26] MEDS: BUPRENORPHINE/NALOXONE 8 MG/2 MG FILM PACKET SL SCH (09:54)
[2020-04-26] MEDS: NICOTINE 7 MG/24 HOURS TOPICAL PATCH TD SCH (09:55)
[2020-04-26] MEDS: ATOVAQUONE 750 MG/5 ML (UNIT-DOSE PACKAGING) PO SCH ×2 (09:55→21:56)
[2020-04-26] MEDS: PRENATAL VITAMINS W/ FOLIC ACID TABLET (FP) PO SCH (09:55)
[2020-04-26] MEDS: FLUTICASONE/SALMETEROL 100 MCG/50 MCG DISKUS IH SCH (09:56)
[2020-04-26] MEDS: CHOLECALCIFEROL (VIT D3) 1,000 UNIT (25 MCG) TABLET PO SCH (09:57)
--- NOTE | 2020-04-26 12:31 | PN ---
[facility] Progress Note Note: Laboratory Tests 04/24/20 04/25/20 04/26/20 16:28 10:50 08:10 Ammonia 101.60 H POC Urine HCG, Qual Negative Valproic Acid 84.4 Vital Signs Temperature 98.9 F 04/26/20 08:45 Pulse Rate 97 H 04/26/20 08:45 Respiratory Rate 18 04/26/20 08:45 Blood Pressure 118/79 04/26/20 08:45 O2 Sat by Pulse Oximetry (%) 100 04/26/20 05:50 Labs reviewed, ammonia 101.60 (elevated), valproic acid level 84.4 (normal). Lactulose increased to 20g QID and ammonia level to be repeated on 04/30/2020.
[2020-04-26] MEDS ORDERED: PT OWN MED DRAWER 7, Y5N ONE (19:29)
[2020-04-26] MEDS: SUVOREXANT 10 MG TABLET PO PRN (21:55)
[2020-04-26] MEDS: THIAMINE HCL 100 MG TABLET (FP) PO SCH (21:57)
[2020-04-26] MEDS: MONTELUKAST NA 10 MG TABLET PO SCH (21:57)
[2020-04-26] MEDS: ATORVASTATIN CA 20 MG TABLET (FP) PO SCH (21:58)
[2020-04-26] MEDS: MELATONIN 5 MG TABLETS PO SCH (21:59)
[2020-04-27] MEDS ORDERED: PT OWN MED DRAWER 7, Y5N ONE ×3 (09:11→21:15)
[2020-04-27] MEDS: MINERAL OIL/PETROLAT/WATER TOPICAL CREAM 113 GM JAR TP PRN (10:06)
[2020-04-27] MEDS: ATOVAQUONE 750 MG/5 ML (UNIT-DOSE PACKAGING) PO SCH ×2 (10:07→21:15)
[2020-04-27] MEDS: FLUTICASONE/SALMETEROL 100 MCG/50 MCG DISKUS IH SCH (10:07)
[2020-04-27] MEDS: DIVALPROEX SODIUM 500 MG TABLET E.C. PO SCH ×2 (10:08→21:11)
[2020-04-27] MEDS: levETIRAcetam 500 MG TABLET (FP) PO SCH ×2 (10:09→21:11)
[2020-04-27] MEDS: QUEtiapine FUMARATE 200 MG TABLET PO SCH ×2 (10:09→21:11)
[2020-04-27] MEDS: EMTRICITAB/RILPIVIRI/TENOF ALA (ODEFSEY) TABLET PO SCH (10:09)
[2020-04-27] MEDS: FERROUS SO4 325 MG TABLET (FP) PO SCH (10:09)
[2020-04-27] MEDS: DOLUTEGRAVIR SODIUM 50 MG TABLET (NON-FORMULARY) PO SCH (10:10)
[2020-04-27] MEDS: CHOLECALCIFEROL (VIT D3) 1,000 UNIT (25 MCG) TABLET PO SCH (10:10)
[2020-04-27] MEDS: BUPRENORPHINE/NALOXONE 8 MG/2 MG FILM PACKET SL SCH (10:11)
[2020-04-27] MEDS: NICOTINE 7 MG/24 HOURS TOPICAL PATCH TD SCH (10:11)
[2020-04-27] MEDS: PRENATAL VITAMINS W/ FOLIC ACID TABLET (FP) PO SCH (10:11)
[2020-04-27] MEDS: LACTULOSE 20 GM/30 ML UDC (FOR ORAL USE ONLY) PO SCH ×4 (10:12→21:14)
[2020-04-27] MEDS: hydrOXYzine PAMOATE 25 MG CAPSULE (FP) PO PRN ×2 (11:01→17:32)
[2020-04-27] MEDS: MAGNESIUM CITRATE 300 ML BOTTLE PO PRN (17:30)
[2020-04-27] MEDS: THIAMINE HCL 100 MG TABLET (FP) PO SCH (21:10)
[2020-04-27] MEDS: MONTELUKAST NA 10 MG TABLET PO SCH (21:11)
[2020-04-27] MEDS: ATORVASTATIN CA 20 MG TABLET (FP) PO SCH (21:11)
[2020-04-27] MEDS: SUVOREXANT 10 MG TABLET PO PRN (21:13)
[2020-04-27] MEDS: MELATONIN 5 MG TABLETS PO SCH (21:14)
[2020-04-28] MEDS: hydrOXYzine PAMOATE 25 MG CAPSULE (FP) PO PRN ×2 (04:26→21:07)
[2020-04-28] MEDS: DIVALPROEX SODIUM 500 MG TABLET E.C. PO SCH ×2 (09:59→21:07)
[2020-04-28] MEDS: QUEtiapine FUMARATE 200 MG TABLET PO SCH ×2 (09:59→21:07)
[2020-04-28] MEDS: levETIRAcetam 500 MG TABLET (FP) PO SCH ×2 (09:59→21:09)
[2020-04-28] MEDS: FERROUS SO4 325 MG TABLET (FP) PO SCH (09:59)
[2020-04-28] MEDS: PRENATAL VITAMINS W/ FOLIC ACID TABLET (FP) PO SCH (10:00)
[2020-04-28] MEDS: EMTRICITAB/RILPIVIRI/TENOF ALA (ODEFSEY) TABLET PO SCH (10:00)
[2020-04-28] MEDS: DOLUTEGRAVIR SODIUM 50 MG TABLET (NON-FORMULARY) PO SCH (10:00)
[2020-04-28] MEDS: NICOTINE 7 MG/24 HOURS TOPICAL PATCH TD SCH (10:01)
[2020-04-28] MEDS: CHOLECALCIFEROL (VIT D3) 1,000 UNIT (25 MCG) TABLET PO SCH (10:01)
[2020-04-28] MEDS: LACTULOSE 20 GM/30 ML UDC (FOR ORAL USE ONLY) PO SCH ×4 (10:01→21:08)
[2020-04-28] MEDS: BUPRENORPHINE/NALOXONE 8 MG/2 MG FILM PACKET SL SCH (10:01)
[2020-04-28] MEDS: ATOVAQUONE 750 MG/5 ML (UNIT-DOSE PACKAGING) PO SCH ×2 (10:01→21:26)
[2020-04-28] MEDS: FLUTICASONE/SALMETEROL 100 MCG/50 MCG DISKUS IH SCH (10:02)
--- NOTE | 2020-04-28 11:17 | PN ---
[facility] Progress Note Note: Psychiatric nurse practitioner note: Belsomra 10mg renewed X3 days. Verbal consent given.
[2020-04-28] MEDS ORDERED: SODIUM PHOSPHATE/NA BIPHOS 133 ML ENEMA RC ONE (20:08)
[2020-04-28] MEDS: THIAMINE HCL 100 MG TABLET (FP) PO SCH (21:06)
[2020-04-28] MEDS: MONTELUKAST NA 10 MG TABLET PO SCH (21:07)
[2020-04-28] MEDS: ATORVASTATIN CA 20 MG TABLET (FP) PO SCH (21:07)
[2020-04-28] MEDS: MELATONIN 5 MG TABLETS PO SCH (21:10)
[2020-04-28] MEDS: POLYETHYLENE GLYCOL 3350 119 GM BTL PO SCH (21:10)
[2020-04-28] MEDS ORDERED: SUVOREXANT 10 MG TABLET PO PRN (22:00)
[2020-04-29] MEDS: hydrOXYzine PAMOATE 25 MG CAPSULE (FP) PO PRN ×2 (05:55→17:47)
[2020-04-29] MEDS: POLYETHYLENE GLYCOL 3350 119 GM BTL PO SCH ×2 (06:00→21:56)
[2020-04-29] MEDS ORDERED: PT OWN MED DRAWER 7, Y5N ONE ×3 (07:59→22:55)
--- NOTE | 2020-04-29 10:22 | PN ---
[facility] Progress Note Note: Pt c/o of constipation and requesting more medication to move. Pt is currently on Lactulose 20 mg po QID and received enema late last night. Pt had also received Citroma and MOM prior to enema. Pt was on Miralax before enema ordered. Denies nausea, vomiting. However, as per nurse's reports and patients account, pt reports no BM during several visits at least 3 x to the bathroom during this shift. pt has been participating in groups today with no difficulty. Vital Signs - 24 hr 04/28/20 04/28/20 04/29/20 13:48 19:45 07:01 Temperature 98.7 F Pulse Rate 95 H Respiratory 16 Rate Blood Pressure 114/80 O2 Sat by Pulse 100 97 97 Oximetry (%) Alert o x 3 nad oob ambulating with steady gait(uses cane) A:??Constipation Reorder Miralax as directed Pt encouraged to increase po fluids May consider KUB if sx continues.
[2020-04-29] MEDS: BUPRENORPHINE/NALOXONE 8 MG/2 MG FILM PACKET SL SCH (10:44)
[2020-04-29] MEDS: FLUTICASONE/SALMETEROL 100 MCG/50 MCG DISKUS IH SCH (10:44)
[2020-04-29] MEDS: ATOVAQUONE 750 MG/5 ML (UNIT-DOSE PACKAGING) PO SCH ×2 (10:45→21:56)
[2020-04-29] MEDS: CHOLECALCIFEROL (VIT D3) 1,000 UNIT (25 MCG) TABLET PO SCH (10:45)
[2020-04-29] MEDS: QUEtiapine FUMARATE 200 MG TABLET PO SCH ×2 (10:45→21:54)
[2020-04-29] MEDS: DIVALPROEX SODIUM 500 MG TABLET E.C. PO SCH ×2 (10:45→21:53)
[2020-04-29] MEDS: FERROUS SO4 325 MG TABLET (FP) PO SCH (10:45)
[2020-04-29] MEDS: LACTULOSE 20 GM/30 ML UDC (FOR ORAL USE ONLY) PO SCH ×4 (10:45→21:55)
[2020-04-29] MEDS: levETIRAcetam 500 MG TABLET (FP) PO SCH ×2 (10:45→21:54)
[2020-04-29] MEDS: PRENATAL VITAMINS W/ FOLIC ACID TABLET (FP) PO SCH (10:46)
[2020-04-29] MEDS: EMTRICITAB/RILPIVIRI/TENOF ALA (ODEFSEY) TABLET PO SCH (10:50)
[2020-04-29] MEDS: NICOTINE 7 MG/24 HOURS TOPICAL PATCH TD SCH (10:50)
[2020-04-29] MEDS: DOLUTEGRAVIR SODIUM 50 MG TABLET (NON-FORMULARY) PO SCH (10:51)
--- NOTE | 2020-04-29 11:20 | PN ---
[facility] Progress Note Note: c/o constipation and requesting medication to move. Pt is currently on Lactulose 20gm QID and received enema over the weekend Vital Signs - 24 hr 04/28/20 04/28/20 04/29/20 13:48 19:45 07:01 Temperature 98.7 F Pulse Rate 95 H Respiratory 16 Rate Blood Pressure 114/80 O2 Sat by Pulse 100 97 97 Oximetry (%)
[2020-04-29] MEDS: SUVOREXANT 10 MG TABLET PO PRN (21:25)
[2020-04-29] MEDS: THIAMINE HCL 100 MG TABLET (FP) PO SCH (21:53)
[2020-04-29] MEDS: MONTELUKAST NA 10 MG TABLET PO SCH (21:54)
[2020-04-29] MEDS: ATORVASTATIN CA 20 MG TABLET (FP) PO SCH (21:54)
[2020-04-29] MEDS: MELATONIN 5 MG TABLETS PO SCH (21:56)
[2020-04-30] MEDS: MINERAL OIL/PETROLAT/WATER TOPICAL CREAM 113 GM JAR TP PRN ×2 (06:36→09:42)
[2020-04-30] MEDS ORDERED: PT OWN MED DRAWER 7, Y5N ONE ×4 (06:37→20:56)
[2020-04-30] MEDS: QUEtiapine FUMARATE 200 MG TABLET PO SCH ×2 (09:43→21:20)
[2020-04-30] MEDS: CHOLECALCIFEROL (VIT D3) 1,000 UNIT (25 MCG) TABLET PO SCH (09:43)
[2020-04-30] MEDS: BUPRENORPHINE/NALOXONE 8 MG/2 MG FILM PACKET SL SCH (09:43)
[2020-04-30] MEDS: levETIRAcetam 500 MG TABLET (FP) PO SCH ×2 (09:43→21:19)
[2020-04-30] MEDS: DIVALPROEX SODIUM 500 MG TABLET E.C. PO SCH ×2 (09:43→21:20)
[2020-04-30] MEDS: FERROUS SO4 325 MG TABLET (FP) PO SCH (09:43)
[2020-04-30] MEDS: PRENATAL VITAMINS W/ FOLIC ACID TABLET (FP) PO SCH (09:43)
[2020-04-30] MEDS: FLUTICASONE/SALMETEROL 100 MCG/50 MCG DISKUS IH SCH (09:43)
[2020-04-30] MEDS: LACTULOSE 20 GM/30 ML UDC (FOR ORAL USE ONLY) PO SCH ×4 (09:43→23:26)
[2020-04-30] MEDS: POLYETHYLENE GLYCOL 3350 119 GM BTL PO SCH ×2 (09:44→23:26)
[2020-04-30] MEDS: hydrOXYzine PAMOATE 25 MG CAPSULE (FP) PO PRN ×2 (09:44→21:20)
[2020-04-30] MEDS: NICOTINE 7 MG/24 HOURS TOPICAL PATCH TD SCH (09:45)
[2020-04-30] MEDS: DOLUTEGRAVIR SODIUM 50 MG TABLET (NON-FORMULARY) PO SCH (09:45)
[2020-04-30] MEDS: EMTRICITAB/RILPIVIRI/TENOF ALA (ODEFSEY) TABLET PO SCH (09:45)
[2020-04-30] MEDS: ATOVAQUONE 750 MG/5 ML (UNIT-DOSE PACKAGING) PO SCH ×2 (10:59→21:24)
[2020-04-30] MEDS ORDERED: COLLOIDAL OATMEAL 1 BAR EACH TP PRN (12:13)
[2020-04-30] MEDS ORDERED: MASKS NR ONE (12:25)
[2020-04-30] MEDS: METHYL SALICYLATE/MENTHOL OINT 30 GM TUBE TP SCH ×2 (14:46→21:23)
[2020-04-30] MEDS: MELATONIN 5 MG TABLETS PO SCH (21:19)
[2020-04-30] MEDS: MONTELUKAST NA 10 MG TABLET PO SCH (21:20)
[2020-04-30] MEDS: ATORVASTATIN CA 20 MG TABLET (FP) PO SCH (21:20)
[2020-04-30] MEDS: THIAMINE HCL 100 MG TABLET (FP) PO SCH (23:27)
[2020-05-01] MEDS: hydrOXYzine PAMOATE 25 MG CAPSULE (FP) PO PRN ×2 (06:29→21:13)
[2020-05-01] MEDS ORDERED: PT OWN MED DRAWER 7, Y5N ONE (08:51)
[2020-05-01] MEDS: DOLUTEGRAVIR SODIUM 50 MG TABLET (NON-FORMULARY) PO SCH (10:22)
[2020-05-01] MEDS: EMTRICITAB/RILPIVIRI/TENOF ALA (ODEFSEY) TABLET PO SCH (10:22)
[2020-05-01] MEDS: ATOVAQUONE 750 MG/5 ML (UNIT-DOSE PACKAGING) PO SCH ×2 (10:22→21:14)
[2020-05-01] MEDS: PRENATAL VITAMINS W/ FOLIC ACID TABLET (FP) PO SCH (10:22)
[2020-05-01] MEDS: METHYL SALICYLATE/MENTHOL OINT 30 GM TUBE TP SCH ×2 (10:23→21:16)
[2020-05-01] MEDS: BUPRENORPHINE/NALOXONE 8 MG/2 MG FILM PACKET SL SCH (10:23)
[2020-05-01] MEDS: NICOTINE 7 MG/24 HOURS TOPICAL PATCH TD SCH (10:23)
[2020-05-01] MEDS: LACTULOSE 20 GM/30 ML UDC (FOR ORAL USE ONLY) PO SCH ×4 (10:23→21:15)
[2020-05-01] MEDS: FLUTICASONE/SALMETEROL 100 MCG/50 MCG DISKUS IH SCH (10:23)
[2020-05-01] MEDS: POLYETHYLENE GLYCOL 3350 119 GM BTL PO SCH ×2 (10:24→21:16)
[2020-05-01] MEDS: QUEtiapine FUMARATE 200 MG TABLET PO SCH ×2 (10:24→21:13)
[2020-05-01] MEDS: DIVALPROEX SODIUM 500 MG TABLET E.C. PO SCH ×2 (10:24→21:13)
[2020-05-01] MEDS: CHOLECALCIFEROL (VIT D3) 1,000 UNIT (25 MCG) TABLET PO SCH (10:24)
[2020-05-01] MEDS: FERROUS SO4 325 MG TABLET (FP) PO SCH (10:24)
[2020-05-01] MEDS: levETIRAcetam 500 MG TABLET (FP) PO SCH ×2 (10:24→21:13)
[2020-05-01] MEDS: THIAMINE HCL 100 MG TABLET (FP) PO SCH (21:13)
[2020-05-01] MEDS: ATORVASTATIN CA 20 MG TABLET (FP) PO SCH (21:13)
[2020-05-01] MEDS: MONTELUKAST NA 10 MG TABLET PO SCH (21:13)
[2020-05-01] MEDS: MELATONIN 5 MG TABLETS PO SCH (21:14)
[2020-05-02] MEDS: levETIRAcetam 500 MG TABLET (FP) PO SCH ×2 (10:11→21:24)
[2020-05-02] MEDS: ATOVAQUONE 750 MG/5 ML (UNIT-DOSE PACKAGING) PO SCH ×2 (10:11→21:24)
[2020-05-02] MEDS: DIVALPROEX SODIUM 500 MG TABLET E.C. PO SCH ×2 (10:11→21:24)
[2020-05-02] MEDS: PRENATAL VITAMINS W/ FOLIC ACID TABLET (FP) PO SCH (10:11)
[2020-05-02] MEDS: FERROUS SO4 325 MG TABLET (FP) PO SCH (10:11)
[2020-05-02] MEDS: CHOLECALCIFEROL (VIT D3) 1,000 UNIT (25 MCG) TABLET PO SCH (10:12)
[2020-05-02] MEDS: EMTRICITAB/RILPIVIRI/TENOF ALA (ODEFSEY) TABLET PO SCH (10:12)
[2020-05-02] MEDS: QUEtiapine FUMARATE 200 MG TABLET PO SCH ×2 (10:12→21:24)
[2020-05-02] MEDS: BUPRENORPHINE/NALOXONE 8 MG/2 MG FILM PACKET SL SCH (10:13)
[2020-05-02] MEDS: NICOTINE 7 MG/24 HOURS TOPICAL PATCH TD SCH (10:13)
[2020-05-02] MEDS: FLUTICASONE/SALMETEROL 100 MCG/50 MCG DISKUS IH SCH (10:13)
[2020-05-02] MEDS: DOLUTEGRAVIR SODIUM 50 MG TABLET (NON-FORMULARY) PO SCH (10:13)
[2020-05-02] MEDS: METHYL SALICYLATE/MENTHOL OINT 30 GM TUBE TP SCH ×2 (10:13→21:26)
[2020-05-02] MEDS: LACTULOSE 20 GM/30 ML UDC (FOR ORAL USE ONLY) PO SCH ×4 (10:14→21:26)
[2020-05-02] MEDS: POLYETHYLENE GLYCOL 3350 119 GM BTL PO SCH ×2 (10:15→21:26)
[2020-05-02] MEDS: MONTELUKAST NA 10 MG TABLET PO SCH (21:24)
[2020-05-02] MEDS: THIAMINE HCL 100 MG TABLET (FP) PO SCH (21:24)
[2020-05-02] MEDS: ATORVASTATIN CA 20 MG TABLET (FP) PO SCH (21:24)
[2020-05-02] MEDS: MELATONIN 5 MG TABLETS PO SCH (21:25)
[2020-05-02] MEDS: SUVOREXANT 10 MG TABLET PO PRN (21:27)
[2020-05-02] MEDS: hydrOXYzine PAMOATE 25 MG CAPSULE (FP) PO PRN (21:28)
[2020-05-03] MEDS ORDERED: PT OWN MED DRAWER 7, Y5N ONE ×2 (01:43→10:28)
[2020-05-03] MEDS: POLYETHYLENE GLYCOL 3350 119 GM BTL PO SCH ×2 (10:11→21:25)
[2020-05-03] MEDS: ATOVAQUONE 750 MG/5 ML (UNIT-DOSE PACKAGING) PO SCH ×2 (10:13→21:25)
[2020-05-03] MEDS: levETIRAcetam 500 MG TABLET (FP) PO SCH ×2 (10:13→21:21)
[2020-05-03] MEDS: LACTULOSE 20 GM/30 ML UDC (FOR ORAL USE ONLY) PO SCH ×4 (10:13→21:23)
[2020-05-03] MEDS: PRENATAL VITAMINS W/ FOLIC ACID TABLET (FP) PO SCH (10:13)
[2020-05-03] MEDS: QUEtiapine FUMARATE 200 MG TABLET PO SCH ×2 (10:14→21:21)
[2020-05-03] MEDS: FERROUS SO4 325 MG TABLET (FP) PO SCH (10:14)
[2020-05-03] MEDS: DIVALPROEX SODIUM 500 MG TABLET E.C. PO SCH ×2 (10:14→21:22)
[2020-05-03] MEDS: CHOLECALCIFEROL (VIT D3) 1,000 UNIT (25 MCG) TABLET PO SCH (10:15)
[2020-05-03] MEDS: DOLUTEGRAVIR SODIUM 50 MG TABLET (NON-FORMULARY) PO SCH (10:15)
[2020-05-03] MEDS: EMTRICITAB/RILPIVIRI/TENOF ALA (ODEFSEY) TABLET PO SCH (10:15)
[2020-05-03] MEDS: NICOTINE 7 MG/24 HOURS TOPICAL PATCH TD SCH (10:15)
[2020-05-03] MEDS: BUPRENORPHINE/NALOXONE 8 MG/2 MG FILM PACKET SL SCH (10:16)
[2020-05-03] MEDS: FLUTICASONE/SALMETEROL 100 MCG/50 MCG DISKUS IH SCH (10:16)
[2020-05-03] MEDS: METHYL SALICYLATE/MENTHOL OINT 30 GM TUBE TP SCH ×2 (10:17→21:23)
[2020-05-03] MEDS: THIAMINE HCL 100 MG TABLET (FP) PO SCH (21:21)
[2020-05-03] MEDS: MONTELUKAST NA 10 MG TABLET PO SCH (21:22)
[2020-05-03] MEDS: ATORVASTATIN CA 20 MG TABLET (FP) PO SCH (21:22)
[2020-05-03] MEDS: SUVOREXANT 10 MG TABLET PO PRN (21:23)
[2020-05-03] MEDS: MELATONIN 5 MG TABLETS PO SCH (21:24)
[2020-05-04] MEDS: hydrOXYzine PAMOATE 25 MG CAPSULE (FP) PO PRN ×2 (03:11→22:02)
[2020-05-04] MEDS: FLUTICASONE/SALMETEROL 100 MCG/50 MCG DISKUS IH SCH (10:42)
[2020-05-04] MEDS: METHYL SALICYLATE/MENTHOL OINT 30 GM TUBE TP SCH ×2 (10:43→22:09)
[2020-05-04] MEDS: PRENATAL VITAMINS W/ FOLIC ACID TABLET (FP) PO SCH (10:44)
[2020-05-04] MEDS: FERROUS SO4 325 MG TABLET (FP) PO SCH (10:44)
[2020-05-04] MEDS: QUEtiapine FUMARATE 200 MG TABLET PO SCH ×2 (10:44→22:00)
[2020-05-04] MEDS: DIVALPROEX SODIUM 500 MG TABLET E.C. PO SCH ×2 (10:44→22:00)
[2020-05-04] MEDS: NICOTINE 7 MG/24 HOURS TOPICAL PATCH TD SCH (10:45)
[2020-05-04] MEDS: EMTRICITAB/RILPIVIRI/TENOF ALA (ODEFSEY) TABLET PO SCH (10:45)
[2020-05-04] MEDS: POLYETHYLENE GLYCOL 3350 119 GM BTL PO SCH ×2 (10:46→22:02)
[2020-05-04] MEDS: LACTULOSE 20 GM/30 ML UDC (FOR ORAL USE ONLY) PO SCH ×4 (10:47→21:59)
[2020-05-04] MEDS: levETIRAcetam 500 MG TABLET (FP) PO SCH ×2 (10:47→21:59)
[2020-05-04] MEDS: ATOVAQUONE 750 MG/5 ML (UNIT-DOSE PACKAGING) PO SCH ×2 (10:47→22:04)
[2020-05-04] MEDS: CHOLECALCIFEROL (VIT D3) 1,000 UNIT (25 MCG) TABLET PO SCH (10:48)
[2020-05-04] MEDS: MINERAL OIL/PETROLAT/WATER TOPICAL CREAM 113 GM JAR TP PRN (10:49)
[2020-05-04] MEDS: BUPRENORPHINE/NALOXONE 8 MG/2 MG FILM PACKET SL SCH (10:53)
[2020-05-04] MEDS: DOLUTEGRAVIR SODIUM 50 MG TABLET (NON-FORMULARY) PO SCH (10:53)
[2020-05-04] MEDS: MAGNESIUM CITRATE 300 ML BOTTLE PO PRN (17:37)
[2020-05-04] MEDS ORDERED: SODIUM PHOSPHATE/NA BIPHOS 133 ML ENEMA PR ONE (19:43)
--- NOTE | 2020-05-04 19:51 | PN ---
[facility] Progress Note Note: Patient is referred for distended abdomen. As per patient, this is a chronic problem which started with suboxone use. She reports increased flatulence, denies N/V. She reports scant bowel movement today PE Abdomen- Distended, hypoactive bowel sounds BS, mild tenderness A/P OIC-Fleet enema x 1, senna t tabs HS, monitoring ongoing Flatulence-Simethicone TID
[2020-05-04] MEDS ORDERED: PT OWN MED DRAWER 7, Y5N ONE ×3 (20:55→22:08)
[2020-05-04] MEDS: SUVOREXANT 10 MG TABLET PO PRN (21:59)
[2020-05-04] MEDS: SENNOSIDES 8.6MG TABLET (FP) PO SCH (21:59)
[2020-05-04] MEDS: ATORVASTATIN CA 20 MG TABLET (FP) PO SCH (22:00)
[2020-05-04] MEDS: MELATONIN 5 MG TABLETS PO SCH (22:00)
[2020-05-04] MEDS: MONTELUKAST NA 10 MG TABLET PO SCH (22:00)
[2020-05-04] MEDS: THIAMINE HCL 100 MG TABLET (FP) PO SCH (22:01)
[2020-05-05] MEDS: FLUTICASONE/SALMETEROL 100 MCG/50 MCG DISKUS IH SCH (10:24)
[2020-05-05] MEDS: METHYL SALICYLATE/MENTHOL OINT 30 GM TUBE TP SCH ×2 (10:24→21:55)
[2020-05-05] MEDS: FERROUS SO4 325 MG TABLET (FP) PO SCH (10:25)
[2020-05-05] MEDS: DIVALPROEX SODIUM 500 MG TABLET E.C. PO SCH ×2 (10:25→21:54)
[2020-05-05] MEDS: LACTULOSE 20 GM/30 ML UDC (FOR ORAL USE ONLY) PO SCH ×4 (10:25→21:55)
[2020-05-05] MEDS: levETIRAcetam 500 MG TABLET (FP) PO SCH ×2 (10:26→21:54)
[2020-05-05] MEDS: ATOVAQUONE 750 MG/5 ML (UNIT-DOSE PACKAGING) PO SCH ×2 (10:26→21:55)
[2020-05-05] MEDS: POLYETHYLENE GLYCOL 3350 119 GM BTL PO SCH ×2 (10:27→21:54)
[2020-05-05] MEDS: NICOTINE 7 MG/24 HOURS TOPICAL PATCH TD SCH (10:30)
[2020-05-05] MEDS: PRENATAL VITAMINS W/ FOLIC ACID TABLET (FP) PO SCH (10:30)
[2020-05-05] MEDS: EMTRICITAB/RILPIVIRI/TENOF ALA (ODEFSEY) TABLET PO SCH (10:30)
[2020-05-05] MEDS: DOLUTEGRAVIR SODIUM 50 MG TABLET (NON-FORMULARY) PO SCH (10:31)
[2020-05-05] MEDS: QUEtiapine FUMARATE 200 MG TABLET PO SCH ×2 (10:31→21:53)
[2020-05-05] MEDS: BUPRENORPHINE/NALOXONE 8 MG/2 MG FILM PACKET SL SCH (10:32)
[2020-05-05] MEDS: CHOLECALCIFEROL (VIT D3) 1,000 UNIT (25 MCG) TABLET PO SCH (10:32)
[2020-05-05] MEDS: MINERAL OIL/PETROLAT/WATER TOPICAL CREAM 113 GM JAR TP PRN (10:33)
[2020-05-05] MEDS ORDERED: PT OWN MED DRAWER 7, Y5N ONE ×3 (10:41→22:00)
[2020-05-05] MEDS: hydrOXYzine PAMOATE 25 MG CAPSULE (FP) PO PRN ×2 (13:46→21:53)
[2020-05-05] MEDS: SIMETHICONE 80 MG TAB.CHEW (FP) PO SCH ×2 (13:47→21:53)
[2020-05-05] MEDS: MONTELUKAST NA 10 MG TABLET PO SCH (21:53)
[2020-05-05] MEDS: ATORVASTATIN CA 20 MG TABLET (FP) PO SCH (21:53)
[2020-05-05] MEDS: SENNOSIDES 8.6MG TABLET (FP) PO SCH (21:53)
[2020-05-05] MEDS: THIAMINE HCL 100 MG TABLET (FP) PO SCH (21:54)
[2020-05-05] MEDS: MELATONIN 5 MG TABLETS PO SCH (21:55)
[2020-05-05] MEDS ORDERED: SUVOREXANT 10 MG TABLET PO PRN (22:00)
[2020-05-06] MEDS: SIMETHICONE 80 MG TAB.CHEW (FP) PO SCH ×3 (06:33→21:42)
[2020-05-06] MEDS: hydrOXYzine PAMOATE 25 MG CAPSULE (FP) PO PRN ×2 (06:33→21:42)
[2020-05-06] MEDS: POLYETHYLENE GLYCOL 3350 119 GM BTL PO SCH ×2 (10:34→21:46)
[2020-05-06] MEDS: LACTULOSE 20 GM/30 ML UDC (FOR ORAL USE ONLY) PO SCH ×4 (10:34→21:44)
[2020-05-06] MEDS: METHYL SALICYLATE/MENTHOL OINT 30 GM TUBE TP SCH ×2 (10:34→21:44)
[2020-05-06] MEDS: FERROUS SO4 325 MG TABLET (FP) PO SCH (10:35)
[2020-05-06] MEDS: levETIRAcetam 500 MG TABLET (FP) PO SCH ×2 (10:36→21:43)
[2020-05-06] MEDS: DIVALPROEX SODIUM 500 MG TABLET E.C. PO SCH ×2 (10:36→21:42)
[2020-05-06] MEDS: QUEtiapine FUMARATE 200 MG TABLET PO SCH ×2 (10:36→21:42)
[2020-05-06] MEDS: ATOVAQUONE 750 MG/5 ML (UNIT-DOSE PACKAGING) PO SCH ×2 (10:36→21:45)
[2020-05-06] MEDS: DOLUTEGRAVIR SODIUM 50 MG TABLET (NON-FORMULARY) PO SCH (10:37)
[2020-05-06] MEDS: CHOLECALCIFEROL (VIT D3) 1,000 UNIT (25 MCG) TABLET PO SCH (10:37)
[2020-05-06] MEDS: NICOTINE 7 MG/24 HOURS TOPICAL PATCH TD SCH (10:38)
[2020-05-06] MEDS: FLUTICASONE/SALMETEROL 100 MCG/50 MCG DISKUS IH SCH (10:38)
[2020-05-06] MEDS: EMTRICITAB/RILPIVIRI/TENOF ALA (ODEFSEY) TABLET PO SCH (10:38)
[2020-05-06] MEDS: BUPRENORPHINE/NALOXONE 8 MG/2 MG FILM PACKET SL SCH (10:38)
[2020-05-06] MEDS: PRENATAL VITAMINS W/ FOLIC ACID TABLET (FP) PO SCH (10:38)
[2020-05-06] MEDS: THIAMINE HCL 100 MG TABLET (FP) PO SCH (21:41)
[2020-05-06] MEDS: ATORVASTATIN CA 20 MG TABLET (FP) PO SCH (21:42)
[2020-05-06] MEDS: SENNOSIDES 8.6MG TABLET (FP) PO SCH (21:42)
[2020-05-06] MEDS: MONTELUKAST NA 10 MG TABLET PO SCH (21:42)
[2020-05-06] MEDS: MELATONIN 5 MG TABLETS PO SCH (21:45)
[2020-05-07] MEDS: SIMETHICONE 80 MG TAB.CHEW (FP) PO SCH ×3 (07:10→21:25)
[2020-05-07] MEDS: LACTULOSE 20 GM/30 ML UDC (FOR ORAL USE ONLY) PO SCH ×4 (10:28→21:27)
[2020-05-07] MEDS: POLYETHYLENE GLYCOL 3350 119 GM BTL PO SCH ×2 (10:29→21:29)
[2020-05-07] MEDS: BUPRENORPHINE/NALOXONE 8 MG/2 MG FILM PACKET SL SCH (10:30)
[2020-05-07] MEDS: ATOVAQUONE 750 MG/5 ML (UNIT-DOSE PACKAGING) PO SCH ×2 (10:30→21:27)
[2020-05-07] MEDS: QUEtiapine FUMARATE 200 MG TABLET PO SCH ×2 (10:31→21:24)
[2020-05-07] MEDS: FERROUS SO4 325 MG TABLET (FP) PO SCH (10:31)
[2020-05-07] MEDS: levETIRAcetam 500 MG TABLET (FP) PO SCH ×2 (10:31→21:24)
[2020-05-07] MEDS: DIVALPROEX SODIUM 500 MG TABLET E.C. PO SCH ×2 (10:31→21:24)
[2020-05-07] MEDS: METHYL SALICYLATE/MENTHOL OINT 30 GM TUBE TP SCH ×2 (10:32→21:28)
[2020-05-07] MEDS: CHOLECALCIFEROL (VIT D3) 1,000 UNIT (25 MCG) TABLET PO SCH (10:32)
[2020-05-07] MEDS: NICOTINE 7 MG/24 HOURS TOPICAL PATCH TD SCH (10:32)
[2020-05-07] MEDS: FLUTICASONE/SALMETEROL 100 MCG/50 MCG DISKUS IH SCH (10:32)
[2020-05-07] MEDS: PRENATAL VITAMINS W/ FOLIC ACID TABLET (FP) PO SCH (10:32)
[2020-05-07] MEDS: EMTRICITAB/RILPIVIRI/TENOF ALA (ODEFSEY) TABLET PO SCH (10:34)
[2020-05-07] MEDS: DOLUTEGRAVIR SODIUM 50 MG TABLET (NON-FORMULARY) PO SCH (10:34)
[2020-05-07] MEDS ORDERED: PT OWN MED DRAWER 7, Y5N ONE (10:34)
[2020-05-07] MEDS: SENNOSIDES 8.6MG TABLET (FP) PO SCH (21:24)
[2020-05-07] MEDS: THIAMINE HCL 100 MG TABLET (FP) PO SCH (21:24)
[2020-05-07] MEDS: hydrOXYzine PAMOATE 25 MG CAPSULE (FP) PO PRN (21:25)
[2020-05-07] MEDS: MONTELUKAST NA 10 MG TABLET PO SCH (21:25)
[2020-05-07] MEDS: ATORVASTATIN CA 20 MG TABLET (FP) PO SCH (21:25)
[2020-05-07] MEDS: MELATONIN 5 MG TABLETS PO SCH (21:28)
[2020-05-08] MEDS: SIMETHICONE 80 MG TAB.CHEW (FP) PO SCH (06:30)
[2020-05-08 07:15] VITALS: TEMP 97.1
[2020-05-08] MEDS ORDERED: PT OWN MED DRAWER 7, Y5N ONE (08:27)
[2020-05-08] MEDS: FLUTICASONE/SALMETEROL 100 MCG/50 MCG DISKUS IH SCH (09:07)
[2020-05-08] MEDS: EMTRICITAB/RILPIVIRI/TENOF ALA (ODEFSEY) TABLET PO SCH (09:07)
[2020-05-08] MEDS: PRENATAL VITAMINS W/ FOLIC ACID TABLET (FP) PO SCH (09:07)
[2020-05-08] MEDS: DIVALPROEX SODIUM 500 MG TABLET E.C. PO SCH (09:07)
[2020-05-08] MEDS: ATOVAQUONE 750 MG/5 ML (UNIT-DOSE PACKAGING) PO SCH (09:07)
[2020-05-08] MEDS: DOLUTEGRAVIR SODIUM 50 MG TABLET (NON-FORMULARY) PO SCH (09:07)
[2020-05-08] MEDS: levETIRAcetam 500 MG TABLET (FP) PO SCH (09:07)
[2020-05-08] MEDS: NICOTINE 7 MG/24 HOURS TOPICAL PATCH TD SCH (09:08)
[2020-05-08] MEDS: CHOLECALCIFEROL (VIT D3) 1,000 UNIT (25 MCG) TABLET PO SCH (09:08)
[2020-05-08] MEDS: QUEtiapine FUMARATE 200 MG TABLET PO SCH (09:08)
--- NOTE | 2020-05-08 09:09 | DS ---
[facility] Rehab Discharge Summary - [facility] Rehab Discharge Summary Admission Date: 04/24/20 Discharge Date: 05/08/20 - History Present History: Alcohol dependence, Cocaine dependence, Opioid dependence, Sedative dependence Pertinent Past History: Seizure Disorder HIV+ HTN GERD Anemia Hx Close/Blunt Head Injury HLD [place] pasy Hx Uterine Fibroid - Discharge Physical Exam Vital Signs: Vital Signs Temperature 97.1 F L 05/08/20 07:14 Pulse Rate 91 H 05/08/20 07:14 Respiratory Rate 16 05/08/20 07:14 Blood Pressure 134/94 05/08/20 07:14 O2 Sat by Pulse Oximetry (%) 100 05/08/20 07:14 General:WDWN female, Alert o x 3, nad,denies s/h/i cardiac:s1 s2, rrr lungs:ctab abdomen:soft,+bs,nd,nt-bm normalized since a few days before d/c today. MSK:Active FROM,all limbs; oob ambulating with steady gait; non-pitting agatha. edema. Skin:skin intact; old healed skin rash scars on LEs. Pertinent Admission Physical Exam Findings: Laboratory Tests 04/24/20 04/25/20 04/25/20 16:28 10:50 10:50 Ammonia POC Urine HCG, Qual Negative Valproic Acid 84.4 Levetiracetam 21.8 04/26/20 04/30/20 08:10 08:00 Ammonia 101.60 H 99.60 H POC Urine HCG, Qual Valproic Acid Levetiracetam - Treatment Discharge Condition: Discharge condition good, Rehabilitated safely, Responded well, Outpatient referral accepted Hospital Course: Pt is a 49 y/o female with a hx of VELASQUEZ-opiates, cocaine,alcohol and on Suboxone 8 mg/2mg sl 3 films daily with [facility] who was admitted to [facility] [address] from [address] [place] [address] on 04/19/20. Pt had episodes of breakthrough seizures of which he was transferred to [facility] ER/medical unit for evaluation and treatment twice, last was on 04/21/20 to 04/24/20. Pt returned to continue rehab on 04/24/20 on [address]. Patient participated in unit activities, completing rehab and discharged today to follow up with CD aftercare at [facility] as per her counselor Ms Flaco Olivera. This group underwriter spoke to nurse Molly at [facility] who reported that patient has appointment set up with her primary care on 05/09/20. At this time she states Dr. Andrez Chacon will order her suboxone. Pt was dosed here today before discharge with above suboxone dose. - Medication Discharge Medications: Ambulatory Orders Atorvastatin Ca [Lipitor] 20 mg PO HS 04/15/20 Atovaquone [Mepron Oral Solution -] 750 mg PO BID 04/15/20 Buprenorphine/Naloxone [Suboxone 8Mg/2Mg Sl Film -] 3 each SL DAILY 04/15/20 Cholecalciferol (Vitamin D3) [Vitamin D3] 1,000 unit PO DAILY 04/15/20 Clonidine HCl [Clonidine HCl ER] 0.1 mg PO DAILY 04/15/20 Dolutegravir Sodium [Tivicay] 50 mg PO DAILY 04/15/20 Emtricitab/Rilpiviri/Tenof Ala [Odefsey Tablet] 1 each PO DAILY 04/15/20 Ferrous Sulfate 325 mg PO DAILY 04/15/20 Fluticasone Propion/Salmeterol [Wixela 100-50 Inhub] 1 each IH DAILY 04/15/20 Montelukast Na [Singulair -] 10 mg PO HS 04/15/20 Acetaminophen 325 mg PO PRN 04/16/20 Guaifenesin [Robafen] 100 mg PO PRN 04/16/20 Ibuprofen 400 mg PO PRN 04/16/20 Nicotine Patch [Nicoderm Patch -] 21 mg TD DAILY 04/16/20 Nicotine Polacrilex [Nicotine Gum] 2 mg PO PRN 04/16/20 Pyrimethamine [Pyrimethamine and Leucovorin 75 MG/25 MG] 1 cap PO WEEKLY #8 cap 04/17/20 Buspirone HCl [Buspar -] 30 mg PO BID #120 tablet 05/08/20 Divalproex [Depakote -] 1,000 mg PO BID #28 tablet.ec MDD 4 05/08/20 Lactulose 10 gm PO TID PRN #1 bottle 05/08/20 Quetiapine Fumarate [Quetiapine Fumarate ER] 200 mg PO BID #60 tab.sr 05/08/20 levETIRAcetam [Keppra -] 1,500 mg PO BID #42 tablet MDD 6 05/08/20 - Medication-Assisted Treatment (MAT) Medication-Assisted Treatment (MAT): Yes Medication Prescribed: Suboxone MAT Follow-up Referral: [facility] [address] [place] [address] - Discharge Instructions Diet, activity, other medical instructions: Diet:NURIA Activity: oob ad lulu Other medical instructions:follow up with CD aftercare @ [facility] follow up with your primary care provider Dr. Andrez Chacon @ [facility] on 05/09/20 as scheduled. - Diagnosis (1) Hyperammonemia Status: Acute (2) Alcohol dependence, uncomplicated Status: Chronic (3) Breakthrough seizure Status: Acute (4) Cocaine dependence Status: Chronic Qualifiers: Substance use status: uncomplicated Qualified Code(s): F14.20 - Cocaine dependence, uncomplicated (5) GERD (gastroesophageal reflux disease) Status: Chronic Qualifiers: Esophagitis presence: without esophagitis Qualified Code(s): K21.9 - Gastro-esophageal reflux disease without esophagitis (6) HIV disease Status: Chronic (7) HTN (hypertension) Status: Chronic Qualifiers: Hypertension type: essential hypertension Qualified Code(s): I10 - Essential (primary) hypertension (8) Hyperlipidemia Status: Chronic Qualifiers: Hyperlipidemia type: pure hypercholesterolemia Qualified Code(s): E78.00 - Pure hypercholesterolemia, unspecified; E78.0 - Pure hypercholesterolemia (9) Nicotine dependence Status: Chronic (10) Seizure disorder Status: Chronic (11) Anemia Status: Chronic (12) History of uterine fibroid Status: Chronic (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
[2020-05-08 09:12] VITALS: BP 106/75; PULSE 94
[2020-05-08] MEDS ORDERED: BUPRENORPHINE/NALOXONE 8 MG/2 MG FILM PACKET SL ONE (09:15)
[2020-05-08] MEDS: POLYETHYLENE GLYCOL 3350 119 GM BTL PO SCH (09:16)
[2020-05-08] MEDS: METHYL SALICYLATE/MENTHOL OINT 30 GM TUBE TP SCH (09:16)
[2020-05-08] MEDS: FERROUS SO4 325 MG TABLET (FP) PO SCH (09:16)
[2020-05-08] MEDS: LACTULOSE 20 GM/30 ML UDC (FOR ORAL USE ONLY) PO SCH (09:16)
== END 2020-05-08 09:36 | disposition home or self-care (01) | DRG 772 ==
LOC: YASAS 14:01 → Y3E 18:02
PROVIDERS: ADMIT Allergy & Immunology; ATTEND Allergy & Immunology
PROC: HZ42ZZZ Group Counseling for Substance Abuse Treatment, Cognitive-Behavioral (ICD-10-PCS; principal; 2020-04-24)
DX: F10.20 Alcohol dependence, uncomplicated (principal); F11.20 Opioid dependence, uncomplicated; F14.20 Cocaine dependence, uncomplicated; F13.20 Sedative, hypnotic or anxiolytic dependence, uncomplicated; F12.20 Cannabis dependence, uncomplicated; F17.210 Nicotine dependence, cigarettes, uncomplicated; F31.81 Bipolar II disorder; F19.282 Other psychoactive substance dependence with psychoactive substance-induced sleep disorder; B20 Human immunodeficiency virus [HIV] disease; D64.9 Anemia, unspecified; G40.909 Epilepsy, unspecified, not intractable, without status epilepticus; E78.5 Hyperlipidemia, unspecified; I10 Essential (primary) hypertension; B37.3 Candidiasis of vulva and vagina; K59.00 Constipation, unspecified; D25.9 Leiomyoma of uterus, unspecified; M19.90 Unspecified osteoarthritis, unspecified site; R14.3 Flatulence; R60.0 Localized edema; Z62.810 Personal history of physical and sexual abuse in childhood; Z91.410 Personal history of adult physical and sexual abuse; Z86.69 Personal history of other diseases of the nervous system and sense organs; Z86.2 Personal history of diseases of the blood and blood-forming organs and certain disorders involving the immune mechanism; Z88.8 Allergy status to other drugs, medicaments and biological substances; Z56.0 Unemployment, unspecified
CPT/HCPCS: 36415; 80164; 80177; 81025; 82140; 87086